=== PATIENT | female | born 1965 | race Caucasian/White ===

== ENCOUNTER → 2017-02-07 | Outpatient (REF) | payer MEDICARE, MEDICAID ==
[~2017-02-07] MED LIST: ATOR1TAB18 PO; ATRIPLA PO; BUPR10TASR PO; CALC600T7 PO; CYMB1CAP4 PO; HYDR-4274 PO; LEVE500T64 PO; LYRI75CA PO; MULTTAB12 PO; NYST5000 PO; OMEP40CA2 PO; OXYC1TAB23 PO; OXYC20TA21 PO; TRIA1CR TOP; VALT1TAB PO; ZALE10CA PO
[2017-02-07 14:24] LABS: ALBUMIN 3.7 GM/DL (3.2-5.2); ALBUMIN/GLOBULIN RATIO 1.03 (1.00-1.93); ALKALINE PHOSPHATASE 102 U/L (45-117); ALT/SGPT 23 U/L (12-78); ANION GAP 4 MEQ/L (8-16); AST/SGOT 15 U/L (15-37); BILIRUBIN,TOTAL 0.3 MG/DL (0.2-1.0); BLOOD UREA NITROGEN 10 MG/DL (7-18); CALCIUM LEVEL 9.6 MG/DL (8.5-10.1); CARBON DIOXIDE LEVEL 30 MEQ/L (21-32); CHLORIDE LEVEL 106 MEQ/L (98-107); CREATININE FOR GFR 0.84 MG/DL (0.55-1.02); GLOMERULAR FILTRATION RATE > 60.0 (>51); GLUCOSE, FASTING 89 MG/DL (70-105); POTASSIUM SERUM 4.1 MEQ/L (3.5-5.1); SODIUM LEVEL 140 MEQ/L (136-145); TOTAL PROTEIN 7.3 GM/DL (6.4-8.2)
[2017-02-17 14:16] LABS: %CD3+CD4+CD8+ 1.6 % (Not Estab.); %CD3+CD4+CD8- 36.5 % (Not Estab.); %CD3+CD4-CD8+ 47.6 % (Not Estab.); %CD3+CD4-CD8- 0.3 % (Not Estab.); ABS CD3+CD4+CD8+ 53 /uL (Not Estab.); ABS CD3+CD4+CD8- 1205 /uL (Not Estab.); ABS CD3+CD4-CD8+ 1571 /uL (Not Estab.); ABS CD3+CD4-CD8- 10 /uL (Not Estab.); CD4/CD8 NYSDOH RATIO 0.77 (Not Estab.); Eosinophils 2 % (.); HCT 38.9 % (34.0-46.6); HGB 13.2 g/dL (11.1-15.9); HLA B5701-1 Negative (.); Monocytes 5 % (.); Neutrophils 61 % (.); WBC 10.5 x10E3/uL (3.4-10.8)
== END ==
LOC: M SFHCPLAZ 10:21
PROVIDERS: ATTEND Internal Medicine Infectious Disease
DX: B20 Human immunodeficiency virus [HIV] disease (principal); Z79.899 Other long term (current) drug therapy
CPT/HCPCS: 36415; 80053; 81001; 81381; 82948; 86360; 86780; 87491; 87536; 87591; 90471; 90732; G0463

== ENCOUNTER 2017-06-24 08:00 | Emergency (ER) | payer MEDICARE, MEDICAID ==
[~2017-06-24] VITALS: Ht 162.6 cm; Wt 85.9 kg
[~2017-06-24 08:00] MED LIST changes: -ATOR1TAB18 PO; +ATOR80TA59 PO; -HYDR-4274 PO; +HYDR50TA70 PO; -OXYC20TA21 PO; +OXYC20TA40 PO
[2017-06-24 08:03] VITALS: BP 127/65
[2017-06-24] MEDS ORDERED: ENDO7.5T11 PO (08:10)
[2017-06-24] MEDS ORDERED: PATA0.2S OP (08:34)
[2017-06-24] MEDS ORDERED: ZYRT10CA PO (08:34)
== END 2017-06-24 08:44 | disposition home or self-care (01) ==
LOC: M ED 08:00
DX: H10.13 Acute atopic conjunctivitis, bilateral (principal); F41.9 Anxiety disorder, unspecified; F33.8 Other recurrent depressive disorders; Z21 Asymptomatic human immunodeficiency virus [HIV] infection status; Z88.0 Allergy status to penicillin; Z88.8 Allergy status to other drugs, medicaments and biological substances; Z88.5 Allergy status to narcotic agent; Z79.899 Other long term (current) drug therapy

== ENCOUNTER → 2017-07-14 | Outpatient (REF) | payer MEDICARE, MEDICAID, OTHER ==
[~2017-07-14] MED LIST changes: +ENDO7.5T11 PO; +PATA0.2S OP; +ZYRT10CA PO
== END ==
LOC: M SFHCWAGY 13:49
PROVIDERS: ATTEND Family Medicine
DX: R87.610 Atypical squamous cells of undetermined significance on cytologic smear of cervix (ASC-US) (principal); E66.9 Obesity, unspecified
CPT/HCPCS: 87624; G0123

== ENCOUNTER → 2017-07-14 | Outpatient (CLI) | payer MEDICARE, MEDICAID ==
--- NOTE | 2017-07-14 16:10 | REPMRS ---
Patient History The patient states she has not had a clinical breast exam in over a year. Patient is postmenopausal. Family history of prostate cancer in father at age 50 or over and unknown cancer in paternal aunt. 9 benign stereotactic core biopsies of the left breast, May 15, 2006. Digital Woman Screen Mammo: July 14, 2017 - Exam #: [id number] Bilateral CC and MLO view(s) were taken. Technologist: Ivory Ferrera, Technologist Prior study comparison: June 05, 2015, digital woman screen mammo performed at [facility]. August 04, 2011, bilateral digital mammo screening bilat, performed at [facility]. FINDINGS: There are scattered fibroglandular densities. There has been no change in the appearance of the mammogram from the prior studies. There is a mild amount of residual fibroglandular tissue which is fairly symmetric. There is no interval development of dominant mass, architectural distortion, or clustered microcalcification suggestive of malignancy. ASSESSMENT: BI-RADS/ACR category 1 mammogram. Negative. Recommendation Routine screening mammogram in 1 year (for women over age 40). This mammogram was interpreted with the aid of an FDA-approved computer-aided dectection system. Electronically Signed By: Yvon Ching MD 07/14/17 8226
== END ==
LOC: M WHC 13:23
PROVIDERS: ATTEND Family Medicine
DX: Z12.31 Encounter for screening mammogram for malignant neoplasm of breast (principal); Z78.0 Asymptomatic menopausal state; Z12.4 Encounter for screening for malignant neoplasm of cervix; R87.610 Atypical squamous cells of undetermined significance on cytologic smear of cervix (ASC-US); E66.9 Obesity, unspecified; Z92.89 Personal history of other medical treatment
CPT/HCPCS: 87624; G0101; G0123; G0202

== ENCOUNTER → 2017-08-18 | Outpatient (CLI) | payer OTHER, MEDICARE, MEDICAID ==
--- NOTE | 2017-09-07 01:02 | ECWPNPC ---
PATIENT NAME: CYNTHIA JOSHI : 1965 GENDER: FEMALE VISIT DATE: 08/18/2017 DISCHARGE DATE: 08/18/17 1241 VISIT LOCKED DATE TIME: PHYSICIAN: TREVA NAPOLES RESOURCE: TREVA NAPOLES REASON FOR APPOINTMENT 1. 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 WHEN DID YOUR PAIN FIRST START? . BRIEFLY DESCRIBE HOW YOUR PAIN STARTED? . HOW DOES YOUR PAIN CHANGE WITH TIME? . DOES YOUR PAIN AWAKEN YOU FROM SLEEP? . HOW MANY HOURS OF SLEEP DO YOU NORMALLY GET? . ANY DIAGNOSTIC TESTING? . FACILITY WHERE TESTS WERE DONE? ____. PAIN TREATMENT TREATMENT YES CANCER HAVE YOU EVER HAD ANY TYPE OF CANCER?NO NO. PAIN SCREENING: PATIENT HAS A COMPLAINT OF ACUTE OR CHRONIC PAIN :YES FALL RISK SCREENING: SCREENING :NO FALLS IN THE PAST YEAR SMITH INVENTORY: QUESTIONNAIRE ASSESSEDYES SCORE VALUE CALCULATED YES SCORE:21 DENIES SUICIDAL IDEATION CURRENT MEDICATIONS TAKING CALCIUM-VITAMIN D 600-200 MG-UNIT TABLET 1 TAB ORALLY BID TAKING VALACYCLOVIR HCL 500 MG TABLET 1 TAB ORALLY DAILY TAKING MULTI-DAY PLUS IRON - TABLET TAKE ONE TABLET BY MOUTH ONCE DAILY DIRECTED TAKING NYSTATIN 449258 UNIT/GM POWDER APPLY UNDER BREASTS AND ABDOMINAL FOLD 2 TIMES A DAY TOPICALLY TWICE A DAY TAKING LIPITOR 80 MG TABLET 1 TABLET DAILY ORALLY 30 DAY(S) TAKING KEPPRA 1000 MG TABLET 1 TAB ORALLY BID TAKING LYRICA 150 MG. CAPSULE 1 CAPSULE ORALLY THREE TIMES A DAY TAKING ENDOCET 7.5-500 MG TABLET 1 TABLET NEEDED ORALLY ONCE DAILY TAKING WELLBUTRIN XL 300 MG TABLET EXTENDED RELEASE 24 HOUR TAKE ONE TABLET BY MOUTH EVERY MORNING TAKING OMEPRAZOLE 40 MG CAPSULE DELAYED RELEASE 1 CAP BID ORALLY 30 DAY(S) TAKING ATRIPLA 600-200-300 MG TABLET 1 TABLET ON AN EMPTY STOMACH ORALLY DAILY TAKING HYDROXYZINE HCL 50 MG TABLET 1 TABLET NEEDED ORALLY BID TAKING AMBIEN 10 MG TABLET 1 TABLET AT BEDTIME NEEDED ORALLY ONCE A DAY TAKING SEROQUEL 50 MG TABLET 1 TABLET AT BEDTIME ORALLY QHS TAKING CYMBALTA 60 MG UNSPECIFIED 2 CAPSULE ORALLY ONCE A DAY LINCOLN TAKING TRIAMCINOLONE ACETONIDE 0.1 % CREAM 1 APPLICATION TO AREA EXTERNALLY BID PRN TAKING VENTOLIN HFA 108 (90 BASE) MCG/ACT AEROSOL SOLUTION 2 PUFFS INHALATION QID PRN NOT-TAKING MELOXICAM 15 MG TABLET 1 TABLET ORALLY ONCE A DAY, NOTES: NOT EFFECTIVE NOT-TAKING ATORVASTATIN CALCIUM 80 MG TABLET TAKE ONE TABLET BY MOUTH ONCE DAILY UNKNOWN VALTREX 1 GM TABLET TAKE TWO TABLETS BY MOUTH 2 TIMES A DAY NEEDED MEDICATION LIST REVIEWED AND RECONCILED WITH THE PATIENT PAST MEDICAL HISTORY ABNORMAL EKG HX ARRYTHMIA CHRONIC DDD MRI DONE 03/2016 LARGE DISC HERNIATION AT L5-S1 WITH MODERATE EXTRUSION ON WORKER'S COMPENSATION FOLLOWS UP WITH DR. AGUERO DEPRESSION/INSOMNIA TOBACCO ABUSE HYPERLIPIDEMIA RECURRENT SINUSITIS HIV DIAGNOSED IN 1992 ACQUIRED THROUGH HETEROSEXUAL SEX HER PARTNER WAS POSITIVE HIV UNDETECTED SINCE 2009 CD4 MORE THAN 1000 COLONOSCOPY 2006 EGD AND COLONOSCOPY [address] OTERO CHRONIC GASTRITIS AND DUODENITIS 2005 LEFT BREAST CALCIFICATION BIOPSY BENIGN SLEEP APNEA DAVON 1 DR HOPKINS COLPOSCOPY EVERY 6 MONTHS PAP EYELID INFECTION 10/2015 MODERATE TO SEVERE OBSTRUCTIVE SLEEP APNEA ON BIPAP 18/10 MYOCLONUS GERD ALLERGIES MORPHINE SULFATE: HIVES: ALLERGY AUGMENTIN: HIVES: ALLERGY ULTRAM: HIVES: ALLERGY SUDAFED: HIVES: ALLERGY BESIVANCE EYE DROPS: EYE SWELLING: ALLERGY SURGICAL HISTORY EYE SURGERY 1971 TONSILLECTOMY 1977 LEFT SALPINGOOOPHORECTOMY [facility] 1997 COLONOSCOPY AND EGD 06/2007 BREAST BIOPSY 03/2006 EGD AND COLONOSCOPY CHRONIC GASTRITIS AND DUODENITIS 04/18/2012 EXCISION B TOE NAILS BIG TOES DR PULIDO 04/2015 COLPOSCOPY WITH TRACY 06/15/15 HYSTARECTIUM LEFT LEG WOUNDS AGE 16 FAMILY HISTORY FATHER: 63 YRS, BLADDER [place], DIAGNOSED WITH CANCER MOTHER: ALIVE 73 YRS, CAD [place] AGE 61, DIAGNOSED WITH HEART DISEASE SIBLINGS: ALIVE, SISTER BRAIN ANEURYSM DAUGHTER(S): ALIVE 2 BROTHER(S) , 2 SISTER(S) - HEALTHY. 1 SON(S) - HEALTHY. ONE SISTER WITH BRAIN ANUERYSM. SOCIAL HISTORY GENERAL: TOBACCO USE ARE YOU A:CURRENT SMOKER ARE YOU INTERESTED IN QUITTING?READY TO QUIT COUNSELED THE PATIENT ON TOBACCO USE, CESSATION [id number]/29/2017 GAVE PT INFO ON QUITTING SMOKING CLASSES AVAILABLE / HAS TRIED MANY TIMES TO QUIT AND MULTIPLE MODALITIES PATIENT COUNSELED ON THE DANGERS OF TOBACCO USE AND URGED TO QUIT:08/18/2017 SMOKING CESSATION INFORMATION GIVEN08/18/2017 ALCOHOL SCREENING POINTS0 INTERPRETATIONNEGATIVE CAFFEINE CAFFEINE USE?YES HOW OFTEN AND HOW MUCH? DRINK COFFEE ALL DAY LONG DIET: REGULAR. EXERCISE: NONE. MARITAL STATUS: .. OTHERS AT HOME: NONE. PETS: 1 DOG, 1 CAT. BAPTIST [id number] NONE LANGUAGE LANGUAGES SPOKEN:TRINIDADIAN LEARNING BARRIERS / SPECIAL NEEDS BARRIERS TO LEARNING?NO HEARING IMPAIRED?NO VISION IMPAIRED?NO COGNITIVELY IMPAIRED?NO READINESS TO LEARN?YES LEARNING CAPABILITIES PRESENT?YES EMOTIONAL BARRIERS?NO SPECIAL DEVICES?NO PSYCHOLOGICAL HX TREATMENTYES HOW OFTEN AND HOW MUCH? 2 TIMES PER WEEK / NO LONGER ATTENDING PAIN CLINIC PFS, CLERGY, PUBLIC HEALTH REFERRALS PFS REFERRAL NEEDED?NO CLERGY REFERRAL NEEDED?NO PUBLIC HEALTH REFERRAL NEEDED?NO WAS THE PROVIDER NOTIFIED OF ANY PERTINENT INFO?NO HAS THE PATIENT BEEN EDUCATED REGARDING HIS/HER PLAN OF CARE?YES HAS THE PATIENT BEEN EDUCATED REGARDING PAIN, THE RISK FOR PAIN, THE IMPORTANCE OF EFFECTIVE PAIN MANAGEMENT, AND THE PAIN ASSESSMENT PROCESS?YES PATIENT: ____. ADVANCE DIRECTIVES HEALTH CARE PROXY?NO WOULD YOU LIKE MORE INFORMATION?NO DO YOU HAVE A DNR?NO WOULD YOU LIKE MORE INFORMATION?NO LIVING WILL?NO WOULD YOU LIKE MORE INFORMATION?NO POWER OF PSYCHIATRIC LPN?NO WOULD YOU LIKE MORE INFORMATION?NO PATIENT LIVES ALONE IN A HOUSE SHE RENTS THE PAST APARTMENT. SHE TAKES CARE OF HER 2 GRANDCHILDREN EZ AND RAMANA. HER SON IS ON SOCIAL SECURITY INCOME IS 23-YEAR-OLD [place] AND HE WILL MOVING TO [place] TO BE WITH HIS FATHER. SHE IS BUT FROM FROM HER BUT THEY SEE EACH OTHER ON THE WEEKEND. SHE SMOKES ONE PACK OF CIGARETTES A DAY SHE TRIED TO QUIT WITH NICOTINE PATCHES WELL WITH CHANTIX. HOSPITALIZATION/MAJOR DIAGNOSTIC PROCEDURE RELATED TO SURGERY [facility] FOR 1 MONTH FOR SUICIDE ATTEMPTS 1997 REVIEW OF SYSTEMS REVIEWED BY: PROVIDER: TREVA ESCALANTE . CONSTITUTIONAL: ANY CHANGE IN YOUR MEDICAL CONDITION? NO . CHILLS NO . FEVER NO . INFECTION: DO YOU HAVE NEW INFECTIONS? NO . DO YOU HAVE HISTORY OF MRSA? YES PT REPORTS HISTORY OF MRSA HIP, ABDOMEN, FOOT, AND BUTTOCKS 2016. . MUSCULOSKELETAL: ANY NEW PATTERNS OF PAIN OR NUMBNESS? NO . SYTEMIC LUPUS NO . GASTROENTEROLOGY: ANY NEW CHANGE IN BOWEL CONTROL? NO . BARRETTS ESOPHAGUS NO . CIRRHOSIS NO . HEPATITIS NO . LIVER FAILURE NO . ACID REFLUX YES . UNEXPLAINED WEIGHT LOSS NO . GENITOURINARY: ANY NEW CHANGE IN BLADDER CONTROL? NO . IS THERE A CHANCE YOU COULD BE ? NO . HEMATOLOGY/LYMPH: DO YOU TAKE ANY BLOOD THINNERS? (FOR EXAMPLE- COUMADIN, PLAVIX, AGGRENOX, PLATEL, PRADAXA, OR XARELTO) NO . WHEN WAS YOUR LAST DOSE? DATE: TIME: . LOW PLATELET COUNT NO . SICKLE CELL DISEASE NO . VON WILLIEBRANDS NO . FACTOR V LEIDEN NO . THALLASEMIA NO . ANEMIA NO . EASY BRUISING NO . NEUROLOGY: HAVE YOU FALLEN IN THE PAST 6 MONTHS? NO . ANY NEW EXTREMITY NUMBNESS OR WEAKNESS? NO . HEAD INJURY NO . DEMENTIA NO . CEREBRAL PALSY NO . MULTIPLE SCLEROSIS NO . DIZZINESS NO . HEADACHE NO . STROKES NO . VERTIGO NO / HAS HAD BELLS PALSY . CARDIOLOGY: DO YOU HAVE A PACEMAKER OR DEFIBRILLATOR? NO . ANGINA NO . HEART ATTACK NO . HEART SURGERY NO . CONGESTIVE HEART FAILURE/FLUID OVERLOAD NO . CHEST PAIN NO . HIGH BLOOD PRESSURE NO . IRREGULAR HEART BEAT NO . RESPIRATORY: HAVE YOU BEEN SICK IN THE PAST WEEK? NO . FEVER NO . FLU LIKE SYMPTOMS? NO . CPAP NO . BYPAP YES . ASTHMA NO . EMPHYSEMA NO . CHRONIC LUNG DISEASES NO . SHORTNESS OF BREATH ON EXERTION YES . DO YOU USE ANY TYPE OF TOBACCO (SMOKE, SMOKELESS, CHEW)? YES . COUGH NO . SNORING NO . INTEGUMENTARY: DO YOU HAVE ANY RASHES OR OPEN SORES? NO . ALLERGIC/IMMUNO: ARE YOU ALLERGIC TO SHELLFISH OR IV DYE? NO . ANY NEW ALLERGIES? NO . PSYCHIATRIC: DO YOU HAVE THOUGHTS OF HURTING YOURSELF OR SOMEONE ELSE? NO . ARE YOU ABUSED, NEGLECTED, OR IN AN UNSAFE ENVIRONMENT? NO . ENDOCRINOLOGY: ARE YOU DIABETIC? NO . THYROID DISORDER NO . OTHER: DO YOU NEED ANY PRESCRIPTIONS? NO . IF YES, PLEASE LIST: ____ . ANY NEW PROBLEMS WITH YOUR MEDICATIONS? NO . WHEN DID YOU LAST EAT? ____ . WHEN DID YOU LAST DRINK? ____ . WHAT DID YOU LAST DRINK? ____ . NAME OF PERSON DRIVING YOU HOME? ____ . DO YOU HAVE ANY OTHER QUESTIONS OR CONCERNS NO . VITAL SIGNS WT 193 LBS, HT 64 IN, BMI 33.12 INDEX, BP 130/68 MM HG, HR 82 /MIN, RR 18 /MIN, TEMP 98.6 F, OXYGEN SAT % 93%, SAFE IN ENV? (Y/N) YES, REVIEWED BY: CHEL. EXAMINATION GENERAL EXAMINATION: GENERAL APPEARANCE:COMFORTABLE . PSYCHAFFECT NORMAL . NECK:TRACHEA MIDLINE. NO CERVICAL OR SUPRACLAVICULAR LYMPHADENOPATHY NOTED . LUNGS:LUNG BURGOS ARE CLEAR TO AUSCULTATION BILATERALLY. GOOD MOVEMENT OF AIR . HEART:S1, S2 IN A REGULAR RATE AND RHYTHM. NO SIGNIFICANT MURMURS, RUBS OR GALLOPS NOTED . ABDOMEN:SOFT, NON-TENDER/NON-DISTENDED, BOWEL SOUNDS PRESENT . LUMBAR SACRAL SPINEMUSCLE STRENGTH TESTING 5/5 BILATERAL, PALPATION: NEGATIVE FOR PAIN OVER L/S SPINE. NEGATIVE FOR PAIN OVER L/S PARASPINALS,SPECIFIC POINT TENDERNESS OVER BILATERAL FACETS.POINT TENDERNESS OVER BILATERAL SIJ.. 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 PREVENTIVE MEDICINE REVIEWED PRE PROCEDURE CARE AND NOT TAKING ANY PAIN MEDS BEFORE PROCEDURE. PT EXPRESSED UNDERSTANDING OF CARE. PROCEDURE CODES FA211 ESTABILISHED PATIENT [facility] FACILITY CHARGE G8730 PAIN ASSESS POS TOOL F/U PLAN DOC G8427 DOC MEDS VERIFIED W/PT OR RE DISPOSITION & COMMUNICATION FOLLOW UP 4 WEEKS (REASON: REQUEST DIAGNOSTIC LEFT L4/5-L5/S1 DIAGNOSTIC BLOCK W/C) ELECTRONICALLY SIGNED BY BORIS CEVALLOS ON 09/06/2017 AT 06:25 PM EDT DISCLAIMER : THIS IS A VISIT SUMMARY EXTRACTED FROM THE [employer] CHART. IT IS NOT A COPY OF THE [employer] PROGRESS NOTE. KRIS
== END ==
LOC: M PAIN 11:15
PROVIDERS: ATTEND Nurse Practitioner Family
DX: M43.06 Spondylolysis, lumbar region (principal); M51.26 Other intervertebral disc displacement, lumbar region; Z79.891 Long term (current) use of opiate analgesic; Z79.899 Other long term (current) drug therapy; E78.5 Hyperlipidemia, unspecified; F32.9 Major depressive disorder, single episode, unspecified; B20 Human immunodeficiency virus [HIV] disease; B00.2 Herpesviral gingivostomatitis and pharyngotonsillitis; F17.210 Nicotine dependence, cigarettes, uncomplicated; K21.9 Gastro-esophageal reflux disease without esophagitis; F41.1 Generalized anxiety disorder; Z88.5 Allergy status to narcotic agent; Z88.1 Allergy status to other antibiotic agents; Z88.8 Allergy status to other drugs, medicaments and biological substances

== ENCOUNTER → 2017-08-22 | Outpatient (REF) | payer OTHER ==
[2017-08-25 08:17] LABS: ACETAMINOPHEN Negative ug/mL (10-30); AMITRIPTYLINE None Detected (Not Estab.); BUTALBITAL None Detected ug/mL (1-10); DESIPRAMINE None Detected (Not Estab.); DIAZEPAM None Detected ug/mL (0.1-0.9); DOXEPIN None Detected (Not Estab.); ETHANOL Negative % (0.000-0.010); NORCHLORDIAZEPOXIDE None Detected ug/mL (0.1-0.6); NORDIAZEPAM None Detected ug/mL (0.1-1.4); NORDOXEPIN None Detected (Not Estab.); NORTRIPTYLINE None Detected ng/mL (50-150); PENTOBARBITAL None Detected ug/mL (1-5); PHENOBARBITAL None Detected ug/mL (15-40); PHENYTOIN None Detected ug/mL (10.0-20.0)
== END ==
LOC: M LABDRAW1 15:41
PROVIDERS: ATTEND Physical Medicine & Rehabilitation
DX: M51.27 Other intervertebral disc displacement, lumbosacral region (principal)
CPT/HCPCS: 84600; G0480

== ENCOUNTER → 2017-08-22 | Outpatient (REF) | payer OTHER, MEDICARE, MEDICAID | LOC: M LABDRAW1 13:58 | PROVIDERS: ATTEND Internal Medicine Infectious Disease | DX: A09 Infectious gastroenteritis and colitis, unspecified (principal) ==

== ENCOUNTER → 2017-08-30 | Outpatient (REF) | payer MEDICARE, MEDICAID | LOC: M LAB REF 13:54 | PROVIDERS: ATTEND Ophthalmology | DX: H02.831 Dermatochalasis of right upper eyelid (principal); H02.834 Dermatochalasis of left upper eyelid ==

== ENCOUNTER → 2017-09-19 | Outpatient (CLI) | payer OTHER, MEDICAID, MEDICARE ==
[~2017-09-19] MED LIST changes: +BUPIVACAINE HCL 0.25% 30 ML VIAL As Ordered ONE; +ISOVUE-M 300 61% 15ML VIAL (Q9967) As Ordered ONE; +LIDOCAINE 1% SDV INJ 30 ML VIAL As Ordered ONE
--- NOTE | 2017-09-19 17:07 | REP ---
LEFT LUMBAR FACET INJECTION: All imaging was reviewed with Dr. Ching prior to dictation. The portable C-ARM was provided in the OR for Dr. Aceves for fluoroscopic guidance. Two intraoperative fluoroscopic spot films were obtained using last image hold technology for needle placement verification for left lumbar facet injection. The films are on the PACS system and are available for review. Fluoroscopy time of 22 seconds were utilized for this procedure. Reviewed by GERRI Garner 09/20/2017 04:51 PEdited and Signed by Yvon Ching MD 09/21/2017 07:16 P
--- NOTE | 2017-10-04 00:35 | ECWPNPC ---
PATIENT NAME: CYNTHIA JOSHI : 1965 GENDER: FEMALE VISIT DATE: 09/19/2017 DISCHARGE DATE: 09/19/17 1216 VISIT LOCKED DATE TIME: PHYSICIAN: SHANTE TUCKER RESOURCE: SHANTE TUCKER REASON FOR APPOINTMENT 1. LFD LEFT L4/5-L5/S1 HISTORY OF PRESENT ILLNESS HISTORY OF PRESENT ILLNESS: PAIN THE PATIENT DESCRIBES THE PAIN... FALL RISK SCREENING: SCREENING :NO FALLS IN THE PAST YEAR CURRENT MEDICATIONS TAKING CALCIUM-VITAMIN D 600-200 MG-UNIT TABLET 1 TAB ORALLY BID, NOTES: 09-18-172099 TAKING MULTI-DAY PLUS IRON - TABLET TAKE ONE TABLET BY MOUTH ONCE DAILY DIRECTED , NOTES: 09-18-17899 TAKING NYSTATIN [id number] UNIT/GM POWDER APPLY UNDER BREASTS AND ABDOMINAL FOLD 2 TIMES A DAY TOPICALLY TWICE A DAY, NOTES: 09-18-17 TAKING LIPITOR 80 MG TABLET 1 TABLET DAILY ORALLY 30 DAY(S) , NOTES: 09-18-172099 TAKING KEPPRA 1000 MG TABLET 1 TAB ORALLY BID, NOTES: 09-18-172099 TAKING LYRICA 150 MG. CAPSULE 1 CAPSULE ORALLY THREE TIMES A DAY, NOTES: 2099 TAKING WELLBUTRIN XL 300 MG TABLET EXTENDED RELEASE 24 HOUR TAKE ONE TABLET BY MOUTH EVERY MORNING , NOTES: 09-18-172099 TAKING ENDOCET 7.5-500 MG TABLET 1 TABLET NEEDED ORALLY ONCE DAILY, NOTES: 09-18-172099 TAKING OMEPRAZOLE 40 MG CAPSULE DELAYED RELEASE 1 CAP BID ORALLY 30 DAY(S) , NOTES: 09-19-17899 TAKING TRIAMCINOLONE ACETONIDE 0.1 % CREAM 1 APPLICATION TO AREA EXTERNALLY BID PRN, NOTES: NOT LATELY TAKING VENTOLIN HFA 108 (90 BASE) MCG/ACT AEROSOL SOLUTION 2 PUFFS INHALATION QID PRN, NOTES: NOT LATELY TAKING ATRIPLA 600-200-300 MG TABLET 1 TABLET ON AN EMPTY STOMACH ORALLY DAILY, NOTES: 2099 TAKING ATORVASTATIN CALCIUM 80 MG TABLET TAKE ONE TABLET BY MOUTH ONCE DAILY , NOTES: 09-18-17899 TAKING HYDROXYZINE HCL 50 MG TABLET 1 TABLET NEEDED ORALLY BID, NOTES: 09-18-17899 TAKING SEROQUEL 50 MG TABLET 1 TABLET AT BEDTIME ORALLY QHS, NOTES: 09-18-172099 TAKING CYMBALTA 60 MG UNSPECIFIED 2 CAPSULE ORALLY ONCE A DAY LINCOLN, NOTES: 09-18-172099 TAKING LEVOTHYROXINE SODIUM 50 MCG TABLET 1 TABLET ON AN EMPTY STOMACH IN THE MORNING ORALLY ONCE A DAY, NOTES: 09-19-17 0800 TAKING AMBIEN 10 MG TABLET 1 TABLET AT BEDTIME NEEDED ORALLY ONCE A DAY, NOTES: 09-17-172099 NOT-TAKING VALACYCLOVIR HCL 500 MG TABLET 1 TAB ORALLY DAILY, NOTES: NO LONGER TAKING MEDICATION LIST REVIEWED AND RECONCILED WITH THE PATIENT PAST MEDICAL HISTORY ABNORMAL EKG HX ARRYTHMIA CHRONIC DDD MRI DONE 03/2016 LARGE DISC HERNIATION AT L5-S1 WITH MODERATE EXTRUSION ON WORKER'S COMPENSATION FOLLOWS UP WITH DR. AGUERO DEPRESSION/INSOMNIA TOBACCO ABUSE HYPERLIPIDEMIA RECURRENT SINUSITIS HIV DIAGNOSED IN 1992 ACQUIRED THROUGH HETEROSEXUAL SEX HER PARTNER WAS POSITIVE HIV UNDETECTED SINCE 2009 CD4 MORE THAN 1000 COLONOSCOPY 2006 EGD AND COLONOSCOPY [address] OTERO CHRONIC GASTRITIS AND DUODENITIS 2005 LEFT BREAST CALCIFICATION BIOPSY BENIGN SLEEP APNEA DAVON 1 DR HOPKINS COLPOSCOPY EVERY 6 MONTHS PAP EYELID INFECTION 10/2015 MODERATE TO SEVERE OBSTRUCTIVE SLEEP APNEA ON BIPAP 06/09 MYOCLONUS ALLERGIES MORPHINE SULFATE: HIVES: ALLERGY AUGMENTIN: HIVES: ALLERGY ULTRAM: HIVES: ALLERGY SUDAFED: HIVES: ALLERGY BESIVANCE EYE DROPS: EYE SWELLING: ALLERGY SURGICAL HISTORY EYE SURGERY 1971 TONSILLECTOMY 1977 LEFT SALPINGOOOPHORECTOMY [facility] 1997 COLONOSCOPY AND EGD 06/2007 BREAST BIOPSY 03/2006 EGD AND COLONOSCOPY CHRONIC GASTRITIS AND DUODENITIS 04/18/2012 EXCISION B TOE NAILS BIG TOES DR PULIDO 04/2015 COLPOSCOPY WITH TRACY 06/15/15 HYSTARECTIUM LEFT LEG WOUNDS AGE 16 HOSPITALIZATION/MAJOR DIAGNOSTIC PROCEDURE RELATED TO SURGERY [facility] FOR 1 MONTH FOR SUICIDE ATTEMPTS 1997 REVIEW OF SYSTEMS REVIEWED BY: PROVIDER: . CONSTITUTIONAL: ANY CHANGE IN YOUR MEDICAL CONDITION? NO . CHILLS NO . FEVER NO . INFECTION: DO YOU HAVE NEW INFECTIONS? NO . DO YOU HAVE HISTORY OF MRSA? NO . MUSCULOSKELETAL: ANY NEW PATTERNS OF PAIN OR NUMBNESS? NO . GASTROENTEROLOGY: ANY NEW CHANGE IN BOWEL CONTROL? NO . GENITOURINARY: ANY NEW CHANGE IN BLADDER CONTROL? NO . IS THERE A CHANCE YOU COULD BE ? NO . HEMATOLOGY/LYMPH: DO YOU TAKE ANY BLOOD THINNERS? (FOR EXAMPLE- COUMADIN, PLAVIX, AGGRENOX, PLATEL, PRADAXA, OR XARELTO) NO . WHEN WAS YOUR LAST DOSE? DATE: TIME: . NEUROLOGY: HAVE YOU FALLEN IN THE PAST 6 MONTHS? NO . ANY NEW EXTREMITY NUMBNESS OR WEAKNESS? NO . CARDIOLOGY: DO YOU HAVE A PACEMAKER OR DEFIBRILLATOR? NO . RESPIRATORY: HAVE YOU BEEN SICK IN THE PAST WEEK? NO . FEVER NO . FLU LIKE SYMPTOMS? NO . COUGH NO . INTEGUMENTARY: DO YOU HAVE ANY RASHES OR OPEN SORES? NO . ALLERGIC/IMMUNO: ARE YOU ALLERGIC TO SHELLFISH OR IV DYE? NO . ANY NEW ALLERGIES? NO . PSYCHIATRIC: DO YOU HAVE THOUGHTS OF HURTING YOURSELF OR SOMEONE ELSE? NO . ARE YOU ABUSED, NEGLECTED, OR IN AN UNSAFE ENVIRONMENT? NO . ENDOCRINOLOGY: ARE YOU DIABETIC? NO . OTHER: DO YOU NEED ANY PRESCRIPTIONS? NO . IF YES, PLEASE LIST: ____ . ANY NEW PROBLEMS WITH YOUR MEDICATIONS? NO . WHEN DID YOU LAST EAT? ____1030 PM LAST NIGHT . WHEN DID YOU LAST DRINK? ____630 AM . WHAT DID YOU LAST DRINK? ____WATER . NAME OF PERSON DRIVING YOU HOME? ____FRIEND OR MEDICAID CAB . DO YOU HAVE ANY OTHER QUESTIONS OR CONCERNS NO . VITAL SIGNS WT 198.0 LBS, HT 64 IN, BMI 33.98 INDEX, BP 128/69 MM HG, HR 95 /MIN, RR 16 /MIN, TEMP 97.7 F, OXYGEN SAT % 94%, NA INITIALS TL 1055. ASSESSMENTS SPONDYLOSIS OF LUMBAR REGION WITHOUT MYELOPATHY OR RADICULOPATHY - M47.816 (PRIMARY) SPONDYLOSIS OF LUMBOSACRAL REGION WITHOUT MYELOPATHY OR RADICULOPATHY - M47.817 PROCEDURES PN LUMBAR FACET BLOCK DIAGNOSTIC PRE PROCEDURE DIAGNOSIS LUMBAR SPONDYLOSIS, LUMBOSACRAL SPONDYLOSIS POST PROCEDURE DIAGNOSIS LUMBAR SPONDYLOSIS, LUMBOSACRAL SPONDYLOSIS PROCEDURE LEFT L4-L5 AND LEFT L5-S1 FACET BLOCK DIAGNOSTIC NUMBER [address] SHANTE TUCKER CHEMICAL EQUIPMENT REPAIRER NONE ANESTHESIA LOCAL PRE PROCEDURE NOTE THE PATIENT WITH HISTORY OF CHRONIC LOW BACK PAIN. I EVALUATED THE PATIENT AND REVIEWED THE CHART. I WENT OVER THE RISKS, ALTERNATIVES, AND BENEFITS ASSOCIATED WITH THIS PROCEDURE. THE PATIENT WOULD LIKE TO PROCEED AND GAVE CONSENT TO PERFORM THE PROCEDURE. AGREED WITH THE PATIENT WE ARE DOING THIS PROCEDURE TO DETERMINE IF THE PATIENT IS A CANDIDATE FOR A RADIOFREQUENCY ABLATION OF THE FACETS JOINTS. THE PATIENT DENIES UNEXPLAINABLE WEIGHT LOSS, FEVER, CHILLS, OR NEW CHANGES IN URINARY OR BOWEL CONTROL DESCRIPTION OF PROCEDURE THE PATIENT WAS BROUGHT TO THE PROCEDURE ROOM AND PLACED IN THE PRONE POSITION. THE LUMBOSACRAL AREA WAS CLEANED WITH CHLORAPREP SOLUTION AND DRAPED ASEPTICALLY. THE PROCEDURE WAS DONE UNDER STERILE CONDITIONS. I CHECKED LATERALITY AND THE LEVEL WHERE THE PROCEDURE WAS GOING TO BE PERFORMED WITH THE PATIENT AND THE SUPPORTING STAFF AT THE MOMENT OF THE TIME OUT IN THE PROCEDURE ROOM. UNDER FLUOROSCOPIC GUIDANCE, TARGETS WERE SELECTED AT THE INTERSECTION OF THE LEFT TRANSVERSE PROCESS OF L4, L5 AND ALA OF S1 WITH ITS RESPECTIVE SUPERIOR ARTICULAR PROCESS. LIDOCAINE WAS USED TO NUMB THE SKIN AND THE SUBCUTANEOUS TISSUE BELOW IT. SPINAL NEEDLE, 22-GAUGE WAS ADVANCED UNDER FLUOROSCOPIC GUIDANCE AND FOLLOWING PATIENT FEEDBACK UNTIL THE TARGETS WERE REACHED. POSITION OF THE NEEDLES WAS VERIFIED WITH AP AND LATERAL VIEWS. AFTER PROPER POSITION OF THE NEEDLES WAS ACHIEVED, ISOVUE-M DYE 30% 0.1 ML WAS INJECTED AT EACH SITE SHOWING ADEQUATE SPREAD OF THE DYE. THEN A SOLUTION OF 0.4 ML OF BUPIVACAINE 0.25% WAS INJECTED AT EACH SITE. THERE WAS NO EVIDENCE OF BLOOD, PARESTHESIA OR CEREBROSPINAL FLUID DURING THE PROCEDURE. THE PATIENT WAS SENT TO THE RECOVERY ROOM. THE PATIENT WAS MOVING THE EXTREMITIES AND DOING WELL. THERE WAS NO COMPLICATION DURING THE PROCEDURE. FLUOROSCOPY TIME WAS 22 SECONDS POST PROCEDURE NOTE THE PATIENT WILL DOCUMENT HIS PAIN LEVEL AND RESPONSE TO THIS PROCEDURE EVERY 30 MINUTES. THE PATIENT WILL BE SEEN IN A FOLLOW UP IN THE NEXT FEW WEEKS. FURTHER DETERMINATION FOR HIS CASE WILL BE DONE AT THE NEXT VISIT. INSTRUCTIONS WERE GIVEN, QUESTIONS WERE ANSWERED, AND THE PATIENT EXPRESSED UNDERSTANDING AND AGREED WITH THE PLAN. I, ZACH CASTRO, DOCUMENTED THE ABOVE INFORMATION ACTING A SCRIBE FOR DR. TUCKER. I HAVE REVIEWED THE ABOVE DOCUMENT, WRITTEN BY ZACH CASTRO SCRIBCisco AND I VERIFY THAT IT IS ACCURATE DIAGNOSTIC IMAGING [facility] FACET BLOCK (PAIN)[id number] PROCEDURE CODES 90085 INJ PARAVERT F JNT L/S 1 LEV, [place]: [place] [address] INJ PARAVERT F JNT L/S 2 LEV, MODIFIERS: LT 6045F RADXPS IN END [id number] PXD DISPOSITION & COMMUNICATION FOLLOW UP 3 WEEKS ELECTRONICALLY SIGNED BY SHANTE TUCKER MD ON 10/03/2017 AT 02:19 PM EST DISCLAIMER : THIS IS A VISIT SUMMARY EXTRACTED FROM THE [employer] CHART. IT IS NOT A COPY OF THE [employer] PROGRESS NOTE. KRIS
== END ==
LOC: M PAIN 10:45
PROVIDERS: ATTEND Anesthesiology
DX: G89.29 Other chronic pain (principal); M47.816 Spondylosis without myelopathy or radiculopathy, lumbar region; M47.817 Spondylosis without myelopathy or radiculopathy, lumbosacral region; M54.5 Low back pain; E78.5 Hyperlipidemia, unspecified; F32.9 Major depressive disorder, single episode, unspecified; Z79.899 Other long term (current) drug therapy; Z88.1 Allergy status to other antibiotic agents; Z88.5 Allergy status to narcotic agent; Z88.8 Allergy status to other drugs, medicaments and biological substances
CPT/HCPCS: 64493; 64494; Q9967

== ENCOUNTER → 2017-10-16 | Outpatient (CLI) | payer OTHER ==
[~2017-10-16] MED LIST changes: -BUPIVACAINE HCL 0.25% 30 ML VIAL As Ordered ONE; -ISOVUE-M 300 61% 15ML VIAL (Q9967) As Ordered ONE; -LIDOCAINE 1% SDV INJ 30 ML VIAL As Ordered ONE
--- NOTE | 2017-11-02 00:02 | ECWPNPC ---
PATIENT NAME: CYNTHIA JOSHI : 1965 GENDER: FEMALE VISIT DATE: 10/16/2017 DISCHARGE DATE: 10/16/17 1201 VISIT LOCKED DATE TIME: PHYSICIAN: TREVA NAPOLES RESOURCE: TREVA NAPOLES REASON FOR APPOINTMENT 1. W/C, POST PROCEDURE HISTORY OF PRESENT ILLNESS HISTORY OF PRESENT ILLNESS: PAIN THE PATIENT DESCRIBES THE PAIN... 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 WHEN DID YOUR PAIN FIRST START? . BRIEFLY DESCRIBE HOW YOUR PAIN STARTED? . HOW DOES YOUR PAIN CHANGE WITH TIME? . DOES YOUR PAIN AWAKEN YOU FROM SLEEP? . HOW MANY HOURS OF SLEEP DO YOU NORMALLY GET? . ANY DIAGNOSTIC TESTING? . FACILITY WHERE TESTS WERE DONE? ____. PAIN TREATMENT TREATMENT YES CANCER HAVE YOU EVER HAD ANY TYPE OF CANCER?NO NO. CURRENT MEDICATIONS TAKING VALACYCLOVIR HCL 500 MG TABLET 1 TAB ORALLY DAILY TAKING NYSTATIN 473406 UNIT/GM POWDER APPLY UNDER BREASTS AND ABDOMINAL FOLD 2 TIMES A DAY TOPICALLY TWICE A DAY TAKING KEPPRA 1000 MG TABLET 1 TAB ORALLY BID TAKING LYRICA 150 MG. CAPSULE 1 CAPSULE ORALLY THREE TIMES A DAY TAKING WELLBUTRIN XL 300 MG TABLET EXTENDED RELEASE 24 HOUR TAKE ONE TABLET BY MOUTH EVERY MORNING TAKING ENDOCET 7.5-500 MG TABLET 1 TABLET NEEDED ORALLY ONCE DAILY, NOTES: TAKES 1 TAB Q 4 HRS PRN TAKING OMEPRAZOLE 40 MG CAPSULE DELAYED RELEASE 2 CAPS DAILY TAKING TRIAMCINOLONE ACETONIDE 0.1 % CREAM 1 APPLICATION TO AREA EXTERNALLY BID PRN TAKING VENTOLIN HFA 108 (90 BASE) MCG/ACT AEROSOL SOLUTION 2 PUFFS INHALATION QID PRN TAKING ATRIPLA 600-200-300 MG TABLET 1 TABLET ON AN EMPTY STOMACH ORALLY DAILY TAKING ATORVASTATIN CALCIUM 80 MG TABLET TAKE ONE TABLET BY MOUTH ONCE DAILY TAKING HYDROXYZINE HCL 50 MG TABLET 1 TABLET NEEDED ORALLY BID TAKING CYMBALTA 60 MG UNSPECIFIED 2 CAPSULE ORALLY ONCE A DAY LINCOLN TAKING LEVOTHYROXINE SODIUM 50 MCG TABLET 1 TABLET ON AN EMPTY STOMACH IN THE MORNING ORALLY ONCE A DAY TAKING AMBIEN 10 MG TABLET 1 TABLET AT BEDTIME NEEDED ORALLY ONCE A DAY TAKING MULTI-DAY PLUS IRON - TABLET TAKE ONE TABLET BY MOUTH ONCE DAILY DIRECTED TAKING CALCIUM-VITAMIN D 600-200 MG-UNIT TABLET 1 TAB ORALLY BID TAKING SEROQUEL 50 MG TABLET 1 TABLET AT BEDTIME ORALLY QHS DISCONTINUED LIPITOR 80 MG TABLET 1 TABLET DAILY ORALLY 30 DAY(S) MEDICATION LIST REVIEWED AND RECONCILED WITH THE PATIENT PAST MEDICAL HISTORY ABNORMAL EKG HX ARRYTHMIA CHRONIC DDD MRI DONE 03/2016 LARGE DISC HERNIATION AT L5-S1 WITH MODERATE EXTRUSION ON WORKER'S COMPENSATION FOLLOWS UP WITH DR. AGUERO DEPRESSION/INSOMNIA TOBACCO ABUSE HYPERLIPIDEMIA RECURRENT SINUSITIS HIV DIAGNOSED IN 1992 ACQUIRED THROUGH HETEROSEXUAL SEX HER PARTNER WAS POSITIVE HIV UNDETECTED SINCE 2009 CD4 MORE THAN 1000 COLONOSCOPY 2007 EGD AND COLONOSCOPY [address] OTERO CHRONIC GASTRITIS AND DUODENITIS 2006 LEFT BREAST CALCIFICATION BIOPSY BENIGN SLEEP APNEA DAVON 1 DR HOPKINS COLPOSCOPY EVERY 6 MONTHS PAP EYELID INFECTION 10/2015 MODERATE TO SEVERE OBSTRUCTIVE SLEEP APNEA ON BIPAP 18/10 MYOCLONUS HYPOTHYROIDISM ALLERGIES MORPHINE SULFATE: HIVES: ALLERGY AUGMENTIN: HIVES: ALLERGY ULTRAM: HIVES: ALLERGY SUDAFED: HIVES: ALLERGY BESIVANCE EYE DROPS: EYE SWELLING: ALLERGY SOCIAL HISTORY GENERAL: TOBACCO USE ARE YOU A:CURRENT SMOKER ARE YOU INTERESTED IN QUITTING?THINKING ABOUT QUITTING TRYING TO CUT DOWN, SHE DECLINES INFORMATION STATING SHE ALREADY HAD IT. COUNSELED THE PATIENT ON SMOKING CESSATION, EDUCATION [id number]/27/2017 HOW MANY CIGARETTES A DAY DO YOU SMOKE?11-20 HOW SOON AFTER YOU WAKE UP DO YOU SMOKE YOUR FIRST CIGARETTE?6-30 MIN HOW OFTEN DO YOU SMOKE CIGARETTES?EVERY DAY PATIENT COUNSELED ON THE DANGERS OF TOBACCO USE AND URGED TO QUIT:10/16/2017 SMOKING CESSATION INFORMATION GIVEN08/29/2017 ALCOHOL SCREENING DID YOU HAVE A DRINK CONTAINING ALCOHOL IN THE PAST YEAR?NO POINTS0 INTERPRETATIONNEGATIVE RECREATIONAL DRUG USE DRUG USE?NO CAFFEINE CAFFEINE USE?YES HOW OFTEN AND HOW MUCH? DRINK COFFEE ALL DAY LONG DIET: REGULAR. EXERCISE: NONE. MARITAL STATUS: .. OTHERS AT HOME: NONE. PETS: 1 DOG, 1 CAT. MANDAEN [id number] NONE LANGUAGE LANGUAGES SPOKEN:PALAUAN LEARNING BARRIERS / SPECIAL NEEDS BARRIERS TO LEARNING?NO HEARING IMPAIRED?NO VISION IMPAIRED?NO COGNITIVELY IMPAIRED?NO READINESS TO LEARN?YES LEARNING CAPABILITIES PRESENT?YES EMOTIONAL BARRIERS?NO SPECIAL DEVICES?NO PSYCHOLOGICAL HX TREATMENTYES HOW OFTEN AND HOW MUCH? 2 TIMES PER WEEK / NO LONGER ATTENDING PAIN CLINIC PFS, CLERGY, PUBLIC HEALTH REFERRALS PFS REFERRAL NEEDED?NO CLERGY REFERRAL NEEDED?NO PUBLIC HEALTH REFERRAL NEEDED?NO WAS THE PROVIDER NOTIFIED OF ANY PERTINENT INFO?NO HAS THE PATIENT BEEN EDUCATED REGARDING HIS/HER PLAN OF CARE?YES HAS THE PATIENT BEEN EDUCATED REGARDING PAIN, THE RISK FOR PAIN, THE IMPORTANCE OF EFFECTIVE PAIN MANAGEMENT, AND THE PAIN ASSESSMENT PROCESS?YES REVIEWED BY: 10/16/17 1112 AD. PATIENT: ____. ADVANCE DIRECTIVES HEALTH CARE PROXY?NO WOULD YOU LIKE MORE INFORMATION?NO DO YOU HAVE A DNR?NO WOULD YOU LIKE MORE INFORMATION?NO LIVING WILL?NO WOULD YOU LIKE MORE INFORMATION?NO POWER OF SENIOR ELECTRICAL ENGINEER?NO WOULD YOU LIKE MORE INFORMATION?NO DOMESTIC VIOLENCE DO YOU FEEL SAFE IN YOUR ENVIRONMENT?YES PATIENT LIVES ALONE IN A HOUSE SHE RENTS THE PAST APARTMENT. SHE TAKES CARE OF HER 2 GRANDCHILDREN EZ AND RAMANA. HER SON IS ON SOCIAL SECURITY INCOME IS 23-YEAR-OLD [place] AND HE WILL MOVING TO [place] TO BE WITH HIS FATHER. SHE IS BUT FROM FROM HER BUT THEY SEE EACH OTHER ON THE WEEKEND. SHE SMOKES ONE PACK OF CIGARETTES A DAY SHE TRIED TO QUIT WITH NICOTINE PATCHES WELL WITH CHANTIX. REVIEW OF SYSTEMS REVIEWED BY: PROVIDER: TREVA ESCALANTE . CONSTITUTIONAL: ANY CHANGE IN YOUR MEDICAL CONDITION? NO . CHILLS NO . FEVER NO . INFECTION: DO YOU HAVE NEW INFECTIONS? NO . DO YOU HAVE HISTORY OF MRSA? NO . MUSCULOSKELETAL: ANY NEW PATTERNS OF PAIN OR NUMBNESS? NO . GASTROENTEROLOGY: ANY NEW CHANGE IN BOWEL CONTROL? NO . GENITOURINARY: ANY NEW CHANGE IN BLADDER CONTROL? NO . IS THERE A CHANCE YOU COULD BE ? NO . HEMATOLOGY/LYMPH: DO YOU TAKE ANY BLOOD THINNERS? (FOR EXAMPLE- COUMADIN, PLAVIX, AGGRENOX, PLATEL, PRADAXA, OR XARELTO) NO . WHEN WAS YOUR LAST DOSE? DATE: TIME: . NEUROLOGY: HAVE YOU FALLEN IN THE PAST 6 MONTHS? NO . ANY NEW EXTREMITY NUMBNESS OR WEAKNESS? NO . CARDIOLOGY: DO YOU HAVE A PACEMAKER OR DEFIBRILLATOR? NO . RESPIRATORY: HAVE YOU BEEN SICK IN THE PAST WEEK? NO . FEVER NO . FLU LIKE SYMPTOMS? NO . COUGH NO . INTEGUMENTARY: DO YOU HAVE ANY RASHES OR OPEN SORES? NO . ALLERGIC/IMMUNO: ARE YOU ALLERGIC TO SHELLFISH OR IV DYE? NO . ANY NEW ALLERGIES? NO . PSYCHIATRIC: DO YOU HAVE THOUGHTS OF HURTING YOURSELF OR SOMEONE ELSE? NO . ARE YOU ABUSED, NEGLECTED, OR IN AN UNSAFE ENVIRONMENT? NO . ENDOCRINOLOGY: ARE YOU DIABETIC? NO . OTHER: DO YOU NEED ANY PRESCRIPTIONS? NO . IF YES, PLEASE LIST: ____ . ANY NEW PROBLEMS WITH YOUR MEDICATIONS? NO . WHEN DID YOU LAST EAT? ____ . WHEN DID YOU LAST DRINK? ____ . WHAT DID YOU LAST DRINK? ____ . NAME OF PERSON DRIVING YOU HOME? ____ . DO YOU HAVE ANY OTHER QUESTIONS OR CONCERNS NO . VITAL SIGNS WT 199.2 LBS, HT 64 IN, BMI 34.19 INDEX, BP 132/85 MM HG, HR 103 /MIN, RR 16 /MIN, TEMP 97.7 F, OXYGEN SAT % 100%, SAFE IN ENV? (Y/N) Y, NA INITIALS TL 1059, REVIEWED BY: TANG. EXAMINATION GENERAL EXAMINATION: LUNGS:LUNG BURGOS ARE CLEAR TO AUSCULTATION BILATERALLY. GOOD MOVEMENT OF AIR . HEART:S1, S2 IN A REGULAR RATE AND RHYTHM. NO SIGNIFICANT MURMURS, RUBS OR GALLOPS NOTED . LUMBAR SACRAL SPINEMUSCLE STRENGTH TESTING 5/5 BILATERAL, PALPATION: NEGATIVE FOR PAIN OVER L/S SPINE. POSITIVE FOR PAIN OVER L/S PARASPINALS,SPECIFIC POINT TENDERNESS OVER BILATERAL FACETS.POINT TENDERNESS OVER BILATERAL SIJ. . 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 PROCEDURES PN WORKMANS' COMP OPINION IN YOUR OPINION, WAS THE INCIDENT THAT THE PATIENT DESCRIBED THE COMPETENT MEDICAL CAUSE OF THIS INJURY/ILLNESS? YES ARE THE PATIENT'S COMPLAINTS CONSISTENT WITH HIS/HER HISTORY OF THE INJURY/ILLNESS? YES IS THE PATIENT'S HISTORY OF THE INJURY/ILLNESS CONSISTENT WITH YOUR OBJECTIVE FINDING? YES WHAT IS THE PERCENTAGE OF TEMPORARY IMPAIRMENT? MODERATE TO MARKED = 66.7% IS THE PATIENT WORKING? NO DOCTOR ON SITE: SHANTE CHURCH MD PREVENTIVE MEDICINE PAIN CLINIC TEACHING: PROCEDURE TEACHING PT DECLINED PRINTED INFORMATION ON DIAGNOSTIC FACET BLOCK STATING SHE HAS HAD IT BEFORE AND IS FAMILIAR WITH IT. PRE-PROCEDURE INSTRUCTIONS REVIEWED WITH PT. AND SHE VERBALIZED UNDERSTANDING. PT IS AWARE THAT DUE TO IT BEING A DIAGNOSTIC EXAM SHE IS NOT TO TAKE ANY PAIN MEDS OR MUSCLE RELAXERS AFTER MIDNIGHT PRIOR TO THE PROCEDURE. AD. PROCEDURE CODES FA211 ESTABILISHED PATIENT [facility] CHARGE DISPOSITION & COMMUNICATION FOLLOW UP 2WK POST (REASON: REQUEST DIAGNOSTIC #2 L4/5-L5/S1 W/C-LEFT) ELECTRONICALLY SIGNED BY BORIS CEVALLOS ON 10/31/2017 AT 09:19 AM EST DISCLAIMER : THIS IS A VISIT SUMMARY EXTRACTED FROM THE [employer] CHART. IT IS NOT A COPY OF THE [employer] PROGRESS NOTE. KRIS
== END ==
LOC: M PAIN 10:30
PROVIDERS: ATTEND Nurse Practitioner Family
DX: M43.06 Spondylolysis, lumbar region (principal); M51.26 Other intervertebral disc displacement, lumbar region; F32.9 Major depressive disorder, single episode, unspecified; E78.5 Hyperlipidemia, unspecified; B20 Human immunodeficiency virus [HIV] disease; E03.9 Hypothyroidism, unspecified; F17.210 Nicotine dependence, cigarettes, uncomplicated; Z79.891 Long term (current) use of opiate analgesic; Z79.899 Other long term (current) drug therapy; Z88.1 Allergy status to other antibiotic agents; Z88.5 Allergy status to narcotic agent; Z88.8 Allergy status to other drugs, medicaments and biological substances

== ENCOUNTER 2017-11-06 00:26 | Emergency (ER) | payer MEDICARE, MEDICAID ==
[~2017-11-06] VITALS: Ht 165.1 cm; Wt 88.2 kg
[2017-11-06 00:27] VITALS: BP 145/67
[2017-11-06] MEDS ORDERED: ENDO7.5T11 PO (00:41)
[2017-11-06] MEDS ORDERED: HYDR50TA70 PO (00:41)
[2017-11-06] MEDS ORDERED: ZOLP10TA2 PO (00:41)
[2017-11-06] MEDS ORDERED: LEVO50TA5 PO (00:41)
[2017-11-06] MEDS ORDERED: LYRI150C PO (00:41)
[2017-11-06] MEDS ORDERED: KEPP10002 PO (00:41)
[2017-11-06] MEDS ORDERED: VALA500T2 PO (00:41)
[2017-11-06] MEDS ORDERED: OMEP40CA2 PO (00:41)
[2017-11-06] MEDS ORDERED: CYMB60CA3 PO (00:41)
[2017-11-06] MEDS ORDERED: CALCD50TA PO (00:41)
[2017-11-06] MEDS ORDERED: ATOR80TA59 PO (00:41)
[2017-11-06] MEDS ORDERED: ATRIPLA PO (00:41)
[2017-11-06] MEDS ORDERED: TAB-TAB5 PO (00:41)
[2017-11-06] MEDS ORDERED: BUPR300T34 PO (00:41)
[2017-11-06] MEDS ORDERED: QUET5TAB PO (00:41)
[2017-11-06] MEDS ORDERED: NORCO, ANEXSIA 5/325MG TABLET (HYDROcodone/ACETAMINOPHEN) PO ONE (01:00)
--- NOTE | 2017-11-06 01:51 | REP ---
Clinical: Trauma. Fall. Technique: AP and lateral views of the left elbow. Findings: There is a nondisplaced closed intra-articular fracture involving the radial head. Associated soft tissue swelling, elevation of the anterior fat pad and effusion is appreciated. No subcutaneous emphysema or radiodense foreign body. Impression: Nondisplaced intra-articular fracture of the radial head. Signed by Kareem Quiñones MD 11/05/2017 10:43 P
--- NOTE | 2017-11-06 01:54 | REP ---
Clinical: Trauma. Injury. Technique: AP, lateral views of the left forearm. Findings: Nondisplaced, closed intra-articular fracture of the radial head at the elbow is appreciated with swelling and joint effusion. No further acute fracture dislocation appreciated. Impression: Nondisplaced proximal radial head fracture at the elbow with swelling and effusion. Signed by Kareem Quiñones MD 11/05/2017 10:45 P
[2017-11-06] MEDS ORDERED: NORCOTAB PO (01:56)
== END 2017-11-06 02:15 | disposition home or self-care (01) ==
LOC: M ED 00:26
DX: S52.125A Nondisplaced fracture of head of left radius, initial encounter for closed fracture (principal); W01.198A Fall on same level from slipping, tripping and stumbling with subsequent striking against other object, initial encounter; Y92.89 Other specified places as the place of occurrence of the external cause; Y93.01 Activity, walking, marching and hiking; Y99.9 Unspecified external cause status

== ENCOUNTER → 2017-11-15 | Outpatient (REF) | payer MEDICARE, MEDICAID | LOC: M LABDRAW1 14:31 | DX: M51.37 Other intervertebral disc degeneration, lumbosacral region (principal) | CPT/HCPCS: 80307 ==

== ENCOUNTER → 2017-12-08 | Outpatient (CLI) | payer OTHER | LOC: M PAIN 15:15 | DX: G89.29 Other chronic pain (principal); M43.06 Spondylolysis, lumbar region; M51.26 Other intervertebral disc displacement, lumbar region; F32.9 Major depressive disorder, single episode, unspecified; G47.00 Insomnia, unspecified; G47.33 Obstructive sleep apnea (adult) (pediatric); F17.210 Nicotine dependence, cigarettes, uncomplicated; E78.5 Hyperlipidemia, unspecified; B20 Human immunodeficiency virus [HIV] disease; G25.3 Myoclonus; Z79.899 Other long term (current) drug therapy; Z88.1 Allergy status to other antibiotic agents; Z88.5 Allergy status to narcotic agent; Z88.8 Allergy status to other drugs, medicaments and biological substances | CPT/HCPCS: G0463 ==

== ENCOUNTER → 2018-01-09 | Outpatient (CLI) | payer OTHER ==
[~2018-01-09] MED LIST changes: -ATOR80TA59 PO; -ATRIPLA PO; +BUPIVACAINE HCL 0.25% 30 ML VIAL As Ordered; -BUPR10TASR PO; -CALC600T7 PO; -CYMB1CAP4 PO; -ENDO7.5T11 PO; -HYDR50TA70 PO; +ISOVUE-M 300 61% 15ML VIAL (Q9967) As Ordered; -LEVE500T64 PO; +LIDOCAINE 1% SDV INJ 30 ML VIAL As Ordered; -LYRI75CA PO; -MULTTAB12 PO; -NYST5000 PO; -OMEP40CA2 PO; -OXYC1TAB23 PO; -OXYC20TA40 PO; -PATA0.2S OP; -TRIA1CR TOP; -VALT1TAB PO; -ZALE10CA PO; -ZYRT10CA PO
== END ==
LOC: M PAIN 10:45
DX: G89.29 Other chronic pain (principal); M47.816 Spondylosis without myelopathy or radiculopathy, lumbar region; M47.817 Spondylosis without myelopathy or radiculopathy, lumbosacral region; F32.9 Major depressive disorder, single episode, unspecified; G47.00 Insomnia, unspecified; F17.210 Nicotine dependence, cigarettes, uncomplicated; E78.5 Hyperlipidemia, unspecified; B20 Human immunodeficiency virus [HIV] disease; G47.33 Obstructive sleep apnea (adult) (pediatric); Z79.899 Other long term (current) drug therapy; Z88.1 Allergy status to other antibiotic agents; Z88.5 Allergy status to narcotic agent; Z88.8 Allergy status to other drugs, medicaments and biological substances; Z86.79 Personal history of other diseases of the circulatory system
CPT/HCPCS: Q9967

== ENCOUNTER → 2018-01-16 | Outpatient (REF) | payer MEDICARE, MEDICAID ==
[2018-01-16 14:29] LABS: FREE T4 0.83 NG/DL (0.76-1.46); THYROID STIMULATING HORMONE 0.571 uIU/ML (0.358-3.740)
== END ==
LOC: M SFHCPLAZ 09:53
DX: E03.9 Hypothyroidism, unspecified (principal)
CPT/HCPCS: 84443

== ENCOUNTER 2018-01-23 18:55 | Emergency (ER) | payer MEDICARE, MEDICAID | END 2018-01-23 21:54 | disposition home or self-care (01) | LOC: M ED 18:55 | DX: S46.911A Strain of unspecified muscle, fascia and tendon at shoulder and upper arm level, right arm, initial encounter (principal); S16.1XXA Strain of muscle, fascia and tendon at neck level, initial encounter; W18.39XA Other fall on same level, initial encounter; Y92.018 Other place in single-family (private) house as the place of occurrence of the external cause; J44.9 Chronic obstructive pulmonary disease, unspecified; B20 Human immunodeficiency virus [HIV] disease; E78.5 Hyperlipidemia, unspecified; R56.9 Unspecified convulsions; K21.9 Gastro-esophageal reflux disease without esophagitis; E03.9 Hypothyroidism, unspecified; M48.00 Spinal stenosis, site unspecified; F41.9 Anxiety disorder, unspecified; F33.9 Major depressive disorder, recurrent, unspecified; Z79.899 Other long term (current) drug therapy; Z79.890 Hormone replacement therapy; Z88.0 Allergy status to penicillin; Z88.5 Allergy status to narcotic agent; Z88.8 Allergy status to other drugs, medicaments and biological substances | CPT/HCPCS: 73030 ==

== ENCOUNTER → 2018-04-03 | Outpatient (REF) | payer MEDICARE, MEDICAID | LOC: M SFHCPLAZ 09:42 | DX: B20 Human immunodeficiency virus [HIV] disease (principal); E78.5 Hyperlipidemia, unspecified ==

== ENCOUNTER → 2018-05-15 | Outpatient (CLI) | payer OTHER | LOC: M PAIN 14:15 | DX: M43.06 Spondylolysis, lumbar region (principal); M51.26 Other intervertebral disc displacement, lumbar region; F32.9 Major depressive disorder, single episode, unspecified; G47.00 Insomnia, unspecified; E78.5 Hyperlipidemia, unspecified; Z21 Asymptomatic human immunodeficiency virus [HIV] infection status; G47.33 Obstructive sleep apnea (adult) (pediatric); F17.210 Nicotine dependence, cigarettes, uncomplicated; Z79.899 Other long term (current) drug therapy; Z88.1 Allergy status to other antibiotic agents; Z88.5 Allergy status to narcotic agent; Z88.8 Allergy status to other drugs, medicaments and biological substances | CPT/HCPCS: G0463 ==

== ENCOUNTER → 2018-06-05 | Outpatient (CLI) | payer OTHER ==
[~2018-06-05] MED LIST changes: -ISOVUE-M 300 61% 15ML VIAL (Q9967) As Ordered; +TRIAMCINOLONE ACETONIDE SUSP 40 MG/ML VIAL (J3301) As Ordered
== END ==
LOC: M PAIN 13:00
DX: G89.29 Other chronic pain (principal); M47.816 Spondylosis without myelopathy or radiculopathy, lumbar region; M47.817 Spondylosis without myelopathy or radiculopathy, lumbosacral region; F32.9 Major depressive disorder, single episode, unspecified; G47.00 Insomnia, unspecified; E78.5 Hyperlipidemia, unspecified; K21.9 Gastro-esophageal reflux disease without esophagitis; E03.9 Hypothyroidism, unspecified; B20 Human immunodeficiency virus [HIV] disease; F17.210 Nicotine dependence, cigarettes, uncomplicated; Z90.710 Acquired absence of both cervix and uterus; Z79.899 Other long term (current) drug therapy; Z88.8 Allergy status to other drugs, medicaments and biological substances
CPT/HCPCS: J3301

== ENCOUNTER → 2018-07-19 | Outpatient (CLI) | payer OTHER | LOC: M PAIN 09:00 | DX: M43.06 Spondylolysis, lumbar region (principal); M51.26 Other intervertebral disc displacement, lumbar region; F32.9 Major depressive disorder, single episode, unspecified; G47.00 Insomnia, unspecified; E78.5 Hyperlipidemia, unspecified; G47.33 Obstructive sleep apnea (adult) (pediatric); B20 Human immunodeficiency virus [HIV] disease; G25.3 Myoclonus; F17.210 Nicotine dependence, cigarettes, uncomplicated; J32.9 Chronic sinusitis, unspecified; Z79.899 Other long term (current) drug therapy; Z79.891 Long term (current) use of opiate analgesic; Z88.5 Allergy status to narcotic agent; Z88.1 Allergy status to other antibiotic agents; Z88.8 Allergy status to other drugs, medicaments and biological substances | CPT/HCPCS: G0463 ==

== ENCOUNTER 2018-08-24 20:26 | Emergency (ER) | payer MEDICARE, MEDICAID, OTHER ==
[2018-08-24] MEDS: FLUORESCEIN OPHTH 1 MG STRIP OD (20:45)
[2018-08-24] MEDS: TETRACAINE 0.5% OPHTH SOLN 4ML OD (20:45)
[2018-08-24] MEDS: IBUPROFEN 600 MG TAB PO (21:15)
[2018-08-24] MEDS: ADACEL/BOOSTRIX VACCINE (DIPHTH/PERTUSS/ACELL/TETANUS)0.5ML SYR (90715) IM (21:15)
[2018-08-24] MEDS: POLYTRIM OPTH DROPS 10ML OD (21:37)
[2018-08-24] MEDS: NORCO 5/325MG TABLET (BULK FOR ED) PO (21:38)
== END 2018-08-24 21:43 | disposition home or self-care (01) ==
LOC: M ED 20:26
DX: S05.01XA Injury of conjunctiva and corneal abrasion without foreign body, right eye, initial encounter (principal)
CPT/HCPCS: 90715

== ENCOUNTER → 2018-09-04 | Outpatient (REF) | payer MEDICARE, MEDICAID ==
[2018-09-04 14:23] LABS: ALBUMIN 3.5 GM/DL (3.2-5.2); ALBUMIN/GLOBULIN RATIO 0.92 (1.00-1.93); ALKALINE PHOSPHATASE 99 U/L (45-117); ALT/SGPT 26 U/L (12-78); ANION GAP 6 MEQ/L (8-16); AST/SGOT 14 U/L (7-37); BILIRUBIN,TOTAL 0.4 MG/DL (0.2-1.0); BLOOD UREA NITROGEN 17 MG/DL (7-18); CALCIUM LEVEL 8.6 MG/DL (8.5-10.1); CARBON DIOXIDE LEVEL 31 MEQ/L (21-32); CHLORIDE LEVEL 107 MEQ/L (98-107); CHOLESTEROL LEVEL 199 MG/DL (<200); CHOLESTEROL RISK RATIO 3.685 (<5); CREATININE FOR GFR 0.78 MG/DL (0.55-1.30); GLOMERULAR FILTRATION RATE > 60.0 (>51); GLUCOSE, FASTING 63 MG/DL (70-100); HDL CHOLESTEROL 54 MG/DL (>40); LDL CHOLESTEROL 87 MG/DL (<100); NON-HDL-C 145 MG/DL; POTASSIUM SERUM 3.7 MEQ/L (3.5-5.1); SODIUM LEVEL 144 MEQ/L (136-145); TOTAL PROTEIN 7.3 GM/DL (6.4-8.2); TRIGLYCERIDES LEVEL 288 MG/DL (<150)
[2018-09-08 00:08] LABS: % CD8 Pos Lymph 48.3 % (12.0-35.5); %CD4 Pos Lymphs 41.2 % (30.8-58.5); ABS Basophils 0.1 x10E3/uL (0.0-0.2); ABS Eosinophils 0.2 x10E3/uL (0.0-0.4); ABS Lymphs 3.8 x10E3/uL (0.7-3.1); ABS Monocytes 0.7 x10E3/uL (0.1-0.9); ABS Neutophils 8.1 x10E3/uL (1.4-7.0); Abs CD4 Helper 1566 /uL (359-1519); Abs CD8 Suppres 1835 /uL (109-897); CD4/CD8 Ratio 0.85 (0.92-3.72); Eosinophils 2 % (Not Estab.); HCT 38.8 % (34.0-46.6); HGB 13.1 g/dL (11.1-15.9); HIV-1 RNA PCR QUANT 2 LC550285 40 copies/mL (.); HIV-1 RNA PCR QUANT 3 LC550285 1.602 (.); Immature Grans 0 % (Not Estab.); Lymphocytes 30 % (Not Estab.); MCH 30.7 pg (26.6-33.0); MCHC 33.8 g/dL (31.5-35.7); MCV 91 fL (79-97); Monocytes 5 % (Not Estab.); Neutrophils 62 % (Not Estab.); Platelets 239 x10E3/uL (150-379); RBC 4.27 x10E6/uL (3.77-5.28); WBC 12.9 x10E3/uL (3.4-10.8)
== END ==
LOC: M SFHCPLAZ 10:40
DX: B20 Human immunodeficiency virus [HIV] disease (principal); E78.5 Hyperlipidemia, unspecified; Z23 Encounter for immunization
CPT/HCPCS: 80053

== ENCOUNTER → 2018-09-06 | Outpatient (CLI) | payer OTHER, MEDICAID, MEDICARE ==
[~2018-09-06] MED LIST changes: +ISOVUE-M 300 61% 15ML VIAL (Q9967) As Ordered; -TRIAMCINOLONE ACETONIDE SUSP 40 MG/ML VIAL (J3301) As Ordered
== END ==
LOC: M PAIN 08:45
DX: G89.29 Other chronic pain (principal); M47.816 Spondylosis without myelopathy or radiculopathy, lumbar region; M47.817 Spondylosis without myelopathy or radiculopathy, lumbosacral region; F32.9 Major depressive disorder, single episode, unspecified; E78.5 Hyperlipidemia, unspecified; Z21 Asymptomatic human immunodeficiency virus [HIV] infection status; G47.33 Obstructive sleep apnea (adult) (pediatric); G25.3 Myoclonus; Z79.899 Other long term (current) drug therapy; Z88.1 Allergy status to other antibiotic agents; Z88.5 Allergy status to narcotic agent; Z88.6 Allergy status to analgesic agent
CPT/HCPCS: Q9967

== ENCOUNTER 2018-10-30 06:46 | Day surgery (SDC) | payer MEDICARE, MEDICAID ==
[2018-10-30] MEDS ORDERED: LIDOCAINE 3.5 % 1ML OPHTH TOPICAL GEL OU (07:00)
[2018-10-30] MEDS ORDERED: CYCLOPENTOLATE 2% OPHTH SOLN 2ML BTL OD (07:00)
[2018-10-30] MEDS ORDERED: OFLOXACIN 0.3 % (OCUFLOX) OPTH SOL 5ML OD (07:00)
[2018-10-30] MEDS ORDERED: TROPICAMIDE 1% OPHTH SOLN 2ML OD (07:00)
[2018-10-30] MEDS ORDERED: PHENYLEPHRINE 2.5% OPHTH SOL 2ML OD (07:00)
[2018-10-30] MEDS ORDERED: PHENYLEPHRINE HCL 10 % OPHTH. SOL 5ML OD (07:00)
[2018-10-30] MEDS ORDERED: MIDAZOLAM INJ 2 MG/2 ML VIAL (J2250) As Ordered (07:05)
[2018-10-30] MEDS ORDERED: fentaNYL 100 MCG/2 ML INJECTION (J3010) As Ordered (07:06)
[2018-10-30] MEDS: POVIDONE-IODINE 5% OPHTH PREP SOL 30ML As Ordered (08:32)
[2018-10-30] MEDS: TRIAMCINOLONE PRES FR 40 MG/ML 1ML(TRIESENCE)(OR EYE ONLY)(J3300 PER 1MG) As Ordered (08:32)
[2018-10-30] MEDS: LIDOCAINE 1% SDV 5 ML VIAL As Ordered (08:32)
[2018-10-30] MEDS: MOXIFLOXACIN IN BSS 0.25MG/0.25ML INTRACAMERAL INJ (OR EYE ONLY)(J2280) As Ordered (08:33)
[2018-10-30] MEDS: HEALON DUET PRO(HEALON 10MG/ML 0.55ML & HEALON ENDOCOAT 30MG/ML 0.85ML) As Ordered (08:33)
[2018-10-30] MEDS: LIDOCAINE 2% W/EPIN INJ 20ML **PRES FREE As Ordered (08:33)
[2018-10-30] MEDS: BSS with VANC/TOB/EPI for EYE CASES IR (08:33)
[2018-10-30] MEDS: ACETYLCHOLINE OPHTH SOLN 1% 2ML (MIOCHOL-E) As Ordered (08:33)
== END 2018-10-30 09:13 | disposition home or self-care (01) ==
LOC: M SDC 06:46
DX: H25.9 Unspecified age-related cataract (principal); G47.33 Obstructive sleep apnea (adult) (pediatric); B20 Human immunodeficiency virus [HIV] disease; E03.9 Hypothyroidism, unspecified; K21.9 Gastro-esophageal reflux disease without esophagitis; F17.210 Nicotine dependence, cigarettes, uncomplicated; Z88.0 Allergy status to penicillin; Z88.8 Allergy status to other drugs, medicaments and biological substances; Z79.899 Other long term (current) drug therapy; F41.9 Anxiety disorder, unspecified; F32.9 Major depressive disorder, single episode, unspecified; E78.5 Hyperlipidemia, unspecified
CPT/HCPCS: 66984

== ENCOUNTER → 2018-11-09 | Outpatient (CLI) | payer MEDICARE, MEDICAID ==
[~2018-11-09] MED LIST changes: +ATOR80TA59 PO; +ATRIPLA PO; +BACL10TA2 PO; +BIKT1TAB PO; -BUPIVACAINE HCL 0.25% 30 ML VIAL As Ordered; +BUPR10TASR PO; +BUPR300T34 PO; +CALC600T7 PO; +CALCD50TA PO; +CHAN1PAK11 PO; +CYMB1CAP4 PO; +CYMB60CA3 PO; +ENDO7.5T11 PO; +HYDR50TA70 PO; -ISOVUE-M 300 61% 15ML VIAL (Q9967) As Ordered; +KEPP10002 PO; +LEVE500T64 PO; +LEVO50TA5 PO; -LIDOCAINE 1% SDV INJ 30 ML VIAL As Ordered; +LORA0.5T11 PO; +LYRI150C PO; +LYRI75CA PO; +MOME50SP; +MULTTAB12 PO; +NICOTINE LOZENGES PO; +NORCOTAB PO; +NYST5000 PO; +OMEP40CA2 PO; +OXYC1TAB23 PO; +OXYC20TA40 PO; +PATA0.2S OP; +POLYSOL OP; +QUET5TAB PO; +TAB-TAB5 PO; +TRIA1CR TOP; +TRIA25CR TOP; +VALA500T5 PO; +VALT1TAB PO; +VENTAER INH; +ZALE10CA PO; +ZOLP10TA2 PO; +ZYRT10CA PO
--- NOTE | 2018-11-23 00:58 | ECWPNPC ---
PATIENT NAME: CYNTHIA JOSHI : 1965 GENDER: FEMALE VISIT DATE: 11/09/2018 DISCHARGE DATE: 11/09/18 1220 VISIT LOCKED DATE TIME: PHYSICIAN: TREVA NAPOLES RESOURCE: TREVA NAPOLES REASON FOR APPOINTMENT 1. W/CPOST PROC HISTORY OF PRESENT ILLNESS HISTORY OF PRESENT ILLNESS: PATIENT IS HERE FOR POST PROCEDURE FOLLOW UP. SHE HAD A (R) L4/5-L5/S1 DIAGNOSTIC FACET BLOCK ON 09/06/18. PATIENT REPORTS THAT SHE IS TAKING LESS PAIN MEDICATION AND THAT SHE WAS ABLE DO PERFORM MORE OF HER ACTIVITIES OF DAILY LIVING FOR LONGER PERIODS OF TIME. PAIN RELIEF LASTED FOR ONE WEEK AND AT THAT POINT PAIN STARTED TO GRADUALLY RETURN TO ITS BASELINE. PATIENT DESCRIBES THE PAIN IN HER (R) LOWER BACK ACHING, BURNING AND SHARP THAT COMES AND GOES WITH VARYING LEVELS OF INTENSITY. PER THE PATIENT INCREASED PAIN LIMITS HER FROM DOING HER USUAL DAILY ACTIVITIES OF LIVING. RATING PAIN VAS 5/10. THIS IS A WORK RELATED INJURY WITH DATE OF INJURY 02/13/2000 WHILE EMPLOYED AT [employer]. DISCUSSED DOING A (R) L4/5-L5/S1 DIAGNOSTIC FACET BLOCK TO EVALUATE FOR RADIOFREQUENCY OVER THE (R) LOW BACK. EXPECTED OUTCOME OF THE REQUESTED PROCEDURE IS FOR PATIENT TO HAVE PAIN RELIEF FOR MORE THEN 2 WEEKS. PAIN THE PATIENT DESCRIBES THE PAIN... FALL RISK SCREENING: SCREENING :NO FALLS IN THE PAST YEAR CURRENT MEDICATIONS TAKING LOVAZA 1 GM CAPSULE 1 CAP ORALLY DAILY, NOTES: [id number] TAKING NASONEX 50 MCG/ACT SUSPENSION INHALE 2 PUFFS IN EACH NOSTRIL ONCE DAILY TAKING KEPPRA 1000 MG TABLET TAKE 1 TAB BY MOUTH TWICE A DAY. TAKING VENTOLIN HFA 108 (90 BASE) MCG/ACT AEROSOL SOLUTION 2 PUFFS INHALATION QID PRN TAKING NYSTATIN [id number] UNIT/GM POWDER APPLY UNDER BREASTS AND ABDOMINAL FOLD 2 TIMES A DAY TOPICALLY TWICE A DAY TAKING TRIAMCINOLONE ACETONIDE 0.1 % CREAM 1 APPLICATION TO AREA EXTERNALLY BID PRN TAKING HYDROXYZINE HCL 50 MG TABLET 1 TABLET NEEDED ORALLY EVERY 8 HRS TAKING MULTI-DAY PLUS IRON - TABLET TAKE ONE TABLET BY MOUTH ONCE DAILY DIRECTED ORALLY DAILY TAKING LEVOTHYROXINE SODIUM 50 MCG TABLET 1 TABLET ON AN EMPTY STOMACH IN THE MORNING ORALLY ONCE A DAY TAKING ATORVASTATIN CALCIUM 80 MG TABLET TAKE ONE TABLET BY MOUTH ONCE DAILY TAKING BIKTARVY 50 MG / 200 MG / 25 MG TABLET 1 TAB ORALLY DAILY TAKING OMEPRAZOLE 40 MG CAPSULE DELAYED RELEASE 1 CAP BID ORALLY 30 DAY(S) ORALLY BID TAKING FISH OIL 1000 MG CAPSULE 1 CAPSULE ORALLY ONCE A DAY TAKING CYMBALTA 60 MG CAPSULE DELAYED RELEASE PARTICLES TAKE TWO CAPSULES BY MOUTH ONCE DAILY , NOTES: 09-05-18 0900 TAKING SEROQUEL 50 MG TABLET 1 TABLET AT BEDTIME ORALLY QHS TAKING WELLBUTRIN XL 300 MG TABLET EXTENDED RELEASE 24 HOUR TAKE ONE TABLET BY MOUTH EVERY MORNING TAKING AMBIEN 10 MG TABLET 1. 5 TABLET AT BEDTIME NEEDED ORALLY(ISTOP#: [id number]) ONCE A DAY MDD 15 MG TAKING CALCIUM-VITAMIN D 600-200 MG-UNIT TABLET 1 TAB ORALLY BID TAKING ENDOCET 7.5-325 MG TABLET 1 ORALLY Q 4-6H PRN PAIN MDD5 LINCOLN TAKING VALACYCLOVIR HCL 500 MG TABLET 1 TAB ORALLY ONCE DAILY NOT-TAKING KETOROLAC TROMETHAMINE 0.4 % SOLUTION 1 DROP INTO AFFECTED EYE OPHTHALMIC FOUR TIMES A DAY NOT-TAKING TOBRAMYCIN 0.3 % SOLUTION 1 DROP INTO AFFECTED EYE OPHTHALMIC EVERY 4 HRS NOT-TAKING BACLOFEN 20 MG TABLET 1 TABLET WITH FOOD OR MILK ORALLY EVERY 8 HRS MEDICATION LIST REVIEWED AND RECONCILED WITH THE PATIENT PAST MEDICAL HISTORY ABNORMAL EKG HX ARRYTHMIA CHRONIC DDD MRI DONE 03/2016 LARGE DISC HERNIATION AT L5-S1 WITH MODERATE EXTRUSION ON WORKER'S COMPENSATION FOLLOWS UP WITH DR. AGUERO DEPRESSION/INSOMNIA TOBACCO ABUSE HYPERLIPIDEMIA RECURRENT SINUSITIS HIV DIAGNOSED IN 1992 ACQUIRED THROUGH HETEROSEXUAL SEX HER PARTNER WAS POSITIVE HIV UNDETECTED SINCE 2009 CD4 MORE THAN 1000 COLONOSCOPY 2006 EGD AND COLONOSCOPY [address] OTERO CHRONIC GASTRITIS AND DUODENITIS 2005 LEFT BREAST CALCIFICATION BIOPSY BENIGN DAVON 1 DR HOPKINS COLPOSCOPY EVERY 6 MONTHS PAP EYELID INFECTION 10/2015 MODERATE TO SEVERE OBSTRUCTIVE SLEEP APNEA ON BIPAP 06/09 DR DE LEON/ [facility] MYOCLONUS BILATERAL CATARACTS DR FRANCIS/ DR CAMP ALLERGIES MORPHINE SULFATE: HIVES: ALLERGY AUGMENTIN: HIVES: ALLERGY ULTRAM: HIVES: ALLERGY SUDAFED: HIVES: ALLERGY BESIVANCE EYE DROPS: EYE SWELLING: ALLERGY SURGICAL HISTORY EYE SURGERY 1971 TONSILLECTOMY 1977 LEFT SALPINGOOOPHORECTOMY TASO 1998 COLONOSCOPY AND EGD 06/2007 BREAST BIOPSY 03/2006 EGD AND COLONOSCOPY CHRONIC GASTRITIS AND DUODENITIS 04/18/2012 EXCISION B TOE NAILS BIG TOES DR PULIDO 04/2015 COLPOSCOPY WITH TRACY 06/15/15 HYSTARECTIUM LEFT LEG WOUNDS AGE 16 EYE LID SURGERY BOTH EYES / RIGHT ONE NEEDED TO BE RE SEWN DUE TO IT OPENING AUG 2017 RIGHT EYE CATARACT !12/31/17 FAMILY HISTORY FATHER: 63 YRS, BLADDER CA, DIAGNOSED WITH CANCER MOTHER: ALIVE 73 YRS, CAD [place] AGE 61, DIAGNOSED WITH HEART DISEASE SIBLINGS: ALIVE, SISTER BRAIN ANEURYSM DAUGHTER(S): ALIVE 2 BROTHER(S) , 2 SISTER(S) - HEALTHY. 1 SON(S) - HEALTHY. ONE SISTER WITH BRAIN ANUERYSM. SOCIAL HISTORY GENERAL: TOBACCO USE ARE YOU A:CURRENT SMOKER ARE YOU INTERESTED IN QUITTING?THINKING ABOUT QUITTING TRYING TO CUT DOWN, SHE DECLINES INFORMATION STATING SHE ALREADY HAD IT. COUNSELED THE PATIENT ON SMOKING CESSATION, EDUCATION [id number]/21/2018 HOW MANY CIGARETTES A DAY DO YOU SMOKE?11-20 HOW SOON AFTER YOU WAKE UP DO YOU SMOKE YOUR FIRST CIGARETTE?6-30 MIN HOW OFTEN DO YOU SMOKE CIGARETTES?EVERY DAY PATIENT COUNSELED ON THE DANGERS OF TOBACCO USE AND URGED TO QUIT:11/09/2018 SMOKING CESSATION INFORMATION GIVEN10/29/2018 ALCOHOL SCREENING DID YOU HAVE A DRINK CONTAINING ALCOHOL IN THE PAST YEAR?NO POINTS0 INTERPRETATIONNEGATIVE RECREATIONAL DRUG USE DRUG USE?NO CAFFEINE CAFFEINE USE?YES HOW OFTEN AND HOW MUCH? DRINK COFFEE ALL DAY LONG SEXUAL HX HAD SEX IN THE LAST 12 MONTHS (VAGINAL, ORAL, OR ANAL)?NO LMP:1989 HAVE YOU EVER HAD AN STD?NO HIV / HEP-C SCREENING HIV TEST OFFERED TO PATIENT:YES DATE OFFERED:09/04/2018 PREVIOUSLY TESTED TEST ACCEPTED:YES BROCHURE PROVIDED TO PATIENTNO HEP-C TEST OFFERED TO PATIENT:YES DATE OFFERED:09/04/2018 PREVIOUSLY TESTED TEST ACCEPTED:YES SHINTO [id number] NONE LANGUAGE LANGUAGES SPOKEN:ROMANIAN EDUCATION LEVEL OF EDUCATION:HIGH SCHOOL LEARNING BARRIERS / SPECIAL NEEDS BARRIERS TO LEARNING?NO HEARING IMPAIRED?NO VISION IMPAIRED?NO COGNITIVELY IMPAIRED?NO READINESS TO LEARN?YES LEARNING CAPABILITIES PRESENT?YES EMOTIONAL BARRIERS?NO SPECIAL DEVICES?NO DOMESTIC VIOLENCE DO YOU FEEL SAFE IN YOUR ENVIRONMENT?YES OCCUPATION: RETIRED. DIET: REGULAR. EXERCISE: NONE. MARITAL STATUS: .. OTHERS AT HOME: NONE. PAIN CLINIC PFS, CLERGY, PUBLIC HEALTH REFERRALS PFS REFERRAL NEEDED?NO CLERGY REFERRAL NEEDED?NO PUBLIC HEALTH REFERRAL NEEDED?NO WAS THE PROVIDER NOTIFIED OF ANY PERTINENT INFO?YES HAS THE PATIENT BEEN EDUCATED REGARDING HIS/HER PLAN OF CARE?YES DISCUSSED LEFT RADIOFREQENCY HAS THE PATIENT BEEN EDUCATED REGARDING PAIN, THE RISK FOR PAIN, THE IMPORTANCE OF EFFECTIVE PAIN MANAGEMENT, AND THE PAIN ASSESSMENT PROCESS?YES ADVANCE DIRECTIVE ADVANCE DIRECTIVE DISCUSSED WITH PATIENT:YES PT HAS NO ADVANCED DIRECTIVES, DECLINES INFORMATION OR ASSISTANCE AT THIS TIME PATIENT LIVES ALONE IN A HOUSE SHE RENTS THE PAST APARTMENT. SHE TAKES CARE OF HER 2 GRANDCHILDREN EZ AND RAMANA. HER SON IS ON SOCIAL SECURITY INCOME IS 23-YEAR-OLD [place] AND HE WILL MOVING TO [place] TO BE WITH HIS FATHER. SHE IS BUT FROM FROM HER BUT THEY SEE EACH OTHER ON THE WEEKEND. SHE SMOKES ONE PACK OF CIGARETTES A DAY SHE TRIED TO QUIT WITH NICOTINE PATCHES WELL WITH CHANTIX.REVIEWED WITH PT 11/09/18 1151 LAS. HOSPITALIZATION/MAJOR DIAGNOSTIC PROCEDURE RELATED TO SURGERY [facility] FOR 1 MONTH FOR SUICIDE ATTEMPTS 1997 REVIEW OF SYSTEMS REVIEWED BY: PROVIDER: TREVA ESCALANTE . CONSTITUTIONAL: ANY CHANGE IN YOUR MEDICAL CONDITION? NO . CHILLS NO . FEVER NO . INFECTION: DO YOU HAVE NEW INFECTIONS? NO . DO YOU HAVE HISTORY OF MRSA? NO . MUSCULOSKELETAL: ANY NEW PATTERNS OF PAIN OR NUMBNESS? NO . GASTROENTEROLOGY: ANY NEW CHANGE IN BOWEL CONTROL? NO . GENITOURINARY: ANY NEW CHANGE IN BLADDER CONTROL? NO . IS THERE A CHANCE YOU COULD BE ? NO . HEMATOLOGY/LYMPH: DO YOU TAKE ANY BLOOD THINNERS? (FOR EXAMPLE- COUMADIN, PLAVIX, AGGRENOX, PLATEL, PRADAXA, OR XARELTO) NO . WHEN WAS YOUR LAST DOSE? DATE: TIME: . NEUROLOGY: HAVE YOU FALLEN IN THE PAST 6 MONTHS? NO . ANY NEW EXTREMITY NUMBNESS OR WEAKNESS? NO . CARDIOLOGY: DO YOU HAVE A PACEMAKER OR DEFIBRILLATOR? NO . RESPIRATORY: HAVE YOU BEEN SICK IN THE PAST WEEK? NO . FEVER NO . FLU LIKE SYMPTOMS? NO . COUGH NO . INTEGUMENTARY: DO YOU HAVE ANY RASHES OR OPEN SORES? NO . ALLERGIC/IMMUNO: ARE YOU ALLERGIC TO SHELLFISH OR IV DYE? NO . ANY NEW ALLERGIES? NO . PSYCHIATRIC: DO YOU HAVE THOUGHTS OF HURTING YOURSELF OR SOMEONE ELSE? NO . ARE YOU ABUSED, NEGLECTED, OR IN AN UNSAFE ENVIRONMENT? NO . ENDOCRINOLOGY: ARE YOU DIABETIC? NO . OTHER: DO YOU NEED ANY PRESCRIPTIONS? NO . IF YES, PLEASE LIST: ____ . ANY NEW PROBLEMS WITH YOUR MEDICATIONS? NO . WHEN DID YOU LAST EAT? ____ . WHEN DID YOU LAST DRINK? ____ . WHAT DID YOU LAST DRINK? ____ . NAME OF PERSON DRIVING YOU HOME? ____ . DO YOU HAVE ANY OTHER QUESTIONS OR CONCERNS NO . VITAL SIGNS WT 192.4 LBS, HT 64 IN, BMI 33.02 INDEX, BP 144/89 MM HG, HR 76 /MIN, RR 18 /MIN, TEMP 98.0 F, OXYGEN SAT % 97%, SAFE IN ENV? (Y/N) YES, NA INITIALS SC 11:34, REVIEWED BY: CHEL. EXAMINATION GENERAL EXAMINATION: LUNGS:LUNG BURGOS ARE CLEAR TO AUSCULTATION BILATERALLY. GOOD MOVEMENT OF AIR . HEART:S1, S2 IN A REGULAR RATE AND RHYTHM. NO SIGNIFICANT MURMURS, RUBS OR GALLOPS NOTED . LUMBAR SACRAL SPINEMUSCLE STRENGTH TESTING 5/5 BILATERAL, PALPATION: NEGATIVE FOR PAIN OVER L/S SPINE. POSITIVE FOR PAIN OVER L/S PARASPINALS R>L.,SPECIFIC POINT TENDERNESS OVER RIGHT L4/5-L5/S1 LUMBAR FACET WITH FACET LOADING.POINT TENDERNESS OVER BILATERAL SIJ. . ASSESSMENTS SPONDYLOSIS OF LUMBAR REGION WITHOUT MYELOPATHY OR RADICULOPATHY - M47.816 (PRIMARY) TREATMENT SPONDYLOSIS OF LUMBAR REGION WITHOUT MYELOPATHY OR RADICULOPATHY NOTES: W/C DIAGNOSTIC RIGHT L4/5-L5/S1 BLOCK #2. PROCEDURES PN WORKMANS' COMP OPINION IN YOUR OPINION, WAS THE INCIDENT THAT THE PATIENT DESCRIBED THE COMPETENT MEDICAL CAUSE OF THIS INJURY/ILLNESS? YES ARE THE PATIENT'S COMPLAINTS CONSISTENT WITH HIS/HER HISTORY OF THE INJURY/ILLNESS? YES IS THE PATIENT'S HISTORY OF THE INJURY/ILLNESS CONSISTENT WITH YOUR OBJECTIVE FINDING? YES WHAT IS THE PERCENTAGE OF TEMPORARY IMPAIRMENT? MODERATE TO MARKED = 66.7% IS THE PATIENT WORKING? NO DOCTOR ON SITE: SHANTE CHURCH MD DIAGNOSTIC FACET #2 INFORMATION REVIEWED WITH PATIENT Linda SOLER RN. PROCEDURE CODES FA211 ESTABILISHED PATIENT [facility] FACILITY CHARGE DISPOSITION & COMMUNICATION FOLLOW UP POST (REASON: W/C DIAGNOSTIC RIGHT L4/5-L5/S1 BLOCK #2) ELECTRONICALLY SIGNED BY GISELA WEATHERSP ON 11/22/2018 AT 08:37 AM EST DISCLAIMER : THIS IS A VISIT SUMMARY EXTRACTED FROM THE [employer] CHART. IT IS NOT A COPY OF THE [employer] PROGRESS NOTE. KRIS
== END ==
LOC: M PAIN 11:30
PROVIDERS: ATTEND Nurse Practitioner Family
DX: M47.816 Spondylosis without myelopathy or radiculopathy, lumbar region (principal); M51.27 Other intervertebral disc displacement, lumbosacral region; F32.9 Major depressive disorder, single episode, unspecified; G47.00 Insomnia, unspecified; E78.2 Mixed hyperlipidemia; J32.9 Chronic sinusitis, unspecified; B20 Human immunodeficiency virus [HIV] disease; G47.33 Obstructive sleep apnea (adult) (pediatric); Z98.41 Cataract extraction status, right eye; G25.3 Myoclonus; F17.210 Nicotine dependence, cigarettes, uncomplicated; Z79.899 Other long term (current) drug therapy; Z88.1 Allergy status to other antibiotic agents; Z88.5 Allergy status to narcotic agent; Z88.8 Allergy status to other drugs, medicaments and biological substances

== ENCOUNTER → 2018-12-31 | Outpatient (CLI) | payer OTHER, MEDICAID, MEDICARE ==
[~2018-12-31] MED LIST changes: +ROPI0.253 PO
--- NOTE | 2019-01-17 00:06 | ECWPNPC ---
PATIENT NAME: CYNTHIA JOSHI : 1965 GENDER: FEMALE VISIT DATE: 12/31/2018 DISCHARGE DATE: 12/31/18 1227 VISIT LOCKED DATE TIME: PHYSICIAN: SHANTE TUCKER MD RESOURCE: SHANTE TUCKER MD REASON FOR APPOINTMENT 1. W/C, MTG FOLLOWUP HISTORY OF PRESENT ILLNESS HISTORY OF PRESENT ILLNESS: PAIN THE PATIENT DESCRIBES THE PAIN... 53 YEAR OLD FEMALE PATIENT WITH A HISTORY OF CHRONIC LOW BACK PAIN. THE PATIENT DESCRIBES THE PAIN ACHING, BURNING, STABBING, TENDER, AND CONTINUOUS WITH A PAIN SCORE OF 4-8/10 DEPENDING ON PHYSICAL ACTIVITY. 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 THE PATIENT PREVIOUSLY RECEIVED A RADIOFREQUENCY ON HER LEFT SIDE AND REPORTS THAT IT IS STILL HELPING HER, BUT HER PAIN HAS INCREASED ON HER RIGHT SIDE. THE PATIENT HAD A RIGHT DIAGNOSTIC LUMBAR FACET BLOCK ON 09/06/2018 AND REPORTS HAVING MORE THAN 50% PAIN RELIEF FOR SEVERAL DAYS. THE PATIENT HAS TRIED PHYSICAL THERAPY IN THE PAST, BUT SAYS IT DID NOT HELP. PATIENT DENIES UNEXPLAINABLE WEIGHT LOSS, FEVER, CHILLS, NEW CHANGES ON HER URINARY OR BOWEL CONTROL. FALL RISK SCREENING: SCREENING :NO FALLS IN THE PAST YEAR CURRENT MEDICATIONS TAKING LOVAZA 1 GM CAPSULE 1 CAP ORALLY DAILY TAKING NASONEX 50 MCG/ACT SUSPENSION INHALE 2 PUFFS IN EACH NOSTRIL ONCE DAILY TAKING KEPPRA 1000 MG TABLET TAKE 1 TAB BY MOUTH TWICE A DAY. TAKING VENTOLIN HFA 108 (90 BASE) MCG/ACT AEROSOL SOLUTION 2 PUFFS INHALATION QID PRN TAKING NYSTATIN [id number] UNIT/GM POWDER APPLY UNDER BREASTS AND ABDOMINAL FOLD 2 TIMES A DAY TOPICALLY TWICE A DAY TAKING TRIAMCINOLONE ACETONIDE 0.1 % CREAM 1 APPLICATION TO AREA EXTERNALLY BID PRN TAKING HYDROXYZINE HCL 50 MG TABLET 1 TABLET NEEDED ORALLY EVERY 8 HRS TAKING MULTI-DAY PLUS IRON - TABLET TAKE ONE TABLET BY MOUTH ONCE DAILY DIRECTED ORALLY DAILY TAKING ATORVASTATIN CALCIUM 80 MG TABLET TAKE ONE TABLET BY MOUTH ONCE DAILY TAKING FISH OIL 1000 MG CAPSULE 1 CAPSULE ORALLY ONCE A DAY TAKING SEROQUEL 50 MG TABLET 1 TABLET AT BEDTIME ORALLY QHS TAKING CALCIUM-VITAMIN D 600-200 MG-UNIT TABLET 1 TAB ORALLY BID TAKING VALACYCLOVIR HCL 500 MG TABLET 1 TAB ORALLY TWICE DAILY TAKING WELLBUTRIN XL 300 MG TABLET EXTENDED RELEASE 24 HOUR TAKE ONE TABLET BY MOUTH EVERY MORNING TAKING BIKTARVY 50 MG / 200 MG / 25 MG TABLET 1 TAB ORALLY DAILY TAKING LEVOTHYROXINE SODIUM 50 MCG TABLET 1 TABLET ON AN EMPTY STOMACH IN THE MORNING ORALLY ONCE A DAY TAKING AMBIEN 10 MG TABLET 1. 5 TABLET AT BEDTIME NEEDED ORALLY(ISTOP#: [id number]) ONCE A DAY MDD 15 MG TAKING ENDOCET 7.5-325 MG TABLET 1 ORALLY Q 4-6H PRN PAIN MDD5 [place] TAKING BACLOFEN 20 MG TABLET 1 TABLET WITH FOOD OR MILK ORALLY EVERY 8 HRS TAKING OMEPRAZOLE 40 MG CAPSULE DELAYED RELEASE 1 CAP BID ORALLY 30 DAY(S) ORALLY BID TAKING CYMBALTA 60 MG CAPSULE DELAYED RELEASE PARTICLES TAKE TWO CAPSULES BY MOUTH ONCE DAILY TAKING ROPINIROLE HCL 0.25 MG TABLET 1 TABLET ORALLY THREE TIMES A DAY NOT-TAKING KETOROLAC TROMETHAMINE 0.4 % SOLUTION 1 DROP INTO AFFECTED EYE OPHTHALMIC FOUR TIMES A DAY NOT-TAKING TOBRAMYCIN 0.3 % SOLUTION 1 DROP INTO AFFECTED EYE OPHTHALMIC EVERY 4 HRS MEDICATION LIST REVIEWED AND RECONCILED WITH THE PATIENT PAST MEDICAL HISTORY ABNORMAL EKG HX ARRYTHMIA CHRONIC DDD MRI DONE 03/2016 LARGE DISC HERNIATION AT L5-S1 WITH MODERATE EXTRUSION ON WORKER'S COMPENSATION FOLLOWS UP WITH DR. AGUERO DEPRESSION/INSOMNIA TOBACCO ABUSE HYPERLIPIDEMIA RECURRENT SINUSITIS HIV DIAGNOSED IN 1992 ACQUIRED THROUGH HETEROSEXUAL SEX HER PARTNER WAS POSITIVE HIV UNDETECTED SINCE 2009 CD4 MORE THAN 1000 COLONOSCOPY 2006 EGD AND COLONOSCOPY [address] OTERO CHRONIC GASTRITIS AND DUODENITIS 2006 LEFT BREAST CALCIFICATION BIOPSY BENIGN DAVON 1 DR HOPKINS COLPOSCOPY EVERY 6 MONTHS PAP EYELID INFECTION 10/2015 MODERATE TO SEVERE OBSTRUCTIVE SLEEP APNEA ON BIPAP 06/09 DR DE LEON/ [facility] MYOCLONUS BILATERAL CATARACTS DR FRANCIS/ DR CAMP RESTLESS LEG SYNDROME ALLERGIES MORPHINE SULFATE: HIVES: ALLERGY AUGMENTIN: HIVES: ALLERGY ULTRAM: HIVES: ALLERGY SUDAFED: HIVES: ALLERGY SURGICAL HISTORY EYE SURGERY 1971 TONSILLECTOMY 1977 LEFT SALPINGOOOPHORECTOMY TAHBSO 1998 COLONOSCOPY AND EGD 06/2007 BREAST BIOPSY 03/2006 EGD AND COLONOSCOPY CHRONIC GASTRITIS AND DUODENITIS 04/18/2012 EXCISION B TOE NAILS BIG TOES DR PULIDO 04/2015 COLPOSCOPY WITH TRACY 06/15/15 HYSTARECTIUM LEFT LEG WOUNDS AGE 16 EYE LID SURGERY BOTH EYES / RIGHT ONE NEEDED TO BE RE SEWN DUE TO IT OPENING AUG 2017 RIGHT EYE CATARACT !12/31/17 FAMILY HISTORY FATHER: 63 YRS, BLADDER [place], DIAGNOSED WITH CANCER MOTHER: ALIVE 73 YRS, [place] AGE 61, DIAGNOSED WITH HEART DISEASE SIBLINGS: ALIVE, SISTER BRAIN ANEURYSM DAUGHTER(S): ALIVE 2 BROTHER(S) , 2 SISTER(S) - HEALTHY. 1 SON(S) - HEALTHY. ONE SISTER WITH BRAIN ANUERYSM. SOCIAL HISTORY GENERAL: TOBACCO USE ARE YOU A:CURRENT SMOKER ARE YOU INTERESTED IN QUITTING?THINKING ABOUT QUITTING TRYING TO CUT DOWN, SHE DECLINES INFORMATION STATING SHE ALREADY HAD IT. COUNSELED THE PATIENT ON SMOKING CESSATION, EDUCATION [id number]/21/2018 HOW MANY CIGARETTES A DAY DO YOU SMOKE?11-20 HOW SOON AFTER YOU WAKE UP DO YOU SMOKE YOUR FIRST CIGARETTE?6-30 MIN HOW OFTEN DO YOU SMOKE CIGARETTES?EVERY DAY PATIENT COUNSELED ON THE DANGERS OF TOBACCO USE AND URGED TO QUIT:11/09/2018 SMOKING CESSATION INFORMATION GIVEN12/31/2018 ALCOHOL SCREENING DID YOU HAVE A DRINK CONTAINING ALCOHOL IN THE PAST YEAR?NO POINTS0 INTERPRETATIONNEGATIVE RECREATIONAL DRUG USE DRUG USE?NO CAFFEINE CAFFEINE USE?YES HOW OFTEN AND HOW MUCH? DRINK COFFEE ALL DAY LONG SEXUAL HX HAD SEX IN THE LAST 12 MONTHS (VAGINAL, ORAL, OR ANAL)?NO LMP:1989 HAVE YOU EVER HAD AN STD?NO HIV / HEP-C SCREENING HIV TEST OFFERED TO PATIENT:YES DATE OFFERED:09/04/2018 PREVIOUSLY TESTED TEST ACCEPTED:YES BROCHURE PROVIDED TO PATIENTNO HEP-C TEST OFFERED TO PATIENT:YES DATE OFFERED:09/04/2018 PREVIOUSLY TESTED TEST ACCEPTED:YES DENOMINATIONAL [id number] NONE LANGUAGE LANGUAGES SPOKEN:ROMANIAN EDUCATION LEVEL OF EDUCATION:HIGH SCHOOL LEARNING BARRIERS / SPECIAL NEEDS BARRIERS TO LEARNING?NO HEARING IMPAIRED?NO VISION IMPAIRED?NO COGNITIVELY IMPAIRED?NO READINESS TO LEARN?YES LEARNING CAPABILITIES PRESENT?YES EMOTIONAL BARRIERS?NO SPECIAL DEVICES?NO DOMESTIC VIOLENCE DO YOU FEEL SAFE IN YOUR ENVIRONMENT?YES OCCUPATION: RETIRED. DIET: REGULAR. EXERCISE: NONE. MARITAL STATUS: .. OTHERS AT HOME: NONE. PAIN CLINIC PFS, CLERGY, PUBLIC HEALTH REFERRALS PFS REFERRAL NEEDED?NO CLERGY REFERRAL NEEDED?NO PUBLIC HEALTH REFERRAL NEEDED?NO WAS THE PROVIDER NOTIFIED OF ANY PERTINENT INFO?YES HAS THE PATIENT BEEN EDUCATED REGARDING HIS/HER PLAN OF CARE?YES HAS THE PATIENT BEEN EDUCATED REGARDING PAIN, THE RISK FOR PAIN, THE IMPORTANCE OF EFFECTIVE PAIN MANAGEMENT, AND THE PAIN ASSESSMENT PROCESS?YES ADVANCE DIRECTIVE ADVANCE DIRECTIVE DISCUSSED WITH PATIENT:YES PT HAS NO ADVANCED DIRECTIVES, DECLINES INFORMATION OR ASSISTANCE AT THIS TIME PATIENT LIVES ALONE IN A HOUSE SHE RENTS THE PAST APARTMENT. SHE TAKES CARE OF HER 2 GRANDCHILDREN EZ AND RAMANA. HER SON IS ON SOCIAL SECURITY INCOME IS 23-YEAR-OLD [place] AND HE WILL MOVING TO [place] TO BE WITH HIS FATHER. SHE IS BUT FROM FROM HER BUT THEY SEE EACH OTHER ON THE WEEKEND. SHE SMOKES ONE PACK OF CIGARETTES A DAY SHE TRIED TO QUIT WITH NICOTINE PATCHES WELL WITH CHANTIX.REVIEWED WITH PT 11/09/18 1151 LAS. HOSPITALIZATION/MAJOR DIAGNOSTIC PROCEDURE RELATED TO SURGERY [facility] FOR 1 MONTH FOR SUICIDE ATTEMPTS 1997 REVIEW OF SYSTEMS REVIEWED BY: PROVIDER: SHANTE TUCKER MD . CONSTITUTIONAL: ANY CHANGE IN YOUR MEDICAL CONDITION? NO . CHILLS NO . FEVER NO . INFECTION: DO YOU HAVE NEW INFECTIONS? NO . DO YOU HAVE HISTORY OF MRSA? NO . MUSCULOSKELETAL: ANY NEW PATTERNS OF PAIN OR NUMBNESS? NO . GASTROENTEROLOGY: ANY NEW CHANGE IN BOWEL CONTROL? NO . GENITOURINARY: ANY NEW CHANGE IN BLADDER CONTROL? NO . IS THERE A CHANCE YOU COULD BE ? NO . HEMATOLOGY/LYMPH: DO YOU TAKE ANY BLOOD THINNERS? (FOR EXAMPLE- COUMADIN, PLAVIX, AGGRENOX, PLATEL, PRADAXA, OR XARELTO) NO . WHEN WAS YOUR LAST DOSE? DATE: TIME: . NEUROLOGY: HAVE YOU FALLEN IN THE PAST 12 MONTHS? NO . ANY NEW EXTREMITY NUMBNESS OR WEAKNESS? NO . CARDIOLOGY: DO YOU HAVE A PACEMAKER OR DEFIBRILLATOR? NO . RESPIRATORY: HAVE YOU BEEN SICK IN THE PAST WEEK? NO . FEVER NO . FLU LIKE SYMPTOMS? NO . COUGH NO . INTEGUMENTARY: DO YOU HAVE ANY RASHES OR OPEN SORES? NO . ALLERGIC/IMMUNO: ARE YOU ALLERGIC TO IV DYE? NO . ANY NEW ALLERGIES? NO . PSYCHIATRIC: DO YOU HAVE THOUGHTS OF HURTING YOURSELF OR SOMEONE ELSE? NO . ARE YOU ABUSED, NEGLECTED, OR IN AN UNSAFE ENVIRONMENT? NO . ENDOCRINOLOGY: ARE YOU DIABETIC? NO . OTHER: DO YOU NEED ANY PRESCRIPTIONS? NO . IF YES, PLEASE LIST: ____ . ANY NEW PROBLEMS WITH YOUR MEDICATIONS? NO . WHEN DID YOU LAST EAT? ____ . WHEN DID YOU LAST DRINK? ____ . WHAT DID YOU LAST DRINK? ____ . NAME OF PERSON DRIVING YOU HOME? ____ . DO YOU HAVE ANY OTHER QUESTIONS OR CONCERNS YES, PT REQUESTING AUTHORIZATION FOR REFILL OF ENDOCET 7.5/325 . VITAL SIGNS WT 200.8 LBS, HT 64 IN, BMI 34.46 INDEX, BP 131/61 MM HG, HR 95 /MIN, RR 16 /MIN, TEMP 97.8 F, OXYGEN SAT % 96%, SAFE IN ENV? (Y/N) Y, NA INITIALS SC 10:21, REVIEWED BY: OH. EXAMINATION GENERAL EXAMINATION: PATIENT IS ALERT O X 3 AND COOPERATIVE. PAIN INCREASES OVER THE RIGHT LUMBAR FACET JOINTS WITH EXTENSION AND LATERAL ROTATION OF THE BACK. MRI OF THE LUMBAR SPINE DONE ON 03/29/2016 SHOWS FACET ARTHROPATHY CHANGES AT MULTIPLE LEVELS. ASSESSMENTS SPONDYLOSIS OF LUMBAR REGION WITHOUT MYELOPATHY OR RADICULOPATHY - M47.816 (PRIMARY) TREATMENT SPONDYLOSIS OF LUMBAR REGION WITHOUT MYELOPATHY OR RADICULOPATHY CLINICAL NOTES: WE DISCUSSED SEVERAL ISSUES WITH MRS. JOSHI'S PAIN MANAGEMENT CASE. DUE TO THE LUMBAR SPONDYLOSIS AND THE PATIENT HAVING GOOD PAIN RELIEF FOR SEVERAL DAYS AFTER A FIRST DIAGNOSTIC, I WOULD LIKE TO MOVE FORWARD WITH A SECOND RIGHT DIAGNOSTIC LUMBAR FACET BLOCK AT THIS TIME. WE DISCUSSED THE BENEFITS, RISKS, AND ALTERNATIVES OF THE PROCEDURE AND THE PATIENT WOULD LIKE TO PROCEED. THE PATIENT WILL FOLLOW UP IN 6 WEEKS. INSTRUCTIONS WERE GIVEN, QUESTIONS WERE ANSWERED, PATIENT REPORTS UNDERSTANDING AND AGREES WITH THE PLAN. I, ARMAAN DE OLIVEIRA, DOCUMENTED THE ABOVE INFORMATION ACTING A SCRIBE FOR DR. TUCKER. I HAVE REVIEWED THE ABOVE DOCUMENT, WRITTEN BY ARMAAN MOREIBCisco AND I VERIFY THAT IT IS ACCURATE. PROCEDURES PN WORKMANS' COMP OPINION IN YOUR OPINION, WAS THE INCIDENT THAT THE PATIENT DESCRIBED THE COMPETENT MEDICAL CAUSE OF THIS INJURY/ILLNESS? YES ARE THE PATIENT'S COMPLAINTS CONSISTENT WITH HIS/HER HISTORY OF THE INJURY/ILLNESS? YES IS THE PATIENT'S HISTORY OF THE INJURY/ILLNESS CONSISTENT WITH YOUR OBJECTIVE FINDING? YES WHAT IS THE PERCENTAGE OF TEMPORARY IMPAIRMENT? MODERATE TO MARKED = 66.7% IS THE PATIENT WORKING? NO DOCTOR ON SITE: SHANTE CHURCH MD PREVENTIVE MEDICINE PAIN CLINIC TEACHING: PROCEDURE TEACHING PT DECLINED PRINTED INFORMATION ON DIAGNOSTIC FACET BLOCK STATING SHE IS FAMILILAR WITH THE PROCESS. PRE-PROCEDURE INSTRUCTIONS REVIEWED WITH PT AND SHE VERBALIZED UNDERSTANDING.. PROCEDURE CODES FA211 ESTABILISHED PATIENT [facility] CHARGE [id number] CURRENT MEDS W/DOSAGES DOCUMENTED [id number] PAIN ASSESS POS TOOL F/U PLAN DOC DISPOSITION & COMMUNICATION FOLLOW UP 6 WEEKS W/ DR Jiménez (REASON: W/C LOW BACK) ELECTRONICALLY SIGNED BY SHANTE TUCKER MD, MD ON 01/16/2019 AT 06:51 AM EST DISCLAIMER : THIS IS A VISIT SUMMARY EXTRACTED FROM THE [employer] CHART. IT IS NOT A COPY OF THE [facility] PROGRESS NOTE. KRIS
== END ==
LOC: M PAIN 10:15
PROVIDERS: ATTEND Anesthesiology
DX: M47.816 Spondylosis without myelopathy or radiculopathy, lumbar region (principal); G89.29 Other chronic pain; E78.5 Hyperlipidemia, unspecified; G47.33 Obstructive sleep apnea (adult) (pediatric); Z21 Asymptomatic human immunodeficiency virus [HIV] infection status; F32.9 Major depressive disorder, single episode, unspecified; F41.1 Generalized anxiety disorder; F17.210 Nicotine dependence, cigarettes, uncomplicated; Z79.899 Other long term (current) drug therapy; Z88.1 Allergy status to other antibiotic agents; Z88.5 Allergy status to narcotic agent; Z88.8 Allergy status to other drugs, medicaments and biological substances; Z86.018 Personal history of other benign neoplasm

== ENCOUNTER → 2019-01-01 | Outpatient (REF) | payer MEDICARE, MEDICAID ==
[2019-01-01 12:05] LABS: APPEARANCE, URINE CLEAR (CLEAR); BACTERIA, URINE AUTO NEGATIVE (NEGATIVE); BILIRUBIN, URINE AUTO NEGATIVE (NEGATIVE); BLOOD, URINE BLOOD NEGATIVE (NEGATIVE); COLOR, URINE YELLOW (YELLOW); GLUCOSE, URINE (UA) AUTO NEGATIVE (NEGATIVE); KETONE, URINE AUTO NEGATIVE (NEGATIVE); LEUKOCYTE ESTERASE, URINE AUTO NEGATIVE (NEGATIVE); MUCUS, URINE SMALL (NEGATIVE); NITRITE, URINE AUTO NEGATIVE (NEGATIVE); PROTEIN, URINE AUTO NEGATIVE (NEGATIVE); RBC, URINE AUTO 1 /HPF (0-3); SPECIFIC GRAVITY URINE AUTO 1.008 (1.002-1.035); SQUAMOUS EPITHELIAL CELL UR AU 5 /HPF (0-6); UROBILINOGEN, URINE AUTO 0.2 mg/dL (0.0-2.0); WBC, URINE AUTO 0 /HPF (0-3)
[2019-01-01 12:25] LABS: ALBUMIN 3.7 GM/DL (3.2-5.2); ALT/SGPT 31 U/L (12-78); BILIRUBIN,TOTAL 0.5 MG/DL (0.2-1.0); BLOOD UREA NITROGEN 13 MG/DL (7-18); CALCIUM LEVEL 9.1 MG/DL (8.5-10.1); CARBON DIOXIDE LEVEL 27 MEQ/L (21-32); CHLORIDE LEVEL 107 MEQ/L (98-107); CREATININE FOR GFR 0.84 MG/DL (0.55-1.30); GLOMERULAR FILTRATION RATE > 60.0 (>51); GLUCOSE, FASTING 98 MG/DL (70-100); POTASSIUM SERUM 3.7 MEQ/L (3.5-5.1); SODIUM LEVEL 143 MEQ/L (136-145); TOTAL PROTEIN 7.3 GM/DL (6.4-8.2)
[2019-01-03 18:42] LABS: % CD8 Pos Lymph 46.7 % (12.0-35.5); %CD4 Pos Lymphs 42.3 % (30.8-58.5); ABS Basophils 0.1 x10E3/uL (0.0-0.2); ABS Eosinophils 0.2 x10E3/uL (0.0-0.4); ABS Lymphs 3.4 x10E3/uL (0.7-3.1); ABS Monocytes 0.5 x10E3/uL (0.1-0.9); ABS Neutophils 6.1 x10E3/uL (1.4-7.0); Abs CD4 Helper 1438 /uL (359-1519); Abs CD8 Suppres 1588 /uL (109-897); CD4/CD8 Ratio 0.91 (0.92-3.72); Eosinophils 2 % (Not Estab.); HCT 37.1 % (34.0-46.6); HGB 12.5 g/dL (11.1-15.9); HIV-1 RNA PCR QUANT 2 LC550285 <20 copies/mL (.); Immature Grans 0 % (Not Estab.); Lymphocytes 33 % (Not Estab.); MCH 29.1 pg (26.6-33.0); MCHC 33.7 g/dL (31.5-35.7); MCV 86 fL (79-97); Monocytes 5 % (Not Estab.); Neutrophils 59 % (Not Estab.); Platelets 241 x10E3/uL (150-379); RDW 14.8 % (12.3-15.4); WBC 10.3 x10E3/uL (3.4-10.8)
== END ==
LOC: M SFHCPLAZ 10:38
PROVIDERS: ATTEND Internal Medicine Infectious Disease
DX: B20 Human immunodeficiency virus [HIV] disease (principal)
CPT/HCPCS: 36415; 80053; 81001; 86360; 86480; 87536; G0463

== ENCOUNTER 2019-01-16 06:17 | Day surgery (SDC) | payer MEDICARE, MEDICAID ==
[~2019-01-16] VITALS: Ht 165.1 cm; Wt 91.2 kg
[~2019-01-16 06:17] MED LIST changes: +ACETAMINOPHEN 325 MG TAB PO PRN
[2019-01-16] MEDS ORDERED: LIDOCAINE 1% SDV 5 ML VIAL As Ordered ONE (06:48)
[2019-01-16] MEDS ORDERED: POVIDONE-IODINE 5% OPHTH PREP SOL 30ML As Ordered ONE (06:48)
[2019-01-16] MEDS ORDERED: TRIAMCINOLONE PRES FR 40 MG/ML 1ML(TRIESENCE)(OR EYE ONLY)(J3300 PER 1MG) As Ordered ONE (06:48)
[2019-01-16] MEDS ORDERED: MOXIFLOXACIN IN BSS 0.25MG/0.25ML INTRACAMERAL INJ (OR EYE ONLY)(J2280) As Ordered ONE (06:49)
[2019-01-16] MEDS ORDERED: HEALON DUET PRO(HEALON 10MG/ML 0.55ML & HEALON ENDOCOAT 30MG/ML 0.85ML) As Ordered ONE (06:49)
[2019-01-16] MEDS ORDERED: fentaNYL 100 MCG/2 ML INJECTION (J3010) As Ordered ONE (06:50)
[2019-01-16] MEDS ORDERED: MIDAZOLAM INJ 2 MG/2 ML VIAL (J2250) As Ordered ONE ×2 (06:50→08:52)
[2019-01-16] MEDS ORDERED: TROPICAMIDE 1% OPHTH SOLN 2ML OS ONE (07:00)
[2019-01-16] MEDS ORDERED: LIDOCAINE 3.5 % 1ML OPHTH TOPICAL GEL OU ONE (07:00)
[2019-01-16] MEDS ORDERED: PHENYLEPHRINE HCL 10 % OPHTH. SOL 5ML OS PRN (07:00)
[2019-01-16] MEDS ORDERED: CYCLOPENTOLATE 2% OPHTH SOLN 2ML BTL OS ONE (07:00)
[2019-01-16] MEDS ORDERED: OFLOXACIN 0.3 % (OCUFLOX) OPTH SOL 5ML OS ONE (07:00)
[2019-01-16] MEDS ORDERED: PHENYLEPHRINE 2.5% OPHTH SOL 2ML OS ONE (07:00)
[2019-01-16] MEDS ORDERED: BSS with VANC/TOB/EPI for EYE CASES IR ONE (07:00)
[2019-01-16] MEDS ORDERED: ACETYLCHOLINE OPHTH SOLN 1% 2ML (MIOCHOL-E) As Ordered ONE (08:46)
[2019-01-16] MEDS ORDERED: TRIMETHOBENZAMIDE 300 MG CAP PO PRN (09:15)
[2019-01-16] MEDS ORDERED: AcetaZOLAMIDE 500 MG ER CAP PO ONE (09:15)
[2019-01-16 09:20] VITALS: BP 138/62
--- NOTE | 2019-01-16 22:23 | RO ---
DATE OF PROCEDURE: 01/16/2019 PREPROCEDURE DIAGNOSIS: Cataract of left eye. POSTPROCEDURE DIAGNOSIS: Cataract of left eye. PROCEDURE: Phacoemulsification with intraocular lens implantation. SURGEON: Luz Enriquez MD WINDING LATHE OPERATOR: None. ANESTHESIA: DESCRIPTION OF PROCEDURE: The patient was brought to the operating room and laid in supine position. The eye was prepped and draped in a sterile fashion for ophthalmic surgery and a lid speculum was placed. A sideport incision was made and EndoCoat was injected into the anterior chamber. Temporal clear corneal incision was made with a 2.5 mm keratome followed by capsulorrhexis and hydrodissection with balanced salt solution. Phacoemulsification was then done in divide and conquer method within the capsular bag followed by aspiration of the cortical material. Healon was then injected into the capsular bag and intraocular lens, power [id number], 20.5 diopters was then being injected. At the beginning of the injection, the lens just shot out with great force into the capsular bag on its own. At this point, a small posterior capsular tear was noted. Since the lens was in the bag and the tear was small, and the lens appeared to be stable with both haptics in the bag, it was decided to leave the lens in the bag. Viscoelastic was aspirated cautiously. Miochol was inserted. Pupil was totally round. There was no vitreous noted in the anterior chamber. A #10-0 nylon suture was applied. Sub Tenon injection of triamcinolone and intracameral injection of moxifloxacin was given.
== END 2019-01-16 09:25 | disposition home or self-care (01) ==
LOC: M SDC 06:17
PROVIDERS: ATTEND Ophthalmology
DX: H26.9 Unspecified cataract (principal); B20 Human immunodeficiency virus [HIV] disease; K21.9 Gastro-esophageal reflux disease without esophagitis; E78.00 Pure hypercholesterolemia, unspecified; G51.0 Bell's palsy; E03.9 Hypothyroidism, unspecified; R06.02 Shortness of breath; F41.9 Anxiety disorder, unspecified; F32.9 Major depressive disorder, single episode, unspecified; J44.9 Chronic obstructive pulmonary disease, unspecified; R06.83 Snoring; G47.33 Obstructive sleep apnea (adult) (pediatric); Z88.1 Allergy status to other antibiotic agents; Z88.5 Allergy status to narcotic agent; Z88.8 Allergy status to other drugs, medicaments and biological substances; Z79.899 Other long term (current) drug therapy; Z90.710 Acquired absence of both cervix and uterus; Z98.51 Tubal ligation status; Z72.0 Tobacco use; Z98.41 Cataract extraction status, right eye
CPT/HCPCS: 66984; J2250; J2280; J3010; J3300; V2632

== ENCOUNTER → 2019-02-27 | Outpatient (CLI) | payer OTHER, MEDICAID ==
[~2019-02-27] MED LIST changes: -ACETAMINOPHEN 325 MG TAB PO PRN; +BUPIVACAINE HCL 0.25% 30 ML VIAL As Ordered ONE; +HYDR-3715 PO; +ISOVUE-M 300 61% 15ML VIAL (Q9967) As Ordered ONE; -LEVE500T64 PO; +LEVE500T88 PO; +LIDOCAINE 1% SDV INJ 30 ML VIAL As Ordered ONE; -NORCOTAB PO; +TRIA0.1C60 TOP; -TRIA1CR TOP
--- NOTE | 2019-02-27 14:58 | REP ---
Partial lumbar spine series: Single view . History: Injection procedure for pain. 20 seconds of fluoroscopy time is reported. Findings: A single fluoroscopically obtained last image hold procedural spot radiograph of the lumbar spine documents needle position and contrast injection associated with injection procedure. Electronically Signed by eLe Bates MD 02/27/2019 02:38 P
--- NOTE | 2019-03-18 00:45 | ECWPNPC ---
PATIENT NAME: CYNTHIA JOSHI : 1965 GENDER: FEMALE VISIT DATE: 02/27/2019 DISCHARGE DATE: 02/27/19 1159 VISIT LOCKED DATE TIME: PHYSICIAN: SHANTE TUCKER MD RESOURCE: SHANTE TUCKER MD REASON FOR APPOINTMENT 1. W/C RIGHT L4/5, L5/S1 DIAGNOSTIC FACET BLOCK. HISTORY OF PRESENT ILLNESS HISTORY OF PRESENT ILLNESS: PAIN THE PATIENT DESCRIBES THE PAIN... FALL RISK SCREENING: SCREENING :NO FALLS REPORTED IN THE LAST YEAR CURRENT MEDICATIONS TAKING KEPPRA 1000 MG TABLET TAKE 1 TAB BY MOUTH TWICE A DAY. , NOTES: 02/26/191999 TAKING ATORVASTATIN CALCIUM 80 MG TABLET TAKE ONE TABLET BY MOUTH ONCE DAILY , NOTES: 02/26/19 08 TAKING WELLBUTRIN XL 300 MG TABLET EXTENDED RELEASE 24 HOUR TAKE ONE TABLET BY MOUTH EVERY MORNING , NOTES: 02/26/19 08 TAKING BACLOFEN 20 MG TABLET 1 TABLET WITH FOOD OR MILK ORALLY EVERY 8 HRS, NOTES: FEW DAYS AGO TAKING CYMBALTA 60 MG CAPSULE DELAYED RELEASE PARTICLES TAKE TWO CAPSULES BY MOUTH ONCE DAILY , NOTES: 02/26/191999 TAKING ROPINIROLE HCL 0.25 MG TABLET 1 TABLET ORALLY THREE TIMES A DAY, NOTES: 02/26/19 233 TAKING CALCIUM-VITAMIN D 600-200 MG-UNIT TABLET 1 TAB ORALLY BID, NOTES: 02/26/191999 TAKING BIKTARVY 50 MG / 200 MG / 25 MG TABLET 1 TAB ORALLY DAILY, NOTES: 02/26/191999 TAKING FISH OIL 1000 MG CAPSULE 1 CAPSULE ORALLY ONCE A DAY, NOTES: FEW DAYS AGO TAKING HYDROXYZINE HCL 50 MG TABLET 1 TABLET NEEDED ORALLY EVERY 8 HRS, NOTES: 02/26/19 1600 TAKING LEVOTHYROXINE SODIUM 50 MCG TABLET 1 TABLET ON AN EMPTY STOMACH IN THE MORNING ORALLY ONCE A DAY, NOTES: 02/26/19 0700 TAKING TRIAMCINOLONE ACETONIDE 0.1 % CREAM 1 APPLICATION TO AREA EXTERNALLY BID PRN, NOTES: FEW DAYS AGO TAKING NYSTATIN [id number] UNIT/GM POWDER APPLY UNDER BREASTS AND ABDOMINAL FOLD 2 TIMES A DAY TOPICALLY TWICE A DAY, NOTES: 02/26/19 0800 TAKING VENTOLIN HFA 108 (90 BASE) MCG/ACT AEROSOL SOLUTION 2 PUFFS INHALATION QID PRN, NOTES: 02/26/19 TAKING NASONEX 50 MCG/ACT SUSPENSION 2 PUFFS NASALLY ONCE A DAY, NOTES: 02/26/19 1200 TAKING OMEPRAZOLE 40 MG CAPSULE DELAYED RELEASE 1 CAP BID ORALLY 30 DAY(S) ORALLY BID, NOTES: 02/26/19 08 TAKING AMBIEN 10 MG TABLET 1 5 TABLET AT BEDTIME NEEDED ORALLY(ISTOP#: [id number]) ONCE A DAY MDD 15 MG, NOTES: 02/26/192329 TAKING ENDOCET 7.5-325 MG TABLET 1 ORALLY Q 4-6H PRN PAIN MDD5 [place], NOTES: 02/26/191999 TAKING VALACYCLOVIR HCL 500 MG TABLET 1 TAB ORALLY TWICE DAILY, NOTES: 02/26/191999 TAKING SEROQUEL 50 MG TABLET 1 TABLET AT BEDTIME ORALLY QHS, NOTES: 02/26/192329 TAKING MULTI-DAY PLUS IRON - TABLET TAKE ONE TABLET BY MOUTH ONCE DAILY DIRECTED ORALLY DAILY, NOTES: 02/26/19799 NOT-TAKING WELLBUTRIN XL 300 MG TABLET EXTENDED RELEASE 24 HOUR TAKE ONE TABLET BY MOUTH EVERY MORNING , NOTES: DUPLICATE NOT-TAKING CYMBALTA 60 MG CAPSULE DELAYED RELEASE PARTICLES TAKE TWO CAPSULES BY MOUTH ONCE DAILY ORALLY TWICE A DAY, NOTES: DUPLICATE NOT-TAKING BACLOFEN 20 MG TABLET 1 TABLET WITH FOOD OR MILK ORALLY EVERY 8 HRS, NOTES: DUPLICATE NOT-TAKING HYDROXYZINE HCL 25 MG TABLET 1 TABLET NEEDED ORALLY EVERY 8 HRS, NOTES: DUPLICATE MEDICATION LIST REVIEWED AND RECONCILED WITH THE PATIENT PAST MEDICAL HISTORY ABNORMAL EKG HX ARRYTHMIA CHRONIC DDD MRI DONE 03/2016 LARGE DISC HERNIATION AT L5-S1 WITH MODERATE EXTRUSION ON WORKER'S COMPENSATION FOLLOWS UP WITH DR. AGUERO DEPRESSION/INSOMNIA TOBACCO ABUSE HYPERLIPIDEMIA RECURRENT SINUSITIS HIV DIAGNOSED IN 1992 ACQUIRED THROUGH HETEROSEXUAL SEX HER PARTNER WAS POSITIVE HIV UNDETECTED SINCE 2009 CD4 MORE THAN 1000 COLONOSCOPY 2007 EGD AND COLONOSCOPY [address] OTERO CHRONIC GASTRITIS AND DUODENITIS 2006 LEFT BREAST CALCIFICATION BIOPSY BENIGN DAVON 1 DR HOPKINS COLPOSCOPY EVERY 6 MONTHS PAP EYELID INFECTION 10/2015 MODERATE TO SEVERE OBSTRUCTIVE SLEEP APNEA ON BIPAP 06/09 DR DE LEON/ [facility] MYOCLONUS BILATERAL CATARACTS DR FRANCIS/ DR CAMP RESTLESS LEG SYNDROME ALLERGIES MORPHINE SULFATE: HIVES - ALLERGY AUGMENTIN: HIVES - ALLERGY ULTRAM: HIVES - ALLERGY SUDAFED: HIVES - ALLERGY SURGICAL HISTORY EYE SURGERY 1971 TONSILLECTOMY 1977 LEFT SALPINGOOOPHORECTOMY TASO 1997 COLONOSCOPY AND EGD 06/2007 BREAST BIOPSY 03/2006 EGD AND COLONOSCOPY CHRONIC GASTRITIS AND DUODENITIS 04/18/2012 EXCISION B TOE NAILS BIG TOES DR PULIDO 04/2015 COLPOSCOPY WITH TRACY 06/15/15 HYSTARECTIUM LEFT LEG WOUNDS AGE 16 EYE LID SURGERY BOTH EYES / RIGHT ONE NEEDED TO BE RE SEWN DUE TO IT OPENING AUG 2017 RIGHT EYE CATARACT !12/31/17 LEFT EYE CATARACT 12/2018 FAMILY HISTORY FATHER: 63 YRS, BLADDER CA, DIAGNOSED WITH CANCER MOTHER: ALIVE 73 YRS, CAD [place] AGE 61, HEART DISEASE SIBLINGS: ALIVE, SISTER BRAIN ANEURYSM DAUGHTER(S): ALIVE 2 BROTHER(S) , 2 SISTER(S) - HEALTHY. 1 SON(S) - HEALTHY. ONE SISTER WITH BRAIN ANUERYSM. SOCIAL HISTORY GENERAL: TOBACCO USE ARE YOU A:CURRENT SMOKER ARE YOU INTERESTED IN QUITTING?THINKING ABOUT QUITTING TRYING TO CUT DOWN, SHE DECLINES INFORMATION STATING SHE ALREADY HAD IT. COUNSELED THE PATIENT ON SMOKING CESSATION, EDUCATION [id number]/10/2019 HOW MANY CIGARETTES A DAY DO YOU SMOKE?5 OR LESS HOW SOON AFTER YOU WAKE UP DO YOU SMOKE YOUR FIRST CIGARETTE?6-30 MIN HOW OFTEN DO YOU SMOKE CIGARETTES?EVERY DAY PATIENT COUNSELED ON THE DANGERS OF TOBACCO USE AND URGED TO QUIT:02/27/2019 SMOKING CESSATION INFORMATION GIVEN01/01/2019 LATEX QUESTIONNAIRE LATEX ALLERGY : HAVE YOU EVER DEVELOPED ANY TYPE OF REACTION AFTER HANDLING LATEX PRODUCTS SUCH RUBBER GLOVES, CONDOMS, DIAPHRAGMS, BALLOONS, SOCKS, OR UNDERWEAR?NO LATEX ALLERGY : HAVE YOU EVER DEVELOPED ANY TYPE OF REACTION DURING OR AFTER DENTAL APPOINTMENT, VAGINAL/RECTAL EXAMINATION, SURGICAL PROCEDURE, OR ANY OTHER EXPOSURE?NO LATEX RISK : HAVE YOU EVER HAD ANY DIFFICULTY BREATHING OR HIVES AFTER EATING OR HANDLING ANY FRUITS, OR VEGETABLES; SUCH KIWI, BANANAS, STONE FRUITS, OR CHESTNUTSNO LATEX RISK : DO YOU HAVE A PREVIOUS PERSONAL HISTORY OF MORE THAN NINE SURGERIES, SPINA BIFIDA, OR REPEATED CATHERTIZATIONS? YES - PLEASE INDICATE : > 9 SURGERIES LATEX RISK : ARE YOU FREQUENTLY EXPOSED TO LATEX PRODUCTS IN YOUR OCCUPATION?NO DATE ASKED : 02/27/2019 ALCOHOL SCREENING DID YOU HAVE A DRINK CONTAINING ALCOHOL IN THE PAST YEAR?NO POINTS0 INTERPRETATIONNEGATIVE RECREATIONAL DRUG USE DRUG USE?NO CAFFEINE CAFFEINE USE?YES HOW OFTEN AND HOW MUCH? DRINK COFFEE ALL DAY LONG SEXUAL HX HAD SEX IN THE LAST 12 MONTHS (VAGINAL, ORAL, OR ANAL)?NO LMP:1988 HAVE YOU EVER HAD AN STD?NO HIV / HEP-C SCREENING HIV TEST OFFERED TO PATIENT:YES DATE OFFERED:09/04/2018 PREVIOUSLY TESTED TEST ACCEPTED:YES BROCHURE PROVIDED TO PATIENTNO HEP-C TEST OFFERED TO PATIENT:YES DATE OFFERED:09/04/2018 PREVIOUSLY TESTED TEST ACCEPTED:YES JAIN [id number] NONE LANGUAGE LANGUAGES SPOKEN:DUTCH EDUCATION LEVEL OF EDUCATION:HIGH SCHOOL LEARNING BARRIERS / SPECIAL NEEDS BARRIERS TO LEARNING?NO HEARING IMPAIRED?NO VISION IMPAIRED?NO COGNITIVELY IMPAIRED?NO READINESS TO LEARN?YES LEARNING CAPABILITIES PRESENT?YES EMOTIONAL BARRIERS?NO SPECIAL DEVICES?NO DOMESTIC VIOLENCE DO YOU FEEL SAFE IN YOUR ENVIRONMENT?YES OCCUPATION: RETIRED. DIET: REGULAR. EXERCISE: NONE. MARITAL STATUS: .. OTHERS AT HOME: NONE. PAIN CLINIC PFS, CLERGY, PUBLIC HEALTH REFERRALS PFS REFERRAL NEEDED?NO CLERGY REFERRAL NEEDED?NO PUBLIC HEALTH REFERRAL NEEDED?NO WAS THE PROVIDER NOTIFIED OF ANY PERTINENT INFO?YES HAS THE PATIENT BEEN EDUCATED REGARDING HIS/HER PLAN OF CARE?YES HAS THE PATIENT BEEN EDUCATED REGARDING PAIN, THE RISK FOR PAIN, THE IMPORTANCE OF EFFECTIVE PAIN MANAGEMENT, AND THE PAIN ASSESSMENT PROCESS?YES ADVANCE DIRECTIVE ADVANCE DIRECTIVE DISCUSSED WITH PATIENT:YES PT HAS NO ADVANCED DIRECTIVES, DECLINES INFORMATION OR ASSISTANCE AT THIS TIME. 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 SHE TAKES CARE OF HER 2 GRANDCHILDREN EZ AND RAMANA. HER SON IS ON SOCIAL SECURITY INCOME IS 23-YEAR-OLD LIWNOOD AND HE WILL MOVING TO [place] TO BE WITH HIS FATHER. SHE IS BUT FROM FROM HER BUT THEY SEE EACH OTHER ON THE WEEKEND. SHE SMOKES ONE PACK OF CIGARETTES A DAY SHE TRIED TO QUIT WITH NICOTINE PATCHES WELL WITH CHANTIX.REVIEWED WITH PT 11/09/18 1151 LASREVIEWED WITH PATIENT 02/27/19 1108 JS. HOSPITALIZATION/MAJOR DIAGNOSTIC PROCEDURE RELATED TO SURGERY [facility] FOR 1 MONTH FOR SUICIDE ATTEMPTS 1997 REVIEW OF SYSTEMS REVIEWED BY: PROVIDER: . CONSTITUTIONAL: ANY CHANGE IN YOUR MEDICAL CONDITION? NO . CHILLS NO . FEVER NO . INFECTION: DO YOU HAVE NEW INFECTIONS? NO . DO YOU HAVE HISTORY OF MRSA? NO . MUSCULOSKELETAL: ANY NEW PATTERNS OF PAIN OR NUMBNESS? NO . GASTROENTEROLOGY: ANY NEW CHANGE IN BOWEL CONTROL? NO . GENITOURINARY: ANY NEW CHANGE IN BLADDER CONTROL? NO . IS THERE A CHANCE YOU COULD BE ? NO . HEMATOLOGY/LYMPH: DO YOU TAKE ANY BLOOD THINNERS? (FOR EXAMPLE- COUMADIN, PLAVIX, AGGRENOX, PLATEL, PRADAXA, OR XARELTO) NO . WHEN WAS YOUR LAST DOSE? DATE: TIME: . NEUROLOGY: HAVE YOU FALLEN IN THE PAST 12 MONTHS? NO . ANY NEW EXTREMITY NUMBNESS OR WEAKNESS? YES, STATES NEW NUMBNESS TO LEFT HAND AND RIGHT FOOT . CARDIOLOGY: DO YOU HAVE A PACEMAKER OR DEFIBRILLATOR? NO . RESPIRATORY: HAVE YOU BEEN SICK IN THE PAST WEEK? NO . FEVER NO . FLU LIKE SYMPTOMS? NO . COUGH NO . INTEGUMENTARY: DO YOU HAVE ANY RASHES OR OPEN SORES? NO . ALLERGIC/IMMUNO: ARE YOU ALLERGIC TO IV DYE? NO . ANY NEW ALLERGIES? NO . PSYCHIATRIC: DO YOU HAVE THOUGHTS OF HURTING YOURSELF OR SOMEONE ELSE? NO . ARE YOU ABUSED, NEGLECTED, OR IN AN UNSAFE ENVIRONMENT? NO . ENDOCRINOLOGY: ARE YOU DIABETIC? NO . OTHER: DO YOU NEED ANY PRESCRIPTIONS? NO . IF YES, PLEASE LIST: ____ . ANY NEW PROBLEMS WITH YOUR MEDICATIONS? NO . WHEN DID YOU LAST EAT? ____02/26/19 2030 . WHEN DID YOU LAST DRINK? ____02/27/19 0100 . WHAT DID YOU LAST DRINK? ____WATER . NAME OF PERSON DRIVING YOU HOME? ____CAB . DO YOU HAVE ANY OTHER QUESTIONS OR CONCERNS NO . VITAL SIGNS WT 193.6 LBS, HT 64 IN, BMI 33.23 INDEX, BP 142/72 MM HG, HR 91 /MIN, RR 16 /MIN, TEMP 97.3 F, OXYGEN SAT % 96%, SAFE IN ENV? (Y/N) YES, NA INITIALS AW 1048, REVIEWED BY: JS. ASSESSMENTS SPONDYLOSIS OF LUMBAR REGION WITHOUT MYELOPATHY OR RADICULOPATHY - M47.816 (PRIMARY) SPONDYLOSIS OF LUMBOSACRAL REGION WITHOUT MYELOPATHY OR RADICULOPATHY - M47.817 TREATMENT SPONDYLOSIS OF LUMBAR REGION WITHOUT MYELOPATHY OR RADICULOPATHY SMC FACET BLOCK (PAIN)[id number] PROCEDURES PN WORKMANS' COMP OPINION IN YOUR OPINION, WAS THE INCIDENT THAT THE PATIENT DESCRIBED THE COMPETENT MEDICAL CAUSE OF THIS INJURY/ILLNESS? YES ARE THE PATIENT'S COMPLAINTS CONSISTENT WITH HIS/HER HISTORY OF THE INJURY/ILLNESS? YES IS THE PATIENT'S HISTORY OF THE INJURY/ILLNESS CONSISTENT WITH YOUR OBJECTIVE FINDING? YES WHAT IS THE PERCENTAGE OF TEMPORARY IMPAIRMENT? MODERATE TO MARKED = 66.7% IS THE PATIENT WORKING? NO DOCTOR ON SITE: SHANTE CHURCH MD PN LUMBAR FACET BLOCK DIAGNOSTIC PRE PROCEDURE DIAGNOSIS LUMBAR SPONDYLOSIS, LUMBOSACRAL SPONDYLOSIS POST PROCEDURE DIAGNOSIS LUMBAR SPONDYLOSIS, LUMBOSACRAL SPONDYLOSIS PROCEDURE RIGHT L4-L5 AND RIGHT L5-S1 FACET BLOCK DIAGNOSTIC NUMBER [address] SHANTE TUCKER DEBURRER NONE ANESTHESIA LOCAL PRE PROCEDURE NOTE THE PATIENT WITH HISTORY OF CHRONIC LOW BACK PAIN. I EVALUATED THE PATIENT AND REVIEWED THE CHART. I WENT OVER THE RISKS, ALTERNATIVES, AND BENEFITS ASSOCIATED WITH THIS PROCEDURE. THE PATIENT WOULD LIKE TO PROCEED AND GAVE CONSENT TO PERFORM THE PROCEDURE. AGREED WITH THE PATIENT WE ARE DOING THIS PROCEDURE TO DETERMINE IF THE PATIENT IS A CANDIDATE FOR A RADIOFREQUENCY ABLATION OF THE FACETS JOINTS. THE PATIENT DENIES UNEXPLAINABLE WEIGHT LOSS, FEVER, CHILLS, OR NEW CHANGES IN URINARY OR BOWEL CONTROL DESCRIPTION OF PROCEDURE THE PATIENT WAS BROUGHT TO THE PROCEDURE ROOM AND PLACED IN THE PRONE POSITION. THE LUMBOSACRAL AREA WAS CLEANED WITH CHLORAPREP SOLUTION AND DRAPED ASEPTICALLY. THE PROCEDURE WAS DONE UNDER STERILE CONDITIONS. I CHECKED LATERALITY AND THE LEVEL WHERE THE PROCEDURE WAS GOING TO BE PERFORMED WITH THE PATIENT AND THE SUPPORTING STAFF AT THE MOMENT OF THE TIME OUT IN THE PROCEDURE ROOM. UNDER FLUOROSCOPIC GUIDANCE, TARGETS WERE SELECTED AT THE INTERSECTION OF THE RIGHT TRANSVERSE PROCESS OF L4, L5 AND ALA OF S1 WITH ITS RESPECTIVE SUPERIOR ARTICULAR PROCESS. LIDOCAINE WAS USED TO NUMB THE SKIN AND THE SUBCUTANEOUS TISSUE BELOW IT. SPINAL NEEDLE, 22-GAUGE WAS ADVANCED UNDER FLUOROSCOPIC GUIDANCE AND FOLLOWING PATIENT FEEDBACK UNTIL THE TARGETS WERE REACHED. POSITION OF THE NEEDLES WAS VERIFIED WITH AP AND LATERAL VIEWS. AFTER PROPER POSITION OF THE NEEDLES WAS ACHIEVED, ISOVUE-M DYE 30% 0.1 ML WAS INJECTED AT EACH SITE SHOWING ADEQUATE SPREAD OF THE DYE. THEN A SOLUTION OF 0.4 ML OF BUPIVACAINE 0.25% WAS INJECTED AT EACH SITE. THERE WAS NO EVIDENCE OF BLOOD, PARESTHESIA OR CEREBROSPINAL FLUID DURING THE PROCEDURE. THE PATIENT WAS SENT TO THE RECOVERY ROOM. THE PATIENT WAS MOVING THE EXTREMITIES AND DOING WELL. THERE WAS NO COMPLICATION DURING THE PROCEDURE. FLUOROSCOPY TIME WAS 20 SECONDS POST PROCEDURE NOTE THE PATIENT WILL DOCUMENT HIS PAIN LEVEL AND RESPONSE TO THIS PROCEDURE EVERY 30 MINUTES. THE PATIENT WILL BE SEEN IN A FOLLOW UP IN THE NEXT FEW WEEKS. FURTHER DETERMINATION FOR HIS CASE WILL BE DONE AT THE NEXT VISIT. INSTRUCTIONS WERE GIVEN, QUESTIONS WERE ANSWERED, AND THE PATIENT EXPRESSED UNDERSTANDING AND AGREED WITH THE PLAN. I, ARMAAN DE OLIVEIRA, DOCUMENTED THE ABOVE INFORMATION ACTING A SCRIBE FOR DR. TUCKER. I HAVE REVIEWED THE ABOVE DOCUMENT, WRITTEN BY ARMAAN DE OLIVEIRA SCRIBCisco AND I VERIFY THAT IT IS ACCURATE. PROCEDURE CODES 6045F RADXPS IN END [id number] PXD [id number] INJ PARAVERT F JNT L/S 1 LEV, MODIFIERS: RT [id number] INJ PARAVERT F JNT L/S 2 LEV, MODIFIERS: RT DISPOSITION & COMMUNICATION FOLLOW UP 3 WEEKS ELECTRONICALLY SIGNED BY SHANTE TUCKER MD, ON 03/17/2019 AT 06:52 PM EDT DISCLAIMER : THIS IS A VISIT SUMMARY EXTRACTED FROM THE [employer] CHART. IT IS NOT A COPY OF THE [employer] reviews PROGRESS NOTE. MTDD
== END ==
LOC: M PAIN 11:30
PROVIDERS: ATTEND Anesthesiology
DX: G89.29 Other chronic pain (principal); M47.816 Spondylosis without myelopathy or radiculopathy, lumbar region; M47.817 Spondylosis without myelopathy or radiculopathy, lumbosacral region; F32.9 Major depressive disorder, single episode, unspecified; E78.5 Hyperlipidemia, unspecified; Z21 Asymptomatic human immunodeficiency virus [HIV] infection status; G47.33 Obstructive sleep apnea (adult) (pediatric); G25.81 Restless legs syndrome; F17.210 Nicotine dependence, cigarettes, uncomplicated; Z79.899 Other long term (current) drug therapy; Z88.1 Allergy status to other antibiotic agents; Z88.5 Allergy status to narcotic agent; Z88.8 Allergy status to other drugs, medicaments and biological substances
CPT/HCPCS: 64493; 64494; Q9967

== ENCOUNTER → 2019-05-02 | Outpatient (REF) | payer MEDICARE, MEDICAID ==
[~2019-05-02] MED LIST changes: -BUPIVACAINE HCL 0.25% 30 ML VIAL As Ordered ONE; -ISOVUE-M 300 61% 15ML VIAL (Q9967) As Ordered ONE; -LIDOCAINE 1% SDV INJ 30 ML VIAL As Ordered ONE
[2019-05-02 12:17] LABS: BASO # 0.1 10^3/uL (0.0-0.2); BASO % 0.7 % (0.0-1.0); EOS # 0.2 10^3/uL (0.0-0.50); EOS % 1.5 % (0.0-3.0); HEMATOCRIT 38.7 % (36.0-47.0); HEMOGLOBIN 12.4 g/dl (12.0-15.5); LYMPH # 2.4 10^3/uL (1.5-4.5); LYMPH % 24.1 % (24.0-44.0); MEAN CORPUSCULAR HEMOGLOBIN 30.1 pg (27.0-33.0); MEAN CORPUSCULAR VOLUME 93.9 fl (80.0-96.0); MONO # 0.6 10^3/uL (0.0-0.8); MONO % 6.4 % (0.0-5.0); NEUTROPHILS # 6.7 10^3/uL (1.8-7.7); NEUTROPHILS % 66.6 % (36.0-66.0); PLATELET COUNT, AUTOMATED 251 10^3/uL (150-450); RED BLOOD COUNT 4.12 10^6/uL (4.00-5.40); WHITE BLOOD COUNT 10.1 10^3/uL (4.0-10.0)
[2019-05-02 12:53] LABS: BLOOD UREA NITROGEN 12 MG/DL (7-18); CALCIUM LEVEL 9.2 MG/DL (8.5-10.1); CARBON DIOXIDE LEVEL 30 MEQ/L (21-32); CHLORIDE LEVEL 103 MEQ/L (98-107); CREATININE FOR GFR 0.92 MG/DL (0.55-1.30); FOLATE > 24.0 NG/ML; GLOMERULAR FILTRATION RATE > 60.0 (>51); GLUCOSE, FASTING 114 MG/DL (70-100); POTASSIUM SERUM 4.3 MEQ/L (3.5-5.1); SODIUM LEVEL 140 MEQ/L (136-145); THYROID STIMULATING HORMONE 0.938 uIU/ML (0.358-3.740); VITAMIN B12 LEVEL 378 PG/ML
== END ==
LOC: M SFHCPLAZ 10:32
PROVIDERS: ATTEND Internal Medicine Infectious Disease
DX: E03.9 Hypothyroidism, unspecified (principal); R53.82 Chronic fatigue, unspecified; Z72.0 Tobacco use
CPT/HCPCS: 36415; 80048; 82607; 82746; 84443; 85025; G0463

== ENCOUNTER → 2019-06-10 | Outpatient (CLI) | payer MEDICARE, MEDICAID ==
--- NOTE | 2019-06-10 11:51 | REP ---
Low-dose lung screening CT of the chest: The studies performed without IV contrast. The images are presented at lung windowing only. There are no lung masses or nodules. There are no infiltrates or pleural effusions. Cardiac size appears enlarged. This is unchanged. On the prior study there was a bilateral hilar lymph node enlargement and there was mediastinal lymph node enlargement. On the current study the evaluation of lymph nodes is insensitive as the images are presented at lung windowing only and there is no spread. Follow-up study with IV contrast might be considered. Impression: Category one low-dose lung screening CT for lung nodules. Probability of malignancy for lung nodules is less than 1%. However, the comparison study there was evidence for bilateral hilar and mediastinal lymph node enlargement. The current study is insensitive for follow-up of lymph node enlargement in the absence of IV contrast and the images presented at lung windowing only. Follow-up CT of the chest with IV contrast is recommended for evaluation of lymphadenopathy. Electronically Signed by Yvon Hamilton MD 06/10/2019 11:42 A
== END ==
LOC: M RAD 10:44
PROVIDERS: ATTEND Internal Medicine Infectious Disease
DX: Z72.0 Tobacco use (principal); Z12.2 Encounter for screening for malignant neoplasm of respiratory organs

== ENCOUNTER → 2019-06-10 | Outpatient (CLI) | payer MEDICARE, MEDICAID ==
--- NOTE | 2019-06-19 01:33 | ECWPNPC ---
PATIENT NAME: CYNTHIA JOSHI : 1965 GENDER: FEMALE VISIT DATE: 06/10/2019 DISCHARGE DATE: 06/10/19 1025 VISIT LOCKED DATE TIME: PHYSICIAN: SHANTE TUCKER MD RESOURCE: SHANTE TUCKER MD REASON FOR APPOINTMENT 1. W/C POST PROC HISTORY OF PRESENT ILLNESS HISTORY OF PRESENT ILLNESS: PAIN THE PATIENT DESCRIBES THE PAIN... 54 YEAR OLD FEMALE PATIENT WITH A HISTORY OF CHRONIC LOW BACK PAIN. THE PATIENT DESCRIBES THE PAIN ACHING, STABBING, TENDER, SPASTIC, DAILY, AND CONTINUOUS WITH A PAIN SCORE OF 6-9/10 DEPENDING ON PHYSICAL ACTIVITY. 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 THE PATIENT RECEIVED A RIGHT L4-L5, L5-S1 DIAGNOSTIC #2 FACET BLOCK ON 02/27/2019, WHICH SHE SAYS PROVIDED GOOD PAIN FOR HER, HOWEVER THE PAIN HAS RETURNED. PATIENT DENIES UNEXPLAINABLE WEIGHT LOSS, FEVER, CHILLS, NEW CHANGES ON HER URINARY OR BOWEL CONTROL. FALL RISK SCREENING: SCREENING :NO FALLS REPORTED IN THE LAST YEAR CURRENT MEDICATIONS TAKING CYMBALTA 60 MG CAPSULE DELAYED RELEASE PARTICLES TAKE TWO CAPSULES BY MOUTH ONCE DAILY ORALLY TWICE A DAY TAKING BIKTARVY 50-200-25 MG TABLET TAKE ONE TABLET BY MOUTH ONCE DAILY TAKING KEPPRA 1000 MG TABLET TAKE 1 TAB BY MOUTH TWICE A DAY. TAKING BACLOFEN 20 MG TABLET 1 TABLET WITH FOOD OR MILK ORALLY EVERY 8 HRS TAKING ROPINIROLE HCL 0.25 MG TABLET 2 TABLET ORALLY THREE TIMES A DAY TAKING FISH OIL 1000 MG CAPSULE 1 CAPSULE ORALLY ONCE A DAY TAKING TRIAMCINOLONE ACETONIDE 0.1 % CREAM 1 APPLICATION TO AREA EXTERNALLY BID PRN TAKING NYSTATIN [id number] UNIT/GM POWDER APPLY UNDER BREASTS AND ABDOMINAL FOLD 2 TIMES A DAY TOPICALLY TWICE A DAY TAKING VENTOLIN HFA 108 (90 BASE) MCG/ACT AEROSOL SOLUTION 2 PUFFS INHALATION QID PRN TAKING NASONEX 50 MCG/ACT SUSPENSION 2 PUFFS NASALLY ONCE A DAY TAKING MUPIROCIN CALCIUM 2 % CREAM 1 APPLICATION TO AFFECTED AREA EXTERNALLY THREE TIMES A DAY TAKING ATORVASTATIN CALCIUM 80 MG TABLET TAKE ONE TABLET BY MOUTH ONCE DAILY TAKING VALACYCLOVIR HCL 500 MG TABLET 1 TAB ORALLY TWICE DAILY TAKING MULTI-DAY PLUS IRON - TABLET TAKE ONE TABLET BY MOUTH ONCE DAILY DIRECTED ORALLY DAILY TAKING TIZANIDINE HCL 4 MG TABLET 1 TABLET NEEDED ORALLY THREE TIMES A DAY MAX TAKING OMEPRAZOLE 40 MG CAPSULE DELAYED RELEASE 1 CAP BID ORALLY 30 DAY(S) ORALLY BID TAKING SEROQUEL 50 MG TABLET 1 TABLET AT BEDTIME ORALLY QHS TAKING LEVOTHYROXINE SODIUM 50 MCG TABLET 1 TABLET ON AN EMPTY STOMACH IN THE MORNING ORALLY ONCE A DAY TAKING WELLBUTRIN XL 300 MG TABLET EXTENDED RELEASE 24 HOUR TAKE ONE TABLET BY MOUTH EVERY MORNING TAKING CALCIUM-VITAMIN D 600-200 MG-UNIT TABLET 1 TAB ORALLY BID TAKING HYDROXYZINE HCL 50 MG TABLET 1 TABLET NEEDED ORALLY EVERY 8 HRS TAKING AMBIEN 10 MG TABLET 11/2 TABLET ORALLY BEFORE BEDTIME TAKING ENDOCET 7.5-325 MG TABLET 1 ORALLY Q 4-6H PRN PAIN MDD5 [place], NOTES: ATTN PHARMACY: PLEASE CONTACT THE PHARMACY SO THEY CAN CONTACT THE ADJUSTOR TO GET THE MEDICATION APPROVED. NOT-TAKING CYMBALTA 60 MG CAPSULE DELAYED RELEASE PARTICLES TAKE TWO CAPSULES BY MOUTH ONCE DAILY , NOTES: DUPLICATE MEDICATION LIST REVIEWED AND RECONCILED WITH THE PATIENT PAST MEDICAL HISTORY ABNORMAL EKG HX ARRYTHMIA CHRONIC DDD MRI DONE 03/2016 LARGE DISC HERNIATION AT L5-S1 WITH MODERATE EXTRUSION ON WORKER'S COMPENSATION FOLLOWS UP WITH DR. AGUERO DEPRESSION/INSOMNIA TOBACCO ABUSE HYPERLIPIDEMIA RECURRENT SINUSITIS HIV DIAGNOSED IN 1992 ACQUIRED THROUGH HETEROSEXUAL SEX HER PARTNER WAS POSITIVE HIV UNDETECTED SINCE 2009 CD4 MORE THAN 1000 COLONOSCOPY 2006 EGD AND COLONOSCOPY [address] OTERO CHRONIC GASTRITIS AND DUODENITIS 2005 LEFT BREAST CALCIFICATION BIOPSY BENIGN DAVON 1 DR HOPKINS COLPOSCOPY EVERY 6 MONTHS PAP EYELID INFECTION 10/2015 MODERATE TO SEVERE OBSTRUCTIVE SLEEP APNEA ON BIPAP 06/09 DR DE LEON/ [facility] MYOCLONUS BILATERAL CATARACTS DR FRANCIS/ DR CAMP RESTLESS LEG SYNDROME ALLERGIES MORPHINE SULFATE: HIVES - ALLERGY AUGMENTIN: HIVES - ALLERGY ULTRAM: HIVES - ALLERGY SUDAFED: HIVES - ALLERGY SURGICAL HISTORY EYE SURGERY 1971 TONSILLECTOMY 1977 LEFT SALPINGOOOPHORECTOMY TASO 1998 COLONOSCOPY AND EGD 06/2007 BREAST BIOPSY 03/2006 EGD AND COLONOSCOPY CHRONIC GASTRITIS AND DUODENITIS 04/18/2012 EXCISION B TOE NAILS BIG TOES DR PULIDO 04/2015 COLPOSCOPY WITH TRACY 06/15/15 HYSTARECTIUM LEFT LEG WOUNDS AGE 16 EYE LID SURGERY BOTH EYES / RIGHT ONE NEEDED TO BE RE SEWN DUE TO IT OPENING AUG 2017 RIGHT EYE CATARACT !12/31/17 LEFT EYE CATARACT 12/2018 FAMILY HISTORY FATHER: 63 YRS, BLADDER CA, DIAGNOSED WITH CANCER MOTHER: ALIVE 73 YRS, CAD NM AGE 61, HEART DISEASE SIBLINGS: ALIVE, SISTER BRAIN ANEURYSM DAUGHTER(S): ALIVE 2 BROTHER(S) , 2 SISTER(S) - HEALTHY. 1 SON(S) - HEALTHY. ONE SISTER WITH BRAIN ANUERYSM. SOCIAL HISTORY GENERAL: TOBACCO USE ARE YOU A:CURRENT SMOKER ARE YOU INTERESTED IN QUITTING?READY TO QUIT PT STATES SHE HAS SET A DATE TO QUIT SMOKING 06/15/19, STATES SHE IS READY HOW MANY CIGARETTES A DAY DO YOU SMOKE?5 OR LESS HOW SOON AFTER YOU WAKE UP DO YOU SMOKE YOUR FIRST CIGARETTE?6-30 MIN HOW OFTEN DO YOU SMOKE CIGARETTES?EVERY DAY PATIENT COUNSELED ON THE DANGERS OF TOBACCO USE AND URGED TO QUIT:06/10/2019 SMOKING CESSATION INFORMATION GIVEN05/02/2019 HIV / HEP-C SCREENING HIV TEST OFFERED TO PATIENT:YES DATE OFFERED:09/04/2018 PREVIOUSLY TESTED TEST ACCEPTED:YES BROCHURE PROVIDED TO PATIENTNO HEP-C TEST OFFERED TO PATIENT:YES DATE OFFERED:09/04/2018 PREVIOUSLY TESTED TEST ACCEPTED:YES OTHERS AT HOME: NONE. EDUCATION LEVEL OF EDUCATION:HIGH SCHOOL DIET: REGULAR. LANGUAGE LANGUAGES SPOKEN:BELARUSIAN DOMESTIC VIOLENCE DO YOU FEEL SAFE IN YOUR ENVIRONMENT?YES RECREATIONAL DRUG USE DRUG USE?NO EXERCISE: NONE. LEARNING BARRIERS / SPECIAL NEEDS BARRIERS TO LEARNING?NO HEARING IMPAIRED?NO VISION IMPAIRED?NO COGNITIVELY IMPAIRED?NO READINESS TO LEARN?YES LEARNING CAPABILITIES PRESENT?YES EMOTIONAL BARRIERS?NO SPECIAL DEVICES?NO PAIN CLINIC PFS, CLERGY, PUBLIC HEALTH REFERRALS PFS REFERRAL NEEDED?NO CLERGY REFERRAL NEEDED?NO PUBLIC HEALTH REFERRAL NEEDED?NO WAS THE PROVIDER NOTIFIED OF ANY PERTINENT INFO?YES HAS THE PATIENT BEEN EDUCATED REGARDING HIS/HER PLAN OF CARE?YES HAS THE PATIENT BEEN EDUCATED REGARDING PAIN, THE RISK FOR PAIN, THE IMPORTANCE OF EFFECTIVE PAIN MANAGEMENT, AND THE PAIN ASSESSMENT PROCESS?YES LATEX QUESTIONNAIRE LATEX ALLERGY : HAVE YOU EVER DEVELOPED ANY TYPE OF REACTION AFTER HANDLING LATEX PRODUCTS SUCH RUBBER GLOVES, CONDOMS, DIAPHRAGMS, BALLOONS, SOCKS, OR UNDERWEAR?NO LATEX ALLERGY : HAVE YOU EVER DEVELOPED ANY TYPE OF REACTION DURING OR AFTER DENTAL APPOINTMENT, VAGINAL/RECTAL EXAMINATION, SURGICAL PROCEDURE, OR ANY OTHER EXPOSURE?NO LATEX RISK : HAVE YOU EVER HAD ANY DIFFICULTY BREATHING OR HIVES AFTER EATING OR HANDLING ANY FRUITS, OR VEGETABLES; SUCH KIWI, BANANAS, STONE FRUITS, OR CHESTNUTSNO LATEX RISK : DO YOU HAVE A PREVIOUS PERSONAL HISTORY OF MORE THAN NINE SURGERIES, SPINA BIFIDA, OR REPEATED CATHERIZATIONS? YES - PLEASE INDICATE : > 9 SURGERIES LATEX RISK : ARE YOU FREQUENTLY EXPOSED TO LATEX PRODUCTS IN YOUR OCCUPATION?NO DATE ASKED : 02/27/2019 CAFFEINE CAFFEINE USE?YES HOW OFTEN AND HOW MUCH? DRINK COFFEE ALL DAY LONG ADVANCE DIRECTIVE ADVANCE DIRECTIVE DISCUSSED WITH PATIENT:YES PT HAS NO ADVANCED DIRECTIVES, DECLINES INFORMATION OR ASSISTANCE AT THIS TIME. 06/10/19 HINDU [id number] NONE MARITAL STATUS: .. ALCOHOL SCREENING DID YOU HAVE A DRINK CONTAINING ALCOHOL IN THE PAST YEAR?NO POINTS0 INTERPRETATIONNEGATIVE OCCUPATION: RETIRED. 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 SHE TAKES CARE OF HER 2 GRANDCHILDREN EZ AND RAMANA. HER SON IS ON SOCIAL SECURITY INCOME IS 23-YEAR-OLD [place] AND HE WILL MOVING TO [place] TO BE WITH HIS FATHER. SHE IS BUT FROM FROM HER BUT THEY SEE EACH OTHER ON THE WEEKEND. SHE SMOKES ONE PACK OF CIGARETTES A DAY SHE TRIED TO QUIT WITH NICOTINE PATCHES WELL WITH CHANTIX.REVIEWED WITH PT 11/09/18 1151 LASREVIEWED WITH PATIENT 02/27/19 1108 JSREVIEWED WITH PT 06/10/19 0938 BV. HOSPITALIZATION/MAJOR DIAGNOSTIC PROCEDURE RELATED TO SURGERY [facility] FOR 1 MONTH FOR SUICIDE ATTEMPTS 1997 REVIEW OF SYSTEMS REVIEWED BY: PROVIDER: SHANTE TUCKER MD . CONSTITUTIONAL: ANY CHANGE IN YOUR MEDICAL CONDITION? NO . CHILLS NO . FEVER NO . INFECTION: DO YOU HAVE NEW INFECTIONS? NO . DO YOU HAVE HISTORY OF MRSA? NO . MUSCULOSKELETAL: ANY NEW PATTERNS OF PAIN OR NUMBNESS? YES, PT STATES INCREASING INTERMITTENT NUMBNESS IN BILATERAL HANDS AND FEET. . GASTROENTEROLOGY: ANY NEW CHANGE IN BOWEL CONTROL? NO . GENITOURINARY: ANY NEW CHANGE IN BLADDER CONTROL? NO . IS THERE A CHANCE YOU COULD BE ? NO . HEMATOLOGY/LYMPH: DO YOU TAKE ANY BLOOD THINNERS? (FOR EXAMPLE- COUMADIN, PLAVIX, AGGRENOX, PLATEL, PRADAXA, OR XARELTO) NO . WHEN WAS YOUR LAST DOSE? DATE: TIME: . NEUROLOGY: HAVE YOU FALLEN IN THE PAST 12 MONTHS? NO . ANY NEW EXTREMITY NUMBNESS OR WEAKNESS? NO . CARDIOLOGY: DO YOU HAVE A PACEMAKER OR DEFIBRILLATOR? NO . RESPIRATORY: HAVE YOU BEEN SICK IN THE PAST WEEK? NO . FEVER NO . FLU LIKE SYMPTOMS? NO . COUGH NO . INTEGUMENTARY: DO YOU HAVE ANY RASHES OR OPEN SORES? NO . ALLERGIC/IMMUNO: ARE YOU ALLERGIC TO IV DYE? NO . ANY NEW ALLERGIES? NO . PSYCHIATRIC: DO YOU HAVE THOUGHTS OF HURTING YOURSELF OR SOMEONE ELSE? NO . ARE YOU ABUSED, NEGLECTED, OR IN AN UNSAFE ENVIRONMENT? NO . ENDOCRINOLOGY: ARE YOU DIABETIC? NO . OTHER: DO YOU NEED ANY PRESCRIPTIONS? NO . IF YES, PLEASE LIST: ____ . ANY NEW PROBLEMS WITH YOUR MEDICATIONS? NO . WHEN DID YOU LAST EAT? ____ . WHEN DID YOU LAST DRINK? ____ . WHAT DID YOU LAST DRINK? ____ . NAME OF PERSON DRIVING YOU HOME? ____ . DO YOU HAVE ANY OTHER QUESTIONS OR CONCERNS NO . VITAL SIGNS WT 204.2 LBS, HT 64 IN, BMI 35.05 INDEX, BP 136/63 MM HG, HR 91 /MIN, RR 16 /MIN, TEMP 96.8 F, OXYGEN SAT % 96%, NA INITIALS SC 09:28, REVIEWED BY: BV. EXAMINATION GENERAL EXAMINATION: PATIENT IS ALERT O X 3 AND COOPERATIVE. TENDERNESS AND SPASMS IN THE RIGHT LOWER BACK AREA. PAIN INCREASES OVER THE LUMBAR FACET JOINTS WITH EXTENSION AND LATERAL ROTATION OF THE BACK. MRI OF THE LUMBAR SPINE DONE ON 03/29/2016 SHOWS FACET ARTHROPATHY CHANGES AND A DISC EXTRUSION. ASSESSMENTS SPONDYLOSIS OF LUMBAR REGION WITHOUT MYELOPATHY OR RADICULOPATHY - M47.816 (PRIMARY) SPONDYLOSIS OF LUMBOSACRAL REGION WITHOUT MYELOPATHY OR RADICULOPATHY - M47.817 TREATMENT SPONDYLOSIS OF LUMBAR REGION WITHOUT MYELOPATHY OR RADICULOPATHY CLINICAL NOTES: WE DISCUSSED SEVERAL ISSUES WITH MS. JOSHI'S PAIN MANAGEMENT CASE. DUE TO THE LUMBAR SPONDYLOSIS AND THE PATIENT HAVING GOOD PAIN RELIEF FOLLOWING TWO DIAGNOSTIC FACET BLOCKS, I WOULD LIKE TO MOVE FORWARD WITH A RIGHT L4-L5, L5-S1 RADIOFREQUENCY ABLATION AT THIS TIME. WE DISCUSSED THE BENEFITS, RISKS, AND ALTERNATIVES OF THE PROCEDURE AND THE PATIENT WOULD LIKE TO PROCEED. THE PATIENT IS INTERESTED IN BEING SEEN BY A SURGEON TO DISCUSS OPTIONS FOR HER BACK CONDITION. THEREFORE I AM REFERRING THE PATIENT TO BE SEEN BY DR. NEIL HERRMANN AT [facility]. THE PATIENT WILL FOLLOW UP IN 2 MONTHS WITH NURSE PRACTITIONER [facility]. INSTRUCTIONS WERE GIVEN, QUESTIONS WERE ANSWERED, PATIENT REPORTS UNDERSTANDING AND AGREES WITH THE PLAN. I, FREDDY VALLES, DOCUMENTED THE ABOVE INFORMATION ACTING A SCRIBE FOR DR. TUCKER. I HAVE REVIEWED THE ABOVE DOCUMENT, WRITTEN BY FREDDY VALLES SCRIBCisco AND I VERIFY THAT IT IS ACCURATE. . PROCEDURES PN WORKMANS' COMP OPINION IN YOUR OPINION, WAS THE INCIDENT THAT THE PATIENT DESCRIBED THE COMPETENT MEDICAL CAUSE OF THIS INJURY/ILLNESS? YES ARE THE PATIENT'S COMPLAINTS CONSISTENT WITH HIS/HER HISTORY OF THE INJURY/ILLNESS? YES IS THE PATIENT'S HISTORY OF THE INJURY/ILLNESS CONSISTENT WITH YOUR OBJECTIVE FINDING? YES WHAT IS THE PERCENTAGE OF TEMPORARY IMPAIRMENT? MODERATE TO MARKED = 66.7% IS THE PATIENT WORKING? NO DOCTOR ON SITE: SHANTE CHURCH MD PREVENTIVE MEDICINE PAIN CLINIC TEACHING: PROCEDURE TEACHING PT GIVEN WRITTEN AND VERBAL PRE PROCEDURE INSTRUCTIONS. PT VERBALIZES UNDERSTANDING, STATING SHE HAS HAD THIS PROCEDURE BEFORE NILAY CUENCA 06/10/2019 10:26:30 AM > . PROCEDURE CODES FA211 ESTABILISHED PATIENT [facility] FACILITY CHARGE [id number] CURRENT MEDS W/DOSAGES DOCUMENTED [id number] PAIN ASSESS POS TOOL F/U PLAN DOC DISPOSITION & COMMUNICATION FOLLOW UP 2 MONTHS (REASON: RIGHT L4-L5, L5-S1 RF F/U WITH LINWO[facility] MCKAY) ELECTRONICALLY SIGNED BY SHANTE TUCKER MD, MD ON 06/18/2019 AT 02:01 PM EDT DISCLAIMER : THIS IS A VISIT SUMMARY EXTRACTED FROM THE [facility] CHART. IT IS NOT A COPY OF THE [facility] PROGRESS NOTE. KRIS
== END ==
LOC: M PAIN 09:30
PROVIDERS: ATTEND Anesthesiology
DX: M47.816 Spondylosis without myelopathy or radiculopathy, lumbar region (principal); M47.817 Spondylosis without myelopathy or radiculopathy, lumbosacral region; M51.27 Other intervertebral disc displacement, lumbosacral region; F32.9 Major depressive disorder, single episode, unspecified; G47.00 Insomnia, unspecified; E78.5 Hyperlipidemia, unspecified; J32.9 Chronic sinusitis, unspecified; B20 Human immunodeficiency virus [HIV] disease; K29.50 Unspecified chronic gastritis without bleeding; G47.33 Obstructive sleep apnea (adult) (pediatric); F17.210 Nicotine dependence, cigarettes, uncomplicated; G25.3 Myoclonus; Z79.899 Other long term (current) drug therapy; Z88.5 Allergy status to narcotic agent; Z88.1 Allergy status to other antibiotic agents; Z88.8 Allergy status to other drugs, medicaments and biological substances; Z12.2 Encounter for screening for malignant neoplasm of respiratory organs
CPT/HCPCS: G0297; G0463

== ENCOUNTER → 2019-08-28 | Outpatient (CLI) | payer OTHER, MEDICAID ==
[~2019-08-28] MED LIST changes: +BUPIVACAINE HCL 0.25% 30 ML VIAL As Ordered ONE; +ISOVUE-M 300 61% 15ML VIAL (Q9967) As Ordered ONE; +LIDOCAINE 1% SDV INJ 30 ML VIAL As Ordered ONE; -OMEP40CA2 PO; +OMEP40CA97 PO; +TRIAMCINOLONE ACETONIDE SUSP 40 MG/ML VIAL (J3301) As Ordered ONE
--- NOTE | 2019-08-28 16:41 | REP ---
C-ARM VIEWS LOWER LUMBAR SPINE: Clinical history: Pain. Three C-Arm views of the lower lumbar spine performed during injection performed by Dr. Aceves. [place] are seen along the lower lumbar spine region. 1 minute 3 seconds fluoroscopy time utilized. Electronically Signed by Yvon Ching MD 08/28/2019 06:43 P
--- NOTE | 2019-09-11 01:24 | ECWPNPC ---
PATIENT NAME: CYNTHIA JOSHI : 1965 GENDER: FEMALE VISIT DATE: 08/28/2019 DISCHARGE DATE: 08/28/19 1632 VISIT LOCKED DATE TIME: PHYSICIAN: SHANTE TUCKER MD RESOURCE: SHANTE TUCKER MD REASON FOR APPOINTMENT 1. RIGHT L4-L5, L5-S1 RF HISTORY OF PRESENT ILLNESS HISTORY OF PRESENT ILLNESS: PAIN THE PATIENT DESCRIBES THE PAIN... FALL RISK SCREENING: SCREENING :NO FALLS REPORTED IN THE LAST YEAR CURRENT MEDICATIONS TAKING BIKTARVY 50-200-25 MG TABLET TAKE ONE TABLET BY MOUTH ONCE DAILY , NOTES: 08/27 2100 TAKING KEPPRA 1000 MG TABLET TAKE 1 TAB BY MOUTH TWICE A DAY. , NOTES: 08/27 2100 TAKING ROPINIROLE HCL 0.25 MG TABLET 2 TABLET ORALLY THREE TIMES A DAY, NOTES: 08/27 2100 TAKING TRIAMCINOLONE ACETONIDE 0.1 % CREAM 1 APPLICATION TO AREA EXTERNALLY BID PRN, NOTES: NONE RECENT TAKING NYSTATIN [id number] UNIT/GM POWDER APPLY UNDER BREASTS AND ABDOMINAL FOLD 2 TIMES A DAY TOPICALLY TWICE A DAY, NOTES: 08/27 1000 TAKING VENTOLIN HFA 108 (90 BASE) MCG/ACT AEROSOL SOLUTION 2 PUFFS INHALATION QID PRN, NOTES: 08/25 TAKING NASONEX 50 MCG/ACT SUSPENSION 2 PUFFS NASALLY ONCE A DAY, NOTES: 08/27 1700 TAKING ATORVASTATIN CALCIUM 80 MG TABLET TAKE ONE TABLET BY MOUTH ONCE DAILY , NOTES: 08/27 1000 TAKING VALACYCLOVIR HCL 500 MG TABLET 1 TAB ORALLY TWICE DAILY, NOTES: 08/27 2100 TAKING MULTI-DAY PLUS IRON - TABLET TAKE ONE TABLET BY MOUTH ONCE DAILY DIRECTED ORALLY DAILY, NOTES: 08/27 1000 TAKING TIZANIDINE HCL 4 MG TABLET 1 TABLET NEEDED ORALLY THREE TIMES A DAY MAX, NOTES: 08/26 TAKING SEROQUEL 50 MG TABLET 1 TABLET AT BEDTIME ORALLY QHS, NOTES: 08/27 2100 TAKING WELLBUTRIN XL 300 MG TABLET EXTENDED RELEASE 24 HOUR TAKE ONE TABLET BY MOUTH EVERY MORNING , NOTES: 08/27 1000 TAKING CALCIUM-VITAMIN D 600-200 MG-UNIT TABLET 1 TAB ORALLY BID, NOTES: 08/27 1700 TAKING HYDROXYZINE HCL 50 MG TABLET 1 TABLET NEEDED ORALLY EVERY 8 HRS, NOTES: 08/27 TAKING OMEPRAZOLE 40 MG CAPSULE DELAYED RELEASE 2 CAPS ORALLY ONCE DAILY, NOTES: 08/27 1000 TAKING CYMBALTA 60 MG CAPSULE DELAYED RELEASE PARTICLES TAKE TWO CAPSULES BY MOUTH ONCE DAILY , NOTES: 08/27 2100 TAKING ENDOCET 7.5-325 MG TABLET 1 ORALLY Q 4-6H PRN PAIN MDD5 [place], NOTES: 08/27 2000 TAKING LEVOTHYROXINE SODIUM 50 MCG TABLET 1 TABLET ON AN EMPTY STOMACH IN THE MORNING ORALLY ONCE A DAY, NOTES: 08/28 0700 TAKING AMBIEN 10 MG TABLET 11/2 TABLET ORALLY BEFORE BEDTIME, NOTES: 08/27 2200 NOT-TAKING FISH OIL 1000 MG CAPSULE 1 CAPSULE ORALLY ONCE A DAY NOT-TAKING MUPIROCIN CALCIUM 2 % CREAM 1 APPLICATION TO AFFECTED AREA EXTERNALLY THREE TIMES A DAY NOT-TAKING BACLOFEN 20 MG TABLET 1 TABLET WITH FOOD OR MILK ORALLY EVERY 8 HRS NOT-TAKING CILOXAN 0.3 % SOLUTION 2 DROPS INTO AFFECTED EYE OPHTHALMIC EVERY 4 HRS MEDICATION LIST REVIEWED AND RECONCILED WITH THE PATIENT PAST MEDICAL HISTORY ABNORMAL EKG HX ARRYTHMIA CHRONIC DDD MRI DONE 03/2016 LARGE DISC HERNIATION AT L5-S1 WITH MODERATE EXTRUSION ON WORKER'S COMPENSATION FOLLOWS UP WITH DR. AGUERO DEPRESSION/INSOMNIA TOBACCO ABUSE HYPERLIPIDEMIA RECURRENT SINUSITIS HIV DIAGNOSED IN 1992 ACQUIRED THROUGH HETEROSEXUAL SEX HER PARTNER WAS POSITIVE HIV UNDETECTED SINCE 2009 CD4 MORE THAN 1000 COLONOSCOPY 2006 EGD AND COLONOSCOPY [address] OTERO CHRONIC GASTRITIS AND DUODENITIS 2006 LEFT BREAST CALCIFICATION BIOPSY BENIGN DAVON 1 DR HOPKINS COLPOSCOPY EVERY 6 MONTHS PAP EYELID INFECTION 10/2015 MODERATE TO SEVERE OBSTRUCTIVE SLEEP APNEA ON BIPAP 06/09 DR DE LEON/ [facility] MYOCLONUS BILATERAL CATARACTS DR FRANCIS/ DR CAMP RESTLESS LEG SYNDROME ALLERGIES MORPHINE SULFATE: HIVES - ALLERGY AUGMENTIN: HIVES - ALLERGY ULTRAM: HIVES - ALLERGY SUDAFED: HIVES - ALLERGY SURGICAL HISTORY EYE SURGERY 1971 TONSILLECTOMY 1977 LEFT SALPINGOOOPHORECTOMY TASO 1998 COLONOSCOPY AND EGD 06/2007 BREAST BIOPSY 03/2006 EGD AND COLONOSCOPY CHRONIC GASTRITIS AND DUODENITIS 04/18/2012 EXCISION B TOE NAILS BIG TOES DR PULIDO 04/2015 COLPOSCOPY WITH TRACY 06/15/15 HYSTARECTIUM LEFT LEG WOUNDS AGE 16 EYE LID SURGERY BOTH EYES / RIGHT ONE NEEDED TO BE RE SEWN DUE TO IT OPENING AUG 2017 RIGHT EYE CATARACT !12/31/17 LEFT EYE CATARACT 12/2018 FAMILY HISTORY FATHER: 63 YRS, BLADDER CA, DIAGNOSED WITH OTHER MALIGNANT NEOPLASM OF UNSPECIFIED SITE MOTHER: ALIVE 73 YRS, CAD [place] AGE 61, UNSPECIFIED HEART DISEASE SIBLINGS: ALIVE, SISTER BRAIN ANEURYSM DAUGHTER(S): ALIVE 2 BROTHER(S) , 2 SISTER(S) - HEALTHY. 1 SON(S) - HEALTHY. ONE SISTER WITH BRAIN ANUERYSM. SOCIAL HISTORY GENERAL: TOBACCO USE ARE YOU A:FORMER SMOKER HOW LONG HAS IT BEEN SINCE YOU LAST SMOKED?1-3 MONTHS SMOKING CESSATION INFORMATION GIVEN05/02/2019 HIV / HEP-C SCREENING HIV TEST OFFERED TO PATIENT:YES DATE OFFERED:09/04/2018 PREVIOUSLY TESTED TEST ACCEPTED:YES HEP-C TEST OFFERED TO PATIENT:YES DATE OFFERED:09/04/2018 PREVIOUSLY TESTED TEST ACCEPTED:YES BROCHURE PROVIDED TO PATIENTNO OTHERS AT HOME: NONE. EDUCATION LEVEL OF EDUCATION:HIGH SCHOOL DIET: REGULAR. LANGUAGE LANGUAGES SPOKEN:NIGERIAN DOMESTIC VIOLENCE DO YOU FEEL SAFE IN YOUR ENVIRONMENT?YES RECREATIONAL DRUG USE DRUG USE?NO EXERCISE: NONE. 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 N/A HAS THE PATIENT BEEN EDUCATED REGARDING HIS/HER PLAN OF CARE?YES HAS THE PATIENT BEEN EDUCATED REGARDING PAIN, THE RISK FOR PAIN, THE IMPORTANCE OF EFFECTIVE PAIN MANAGEMENT, AND THE PAIN ASSESSMENT PROCESS?YES LATEX QUESTIONNAIRE LATEX ALLERGY : HAVE YOU EVER DEVELOPED ANY TYPE OF REACTION AFTER HANDLING LATEX PRODUCTS SUCH RUBBER GLOVES, CONDOMS, DIAPHRAGMS, BALLOONS, SOCKS, OR UNDERWEAR?NO LATEX ALLERGY : HAVE YOU EVER DEVELOPED ANY TYPE OF REACTION DURING OR AFTER DENTAL APPOINTMENT, VAGINAL/RECTAL EXAMINATION, SURGICAL PROCEDURE, OR ANY OTHER EXPOSURE?NO LATEX RISK : HAVE YOU EVER HAD ANY DIFFICULTY BREATHING OR HIVES AFTER EATING OR HANDLING ANY FRUITS, OR VEGETABLES; SUCH KIWI, BANANAS, STONE FRUITS, OR CHESTNUTSNO LATEX RISK : DO YOU HAVE A PREVIOUS PERSONAL HISTORY OF MORE THAN NINE SURGERIES, SPINA BIFIDA, OR REPEATED CATHERIZATIONS? YES - PLEASE INDICATE : > 9 SURGERIES LATEX RISK : ARE YOU FREQUENTLY EXPOSED TO LATEX PRODUCTS IN YOUR OCCUPATION?NO DATE ASKED : 08/28/2019 CAFFEINE CAFFEINE USE?YES HOW OFTEN AND HOW MUCH? DRINK COFFEE ALL DAY LONG ADVANCE DIRECTIVE ADVANCE DIRECTIVE DISCUSSED WITH PATIENT:YES 08/27/19 PT HAS NO ADVANCED DIRECTIVES, DECLINES INFORMATION ON HCP STATES SHE ALREADY HAS IT AND WILL BRING A COPY IN WHEN SHE HAS IT COMPLETED. AD PRESYBETERIAN [id number] NONE MARITAL STATUS: .. ALCOHOL SCREENING DID YOU HAVE A DRINK CONTAINING ALCOHOL IN THE PAST YEAR?NO POINTS0 INTERPRETATIONNEGATIVE OCCUPATION: RETIRED. 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 SHE TAKES CARE OF HER 2 GRANDCHILDREN EZ AND RAMANA. HER SON IS ON SOCIAL SECURITY INCOME IS 23-YEAR-OLD [place] AND HE WILL MOVING TO [place] TO BE WITH HIS FATHER. SHE IS BUT FROM FROM HER BUT THEY SEE EACH OTHER ON THE WEEKEND. SHE SMOKES ONE PACK OF CIGARETTES A DAY SHE TRIED TO QUIT WITH NICOTINE PATCHES WELL WITH CHANTIX.REVIEWED WITH PT 11/09/18 1151 LASREVIEWED WITH PATIENT 02/27/19 1108 JSREVIEWED WITH PT 06/10/19 0938 BV. HOSPITALIZATION/MAJOR DIAGNOSTIC PROCEDURE RELATED TO SURGERY [facility] FOR 1 MONTH FOR SUICIDE ATTEMPTS 1997 REVIEW OF SYSTEMS REVIEWED BY: PROVIDER: . CONSTITUTIONAL: ANY CHANGE IN YOUR MEDICAL CONDITION? NO . CHILLS NO . FEVER NO . INFECTION: DO YOU HAVE NEW INFECTIONS? NO . DO YOU HAVE HISTORY OF MRSA? YES, DR TUCKER AWARE AND DISCUSSED THE RISKS OF DOING THE PROCEDURE WITHOUT CLEANSING WITH HIBLICLENS AND USING BACTROBAN FOR A WEEK PRIOR TO PROCEDURES. PT WISHED TO PROCEED WITH THE RADIOFREQUENCY TODAY. . MUSCULOSKELETAL: ANY NEW PATTERNS OF PAIN OR NUMBNESS? NO . GASTROENTEROLOGY: ANY NEW CHANGE IN BOWEL CONTROL? NO . GENITOURINARY: ANY NEW CHANGE IN BLADDER CONTROL? NO . IS THERE A CHANCE YOU COULD BE ? NO . HEMATOLOGY/LYMPH: DO YOU TAKE ANY BLOOD THINNERS? (FOR EXAMPLE- COUMADIN, PLAVIX, AGGRENOX, PLATEL, PRADAXA, OR XARELTO) NO . WHEN WAS YOUR LAST DOSE? DATE: TIME: . NEUROLOGY: HAVE YOU FALLEN IN THE PAST 12 MONTHS? NO . ANY NEW EXTREMITY NUMBNESS OR WEAKNESS? NO . CARDIOLOGY: DO YOU HAVE A PACEMAKER OR DEFIBRILLATOR? NO . RESPIRATORY: HAVE YOU BEEN SICK IN THE PAST WEEK? NO . FEVER NO . FLU LIKE SYMPTOMS? NO . COUGH NO . INTEGUMENTARY: DO YOU HAVE ANY RASHES OR OPEN SORES? NO . ALLERGIC/IMMUNO: ARE YOU ALLERGIC TO IV DYE? NO . ANY NEW ALLERGIES? NO . PSYCHIATRIC: DO YOU HAVE THOUGHTS OF HURTING YOURSELF OR SOMEONE ELSE? NO . ARE YOU ABUSED, NEGLECTED, OR IN AN UNSAFE ENVIRONMENT? NO . ENDOCRINOLOGY: ARE YOU DIABETIC? NO . OTHER: DO YOU NEED ANY PRESCRIPTIONS? NO . IF YES, PLEASE LIST: ____ . ANY NEW PROBLEMS WITH YOUR MEDICATIONS? NO . WHEN DID YOU LAST EAT? 08/27 2000 . WHEN DID YOU LAST DRINK? 08/28 600 . WHAT DID YOU LAST DRINK? COFFEE WITH CREAM AND SUGAR . NAME OF PERSON DRIVING YOU HOME? CAB--PT STATES SHE HAS SOMEONE AT HOME TO BE WITH HER WHEN SHE IS DONE. DR. TUCKER AWARE. . DO YOU HAVE ANY OTHER QUESTIONS OR CONCERNS NO PT PLANS ON GETTING THE FLU VACCINE NEXT WEEK. THE BENEFITS OF WAITING 3-4 WEEKS AFTER THE PROCEDURE WAS DISCUSSED WITH PT AND SHE VERBALIZED UNDERSTANDING. . VITAL SIGNS WT 194 LBS, HT 64 IN, BMI 33.30 INDEX, BP 115/69 MM HG, HR 74 /MIN, RR 18 /MIN, TEMP 97.9 F, OXYGEN SAT % 96%, SAFE IN ENV? (Y/N) Y, NA INITIALS ID [id number], REVIEWED BY: AD. ASSESSMENTS SPONDYLOSIS OF LUMBAR REGION WITHOUT MYELOPATHY OR RADICULOPATHY - M47.816 (PRIMARY) SPONDYLOSIS WITHOUT MYELOPATHY OR RADICULOPATHY, LUMBOSACRAL REGION - M47.817 TREATMENT SPONDYLOSIS OF LUMBAR REGION WITHOUT MYELOPATHY OR RADICULOPATHY [facility] FACET BLOCK (PAIN)[id number] PROCEDURES PN RADIOFREQUENCY PRE PROCEDURE DIAGNOSES 1. LUMBAR SPONDYLOSIS. 2. LUMBOSACRAL SPONDYLOSIS POST PROCEDURE DIAGNOSES 1. LUMBAR SPONDYLOSIS. 2. LUMBOSACRAL SPONDYLOSIS PROCEDURE RIGHT L4-L5, L5-S1 LUMBAR FACET RADIOFREQUENCY SURGEON DR. SHANTE TUCKER ASSOCIATE SPA DIRECTOR NONE ANESTHESIA LOCAL PRE PROCEDURE REPORT THE PATIENT HAS HISTORY OF CHRONIC LOW BACK PAIN. I EVALUATED THE PATIENT AND REVIEWED THE CHART. I WENT OVER THE RISKS, ALTERNATIVES, AND BENEFITS ASSOCIATED WITH THIS PROCEDURE. THE PATIENT WOULD LIKE TO PROCEED AND GIVES CONSENT TO PERFORM THE PROCEDURE. THE PATIENT DENIES UNEXPLAINABLE WEIGHT LOSS, FEVER, CHILLS, OR NEW CHANGES IN URINARY OR BOWEL CONTROL DESCRIPTION OF PROCEDURE THE PATIENT WAS BROUGHT TO THE PROCEDURE ROOM AND PLACED IN THE PRONE POSITION. THE LUMBOSACRAL AREA WAS CLEANED WITH CHLORAPREP SOLUTION AND DRAPED ASEPTICALLY. THE PROCEDURE WAS DONE UNDER STERILE CONDITIONS. I CHECKED LATERALITY AND THE LEVEL WHERE THE PROCEDURE WAS GOING TO BE PERFORMED WITH THE PATIENT AND THE SUPPORTING STAFF AT THE MOMENT OF THE TIME OUT IN THE PROCEDURE ROOM. UNDER FLUOROSCOPIC GUIDANCE, TARGETS WERE SELECTED AT THE INTERSECTION OF THE RIGHT TRANSVERSE PROCESS OF L4, L5 AND ALA OF S1 WITH ITS RESPECTIVE SUPERIOR ARTICULAR PROCESS. LIDOCAINE WAS USED TO NUMB THE SKIN AND THE SUBCUTANEOUS TISSUE BELOW IT. RADIOFREQUENCY NEEDLES 22-GAUGE 15 CM LONG WITH 10 MM ACTIVE CURVE TIP WERE ADVANCED UNDER FLUOROSCOPIC GUIDANCE AND FOLLOWING PATIENT FEEDBACK UNTIL THE TARGET AREA WAS REACHED. POSITION OF THE NEEDLES WAS VERIFIED WITH AP AND LATERAL VIEWS. AFTER PROPER POSITION OF THE NEEDLE WAS ACHIEVED, WE WORKED WITH THE RIGHT SELECTED MEDIAN BRANCHES OF L3, L4 AND THE DORSAL RAMI OF L5. WE MEASURED THE CORRESPONDING IMPEDANCES, SENSORY STIMULATION AND MOTOR RESPONSES INDICATED IN THE RADIOFREQUENCY WORKSHEET. POSITION OF THE NEEDLES WAS VERIFIED AGAIN WITH AP AND LATERAL VIEWS. LIDOCAINE 1%, 2 ML, WAS INJECTED AT EACH LEVEL. RADIOFREQUENCY WAS DONE AT EACH LEVEL AT 80 DEGREES FOR 90 SECONDS. AFTER RADIOFREQUENCY WAS DONE, THE PATIENT RECEIVED BUPIVACAINE 0.125% 1 CC WITH KENALOG 5 MG AT EACH SITE. THERE WAS NO EVIDENCE OF BLOOD, PARESTHESIA OR CEREBROSPINAL FLUID DURING THE PROCEDURE. THE PATIENT WAS SENT TO THE RECOVERY ROOM. THE PATIENT WAS MOVING THE EXTREMITIES AND DOING WELL. THERE WAS NO COMPLICATION DURING THE PROCEDURE. FLUOROSCOPY TIME WAS 63 SECONDS POST PROCEDURE NOTE THE PATIENT WILL BE SEEN IN A FOLLOW UP IN THE NEXT FEW WEEKS. INSTRUCTIONS WERE GIVEN, QUESTIONS WERE ANSWERED, AND THE PATIENT EXPRESSED UNDERSTANDING AND AGREES WITH THE PLAN I, MINDY SCHROEDER, DOCUMENTED THE ABOVE INFORMATION ACTING A SCRIBE FOR DR. TUCKER. I HAVE REVIEWED THE ABOVE DOCUMENT, WRITTEN BY MINDY BARTLETT AND I VERIFY THAT IT IS ACCURATE. PN WORKMANS' COMP OPINION IN YOUR OPINION, WAS THE INCIDENT THAT THE PATIENT DESCRIBED THE COMPETENT MEDICAL CAUSE OF THIS INJURY/ILLNESS? YES ARE THE PATIENT'S COMPLAINTS CONSISTENT WITH HIS/HER HISTORY OF THE INJURY/ILLNESS? YES IS THE PATIENT'S HISTORY OF THE INJURY/ILLNESS CONSISTENT WITH YOUR OBJECTIVE FINDING? YES WHAT IS THE PERCENTAGE OF TEMPORARY IMPAIRMENT? MODERATE TO MARKED = 66.7% IS THE PATIENT WORKING? NO DOCTOR ON SITE: SHANTE CHURCH MD PROCEDURE CODES 97256 DESTROY LUMB/SAC FACET JNT, MODIFIERS: RT 21318 DESTROY L/S FACET JNT ADDL, MODIFIERS: RT [id number] RADXPS IN END [id number] PXD DISPOSITION & COMMUNICATION FOLLOW UP 3 WEEKS ELECTRONICALLY SIGNED BY SHANTE TUCKER MD, MD ON 09/10/2019 AT 05:39 PM EDT DISCLAIMER : THIS IS A VISIT SUMMARY EXTRACTED FROM THE [employer] CHART. IT IS NOT A COPY OF THE [employer] PROGRESS NOTE. MTDD
== END ==
LOC: M PAIN 13:00
PROVIDERS: ATTEND Anesthesiology
DX: M47.816 Spondylosis without myelopathy or radiculopathy, lumbar region (principal); M47.817 Spondylosis without myelopathy or radiculopathy, lumbosacral region; F32.9 Major depressive disorder, single episode, unspecified; M51.27 Other intervertebral disc displacement, lumbosacral region; G47.00 Insomnia, unspecified; E78.5 Hyperlipidemia, unspecified; J32.9 Chronic sinusitis, unspecified; G47.33 Obstructive sleep apnea (adult) (pediatric); Z98.41 Cataract extraction status, right eye; Z98.42 Cataract extraction status, left eye; B20 Human immunodeficiency virus [HIV] disease; G25.3 Myoclonus; G25.81 Restless legs syndrome; Z87.891 Personal history of nicotine dependence; Z79.899 Other long term (current) drug therapy; Z88.1 Allergy status to other antibiotic agents; Z88.5 Allergy status to narcotic agent; Z88.8 Allergy status to other drugs, medicaments and biological substances
CPT/HCPCS: 64635; 64636; J3301; Q9967

== ENCOUNTER → 2019-09-03 | Outpatient (REF) | payer MEDICARE, MEDICAID ==
[~2019-09-03] MED LIST changes: -BUPIVACAINE HCL 0.25% 30 ML VIAL As Ordered ONE; -ISOVUE-M 300 61% 15ML VIAL (Q9967) As Ordered ONE; -LIDOCAINE 1% SDV INJ 30 ML VIAL As Ordered ONE; -TRIAMCINOLONE ACETONIDE SUSP 40 MG/ML VIAL (J3301) As Ordered ONE
[2019-09-03 13:02] LABS: ALBUMIN 3.4 GM/DL (3.2-5.2); ALT/SGPT 32 U/L (12-78); BILIRUBIN,TOTAL 0.5 MG/DL (0.2-1.0); BLOOD UREA NITROGEN 14 MG/DL (7-18); CALCIUM LEVEL 9.4 MG/DL (8.5-10.1); CARBON DIOXIDE LEVEL 26 MEQ/L (21-32); CHLORIDE LEVEL 111 MEQ/L (98-107); CHOLESTEROL LEVEL 181 MG/DL (<200); CHOLESTEROL RISK RATIO 2.549 (<5); CREATININE FOR GFR 0.95 MG/DL (0.55-1.30); GLOMERULAR FILTRATION RATE > 60.0 (>51); GLUCOSE, FASTING 115 MG/DL (70-100); HDL CHOLESTEROL 71 MG/DL (>40); LDL CHOLESTEROL 82 MG/DL (<100); NON-HDL-C 110 MG/DL; POTASSIUM SERUM 3.3 MEQ/L (3.5-5.1); SODIUM LEVEL 144 MEQ/L (136-145); TOTAL PROTEIN 6.6 GM/DL (6.4-8.2); TRIGLYCERIDES LEVEL 142 MG/DL (<150)
[2019-09-06 19:25] LABS: % CD8 Pos Lymph 43.6 % (12.0-35.5); %CD4 Pos Lymphs 44.3 % (30.8-58.5); ABS Basophils 0.1 x10E3/uL (0.0-0.2); ABS Eosinophils 0.2 x10E3/uL (0.0-0.4); ABS Lymphs 2.7 x10E3/uL (0.7-3.1); ABS Monocytes 0.8 x10E3/uL (0.1-0.9); ABS Neutophils 6.6 x10E3/uL (1.4-7.0); Abs CD4 Helper 1196 /uL (359-1519); Abs CD8 Suppres 1177 /uL (109-897); CD4/CD8 Ratio 1.02 (0.92-3.72); COTININE 10.8 ng/mL (.); Eosinophils 2 % (Not Estab.); HCT 31.9 % (34.0-46.6); HGB 10.8 g/dL (11.1-15.9); HIV-1 RNA PCR QUANT 2 LC550285 <20 copies/mL (.); Immature Grans 0 % (Not Estab.); Lymphocytes 27 % (Not Estab.); MCH 28.2 pg (26.6-33.0); MCHC 33.9 g/dL (31.5-35.7); MCV 83 fL (79-97); Monocytes 7 % (Not Estab.); NICOTINE None Detected (.); Neutrophils 63 % (Not Estab.); Platelets 193 x10E3/uL (150-450); RBC 3.83 x10E6/uL (3.77-5.28); RDW 17.5 % (12.3-15.4); WBC 10.3 x10E3/uL (3.4-10.8)
== END ==
LOC: M SFHCPLAZ 09:56
PROVIDERS: ATTEND Internal Medicine Infectious Disease
DX: B20 Human immunodeficiency virus [HIV] disease (principal); E78.5 Hyperlipidemia, unspecified; Z72.0 Tobacco use; Z22.322 Carrier or suspected carrier of Methicillin resistant Staphylococcus aureus
CPT/HCPCS: 36415; 80053; 80061; 83036; 86360; 87081; 87536; G0463; G0480

== ENCOUNTER → 2020-01-03 | Outpatient (CLI) | payer MEDICARE, MEDICAID ==
[~2020-01-03] MED LIST changes: -BUPR300T34 PO; +BUPR300T92 PO; -LORA0.5T11 PO; +LORA0.5T5 PO
--- NOTE | 2020-01-14 03:20 | ECWPNPC ---
PATIENT NAME: CYNTHIA JOSHI : 1965 GENDER: FEMALE VISIT DATE: 01/03/2020 DISCHARGE DATE: 01/03/20 1219 VISIT LOCKED DATE TIME: PHYSICIAN: LINWOOD HOUSTON RESOURCE: LINWOOD HOUSTON REASON FOR APPOINTMENT 1. POST PROCEDURE HISTORY OF PRESENT ILLNESS HISTORY OF PRESENT ILLNESS: PAIN THE PATIENT DESCRIBES THE PAIN... 54-YEAR-OLD FEMALE IN FOR POST RF PROCEDURE. SHE FEELS THE PROCEDURE WORKED WELL OVERALL STATING THAT SHE RECEIVED GREATER THAN 50% PAIN RELIEF STATUS POST PROCEDURE WHICH CONTINUES TODAY ON HER RIGHT SIDE. HER LEFT SIDE HOWEVER HAS STARTED TO EXPERIENCE INCREASED PAIN. 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 THE PATIENT RECIEVED A LEFT L4/5-L5/S1 RADIOREQUENCY ON 06/05/2018 AND REPORTED GREATER THAN 75% RELIEF IN HER PAIN. FALL RISK SCREENING: SCREENING :NO FALLS REPORTED IN THE LAST YEAR CURRENT MEDICATIONS TAKING KEPPRA 1000 MG TABLET TAKE 1 TAB BY MOUTH TWICE A DAY. TAKING ROPINIROLE HCL 0.25 MG TABLET 2 TABLET ORALLY THREE TIMES A DAY TAKING TRIAMCINOLONE ACETONIDE 0.1 % CREAM 1 APPLICATION TO AREA EXTERNALLY BID PRN TAKING VENTOLIN HFA 108 (90 BASE) MCG/ACT AEROSOL SOLUTION 2 PUFFS INHALATION QID PRN TAKING NASONEX 50 MCG/ACT SUSPENSION 2 PUFFS NASALLY ONCE A DAY TAKING LEVOTHYROXINE SODIUM 50 MCG TABLET 1 TABLET ON AN EMPTY STOMACH IN THE MORNING ORALLY ONCE A DAY TAKING TIZANIDINE HCL 4 MG TABLET 1 TABLET NEEDED ORALLY THREE TIMES A DAY MAX TAKING NYSTATIN 255117 UNIT/GM POWDER APPLY UNDER BREASTS AND ABDOMINAL FOLD 2 TIMES A DAY TOPICALLY TWICE A DAY TAKING ATORVASTATIN CALCIUM 80 MG TABLET TAKE ONE TABLET BY MOUTH ONCE DAILY TAKING SEROQUEL 50 MG TABLET 1 TABLET AT BEDTIME ORALLY QHS TAKING WELLBUTRIN XL 300 MG TABLET EXTENDED RELEASE 24 HOUR TAKE ONE TABLET BY MOUTH EVERY MORNING TAKING MULTI-DAY PLUS IRON - TABLET TAKE ONE TABLET BY MOUTH ONCE DAILY DIRECTED ORALLY DAILY TAKING HYDROXYZINE HCL 50 MG TABLET 1 TABLET NEEDED ORALLY EVERY 8 HRS TAKING HYDROXYZINE HCL 25 MG TABLET 1 TABLET NEEDED EVERY 8 HRS ORALLY 30 TAKING CALCIUM-VITAMIN D 600-200 MG-UNIT TABLET 1 TAB ORALLY BID TAKING VALACYCLOVIR HCL 500 MG TABLET 1 TAB ORALLY TWICE DAILY TAKING CYMBALTA 60 MG CAPSULE DELAYED RELEASE PARTICLES TAKE TWO CAPSULES BY MOUTH ONCE DAILY TAKING BIKTARVY 50-200-25 MG TABLET TAKE ONE TABLET BY MOUTH ONCE DAILY TAKING AMBIEN 10 MG TABLET 11/2 TABLET ORALLY BEFORE BEDTIME TAKING OMEPRAZOLE 40 MG CAPSULE DELAYED RELEASE 1 CAP BID ORALLY 30 DAY(S) ORALLY BID TAKING ENDOCET 7.5-325 MG TABLET 1 ORALLY Q 4-6H PRN PAIN MDD5 LIN[place] TAKING GABAPENTIN 600 MG TABLET 1 TABLET ORALLY TID MEDICATION LIST REVIEWED AND RECONCILED WITH THE PATIENT PAST MEDICAL HISTORY ABNORMAL EKG HX ARRYTHMIA CHRONIC DDD MRI DONE 03/2016 LARGE DISC HERNIATION AT L5-S1 WITH MODERATE EXTRUSION ON WORKER'S COMPENSATION FOLLOWS UP WITH DR. AGUERO DEPRESSION/INSOMNIA TOBACCO ABUSE HYPERLIPIDEMIA RECURRENT SINUSITIS HIV DIAGNOSED IN 1992 ACQUIRED THROUGH HETEROSEXUAL SEX HER PARTNER WAS POSITIVE HIV UNDETECTED SINCE 2009 CD4 MORE THAN 1000 COLONOSCOPY 2006 EGD AND COLONOSCOPY [address] OTERO CHRONIC GASTRITIS AND DUODENITIS 2005 LEFT BREAST CALCIFICATION BIOPSY BENIGN DAVON 1 DR HOPKINS COLPOSCOPY EVERY 6 MONTHS PAP EYELID INFECTION 10/2015 MODERATE TO SEVERE OBSTRUCTIVE SLEEP APNEA ON BIPAP 06/09 DR DE LEON/ [facility] MYOCLONUS BILATERAL CATARACTS DR FRANCIS/ DR CAMP RESTLESS LEG SYNDROME ALLERGIES MORPHINE SULFATE: HIVES - ALLERGY AUGMENTIN: HIVES - ALLERGY ULTRAM: HIVES - ALLERGY SUDAFED: HIVES - ALLERGY SURGICAL HISTORY EYE SURGERY 1971 TONSILLECTOMY 1977 LEFT SALPINGOOOPHORECTOMY [facility] 1997 COLONOSCOPY AND EGD 06/2007 BREAST BIOPSY 03/2006 EGD AND COLONOSCOPY CHRONIC GASTRITIS AND DUODENITIS 04/18/2012 EXCISION B TOE NAILS BIG TOES DR PULIDO 04/2015 COLPOSCOPY WITH TRACY 06/15/15 HYSTARECTIUM LEFT LEG WOUNDS AGE 16 EYE LID SURGERY BOTH EYES / RIGHT ONE NEEDED TO BE RE SEWN DUE TO IT OPENING AUG 2017 RIGHT EYE CATARACT !12/31/17 LEFT EYE CATARACT 12/2018 RIGHT EYE CATARACT 12/2018 FAMILY HISTORY FATHER: 63 YRS, BLADDER CA, DIAGNOSED WITH OTHER MALIGNANT NEOPLASM OF UNSPECIFIED SITE MOTHER: ALIVE 73 YRS, CAD [place] AGE 61, UNSPECIFIED HEART DISEASE SIBLINGS: ALIVE, SISTER BRAIN ANEURYSM DAUGHTER(S): ALIVE 2 BROTHER(S) , 2 SISTER(S) - HEALTHY. 1 SON(S) - HEALTHY. ONE SISTER WITH BRAIN ANUERYSM. SOCIAL HISTORY GENERAL: TOBACCO USE ARE YOU A:FORMER SMOKER HOW LONG HAS IT BEEN SINCE YOU LAST SMOKED?1-3 MONTHS SMOKING CESSATION INFORMATION GIVEN05/02/2019 HIV / HEP-C SCREENING HIV TEST OFFERED TO PATIENT:YES DATE OFFERED:09/04/2018 PREVIOUSLY TESTED TEST ACCEPTED:YES HEP-C TEST OFFERED TO PATIENT:YES DATE OFFERED:09/04/2018 PREVIOUSLY TESTED TEST ACCEPTED:YES BROCHURE PROVIDED TO PATIENTNO OTHERS AT HOME: ELIZABETH. EDUCATION LEVEL OF EDUCATION:HIGH SCHOOL DIET: REGULAR. LANGUAGE LANGUAGES SPOKEN:SETSWANA DOMESTIC VIOLENCE DO YOU FEEL SAFE IN YOUR ENVIRONMENT?YES RECREATIONAL DRUG USE DRUG USE?NO EXERCISE: NONE. 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 NEEDED?NO PAIN CLINIC PFS, CLERGY, PUBLIC HEALTH REFERRALS PFS REFERRAL NEEDED?NO CLERGY REFERRAL NEEDED?NO PUBLIC HEALTH REFERRAL NEEDED?NO WAS THE PROVIDER NOTIFIED OF ANY PERTINENT INFO?YES N/A HAS THE PATIENT BEEN EDUCATED REGARDING HIS/HER PLAN OF CARE?YES HAS THE PATIENT BEEN EDUCATED REGARDING PAIN, THE RISK FOR PAIN, THE IMPORTANCE OF EFFECTIVE PAIN MANAGEMENT, AND THE PAIN ASSESSMENT PROCESS?YES LATEX QUESTIONNAIRE LATEX ALLERGY : HAVE YOU EVER DEVELOPED ANY TYPE OF REACTION AFTER HANDLING LATEX PRODUCTS SUCH RUBBER GLOVES, CONDOMS, DIAPHRAGMS, BALLOONS, SOCKS, OR UNDERWEAR?NO LATEX ALLERGY : HAVE YOU EVER DEVELOPED ANY TYPE OF REACTION DURING OR AFTER DENTAL APPOINTMENT, VAGINAL/RECTAL EXAMINATION, SURGICAL PROCEDURE, OR ANY OTHER EXPOSURE?NO LATEX RISK : HAVE YOU EVER HAD ANY DIFFICULTY BREATHING OR HIVES AFTER EATING OR HANDLING ANY FRUITS, OR VEGETABLES; SUCH KIWI, BANANAS, STONE FRUITS, OR CHESTNUTSNO LATEX RISK : DO YOU HAVE A PREVIOUS PERSONAL HISTORY OF MORE THAN NINE SURGERIES, SPINA BIFIDA, OR REPEATED CATHERIZATIONS? YES - PLEASE INDICATE : > 9 SURGERIES LATEX RISK : ARE YOU FREQUENTLY EXPOSED TO LATEX PRODUCTS IN YOUR OCCUPATION?NO DATE ASKED : 01/03/2020 CAFFEINE CAFFEINE USE?YES HOW OFTEN AND HOW MUCH? DRINK COFFEE ALL DAY LONG ADVANCE DIRECTIVE ADVANCE DIRECTIVE DISCUSSED WITH PATIENT:YES PT HAS NO ADVANCED DIRECTIVES, DECLINES INFORMATION ON HCP STATES SHE ALREADY HAS IT AND WILL BRING A COPY IN WHEN SHE HAS IT COMPLETED. [facility] [id number] NONE MARITAL STATUS: .. ALCOHOL SCREENING DID YOU HAVE A DRINK CONTAINING ALCOHOL IN THE PAST YEAR?NO POINTS0 INTERPRETATIONNEGATIVE OCCUPATION: RETIRED. 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 SHE TAKES CARE OF HER 2 GRANDCHILDREN EZ AND RAMANA. HER SON IS ON SOCIAL SECURITY INCOME IS 23-YEAR-OLD [place] AND HE WILL MOVING TO [place] TO BE WITH HIS FATHER. SHE IS BUT FROM FROM HER BUT THEY SEE EACH OTHER ON THE WEEKEND. SHE SMOKES ONE PACK OF CIGARETTES A DAY SHE TRIED TO QUIT WITH NICOTINE PATCHES WELL WITH CHANTIX.REVIEWED WITH PT 11/09/18 1151 LASREVIEWED WITH PATIENT 02/27/19 1108 JSREVIEWED WITH PT 06/10/19 0938 BVREVIEWED WITH PATIENT 01-03-2020 DS. HOSPITALIZATION/MAJOR DIAGNOSTIC PROCEDURE RELATED TO SURGERY [facility] FOR 1 MONTH FOR SUICIDE ATTEMPTS 1997 REVIEW OF SYSTEMS REVIEWED BY: PROVIDER: DAVINA BENZ . CONSTITUTIONAL: ANY CHANGE IN YOUR MEDICAL CONDITION? NO . CHILLS NO . FEVER NO . INFECTION: DO YOU HAVE NEW INFECTIONS? NO . DO YOU HAVE HISTORY OF MRSA? NO . MUSCULOSKELETAL: ANY NEW PATTERNS OF PAIN OR NUMBNESS? NO . GASTROENTEROLOGY: ANY NEW CHANGE IN BOWEL CONTROL? NO . GENITOURINARY: ANY NEW CHANGE IN BLADDER CONTROL? NO . IS THERE A CHANCE YOU COULD BE ? NO . HEMATOLOGY/LYMPH: DO YOU TAKE ANY BLOOD THINNERS? (FOR EXAMPLE- COUMADIN, PLAVIX, AGGRENOX, PLATEL, PRADAXA, OR XARELTO) NO . WHEN WAS YOUR LAST DOSE? DATE: TIME: . NEUROLOGY: HAVE YOU FALLEN IN THE PAST 12 MONTHS? NO . ANY NEW EXTREMITY NUMBNESS OR WEAKNESS? NO . CARDIOLOGY: DO YOU HAVE A PACEMAKER OR DEFIBRILLATOR? NO . RESPIRATORY: HAVE YOU BEEN SICK IN THE PAST WEEK? NO . FEVER NO . FLU LIKE SYMPTOMS? NO . COUGH NO . INTEGUMENTARY: DO YOU HAVE ANY RASHES OR OPEN SORES? NO . ALLERGIC/IMMUNO: ARE YOU ALLERGIC TO IV DYE? NO . ANY NEW ALLERGIES? NO . PSYCHIATRIC: DO YOU HAVE THOUGHTS OF HURTING YOURSELF OR SOMEONE ELSE? NO . ARE YOU ABUSED, NEGLECTED, OR IN AN UNSAFE ENVIRONMENT? NO . ENDOCRINOLOGY: ARE YOU DIABETIC? NO . OTHER: DO YOU NEED ANY PRESCRIPTIONS? NO . IF YES, PLEASE LIST: ____ . ANY NEW PROBLEMS WITH YOUR MEDICATIONS? NO . WHEN DID YOU LAST EAT? ____ . WHEN DID YOU LAST DRINK? ____ . WHAT DID YOU LAST DRINK? ____ . NAME OF PERSON DRIVING YOU HOME? ____ . DO YOU HAVE ANY OTHER QUESTIONS OR CONCERNS NO . VITAL SIGNS WT 192.6 LBS, HT 64 IN, BMI 33.06 INDEX, BP 145/77 MM HG, HR 90 /MIN, RR 18 /MIN, TEMP 98.0 F, OXYGEN SAT % 97, SAFE IN ENV? (Y/N) Y, REVIEWED BY: OH. EXAMINATION GENERAL EXAMINATION: GENERALNO ACUTE DISTRESS, WELL NOURISHED AND HYDRATED. PSYCHAPPROPRIATE MOOD AND AFFECT . LUNGS:CLEAR TO AUSCULTATION BILATERALLY, NO WHEEZES, RHONCHI, RALES. HEART:NO MURMURS, REGULAR RATE AND RHYTHM. BACK:POINT TENDER OVER LUMBAR SPINE, SURROUNDING SKIN SHOWS NO ERYTHEMA, ECCHYMOSIS, INCREASED WARMTH, AND/OR SKIN ERUPTIONS NOTED. POSITIVE MODIFIED SLR LEFT SIDE. . MUSCULOSKELETAL:NOTABLE WEAKNESS OF LEFT LOWER EXTREMITY, RIGHT LOWER EXTREMITY WITHIN NORMAL LIMITS. . ASSESSMENTS SPONDYLOSIS OF LUMBAR REGION WITHOUT MYELOPATHY OR RADICULOPATHY - M47.816 (PRIMARY) TREATMENT SPONDYLOSIS OF LUMBAR REGION WITHOUT MYELOPATHY OR RADICULOPATHY NOTES: DIAGNOSTIC FACET BLOCK #2 L4-L5 L5-S1 LEFT SIDE. CLINICAL NOTES: 54-YEAR-OLD FEMALE IN FOR WORKER'S COMP. CHRONIC PAIN FOLLOW-UP. GIVEN PRESENTING SYMPTOMS AND RESULTS OF PHYSICAL EXAMINATION RECOMMENDED DIAGNOSTIC FACET BLOCK LEFT SIDE L4-L5 L5-S1 WITH POSTPROCEDURAL FOLLOW-UP. PATIENT HAS EXPRESSED UNDERSTANDING OF AND WAS IN AGREEMENT WITH TREATMENT PLAN. GIVEN TIME TO ASK QUESTIONS AND EXPRESS CONCERNS., ISTOP REGISTRY REVIEWED AND DEMONSTRATES COMPLLIANCE. (REF # [id number] ) BRINGS IN MEDICATIONS WHICH IS APPROPRIATE FOR WHAT WAS DISPENSED. RECENT URINE TOXICOLOGY REVIEWED. NO UNAUTHORIZED MEDICATIONS. NO ILLICIT SUBSTANCES AND PRESCRIBED MEDICATIONS WERE PRESENT. PROCEDURES PN WORKMANS' COMP OPINION IN YOUR OPINION, WAS THE INCIDENT THAT THE PATIENT DESCRIBED THE COMPETENT MEDICAL CAUSE OF THIS INJURY/ILLNESS? YES ARE THE PATIENT'S COMPLAINTS CONSISTENT WITH HIS/HER HISTORY OF THE INJURY/ILLNESS? YES IS THE PATIENT'S HISTORY OF THE INJURY/ILLNESS CONSISTENT WITH YOUR OBJECTIVE FINDING? YES WHAT IS THE PERCENTAGE OF TEMPORARY IMPAIRMENT? MODERATE TO MARKED = 66.7% IS THE PATIENT WORKING? NO DOCTOR ON SITE: SHANTE CHURCH MD PREVENTIVE MEDICINE PAIN CLINIC TEACHING: THE PATIENT HAS BEEN EDUCATED REGARDING PAIN, THE RISK FOR PAIN, THE IMPORTANCE OF EFFECTIVE PAIN MANAGEMENT, AND THE PAIN ASSESSMENT PROCESS. : REVIEWED AND DISCUSSED PRE-PROCEDURE INSTRUCTIONS WITH PT, REVIEWED TREATMENT PLAN WITH PATIENT, PT ACKNOWLEDGED UNDERSTANDING. DS PROCEDURE CODES FA211 ESTABILISHED PATIENT [facility] CHARGE DISPOSITION & COMMUNICATION FOLLOW UP POSTPROCEDURE (REASON: LEFT DIAGNOSTIC FACET #2 L4-L5 L5-S1) ELECTRONICALLY SIGNED BY BORIS MATHEWS ON 01/13/2020 AT 10:10 AM EST DISCLAIMER : THIS IS A VISIT SUMMARY EXTRACTED FROM THE [employer] CHART. IT IS NOT A COPY OF THE [employer] PROGRESS NOTE. KRIS
== END ==
LOC: M PAIN 11:30
PROVIDERS: ATTEND Family Medicine
DX: M47.816 Spondylosis without myelopathy or radiculopathy, lumbar region (principal); Z86.59 Personal history of other mental and behavioral disorders; G47.00 Insomnia, unspecified; E78.5 Hyperlipidemia, unspecified; Z86.19 Personal history of other infectious and parasitic diseases; G25.81 Restless legs syndrome; Z87.891 Personal history of nicotine dependence; Z88.1 Allergy status to other antibiotic agents; Z88.5 Allergy status to narcotic agent; Z88.8 Allergy status to other drugs, medicaments and biological substances; Z79.891 Long term (current) use of opiate analgesic; Z79.899 Other long term (current) drug therapy

== ENCOUNTER → 2020-03-27 | Outpatient (REF) | payer MEDICARE, MEDICAID ==
[~2020-03-27] MED LIST changes: +OLOP2.5D3 OP; -PATA0.2S OP
[2020-03-27 19:01] LABS: ALBUMIN 3.6 GM/DL (3.2-5.2); ALT/SGPT 22 U/L (12-78); BILIRUBIN,TOTAL 0.3 MG/DL (0.2-1.0); BLOOD UREA NITROGEN 11 MG/DL (7-18); CALCIUM LEVEL 9.2 MG/DL (8.5-10.1); CARBON DIOXIDE LEVEL 28 MEQ/L (21-32); CHLORIDE LEVEL 106 MEQ/L (98-107); CHOLESTEROL LEVEL 202 MG/DL (<200); CHOLESTEROL RISK RATIO 3.607 (<5); CREATININE FOR GFR 0.61 MG/DL (0.55-1.30); GLOMERULAR FILTRATION RATE > 60.0 (>51); GLUCOSE, FASTING 74 MG/DL (70-100); HDL CHOLESTEROL 56 MG/DL (>40); LDL CHOLESTEROL 83 MG/DL (<100); NON-HDL-C 146 MG/DL; POTASSIUM SERUM 4.3 MEQ/L (3.5-5.1); SODIUM LEVEL 140 MEQ/L (136-145); TOTAL PROTEIN 7.6 GM/DL (6.4-8.2); TRIGLYCERIDES LEVEL 313 MG/DL (<150)
[2020-03-27 19:07] LABS: HEMOGLOBIN A1c 6.3 %
[2020-03-31 14:11] LABS: % CD8 Pos Lymph 45.6 % (12.0-35.5); %CD4 Pos Lymphs 40.9 % (30.8-58.5); ABS Basophils 0.1 x10E3/uL (0.0-0.2); ABS Eosinophils 0.1 x10E3/uL (0.0-0.4); ABS Lymphs 2.9 x10E3/uL (0.7-3.1); ABS Monocytes 0.5 x10E3/uL (0.1-0.9); ABS Neutophils 7.3 x10E3/uL (1.4-7.0); Abs CD4 Helper 1186 /uL (359-1519); Abs CD8 Suppres 1322 /uL (109-897); Eosinophils 1 % (Not Estab.); HCT 38.2 % (34.0-46.6); HGB 12.1 g/dL (11.1-15.9); HIV-1 RNA PCR QUANT 2 LC550285 <20 copies/mL (.); Immature Grans 0 % (Not Estab.); Lymphocytes 27 % (Not Estab.); MCH 27.6 pg (26.6-33.0); MCHC 31.7 g/dL (31.5-35.7); MCV 87 fL (79-97); Monocytes 4 % (Not Estab.); Neutrophils 67 % (Not Estab.); Platelets 287 x10E3/uL (150-450); RBC 4.38 x10E6/uL (3.77-5.28); RDW 16.4 % (11.7-15.4); WBC 10.8 x10E3/uL (3.4-10.8)
== END ==
LOC: M SFHCPLAZ 13:46
PROVIDERS: ATTEND Internal Medicine Infectious Disease
DX: B20 Human immunodeficiency virus [HIV] disease (principal); E78.5 Hyperlipidemia, unspecified; Z79.899 Other long term (current) drug therapy

== ENCOUNTER → 2020-03-27 | Outpatient (CLI) | payer MEDICARE, MEDICAID | LOC: M PLALAB 13:50 | PROVIDERS: ATTEND Physician Assistant Medical | DX: G25.3 Myoclonus (principal); Z51.81 Encounter for therapeutic drug level monitoring ==

== ENCOUNTER → 2020-03-28 | Outpatient (CLI) | payer MEDICARE, MEDICAID | LOC: M LABSMTC 09:26 | PROVIDERS: ATTEND Family Medicine | DX: Z11.59 Encounter for screening for other viral diseases (principal) ==

== ENCOUNTER → 2020-04-18 | Outpatient (CLI) | payer MEDICARE, MEDICAID | LOC: M LABSMTC 10:43 | PROVIDERS: ATTEND Anesthesiology | DX: Z03.818 Encounter for observation for suspected exposure to other biological agents ruled out (principal); Z11.59 Encounter for screening for other viral diseases | CPT/HCPCS: C9803; U0003 ==

== ENCOUNTER → 2020-04-21 | Outpatient (CLI) | payer OTHER, MEDICAID, MEDICARE ==
[~2020-04-21] MED LIST changes: +BUPIVACAINE HCL 0.25% 30ML VIAL As Ordered ONE; +ISOVUE-M 300 61% 15ML VIAL As Ordered ONE; +LIDOCAINE 1% SDV 30ML VIAL As Ordered ONE
--- NOTE | 2020-04-21 14:18 | REP ---
C-ARM VIEWS OF THE LOWER LUMBAR SPINE: CLINICAL HISTORY: Pain. Three C-arm views of the lower lumbar spine performed during lumbar facet injection by Dr. Aceves. [place] are seen along the lower lumbar facet joints. A small amount of contrast is injected. 26 seconds of fluoroscopy time utilized. Electronically Signed by Yvon Ching MD 04/22/2020 12:29 P
--- NOTE | 2020-04-22 01:12 | ECWPNPC ---
PATIENT NAME: CYNTHIA JOSHI : 1965 GENDER: FEMALE VISIT DATE: 04/21/2020 DISCHARGE DATE: 04/21/20 1116 VISIT LOCKED DATE TIME: PHYSICIAN: SHANTE TUCKER MD RESOURCE: SHANTE TUCKER MD REASON FOR APPOINTMENT 1. LEFT DIAGNOSTIC FACET L4-L5 L5-S1 HISTORY OF PRESENT ILLNESS GENERAL: -. FALL RISK SCREENING: SCREENING :NO FALLS REPORTED IN THE LAST YEAR NURSING NOTE: -. PAIN CENTER INTAKE QUESTIONS: DO YOU HAVE A HISTORY OF MRSA? :YES DO YOU TAKE A BLOOD THINNERS? :NO DO YOU HAVE ANY BLEEDING DISORDERS? :NO ANY NEW NUMBNESS OR WEAKNESS IN YOUR LEGS OR ARMS? :NO ANY PACEMAKER,DEFIBRILLATOR, OR DORSAL COLUMN STIMULATOR? :NO DO YOU HAVE ANY RASHES OR OPEN SORES? :NO ARE YOU ALLERGIC TO IV DYE? :NO ARE YOU DIABETIC? :NO ANY NEW PROBLEMS WITH YOUR MEDICATIONS? :NO HAVE YOU RECEIVED A VACCINE IN THE PAST 30 DAYS? :NO DO YOU PLAN TO RECEIVE A VACCINE IN THE NEXT 21 DAYS? :NO ANY HISTORY OF SEIZURES? :NO ANY HISTORY OF CARDIAC ISSUES OR EVENTS? :NO DO YOU HAVE SLEEP APNEA? :YES DO YOU WEAR A CPAP? BIPAP ANY RECENT HEAD INJURY? :NO DO YOU HAVE ANY NEW INFECTIONS? :NO WHEN DID YOU LAST EAT? : -192904-20-20 WHEN DID YOU LAST DRINK? : -629 WATER WHAT DID YOU LAST DRINK? : -729 THIS MORNING WATER NAME OF PERSON DRIVING YOU HOME? : -[place] DO YOU HAVE ANY OTHER QUESTIONS OR CONCERNS? : NOTIFIED HER THAT THEY ARE NO LONGER GOING TO PAY FOR HER MEDICATIONS PAIN SCREENING: PATIENT HAS A COMPLAINT OF ACUTE OR CHRONIC PAIN :YES LOCATION OF PAIN:LOW BACK LEFT SIDE INTENSITY OF PAIN (SCALE OF 1 TO 10):8 PAIN IS INCREASED BY:ACTIVITIES, PROLONGED STANDING PT STATES EVERYTHING PROMOTES THE PAIN CURRENT MEDICATIONS TAKING KEPPRA 1000 MG TABLET TAKE 1 TAB BY MOUTH TWICE A DAY. , NOTES: 04-20-20 0800 TAKING ROPINIROLE HCL 0.25 MG TABLET 2 TABLET ORALLY THREE TIMES A DAY, NOTES: 04-20-20 08 TAKING TRIAMCINOLONE ACETONIDE 0.1 % CREAM 1 APPLICATION TO AREA EXTERNALLY BID PRN, NOTES: NOT LATELY TAKING NASONEX 50 MCG/ACT SUSPENSION 2 PUFFS NASALLY ONCE A DAY, NOTES: 04-20-20799 TAKING NYSTATIN 368805 UNIT/GM POWDER APPLY UNDER BREASTS AND ABDOMINAL FOLD 2 TIMES A DAY TOPICALLY TWICE A DAY, NOTES: NOT LATELY TAKING CYMBALTA 60 MG CAPSULE DELAYED RELEASE PARTICLES TAKE TWO CAPSULES BY MOUTH ONCE DAILY , NOTES: 04-20-20799 TAKING HYDROXYZINE HCL 50 MG TABLET 1 TABLET NEEDED ORALLY EVERY 8 HRS, NOTES: 04-20-20899 TAKING LEVOTHYROXINE SODIUM 50 MCG TABLET 1 TABLET ON AN EMPTY STOMACH IN THE MORNING ORALLY ONCE A DAY, NOTES: 799 TAKING VENTOLIN HFA 108 (90 BASE) MCG/ACT AEROSOL SOLUTION 2 PUFFS INHALATION QID PRN, NOTES: 04-20-20799 TAKING OMEPRAZOLE 40 MG CAPSULE DELAYED RELEASE 1 CAP BID ORALLY 30 DAY(S) ORALLY BID, NOTES: 04-20-20799 TAKING GABAPENTIN 600 MG TABLET 1 TABLET ORALLY TID, NOTES: 04-20-20799 TAKING BIKTARVY 50-200-25 MG TABLET 1 TABLET ORALLY ONCE A DAY, NOTES: 04-20-20899 TAKING SEROQUEL 50 MG TABLET 1 TABLET AT BEDTIME ORALLY QHS, NOTES: 04-20-20799 TAKING ATORVASTATIN CALCIUM 80 MG TABLET TAKE ONE TABLET BY MOUTH ONCE DAILY , NOTES: 04-20-20799 TAKING WELLBUTRIN XL 300 MG TABLET EXTENDED RELEASE 24 HOUR TAKE ONE TABLET BY MOUTH EVERY MORNING , NOTES: 04-20-20799 TAKING AMBIEN 10 MG TABLET 11/2 TABLET ORALLY BEFORE BEDTIME, NOTES: 04-20-202099 TAKING MULTI-DAY PLUS IRON - TABLET TAKE ONE TABLET BY MOUTH ONCE DAILY DIRECTED ORALLY DAILY, NOTES: 04-20-20799 TAKING ENDOCET 7.5-325 MG TABLET 1 ORALLY Q 4-6H PRN PAIN MDD5 [place], NOTES: 04-20-20799 TAKING TIZANIDINE HCL 4 MG TABLET 1 TABLET NEEDED ORALLY THREE TIMES A DAY MAX, NOTES: 04-20-20899 TAKING HYDROXYZINE HCL 25 MG TABLET 1 TABLET NEEDED EVERY 8 HRS ORALLY 30 , NOTES: 04-20-20 1000 TAKING VALACYCLOVIR HCL 500 MG TABLET 1 TAB ORALLY TWICE DAILY, NOTES: 04-20-20899 TAKING CALCIUM-VITAMIN D 600-200 MG-UNIT TABLET 1 TAB ORALLY BID, NOTES: 6-1-20 0900 NOT-TAKING CILOXAN 0.3 % SOLUTION 2 DROPS INTO AFFECTED EYE OPHTHALMIC EVERY 4 HRS MEDICATION LIST REVIEWED AND RECONCILED WITH THE PATIENT PAST MEDICAL HISTORY ABNORMAL EKG HX ARRYTHMIA CHRONIC DDD MRI DONE 03/2016 LARGE DISC HERNIATION AT L5-S1 WITH MODERATE EXTRUSION ON WORKER'S COMPENSATION FOLLOWS UP WITH DR. AGUERO DEPRESSION/INSOMNIA TOBACCO ABUSE HYPERLIPIDEMIA RECURRENT SINUSITIS HIV DIAGNOSED IN 1992 ACQUIRED THROUGH HETEROSEXUAL SEX HER PARTNER WAS POSITIVE HIV UNDETECTED SINCE 2009 CD4 MORE THAN 1000 COLONOSCOPY 2006 EGD AND COLONOSCOPY [address] OTERO CHRONIC GASTRITIS AND DUODENITIS 2006 LEFT BREAST CALCIFICATION BIOPSY BENIGN DAVON 1 DR HOPKINS COLPOSCOPY EVERY 6 MONTHS PAP EYELID INFECTION 10/2015 MODERATE TO SEVERE OBSTRUCTIVE SLEEP APNEA ON BIPAP 06/09 DR DE LEON/ [facility] MYOCLONUS BILATERAL CATARACTS DR FRANCIS/ DR CAMP RESTLESS LEG SYNDROME ALLERGIES MORPHINE SULFATE: HIVES - ALLERGY AUGMENTIN: HIVES - ALLERGY ULTRAM: HIVES - ALLERGY SUDAFED: HIVES - ALLERGY SURGICAL HISTORY EYE SURGERY 1971 TONSILLECTOMY 1977 LEFT SALPINGOOOPHORECTOMY [facility] 1998 COLONOSCOPY AND EGD 06/2007 BREAST BIOPSY 03/2006 EGD AND COLONOSCOPY CHRONIC GASTRITIS AND DUODENITIS 04/18/2012 EXCISION B TOE NAILS BIG TOES DR PULIDO 04/2015 COLPOSCOPY WITH TRACY 06/15/15 HYSTARECTIUM LEFT LEG WOUNDS AGE 16 EYE LID SURGERY BOTH EYES / RIGHT ONE NEEDED TO BE RE SEWN DUE TO IT OPENING AUG 2017 RIGHT EYE CATARACT !12/31/17 LEFT EYE CATARACT 12/2018 RIGHT EYE CATARACT 12/2018 FAMILY HISTORY FATHER: 63 YRS, BLADDER CA, DIAGNOSED WITH OTHER MALIGNANT NEOPLASM OF UNSPECIFIED SITE MOTHER: ALIVE 73 YRS, CAD CA AGE 61, UNSPECIFIED HEART DISEASE SIBLINGS: ALIVE, SISTER BRAIN ANEURYSM DAUGHTER(S): ALIVE 2 BROTHER(S) , 2 SISTER(S) - HEALTHY. 1 SON(S) - HEALTHY. ONE SISTER WITH BRAIN ANUERYSM. SOCIAL HISTORY GENERAL: TOBACCO USE ARE YOU A:CURRENT SMOKER ARE YOU INTERESTED IN QUITTING?THINKING ABOUT QUITTING COUNSELED THE PATIENT ON SMOKING CESSATION, EDUCATION [id number]/01/2020 PATIENT COUNSELED ON THE DANGERS OF TOBACCO USE AND URGED TO QUIT:03/30/2020 SMOKING CESSATION INFORMATION GIVEN05/02/2019 LATEX QUESTIONNAIRE LATEX ALLERGY : HAVE YOU EVER DEVELOPED ANY TYPE OF REACTION AFTER HANDLING LATEX PRODUCTS SUCH RUBBER GLOVES, CONDOMS, DIAPHRAGMS, BALLOONS, SOCKS, OR UNDERWEAR?NO LATEX ALLERGY : HAVE YOU EVER DEVELOPED ANY TYPE OF REACTION DURING OR AFTER DENTAL APPOINTMENT, VAGINAL/RECTAL EXAMINATION, SURGICAL PROCEDURE, OR ANY OTHER EXPOSURE?NO DATE ASKED : 03/30/2020 LATEX RISK : HAVE YOU EVER HAD ANY DIFFICULTY BREATHING OR HIVES AFTER EATING OR HANDLING ANY FRUITS, OR VEGETABLES; SUCH KIWI, BANANAS, STONE FRUITS, OR CHESTNUTSNO LATEX RISK : DO YOU HAVE A PREVIOUS PERSONAL HISTORY OF MORE THAN NINE SURGERIES, SPINA BIFIDA, OR REPEATED CATHERIZATIONS? YES - PLEASE INDICATE : > 9 SURGERIES LATEX RISK : ARE YOU FREQUENTLY EXPOSED TO LATEX PRODUCTS IN YOUR OCCUPATION?NO ALCOHOL SCREENING DID YOU HAVE A DRINK CONTAINING ALCOHOL IN THE PAST YEAR?NO POINTS0 INTERPRETATIONNEGATIVE RECREATIONAL DRUG USE DRUG USE?NO CAFFEINE CAFFEINE USE?YES HOW OFTEN AND HOW MUCH? DRINK COFFEE ALL DAY LONG SEXUAL HX HAD SEX IN THE LAST 12 MONTHS (VAGINAL, ORAL, OR ANAL)?NO LMP:1989 HAVE YOU EVER HAD AN STD?NO HIV / HEP-C SCREENING HIV TEST OFFERED TO PATIENT:YES DATE OFFERED:09/04/2018 PREVIOUSLY TESTED TEST ACCEPTED:YES HEP-C TEST OFFERED TO PATIENT:YES DATE OFFERED:09/04/2018 PREVIOUSLY TESTED TEST ACCEPTED:YES BROCHURE PROVIDED TO PATIENTNO EPISCOPALIAN [id number] NONE LANGUAGE LANGUAGES SPOKEN:MALDIVIAN EDUCATION LEVEL OF EDUCATION:HIGH SCHOOL LEARNING BARRIERS / SPECIAL NEEDS BARRIERS TO LEARNING?NO HEARING IMPAIRED?NO VISION IMPAIRED?NO COGNITIVELY IMPAIRED?NO READINESS TO LEARN?YES LEARNING PREFERENCES?NO LEARNING CAPABILITIES PRESENT?YES EMOTIONAL BARRIERS?NO SPECIAL DEVICES?NO SUPERINTENDENT POLICE NEEDED?NO DOMESTIC VIOLENCE DO YOU FEEL SAFE IN YOUR ENVIRONMENT?YES OCCUPATION: RETIRED. DIET: REGULAR. EXERCISE: NONE. MARITAL STATUS: .. OTHERS AT HOME: ELIZABETH. NEW PATIENT PAIN DIARY TODAY'S VISIT 03/30/2020 PATIENT DESCRIBES PAIN :BURNING, IT COMES AND GOES, STABBING FROM 0-10, WHAT LEVEL IS YOUR PAIN TODAY?8 PAIN CLINIC PFS, CLERGY, PUBLIC HEALTH REFERRALS PFS REFERRAL NEEDED?NO CLERGY REFERRAL NEEDED?NO PUBLIC HEALTH REFERRAL NEEDED?NO WAS THE PROVIDER NOTIFIED OF ANY PERTINENT INFO?YES N/A HAS THE PATIENT BEEN EDUCATED REGARDING HIS/HER PLAN OF CARE?YES HAS THE PATIENT BEEN EDUCATED REGARDING PAIN, THE RISK FOR PAIN, THE IMPORTANCE OF EFFECTIVE PAIN MANAGEMENT, AND THE PAIN ASSESSMENT PROCESS?YES ADVANCE DIRECTIVE ADVANCE DIRECTIVE DISCUSSED WITH PATIENT:YES PT HAS NO ADVANCED DIRECTIVES, DECLINES INFORMATION ON HCP STATES SHE ALREADY HAS IT AND WILL BRING A COPY IN WHEN SHE HAS IT COMPLETED. 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 SHE TAKES CARE OF HER 2 GRANDCHILDREN EZ AND RAMANA. HER SON IS ON SOCIAL SECURITY INCOME IS 23-YEAR-OLD [place] AND HE WILL MOVING TO [place] TO BE WITH HIS FATHER. SHE IS BUT FROM FROM HER BUT THEY SEE EACH OTHER ON THE WEEKEND. SHE SMOKES ONE PACK OF CIGARETTES A DAY SHE TRIED TO QUIT WITH NICOTINE PATCHES WELL WITH CHANTIX. HOSPITALIZATION/MAJOR DIAGNOSTIC PROCEDURE RELATED TO SURGERY [facility] FOR 1 MONTH FOR SUICIDE ATTEMPTS 1997 VITAL SIGNS WT 188.6 LBS, HT 64 IN, BMI 32.37 INDEX, BP 151/71 MM HG, HR 83 /MIN, RR 18 /MIN, TEMP 96.0 F, OXYGEN SAT % 98%, NA INITIALS AW 1015, REVIEWED BY: KG. EXAMINATION GENERAL EXAMINATION: THE PATIENT IS ALERT, ORIENTED TIMES THREE AND COOPERATIVE. HEART SHOWS REGULAR RHYTHM, NO MURMURS AND NO GALLOPS. LUNGS ARE CLEAR TO AUSCULTATION. ASSESSMENTS SPONDYLOSIS OF LUMBAR REGION WITHOUT MYELOPATHY OR RADICULOPATHY - M47.816 (PRIMARY) SPONDYLOSIS WITHOUT MYELOPATHY OR RADICULOPATHY, LUMBOSACRAL REGION - M47.817 TREATMENT SPONDYLOSIS OF LUMBAR REGION WITHOUT MYELOPATHY OR RADICULOPATHY [facility] FACET BLOCK (PAIN)[id number] OTHERS CLINICAL NOTES: PRE SCREENING CALL DONE 04/20/20 EM. PROCEDURES PAIN NURSING RECORD PRE-PROCEDURE IV SITE N/A PROCEDURE IN ROOM 1050 AMBULATORY, PHYSICIAN IN ROOM 1055, START 1059 LIDOCAINE, FINISH 1103, PHYSICIAN OUT OF ROOM 1107, OUT OF ROOM 1110, ECG NORMAL SINUS, PATIENT SHIELDED YES, SAFETY STRAP YES, PREP CHLOROPREP Renate BROWN RN, IV INFUSED N/A NA, DRESSING TEGADERM DR TUCKER LOC: ALERT AND ORIENTATED RESP: 1. REGULAR, NO DYSPNEA COLOR: 1. PINK SKIN: 1. WARM, DRY POSITION: 2. SUPINE VITALS: 1100:153/81, 86, 94% 18 STEPHANIE KAREN 04/21/2020 11:16:17 AM > 158/78, 82, 94% AND 18 DISCHARGE: POST PAIN PT RATES IT A 0, DRESSING SITE DRY AND INTACT, IV NONE, GAIT WN AND STEADY, TEACHING COMPLETED, PATIENT ACKNOWLEDGES UNDERSTANDING POST PROCEDURE INSTRUCTIONS INCLUDING DIARY, PATIENT DISCHARGED AT 1115 PN WORKMANS' COMP OPINION IN YOUR OPINION, WAS THE INCIDENT THAT THE PATIENT DESCRIBED THE COMPETENT MEDICAL CAUSE OF THIS INJURY/ILLNESS? YES ARE THE PATIENT'S COMPLAINTS CONSISTENT WITH HIS/HER HISTORY OF THE INJURY/ILLNESS? YES IS THE PATIENT'S HISTORY OF THE INJURY/ILLNESS CONSISTENT WITH YOUR OBJECTIVE FINDING? YES WHAT IS THE PERCENTAGE OF TEMPORARY IMPAIRMENT? MODERATE TO MARKED = 66.7% . IS THE PATIENT WORKING? NO . DOCTOR ON SITE: SHANTE CHURCH MD PN LUMBAR FACET BLOCK DIAGNOSTIC PRE PROCEDURE DIAGNOSIS LUMBAR SPONDYLOSIS, LUMBOSACRAL SPONDYLOSIS POST PROCEDURE DIAGNOSIS LUMBAR SPONDYLOSIS, LUMBOSACRAL SPONDYLOSIS PROCEDURE LEFT L4-L5 AND LEFT L5-S1 FACET BLOCK DIAGNOSTIC NUMBER [address] SHANTE TUCKER FUEL AGENT NONE ANESTHESIA LOCAL PRE PROCEDURE NOTE THE PATIENT WITH HISTORY OF CHRONIC LOW BACK PAIN. I EVALUATED THE PATIENT AND REVIEWED THE CHART. I WENT OVER THE RISKS, ALTERNATIVES, AND BENEFITS ASSOCIATED WITH THIS PROCEDURE. THE PATIENT WOULD LIKE TO PROCEED AND GAVE CONSENT TO PERFORM THE PROCEDURE. AGREED WITH THE PATIENT WE ARE DOING THIS PROCEDURE TO DETERMINE IF THE PATIENT IS A CANDIDATE FOR A RADIOFREQUENCY ABLATION OF THE FACETS JOINTS. THE PATIENT DENIES UNEXPLAINABLE WEIGHT LOSS, FEVER, CHILLS, OR NEW CHANGES IN URINARY OR BOWEL CONTROL. THE PATIENT IS COVID-19 NEGATIVE DESCRIPTION OF PROCEDURE THE PATIENT WAS BROUGHT TO THE PROCEDURE ROOM AND PLACED IN THE PRONE POSITION. THE LUMBOSACRAL AREA WAS CLEANED WITH CHLORAPREP SOLUTION AND DRAPED ASEPTICALLY. THE PROCEDURE WAS DONE UNDER STERILE CONDITIONS. I CHECKED LATERALITY AND THE LEVEL WHERE THE PROCEDURE WAS GOING TO BE PERFORMED WITH THE PATIENT AND THE SUPPORTING STAFF AT THE MOMENT OF THE TIME OUT IN THE PROCEDURE ROOM. UNDER FLUOROSCOPIC GUIDANCE, TARGETS WERE SELECTED AT THE INTERSECTION OF THE LEFT TRANSVERSE PROCESS OF L4, L5 AND ALA OF S1 WITH ITS RESPECTIVE SUPERIOR ARTICULAR PROCESS. LIDOCAINE WAS USED TO NUMB THE SKIN AND THE SUBCUTANEOUS TISSUE BELOW IT. SPINAL NEEDLE, 22-GAUGE, WAS ADVANCED UNDER FLUOROSCOPIC GUIDANCE AND FOLLOWING PATIENT FEEDBACK UNTIL THE TARGETS WERE REACHED. POSITION OF THE NEEDLES WAS VERIFIED WITH AP AND LATERAL VIEWS. AFTER PROPER POSITION OF THE NEEDLES WAS ACHIEVED, ISOVUE-M DYE 30%, 0.1 ML, WAS INJECTED AT EACH SITE SHOWING ADEQUATE SPREAD OF THE DYE. THEN A SOLUTION OF 0.4 ML OF BUPIVACAINE 0.25% WAS INJECTED AT EACH SITE. THERE WAS NO EVIDENCE OF BLOOD, PARESTHESIA OR CEREBROSPINAL FLUID DURING THE PROCEDURE. THE PATIENT WAS SENT TO THE RECOVERY ROOM. THE PATIENT WAS MOVING THE EXTREMITIES AND DOING WELL. THERE WAS NO COMPLICATION DURING THE PROCEDURE. FLUOROSCOPY TIME WAS 26 SECONDS POST PROCEDURE NOTE THE PATIENT WILL DOCUMENT HIS PAIN LEVEL AND RESPONSE TO THIS PROCEDURE EVERY 30 MINUTES. THE PATIENT WILL BE SEEN IN A FOLLOW UP IN THE NEXT FEW WEEKS. FURTHER DETERMINATION FOR HIS CASE WILL BE DONE AT THE NEXT VISIT. INSTRUCTIONS WERE GIVEN, QUESTIONS WERE ANSWERED, AND THE PATIENT EXPRESSED UNDERSTANDING AND AGREED WITH THE PLAN. I, INES DAVIS, DOCUMENTED THE ABOVE INFORMATION ACTING A SCRIBE FOR DR. TUCKER. I HAVE REVIEWED THE ABOVE DOCUMENT, WRITTEN BY INES DAVIS, PRINT PRODUCTION MANAGER, AND I VERIFY THAT IT IS ACCURATE PROCEDURE CODES 10568 INJ PARAVERT F JNT L/S 1 LEV, [place]IFIERS: [place] [address]77 INJ PARAVERT F JNT L/S 2 LEV, MODIFIERS: LT DISPOSITION & COMMUNICATION FOLLOW UP F/UP WITH [employer] WORKER (REASON: POST LFBD #2 LT L4-5, L5-S1) ELECTRONICALLY SIGNED BY SHANTE TUCKER MD, MD ON 04/21/2020 AT 04:43 PM EDT DISCLAIMER : THIS IS A VISIT SUMMARY EXTRACTED FROM THE [employer] CHART. IT IS NOT A COPY OF THE [employer] PROGRESS NOTE. MTDD
== END ==
LOC: M PAIN 10:15
PROVIDERS: ATTEND Anesthesiology
DX: M47.816 Spondylosis without myelopathy or radiculopathy, lumbar region (principal); M47.817 Spondylosis without myelopathy or radiculopathy, lumbosacral region; F17.210 Nicotine dependence, cigarettes, uncomplicated; Z79.899 Other long term (current) drug therapy; Z88.1 Allergy status to other antibiotic agents; Z88.5 Allergy status to narcotic agent; Z88.8 Allergy status to other drugs, medicaments and biological substances
CPT/HCPCS: 64493; 64494; Q9967

== ENCOUNTER → 2020-06-02 | Outpatient (CLI) | payer OTHER, MEDICAID, MEDICARE ==
[~2020-06-02] MED LIST changes: -BUPIVACAINE HCL 0.25% 30ML VIAL As Ordered ONE; +CALC-212 PO; -CALC600T7 PO; -ISOVUE-M 300 61% 15ML VIAL As Ordered ONE; -LIDOCAINE 1% SDV 30ML VIAL As Ordered ONE
--- NOTE | 2020-06-04 01:23 | ECWPNPC ---
PATIENT NAME: CYNTHIA JOSHI : 1965 GENDER: FEMALE VISIT DATE: 06/02/2020 DISCHARGE DATE: 06/02/20 1154 VISIT LOCKED DATE TIME: PHYSICIAN: LINWOOD HOUSTON RESOURCE: LINWOOD HOUSTON REASON FOR APPOINTMENT 1. POST FACET BLK HISTORY OF PRESENT ILLNESS GENERAL: - 55-YEAR-OLD FEMALE IN FOR POST DIAGNOSTIC FACET BLOCK #2 FOLLOW-UP. SHE RATES HER PAIN PREPROCEDURE AT A 6 OUT OF 10 AND POSTPROCEDURE AT A 0 OUT OF 10X4 DAYS. SHE RATES HER PAIN CURRENTLY AT A 6 OUT OF 10 AND DESCRIBES IT ACHING AND STABBING. FALL RISK SCREENING: SCREENING :NO FALLS REPORTED IN THE LAST YEAR PAIN SCREENING: PATIENT HAS A COMPLAINT OF ACUTE OR CHRONIC PAIN :YES UFP-[id number]-9/10, POST-PROCEDURE-/-12/30, TODAY-04/29 LOCATION OF PAIN:LOW BACK INTENSITY OF PAIN (SCALE OF 1 TO 10):6 WHAT DOES YOUR PAIN FEEL LIKE:ACHING, STABBING DURATION:CONTINOUS, CONSTANT, ALL DAY PAIN IS INCREASED BY:ACTIVITIES PAIN IS DECREASED BY:USE OF PAIN MEDICATIONS PAIN HAS INTERFERED WITH THE FOLLOWING:RELATIONSHIP WITH OTHERS, ENJOYMENT OF LIFE PLAN/GOALS/TREATMENT/INTERVENTION/FOLLOW UP:SEE PLAN NURSING NOTE: PT. STATED PROCEDURE DID HELP FOR 4 DAYS-. PAIN CENTER INTAKE QUESTIONS: DO YOU HAVE A HISTORY OF MRSA? :NO DO YOU TAKE A BLOOD THINNERS? :NO DO YOU HAVE ANY BLEEDING DISORDERS? :NO ANY NEW NUMBNESS OR WEAKNESS IN YOUR LEGS OR ARMS? :NO ANY PACEMAKER,DEFIBRILLATOR, OR DORSAL COLUMN STIMULATOR? :NO DO YOU HAVE ANY RASHES OR OPEN SORES? :YES RASH AROUND CHIN AREA, SORE ON LEFT EAR ARE YOU ALLERGIC TO IV DYE? :NO ARE YOU DIABETIC? :NO ANY NEW PROBLEMS WITH YOUR MEDICATIONS? :NO HAVE YOU RECEIVED A VACCINE IN THE PAST 30 DAYS? :NO DO YOU PLAN TO RECEIVE A VACCINE IN THE NEXT 21 DAYS? :NO DO YOU NEED ANY PRESCRIPTION? :NO DO YOU TAKE ANY IMMUNOSUPPRESSIVE MEDICATIONS? :NO IS THERE A CHANCE YOU COULD BE ? :NO ARE YOU BREAST FEEDING? :NO CURRENT MEDICATIONS TAKING BIKTARVY 50-200-25 MG TABLET 1 TABLET ORALLY ONCE A DAY TAKING KEPPRA 1000 MG TABLET TAKE 1 TAB BY MOUTH TWICE A DAY. , NOTES: 04-20-20799 TAKING ROPINIROLE HCL 0.25 MG TABLET 2 TABLET ORALLY THREE TIMES A DAY, NOTES: 04-20-20799 TAKING TRIAMCINOLONE ACETONIDE 0.1 % CREAM 1 APPLICATION TO AREA EXTERNALLY BID PRN, NOTES: NOT LATELY TAKING NASONEX 50 MCG/ACT SUSPENSION 2 PUFFS NASALLY ONCE A DAY, NOTES: 04-20-20799 TAKING NYSTATIN [id number] UNIT/GM POWDER APPLY UNDER BREASTS AND ABDOMINAL FOLD 2 TIMES A DAY TOPICALLY TWICE A DAY, NOTES: NOT LATELY TAKING HYDROXYZINE HCL 50 MG TABLET 1 TABLET NEEDED ORALLY EVERY 8 HRS, NOTES: 04-20-20899 TAKING LEVOTHYROXINE SODIUM 50 MCG TABLET 1 TABLET ON AN EMPTY STOMACH IN THE MORNING ORALLY ONCE A DAY, NOTES: 799 TAKING VENTOLIN HFA 108 (90 BASE) MCG/ACT AEROSOL SOLUTION 2 PUFFS INHALATION QID PRN, NOTES: 04-20-20799 TAKING OMEPRAZOLE 40 MG CAPSULE DELAYED RELEASE 1 CAP BID ORALLY 30 DAY(S) ORALLY BID, NOTES: 04-20-20799 TAKING GABAPENTIN 600 MG TABLET 1 TABLET ORALLY TID, NOTES: 04-20-20799 TAKING SEROQUEL 50 MG TABLET 1 TABLET AT BEDTIME ORALLY QHS, NOTES: 04-20-20799 TAKING ATORVASTATIN CALCIUM 80 MG TABLET TAKE ONE TABLET BY MOUTH ONCE DAILY , NOTES: 04-20-20799 TAKING WELLBUTRIN XL 300 MG TABLET EXTENDED RELEASE 24 HOUR TAKE ONE TABLET BY MOUTH EVERY MORNING , NOTES: 04-20-20799 TAKING MULTI-DAY PLUS IRON - TABLET TAKE ONE TABLET BY MOUTH ONCE DAILY DIRECTED ORALLY DAILY, NOTES: 04-20-20799 TAKING TIZANIDINE HCL 4 MG TABLET 1 TABLET NEEDED ORALLY THREE TIMES A DAY MAX, NOTES: 04-20-20899 TAKING HYDROXYZINE HCL 25 MG TABLET 1 TABLET NEEDED EVERY 8 HRS ORALLY 30 , NOTES: 04-20-20999 TAKING VALACYCLOVIR HCL 500 MG TABLET 1 TAB ORALLY TWICE DAILY, NOTES: 04-20-20899 TAKING CYMBALTA 60 MG CAPSULE DELAYED RELEASE PARTICLES TAKE TWO CAPSULES BY MOUTH ONCE DAILY TAKING CALCIUM-VITAMIN D 600-200 MG-UNIT TABLET 1 TAB ORALLY BID, NOTES: 04-20-20899 TAKING ENDOCET 7.5-325 MG TABLET 1 ORALLY Q 4-6H PRN PAIN MDD5 [place], NOTES: 04-20-20 0800 TAKING AMBIEN 10 MG TABLET 11/2 TABLET ORALLY BEFORE BEDTIME NOT-TAKING CILOXAN 0.3 % SOLUTION 2 DROPS INTO AFFECTED EYE OPHTHALMIC EVERY 4 HRS MEDICATION LIST REVIEWED AND RECONCILED WITH THE PATIENT PAST MEDICAL HISTORY ABNORMAL EKG HX ARRYTHMIA CHRONIC DDD MRI DONE 03/2016 LARGE DISC HERNIATION AT L5-S1 WITH MODERATE EXTRUSION ON WORKER'S COMPENSATION FOLLOWS UP WITH DR. AGUERO DEPRESSION/INSOMNIA TOBACCO ABUSE HYPERLIPIDEMIA RECURRENT SINUSITIS HIV DIAGNOSED IN 1992 ACQUIRED THROUGH HETEROSEXUAL SEX HER PARTNER WAS POSITIVE HIV UNDETECTED SINCE 2009 CD4 MORE THAN 1000 COLONOSCOPY 2006 EGD AND COLONOSCOPY [address] OTERO CHRONIC GASTRITIS AND DUODENITIS 2005 LEFT BREAST CALCIFICATION BIOPSY BENIGN DAVON 1 DR HOPKINS COLPOSCOPY EVERY 6 MONTHS PAP EYELID INFECTION 10/2015 MODERATE TO SEVERE OBSTRUCTIVE SLEEP APNEA ON BIPAP 06/09 DR DE LEON/ [facility] MYOCLONUS BILATERAL CATARACTS DR FRANCIS/ DR CAMP RESTLESS LEG SYNDROME ALLERGIES MORPHINE SULFATE: HIVES - ALLERGY AUGMENTIN: HIVES - ALLERGY ULTRAM: HIVES - ALLERGY SUDAFED: HIVES - ALLERGY SURGICAL HISTORY EYE SURGERY 1971 TONSILLECTOMY 1976 LEFT SALPINGOOOPHORECTOMY [place] 1997 COLONOSCOPY AND EGD 06/2007 BREAST BIOPSY 03/2006 EGD AND COLONOSCOPY CHRONIC GASTRITIS AND DUODENITIS 04/18/2012 EXCISION B TOE NAILS BIG TOES DR PULIDO 04/2015 COLPOSCOPY WITH TRACY 06/15/15 HYSTARECTIUM LEFT LEG WOUNDS AGE 16 EYE LID SURGERY BOTH EYES / RIGHT ONE NEEDED TO BE RE SEWN DUE TO IT OPENING AUG 2017 RIGHT EYE CATARACT !12/31/17 LEFT EYE CATARACT 12/2018 RIGHT EYE CATARACT 12/2018 FAMILY HISTORY FATHER: 63 YRS, BLADDER CA, DIAGNOSED WITH OTHER MALIGNANT NEOPLASM OF UNSPECIFIED SITE MOTHER: ALIVE 73 YRS, CAD AL AGE 61, UNSPECIFIED HEART DISEASE SIBLINGS: ALIVE, SISTER BRAIN ANEURYSM DAUGHTER(S): ALIVE 2 BROTHER(S) , 2 SISTER(S) - HEALTHY. 1 SON(S) - HEALTHY. ONE SISTER WITH BRAIN ANUERYSM. SOCIAL HISTORY GENERAL: TOBACCO USE ARE YOU A:CURRENT SMOKER ARE YOU INTERESTED IN QUITTING?THINKING ABOUT QUITTING COUNSELED THE PATIENT ON SMOKING CESSATION, EDUCATION [id number]/14/2020 PATIENT COUNSELED ON THE DANGERS OF TOBACCO USE AND URGED TO QUIT:06/02/2020 SMOKING CESSATION INFORMATION GIVEN06/02/2020 LATEX QUESTIONNAIRE LATEX ALLERGY : HAVE YOU EVER DEVELOPED ANY TYPE OF REACTION AFTER HANDLING LATEX PRODUCTS SUCH RUBBER GLOVES, CONDOMS, DIAPHRAGMS, BALLOONS, SOCKS, OR UNDERWEAR?NO LATEX ALLERGY : HAVE YOU EVER DEVELOPED ANY TYPE OF REACTION DURING OR AFTER DENTAL APPOINTMENT, VAGINAL/RECTAL EXAMINATION, SURGICAL PROCEDURE, OR ANY OTHER EXPOSURE?NO LATEX RISK : HAVE YOU EVER HAD ANY DIFFICULTY BREATHING OR HIVES AFTER EATING OR HANDLING ANY FRUITS, OR VEGETABLES; SUCH KIWI, BANANAS, STONE FRUITS, OR CHESTNUTSNO LATEX RISK : DO YOU HAVE A PREVIOUS PERSONAL HISTORY OF MORE THAN NINE SURGERIES, SPINA BIFIDA, OR REPEATED CATHERIZATIONS? YES - PLEASE INDICATE : > 9 SURGERIES LATEX RISK : ARE YOU FREQUENTLY EXPOSED TO LATEX PRODUCTS IN YOUR OCCUPATION?NO DATE ASKED : 06/02/2020 ALCOHOL SCREENING DID YOU HAVE A DRINK CONTAINING ALCOHOL IN THE PAST YEAR?NO POINTS0 INTERPRETATIONNEGATIVE RECREATIONAL DRUG USE DRUG USE?NO CAFFEINE CAFFEINE USE?YES HOW OFTEN AND HOW MUCH? DRINK COFFEE ALL DAY LONG SEXUAL HX HAD SEX IN THE LAST 12 MONTHS (VAGINAL, ORAL, OR ANAL)?NO LMP:1988 HAVE YOU EVER HAD AN STD?NO HIV / HEP-C SCREENING HIV TEST OFFERED TO PATIENT:YES DATE OFFERED:09/04/2018 PREVIOUSLY TESTED TEST ACCEPTED:YES HEP-C TEST OFFERED TO PATIENT:YES DATE OFFERED:09/04/2018 PREVIOUSLY TESTED TEST ACCEPTED:YES BROCHURE PROVIDED TO PATIENTNO PROTESTANT [id number] NONE LANGUAGE LANGUAGES SPOKEN:KYRGYZ EDUCATION LEVEL OF EDUCATION:HIGH SCHOOL LEARNING BARRIERS / SPECIAL NEEDS BARRIERS TO LEARNING?NO HEARING IMPAIRED?NO VISION IMPAIRED?NO COGNITIVELY IMPAIRED?NO READINESS TO LEARN?YES LEARNING PREFERENCES?NO LEARNING CAPABILITIES PRESENT?YES EMOTIONAL BARRIERS?NO SPECIAL DEVICES?NO 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 DIET: REGULAR. EXERCISE: NONE. MARITAL STATUS: .. OTHERS AT HOME: ELIZABETH. FEMALE 6 MONTH RISK ASSESSMENT FOR STD DESCRIBE YOUR SEXUAL PARTNERS:MALE MONOGAMOUS?YES HIV POSITIVE?YES EVER INJECT DRUGS?NO VAGINAL SEX?NO ANAL SEX?NO ORAL SEX?NO ARE YOU TAKING ANY STEPS TO PREVENT ? PT. HAD HYSTER. 1997 WHAT STEPS HAVE YOU TAKEN TO PROTECT YOURSELF FROM STDS, INCLUDING HIV? (CHECK ALL THAT APPLY):MUTUAL MONOGAMY, MALE CONDOMS HAVE YOU OR ANY OF YOUR SEXUAL PARTNERS EVER HAD AN STD? IF YES PLEASE LIST:NO IS THERE ANYTHING ELSE WE SHOULD TALK ABOUT CONCERNING YOUR SEXUAL HISTORY OR PRACTICE?NO NEW PATIENT PAIN DIARY PATIENT DESCRIBES PAIN :BURNING, IT COMES AND GOES, STABBING FROM 0-10, WHAT LEVEL IS YOUR PAIN TODAY?8 PAIN CLINIC PFS, CLERGY, PUBLIC HEALTH REFERRALS PFS REFERRAL NEEDED?NO CLERGY REFERRAL NEEDED?NO PUBLIC HEALTH REFERRAL NEEDED?NO WAS THE PROVIDER NOTIFIED OF ANY PERTINENT INFO?YES N/A HAS THE PATIENT BEEN EDUCATED REGARDING HIS/HER PLAN OF CARE?YES HAS THE PATIENT BEEN EDUCATED REGARDING PAIN, THE RISK FOR PAIN, THE IMPORTANCE OF EFFECTIVE PAIN MANAGEMENT, AND THE PAIN ASSESSMENT PROCESS?YES ADVANCE DIRECTIVE ADVANCE DIRECTIVE DISCUSSED WITH PATIENT:YES PT HAS NO ADVANCED DIRECTIVES, DECLINES INFORMATION ON HCP STATES SHE ALREADY HAS IT AND WILL BRING A COPY IN WHEN SHE HAS IT COMPLETED. 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 SHE TAKES CARE OF HER 2 GRANDCHILDREN EZ AND RAMANA. HER SON IS ON SOCIAL SECURITY INCOME IS 23-YEAR-OLD [place] AND HE WILL MOVING TO [place] TO BE WITH HIS FATHER. SHE IS BUT FROM FROM HER BUT THEY SEE EACH OTHER ON THE WEEKEND. SHE SMOKES ONE PACK OF CIGARETTES A DAY SHE TRIED TO QUIT WITH NICOTINE PATCHES WELL WITH CHANTIX. HOSPITALIZATION/MAJOR DIAGNOSTIC PROCEDURE RELATED TO SURGERY [facility] FOR 1 MONTH FOR SUICIDE ATTEMPTS 1997 REVIEW OF SYSTEMS CONSTITUTIONAL: ANY RECENT FEVER NO . CHILLS NO . WEIGHT CHANGE OF UNKNOWN REASONS NO . GASTROENTEROLOGY: NEW UNEXPLAINABLE CHANGES IN BOWEL CONTROL NO . CONSTIPATION NO . GENITOURINARY: ANY NEW CHANGE IN BLADDER CONTROL? NO . NEUROLOGY: NEW ONSET DIZZINESS OR NEUROLOGICAL CHANGES NOT MENTIONED NO . NEW NUMBNESS OR PAIN PATTERNS NOT MENTIONED AND PERTINENT TO TODAY'S VISIT NO . CARDIOLOGY: NEW CHEST PRESSURE NO . NEW CHEST PAIN NO . RESPIRATORY: UNEXPLAINABLE COUGH NO . NEW SHORTNESS OF BREATH NO . VITAL SIGNS WT 196.0 LBS, HT 64 IN, BMI 33.64 INDEX, BP 137/61 MM HG, HR 101 /MIN, RR 18 /MIN, TEMP 96.0 F, OXYGEN SAT % 92%, SAFE IN ENV? 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 EXAMINATION GENERAL EXAMINATION: GENERALNO ACUTE DISTRESS, WELL NOURISHED AND HYDRATED. PSYCHAPPROPRIATE MOOD AND AFFECT . LUNGS:CLEAR TO AUSCULTATION BILATERALLY, NO WHEEZES, RHONCHI, RALES. HEART:NO MURMURS, REGULAR RATE AND RHYTHM. BACK:POINT TENDER RIGHT LOWER BACK, SURROUNDING SKIN SHOWS NO ERYTHEMA, ECCHYMOSIS, INCREASED WARMTH, AND/OR SKIN ERUPTIONS NOTED. . ASSESSMENTS SPONDYLOSIS WITHOUT MYELOPATHY OR RADICULOPATHY, LUMBOSACRAL REGION - M47.817 (PRIMARY) TREATMENT SPONDYLOSIS WITHOUT MYELOPATHY OR RADICULOPATHY, LUMBOSACRAL REGION NOTES: RF PROCEDURE LEFT L4-L5 L5-S1. 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 POST DIAGNOSTIC FACET BLOCK FOLLOW-UP. GIVEN PRESENTING SYMPTOMS RECOMMEND RF PROCEDURE L4-L5 L5-S1 LEFT SIDE WITH POST PROCEDURAL FOLLOW-UP. PATIENT HAS EXPRESSED UNDERSTANDING OF AND WAS IN AGREEMENT WITH TREATMENT PLAN. GIVEN TIME TO ASK QUESTIONS AND EXPRESS CONCERNS. , ISTOP REGISTRY REVIEWED AND DEMONSTRATES COMPLLIANCE. (REF # [id number] ) BRINGS IN MEDICATIONS WHICH IS APPROPRIATE FOR WHAT WAS DISPENSED. RECENT URINE TOXICOLOGY REVIEWED. NO UNAUTHORIZED MEDICATIONS. NO ILLICIT SUBSTANCES AND PRESCRIBED MEDICATIONS WERE PRESENT. PROCEDURES PN WORKMANS' COMP OPINION IN YOUR OPINION, WAS THE INCIDENT THAT THE PATIENT DESCRIBED THE COMPETENT MEDICAL CAUSE OF THIS INJURY/ILLNESS? YES ARE THE PATIENT'S COMPLAINTS CONSISTENT WITH HIS/HER HISTORY OF THE INJURY/ILLNESS? YES IS THE PATIENT'S HISTORY OF THE INJURY/ILLNESS CONSISTENT WITH YOUR OBJECTIVE FINDING? YES WHAT IS THE PERCENTAGE OF TEMPORARY IMPAIRMENT? MODERATE TO MARKED = 66.7% IS THE PATIENT WORKING? NO DOCTOR ON SITE: SHANTE CHURCH MD PROCEDURE CODES [id number] ESTABILISHED PATIENT [facility] CHARGE DISPOSITION & COMMUNICATION FOLLOW UP POSTPROCEDURE (REASON: LEFT RF PROCEDURE L4-L5 L5-S1) ELECTRONICALLY SIGNED BY BORIS MATHEWS ON 06/03/2020 AT 08:30 AM EDT DISCLAIMER : THIS IS A VISIT SUMMARY EXTRACTED FROM THE [employer] CHART. IT IS NOT A COPY OF THE [employer] PROGRESS NOTE. KRIS
== END ==
LOC: M PAIN 11:15
PROVIDERS: ATTEND Family Medicine
DX: M47.817 Spondylosis without myelopathy or radiculopathy, lumbosacral region (principal)

== ENCOUNTER → 2020-06-29 | Outpatient (POV) | payer OTHER, MEDICAID, MEDICARE ==
[~2020-06-29] MED LIST changes: +BUPIVACAINE HCL 0.25% 30ML VIAL ONE; +LIDOCAINE 1% SDV 30ML VIAL ONE; +NORCO, ANEXSIA 5/325MG TABLET (HYDROcodone/ACETAMINOPHEN) ONE; +dexameTHASONE 10MG/1ML VIAL PRES.FREE (J1100 PER 1MG) ONE; +diazePAM 5 MG TAB ONE
--- NOTE | 2020-08-12 10:14 | REP ---
PARTIAL LUMBAR SPINE SERIES: 3-VIEWS HISTORY: Procedural imaging. Injection procedure for pain. 1 minute 21 seconds of fluoroscopy time is reported. FINDINGS: A sequence of three last image hold fluoroscopically obtained spot radiographs of the lumbar spine document various needle positions associated with injection procedure. MTDD
== END ==
LOC: M PAIN 11:45
PROVIDERS: ATTEND Anesthesiology
DX: M47.816 Spondylosis without myelopathy or radiculopathy, lumbar region (principal); M47.817 Spondylosis without myelopathy or radiculopathy, lumbosacral region

== ENCOUNTER → 2020-07-13 | Outpatient (CLI) | payer OTHER, MEDICAID, MEDICARE ==
[~2020-07-13] MED LIST changes: -BUPIVACAINE HCL 0.25% 30ML VIAL ONE; -LIDOCAINE 1% SDV 30ML VIAL ONE; -NORCO, ANEXSIA 5/325MG TABLET (HYDROcodone/ACETAMINOPHEN) ONE; -dexameTHASONE 10MG/1ML VIAL PRES.FREE (J1100 PER 1MG) ONE; -diazePAM 5 MG TAB ONE
== END ==
LOC: M PAIN 13:46
PROVIDERS: ATTEND Family Medicine
DX: M47.16 Other spondylosis with myelopathy, lumbar region (principal)

== ENCOUNTER → 2020-08-01 | Outpatient (CLI) | payer OTHER, MEDICAID, MEDICARE | LOC: M LABSMTC 10:16 | PROVIDERS: ATTEND Anesthesiology | DX: Z11.59 Encounter for screening for other viral diseases (principal); Z20.828 Contact with and (suspected) exposure to other viral communicable diseases | CPT/HCPCS: C9803; U0003 ==

== ENCOUNTER → 2020-08-14 | Outpatient (CLI) | payer OTHER, MEDICAID, MEDICARE | LOC: M LABSMTC 09:43 | PROVIDERS: ATTEND Anesthesiology | DX: Z11.59 Encounter for screening for other viral diseases (principal) | CPT/HCPCS: C9803; U0003 ==

== ENCOUNTER → 2020-08-19 | Outpatient (CLI) | payer OTHER, MEDICAID, MEDICARE ==
[~2020-08-19] MED LIST changes: +BUPIVACAINE HCL 0.25% 30ML VIAL As Ordered ONE; +ISOVUE-M 300 61% 15ML VIAL As Ordered ONE; +LIDOCAINE 1% SDV 30ML VIAL As Ordered ONE
--- NOTE | 2020-08-20 16:42 | ECWPNPC ---
PATIENT NAME: CYNTHIA JOSHI : 1965 GENDER: FEMALE VISIT DATE: 08/19/2020 DISCHARGE DATE: 08/19/20 1302 VISIT LOCKED DATE TIME: PHYSICIAN: SHANTE TUCKER MD PHYSICIAN PAGER NO: ACTIVE RESOURCE: SHANTE TUCKER MD REASON FOR APPOINTMENT 1. W/C RIGHT DIAGNOSTIC FACET L4-L5,L5-S1 HISTORY OF PRESENT ILLNESS GENERAL: -. FALL RISK SCREENING: SCREENING :NO FALLS REPORTED IN THE LAST YEAR PAIN SCREENING: PATIENT HAS A COMPLAINT OF ACUTE OR CHRONIC PAIN :YES LOCATION OF PAIN:LOW BACK RIGHT SIDE INTENSITY OF PAIN (SCALE OF 1 TO 10):8 WHAT DOES YOUR PAIN FEEL LIKE:ACHING, BURNING, CONTINOUS, STABBING, TENDER DURATION:CONTINOUS, CONSTANT, AWAKENS FROM SLEEP PAIN IS INCREASED BY:PROLONGED STANDING STOOPING, BENDING, SITTING TOO LONE PAIN IS DECREASED BY:USE OF PAIN MEDICATIONS, OTHERS STOPPING WHAT SHE IS DOING NURSING NOTE: -. PAIN CENTER INTAKE QUESTIONS: DO YOU HAVE A HISTORY OF MRSA? :NO DO YOU TAKE A BLOOD THINNERS? :NO DO YOU HAVE ANY BLEEDING DISORDERS? :NO ANY NEW NUMBNESS OR WEAKNESS IN YOUR LEGS OR ARMS? :NO ANY PACEMAKER,DEFIBRILLATOR, OR DORSAL COLUMN STIMULATOR? :NO DO YOU HAVE ANY RASHES OR OPEN SORES? :NO ARE YOU ALLERGIC TO IV DYE? :NO ARE YOU DIABETIC? :NO ANY NEW PROBLEMS WITH YOUR MEDICATIONS? :NO HAVE YOU RECEIVED A VACCINE IN THE PAST 30 DAYS? :NO DO YOU PLAN TO RECEIVE A VACCINE IN THE NEXT 21 DAYS? :NO DO YOU TAKE ANY IMMUNOSUPPRESSIVE MEDICATIONS? :NO ANY HISTORY OF SEIZURES? :YES " TWITCING" ON KEPPRA ANY HISTORY OF CARDIAC ISSUES OR EVENTS? :NO DO YOU HAVE SLEEP APNEA? :YES DO YOU WEAR A CPAP? USES BIPAP ANY RECENT HEAD INJURY? :NO DO YOU HAVE ANY NEW INFECTIONS? :NO IS THERE A CHANCE YOU COULD BE ? :NO ARE YOU BREAST FEEDING? :NO WHEN DID YOU LAST EAT? : 08/18 2200 WHEN DID YOU LAST DRINK? : 08/19 100 WHAT DID YOU LAST DRINK? : ICE TEA NAME OF PERSON DRIVING YOU HOME? : [place] ALDANA DO YOU HAVE ANY OTHER QUESTIONS OR CONCERNS? : NONE CURRENT MEDICATIONS TAKING BIKTARVY 50-200-25 MG TABLET 1 TABLET ORALLY ONCE A DAY, NOTES: 08/18 2100 TAKING KEPPRA 1000 MG TABLET TAKE 1 TAB BY MOUTH TWICE A DAY. , NOTES: 08/18 2000 TAKING ROPINIROLE HCL 0.25 MG TABLET 2 TABLET ORALLY THREE TIMES A DAY, NOTES: 08/18 2000 TAKING TRIAMCINOLONE ACETONIDE 0.1 % CREAM 1 APPLICATION TO AREA EXTERNALLY BID PRN, NOTES: NONE RECENT TAKING NASONEX 50 MCG/ACT SUSPENSION 2 PUFFS NASALLY ONCE A DAY, NOTES: NONE RECENT TAKING NYSTATIN [id number] UNIT/GM POWDER APPLY UNDER BREASTS AND ABDOMINAL FOLD 2 TIMES A DAY TOPICALLY TWICE A DAY, NOTES: 08/17 TAKING HYDROXYZINE HCL 50 MG TABLET 1 TABLET NEEDED ORALLY EVERY 8 HRS, NOTES: 08/17 2000 TAKING LEVOTHYROXINE SODIUM 50 MCG TABLET 1 TABLET ON AN EMPTY STOMACH IN THE MORNING ORALLY ONCE A DAY, NOTES: 08/17 800 TAKING VENTOLIN HFA 108 (90 BASE) MCG/ACT AEROSOL SOLUTION 2 PUFFS INHALATION QID PRN, NOTES: LAST WEEK TAKING OMEPRAZOLE 40 MG CAPSULE DELAYED RELEASE 1 CAP BID ORALLY 30 DAY(S) ORALLY BID, NOTES: 08/18 800 TAKING GABAPENTIN 600 MG TABLET 1 TABLET ORALLY TID, NOTES: 08/18 2000 TAKING SEROQUEL 50 MG TABLET 1 TABLET AT BEDTIME ORALLY QHS, NOTES: 08/18 2100 TAKING ATORVASTATIN CALCIUM 80 MG TABLET TAKE ONE TABLET BY MOUTH ONCE DAILY , NOTES: 08/18 800 TAKING WELLBUTRIN XL 300 MG TABLET EXTENDED RELEASE 24 HOUR TAKE ONE TABLET BY MOUTH EVERY MORNING , NOTES: 08/18 2000 TAKING MULTI-DAY PLUS IRON - TABLET TAKE ONE TABLET BY MOUTH ONCE DAILY DIRECTED ORALLY DAILY, NOTES: 08/18 800 TAKING TIZANIDINE HCL 4 MG TABLET 1 TABLET NEEDED ORALLY THREE TIMES A DAY MAX, NOTES: 08/18 2000 TAKING HYDROXYZINE HCL 25 MG TABLET 1 TABLET NEEDED EVERY 8 HRS ORALLY 30 , NOTES: 08/18 1200 TAKING VALACYCLOVIR HCL 500 MG TABLET 1 TAB ORALLY TWICE DAILY, NOTES: 08/18 2000 TAKING CYMBALTA 60 MG CAPSULE DELAYED RELEASE PARTICLES TAKE TWO CAPSULES BY MOUTH ONCE DAILY , NOTES: 08/17 TAKING CALCIUM-VITAMIN D 600-200 MG-UNIT TABLET 1 TAB ORALLY BID, NOTES: 08/18 2000 TAKING AMBIEN 10 MG TABLET 11/2 TABLET ORALLY BEFORE BEDTIME, NOTES: 08/18 2100 TAKING PERCOCET 7.5-325 MG TABLET 1 TABLET ORALLY EVERY 4-6 HRS NEEDED FOR PAIN NEEDS TO READ [place], NOTES: 08/18 1930 NOT-TAKING ENDOCET 7.5-325 MG TABLET 1 ORALLY Q 4-6H PRN PAIN MDD5 [place], NOTES: 08/18 1930 NOT-TAKING CILOXAN 0.3 % SOLUTION 2 DROPS INTO AFFECTED EYE OPHTHALMIC EVERY 4 HRS MEDICATION LIST REVIEWED AND RECONCILED WITH THE PATIENT PAST MEDICAL HISTORY ABNORMAL EKG HX ARRYTHMIA CHRONIC DDD MRI DONE 03/2016 LARGE DISC HERNIATION AT L5-S1 WITH MODERATE EXTRUSION ON WORKER'S COMPENSATION FOLLOWS UP WITH DR. AGUERO DEPRESSION/INSOMNIA TOBACCO ABUSE HYPERLIPIDEMIA RECURRENT SINUSITIS HIV DIAGNOSED IN 1992 ACQUIRED THROUGH HETEROSEXUAL SEX HER PARTNER WAS POSITIVE HIV UNDETECTED SINCE 2009 CD4 MORE THAN 1000 COLONOSCOPY 2006 EGD AND COLONOSCOPY [address] OTERO CHRONIC GASTRITIS AND DUODENITIS 2006 LEFT BREAST CALCIFICATION BIOPSY BENIGN DAVON 1 DR HOPKINS COLPOSCOPY EVERY 6 MONTHS PAP EYELID INFECTION 10/2015 MODERATE TO SEVERE OBSTRUCTIVE SLEEP APNEA ON BIPAP 06/09 DR DE LEON/ [facility] MYOCLONUS BILATERAL CATARACTS DR FRANCIS/ DR CAMP RESTLESS LEG SYNDROME ALLERGIES MORPHINE SULFATE: HIVES - ALLERGY AUGMENTIN: HIVES - ALLERGY ULTRAM: HIVES - ALLERGY SUDAFED: HIVES - ALLERGY SURGICAL HISTORY EYE SURGERY 1971 TONSILLECTOMY 1977 LEFT SALPINGOOOPHORECTOMY [facility] 1997 COLONOSCOPY AND EGD 06/2007 BREAST BIOPSY 03/2006 EGD AND COLONOSCOPY CHRONIC GASTRITIS AND DUODENITIS 04/18/2012 EXCISION B TOE NAILS BIG TOES DR PULIDO 04/2015 COLPOSCOPY WITH TRACY 06/15/15 HYSTARECTIUM LEFT LEG WOUNDS AGE 16 EYE LID SURGERY BOTH EYES / RIGHT ONE NEEDED TO BE RE SEWN DUE TO IT OPENING AUG 2017 RIGHT EYE CATARACT !12/31/17 LEFT EYE CATARACT 12/2018 RIGHT EYE CATARACT 12/2018 FAMILY HISTORY FATHER: 63 YRS, BLADDER [place], DIAGNOSED WITH OTHER MALIGNANT NEOPLASM OF UNSPECIFIED SITE MOTHER: ALIVE 73 YRS, CAD [place] AGE 61, UNSPECIFIED HEART DISEASE SIBLINGS: ALIVE, SISTER BRAIN ANEURYSM DAUGHTER(S): ALIVE 2 BROTHER(S) , 2 SISTER(S) - HEALTHY. 1 SON(S) - HEALTHY. ONE SISTER WITH BRAIN ANUERYSM. SOCIAL HISTORY GENERAL: TOBACCO USE ARE YOU A:CURRENT SMOKER ARE YOU INTERESTED IN QUITTING?NOT READY TO QUIT HOW MANY CIGARETTES A DAY DO YOU SMOKE?11-20 HOW OFTEN DO YOU SMOKE CIGARETTES?EVERY DAY PATIENT COUNSELED ON THE DANGERS OF TOBACCO USE AND URGED TO QUIT:08/19/2020 SMOKING CESSATION INFORMATION GIVEN06/02/2020 LATEX QUESTIONNAIRE LATEX ALLERGY : HAVE YOU EVER DEVELOPED ANY TYPE OF REACTION AFTER HANDLING LATEX PRODUCTS SUCH RUBBER GLOVES, CONDOMS, DIAPHRAGMS, BALLOONS, SOCKS, OR UNDERWEAR?NO LATEX ALLERGY : HAVE YOU EVER DEVELOPED ANY TYPE OF REACTION DURING OR AFTER DENTAL APPOINTMENT, VAGINAL/RECTAL EXAMINATION, SURGICAL PROCEDURE, OR ANY OTHER EXPOSURE?NO LATEX RISK : HAVE YOU EVER HAD ANY DIFFICULTY BREATHING OR HIVES AFTER EATING OR HANDLING ANY FRUITS, OR VEGETABLES; SUCH KIWI, BANANAS, STONE FRUITS, OR CHESTNUTSNO LATEX RISK : DO YOU HAVE A PREVIOUS PERSONAL HISTORY OF MORE THAN NINE SURGERIES, SPINA BIFIDA, OR REPEATED CATHERIZATIONS? YES - PLEASE INDICATE : > 9 SURGERIES LATEX RISK : ARE YOU FREQUENTLY EXPOSED TO LATEX PRODUCTS IN YOUR OCCUPATION?NO DATE ASKED : 08/19/2020 ALCOHOL SCREENING DID YOU HAVE A DRINK CONTAINING ALCOHOL IN THE PAST YEAR?NO POINTS0 INTERPRETATIONNEGATIVE RECREATIONAL DRUG USE DRUG USE?NO CAFFEINE CAFFEINE USE?YES HOW OFTEN AND HOW MUCH? DRINK COFFEE ALL DAY LONG SEXUAL HX HAD SEX IN THE LAST 12 MONTHS (VAGINAL, ORAL, OR ANAL)?NO LMP:1988 HAVE YOU EVER HAD AN STD?NO HIV / HEP-C SCREENING HIV TEST OFFERED TO PATIENT:YES DATE OFFERED:09/04/2018 PREVIOUSLY TESTED TEST ACCEPTED:YES HEP-C TEST OFFERED TO PATIENT:YES DATE OFFERED:09/04/2018 PREVIOUSLY TESTED TEST ACCEPTED:YES BROCHURE PROVIDED TO PATIENTNO PRESYBETERIAN [id number] NONE LANGUAGE LANGUAGES SPOKEN:ROMANIAN EDUCATION LEVEL OF EDUCATION:HIGH SCHOOL LEARNING BARRIERS / SPECIAL NEEDS BARRIERS TO LEARNING?NO HEARING IMPAIRED?NO VISION IMPAIRED?YES :CORRECTIVE LENSES COGNITIVELY IMPAIRED?NO READINESS TO LEARN?YES LEARNING PREFERENCES?NO LEARNING CAPABILITIES PRESENT?YES EMOTIONAL BARRIERS?NO SPECIAL DEVICES?NO DIGITAL ACCOUNT SUPERVISOR NEEDED?NO DOMESTIC VIOLENCE DO YOU FEEL SAFE IN YOUR ENVIRONMENT?YES OCCUPATION: RETIRED. DIET: REGULAR. EXERCISE: NONE. MARITAL STATUS: .. OTHERS AT HOME: ELIZABETH. FEMALE 6 MONTH RISK ASSESSMENT FOR STD DESCRIBE YOUR SEXUAL PARTNERS:MALE MONOGAMOUS?YES HIV POSITIVE?YES EVER INJECT DRUGS?NO VAGINAL SEX?NO ANAL SEX?NO ORAL SEX?NO ARE YOU TAKING ANY STEPS TO PREVENT ? PT. HAD HYSTER. 1998 WHAT STEPS HAVE YOU TAKEN TO PROTECT YOURSELF FROM STDS, INCLUDING HIV? (CHECK ALL THAT APPLY):MUTUAL MONOGAMY, MALE CONDOMS HAVE YOU OR ANY OF YOUR SEXUAL PARTNERS EVER HAD AN STD? IF YES PLEASE LIST:NO IS THERE ANYTHING ELSE WE SHOULD TALK ABOUT CONCERNING YOUR SEXUAL HISTORY OR PRACTICE?NO NEW PATIENT PAIN DIARY PATIENT DESCRIBES PAIN : BURNING, IT COMES AND GOES, STABBING, FROM 0-10, WHAT LEVEL IS YOUR PAIN TODAY? 8. PAIN CLINIC PFS, CLERGY, PUBLIC HEALTH REFERRALS PFS REFERRAL NEEDED?NO CLERGY REFERRAL NEEDED?NO PUBLIC HEALTH REFERRAL NEEDED?NO HAS THE PATIENT BEEN EDUCATED REGARDING HIS/HER PLAN OF CARE?YES HAS THE PATIENT BEEN EDUCATED REGARDING PAIN, THE RISK FOR PAIN, THE IMPORTANCE OF EFFECTIVE PAIN MANAGEMENT, AND THE PAIN ASSESSMENT PROCESS?YES ADVANCE DIRECTIVE ADVANCE DIRECTIVE DISCUSSED WITH PATIENT:YES 08/19/2020 PT HAS NO ADVANCED DIRECTIVES, DECLINES INFORMATION ON HCP STATES SHE ALREADY HAS IT AND WILL BRING A COPY IN WHEN SHE HAS IT COMPLETED. 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 SHE TAKES CARE OF HER 2 GRANDCHILDREN EZ AND RAMANA. HER SON IS ON SOCIAL SECURITY INCOME IS 23-YEAR-OLD [place] AND HE WILL MOVING TO [place] TO BE WITH HIS FATHER. SHE IS BUT FROM FROM HER BUT THEY SEE EACH OTHER ON THE WEEKEND. SHE SMOKES ONE PACK OF CIGARETTES A DAY SHE TRIED TO QUIT WITH NICOTINE PATCHES WELL WITH CHANTIX. HOSPITALIZATION/MAJOR DIAGNOSTIC PROCEDURE RELATED TO SURGERY [facility] FOR 1 MONTH FOR SUICIDE ATTEMPTS 1997 VITAL SIGNS WT 192.8 LBS, HT 64 IN, BMI 33.09 INDEX, BP 169/78 MM HG, HR 97 /MIN, RR 18 /MIN, TEMP 97.6 F, OXYGEN SAT % 96%, NA INITIALS AW 1026, REVIEWED BY: AD. EXAMINATION GENERAL EXAMINATION: THE PATIENT IS ALERT, ORIENTED TIMES THREE AND COOPERATIVE. HEART SHOWS REGULAR RHYTHM, NO MURMURS AND NO GALLOPS. LUNGS ARE CLEAR TO AUSCULTATION. ASSESSMENTS SPONDYLOSIS WITHOUT MYELOPATHY OR RADICULOPATHY, LUMBAR REGION - M47.816 (PRIMARY) SPONDYLOSIS WITHOUT MYELOPATHY OR RADICULOPATHY, LUMBOSACRAL REGION - M47.817 TREATMENT SPONDYLOSIS WITHOUT MYELOPATHY OR RADICULOPATHY, LUMBAR REGION [facility] FACET BLOCK (PAIN)[id number] SPONDYLOSIS WITHOUT MYELOPATHY OR RADICULOPATHY, LUMBOSACRAL REGION [facility] FACET BLOCK (PAIN)[id number] PROCEDURES PN WORKMANS' COMP OPINION IN YOUR OPINION, WAS THE INCIDENT THAT THE PATIENT DESCRIBED THE COMPETENT MEDICAL CAUSE OF THIS INJURY/ILLNESS? YES ARE THE PATIENT'S COMPLAINTS CONSISTENT WITH HIS/HER HISTORY OF THE INJURY/ILLNESS? YES IS THE PATIENT'S HISTORY OF THE INJURY/ILLNESS CONSISTENT WITH YOUR OBJECTIVE FINDING? YES WHAT IS THE PERCENTAGE OF TEMPORARY IMPAIRMENT? MODERATE TO MARKED = 66.7% . IS THE PATIENT WORKING? NO . DOCTOR ON SITE: SHANTE CHURCH MD PN LUMBAR FACET BLOCK DIAGNOSTIC PRE PROCEDURE DIAGNOSIS LUMBAR SPONDYLOSIS, LUMBOSACRAL SPONDYLOSIS POST PROCEDURE DIAGNOSIS LUMBAR SPONDYLOSIS, LUMBOSACRAL SPONDYLOSIS PROCEDURE RIGHT L4-L5 AND RIGHT L5-S1 FACET BLOCK DIAGNOSTIC NUMBER [address] SHANTE TUCKER ELECTRICITY TRADER NONE ANESTHESIA LOCAL PRE PROCEDURE NOTE THE PATIENT WITH HISTORY OF CHRONIC LOW BACK PAIN. I EVALUATED THE PATIENT AND REVIEWED THE CHART. I WENT OVER THE RISKS, ALTERNATIVES, AND BENEFITS ASSOCIATED WITH THIS PROCEDURE. THE PATIENT WOULD LIKE TO PROCEED AND GAVE CONSENT TO PERFORM THE PROCEDURE. AGREED WITH THE PATIENT, WE ARE DOING THIS PROCEDURE TO DETERMINE IF THE PATIENT IS A CANDIDATE FOR A RADIOFREQUENCY ABLATION OF THE FACETS JOINTS. THE PATIENT DENIES UNEXPLAINABLE WEIGHT LOSS, FEVER, CHILLS, OR NEW CHANGES IN URINARY OR BOWEL CONTROL. THE PATIENT IS COVID-19 NEGATIVE DESCRIPTION OF PROCEDURE THE PATIENT WAS BROUGHT TO THE PROCEDURE ROOM AND PLACED IN THE PRONE POSITION. THE LUMBOSACRAL AREA WAS CLEANED WITH CHLORAPREP SOLUTION AND DRAPED ASEPTICALLY. THE PROCEDURE WAS DONE UNDER STERILE CONDITIONS. A TIMEOUT WAS PERFORMED WHERE LATERALITY AND THE SITE OF THE PROCEDURE WERE CHECKED AND CONFIRMED WITH EVERYONE IN THE ROOM. UNDER FLUOROSCOPIC GUIDANCE, TARGETS WERE SELECTED AT THE INTERSECTION OF THE RIGHT TRANSVERSE PROCESS OF L4, L5 AND ALA OF S1 WITH ITS RESPECTIVE SUPERIOR ARTICULAR PROCESS. I CONFIRMED AGAIN WITH EVERYONE IN THE ROOM THE LATERALITY OF THE TARGET. LIDOCAINE WAS USED TO NUMB THE SKIN AND THE SUBCUTANEOUS TISSUE BELOW IT. SPINAL NEEDLE, 22-GAUGE, WAS ADVANCED UNDER FLUOROSCOPIC GUIDANCE AND FOLLOWING PATIENT FEEDBACK UNTIL THE TARGETS WERE REACHED. POSITION OF THE NEEDLES WAS VERIFIED WITH AP AND LATERAL VIEWS. AFTER PROPER POSITION OF THE NEEDLES WAS ACHIEVED, ISOVUE-M DYE 30%, 0.1 ML, WAS INJECTED AT EACH SITE SHOWING ADEQUATE SPREAD OF THE DYE. THEN, A SOLUTION OF 0.4 ML OF BUPIVACAINE 0.25% WAS INJECTED AT EACH SITE. THE MEDICATIONS WERE VERIFIED WITH THE NURSE. THERE WAS NO EVIDENCE OF BLOOD, PARESTHESIA OR CEREBROSPINAL FLUID DURING THE PROCEDURE. THE PATIENT WAS SENT TO THE RECOVERY ROOM. THE PATIENT WAS MOVING THE EXTREMITIES AND DOING WELL. THERE WERE NO COMPLICATIONS DURING THE PROCEDURE. ESTIMATED BLOOD LOSS WAS LESS THAN 5 ML. FLUOROSCOPY TIME WAS 19 SECONDS POST PROCEDURE NOTE THE PATIENT WILL DOCUMENT THE PAIN LEVEL AND RESPONSE TO THIS PROCEDURE EVERY HOUR. THE PATIENT WILL BE SEEN IN A FOLLOW UP IN THE NEXT FEW WEEKS. FURTHER DETERMINATION FOR THE PATIENT'S CASE WILL BE DONE AT THE NEXT VISIT. INSTRUCTIONS WERE GIVEN, QUESTIONS WERE ANSWERED, AND THE PATIENT EXPRESSED UNDERSTANDING AND AGREED WITH THE PLAN. I, INES DAVIS, DOCUMENTED THE ABOVE INFORMATION ACTING A SCRIBE FOR DR. TUCKER. I HAVE REVIEWED THE ABOVE DOCUMENT, WRITTEN BY INES DAVIS, GALLERY MANAGER, AND I VERIFY THAT IT IS ACCURATE PROCEDURE CODES 19531 INJ PARAVERT F JNT L/S 1 LEV, MODIFIERS: RT [id number] INJ PARAVERT F JNT L/S 2 LEV, MODIFIERS: RT DISPOSITION & COMMUNICATION FOLLOW UP FOLLOW UP WITH EMERGENCY PREPAREDNESS MANAGER (REASON: W/C POST DIAGNOSTIC FACET BLOCK RIGHT L4-L5, L5-S1) ELECTRONICALLY SIGNED BY SHANTE TUCKER MD, MD ON 08/20/2020 AT 04:36 PM EDT DISCLAIMER : THIS IS A VISIT SUMMARY EXTRACTED FROM THE [employer] CHART. IT IS NOT A COPY OF THE [employer] PROGRESS NOTE. MTDEvonne
--- NOTE | 2020-08-25 13:51 | REP ---
C-ARM VIEWS LOWER LUMBAR SPINE HISTORY: Pain. Three C-arm views lower lumbar spine performed during right lumbar facet injections performed by Dr. Aceves. [place] are seen along the lower lumbar facet joints. FLUROSCOPY TIME: 19.9 seconds utilized. MTDD
== END ==
LOC: M PAIN 10:30
PROVIDERS: ATTEND Anesthesiology
DX: M47.816 Spondylosis without myelopathy or radiculopathy, lumbar region (principal); M47.817 Spondylosis without myelopathy or radiculopathy, lumbosacral region; G47.33 Obstructive sleep apnea (adult) (pediatric); G47.00 Insomnia, unspecified; Z86.59 Personal history of other mental and behavioral disorders; E78.5 Hyperlipidemia, unspecified; G25.81 Restless legs syndrome; F17.210 Nicotine dependence, cigarettes, uncomplicated; Z88.1 Allergy status to other antibiotic agents; Z88.5 Allergy status to narcotic agent; Z88.8 Allergy status to other drugs, medicaments and biological substances; Z79.899 Other long term (current) drug therapy
CPT/HCPCS: 64493; 64494; Q9967

== ENCOUNTER → 2020-09-21 | Outpatient (CLI) | payer OTHER, MEDICAID, MEDICARE ==
[~2020-09-21] MED LIST changes: -BUPIVACAINE HCL 0.25% 30ML VIAL As Ordered ONE; -ISOVUE-M 300 61% 15ML VIAL As Ordered ONE; -LIDOCAINE 1% SDV 30ML VIAL As Ordered ONE
--- NOTE | 2020-09-23 01:34 | ECWPNPC ---
PATIENT NAME: CYNTHIA JOSHI : 1965 GENDER: FEMALE VISIT DATE: 09/21/2020 DISCHARGE DATE: 09/21/20 1106 VISIT LOCKED DATE TIME: PHYSICIAN: [place] PHYSICIAN PAGER NO: ACTIVE RESOURCE: [place] REASON FOR APPOINTMENT 1. W/C POST DIAGNOSTIC FACET BLOCK RIGHT L4-L5, L5-S1 HISTORY OF PRESENT ILLNESS GENERAL: - 55-YEAR-OLD FEMALE IN FOR POST DIAGNOSTIC FACET BLOCK RIGHT SIDE L4-L5 L5-S1 FOLLOW-UP. PATIENT FEELS THE PROCEDURE WAS SUCCESSFUL RATING HER PAIN PREPROCEDURE AT A 6 OUT OF 10 AND POSTPROCEDURE AT A 0 OUT OF 10X2 DAYS. SHE RATES HER PAIN CURRENTLY AT A 9 OUT OF 10 AND DESCRIBES IT STABBING, TENDER, AND THROBBING. PATIENT FEELS HER MEDICATIONS ARE HELPFUL AND DENIES MED SIDE EFFECTS AT THIS TIME. PATIENT ADMITS THAT WITH HER MEDICATIONS SHE IS ABLE TO PERFORM HER ACTIVITIES OF DAILY LIVING, HAVE INCREASED FUNCTIONALITY, AND DECREASED PAIN. 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 WHEN SHE FELT SUDDEN, SEVERE PAIN IN HER LOW BACK. THE PATIENT RECIEVED A LEFT L4/5-L5/S1 RADIOREQUENCY ON 06/05/2018 AND REPORTED GREATER THAN 75% RELIEF IN HER PAIN. FALL RISK SCREENING: SCREENING :NO FALLS REPORTED IN THE LAST YEAR PAIN SCREENING: PATIENT HAS A COMPLAINT OF ACUTE OR CHRONIC PAIN :YES LOCATION OF PAIN:LOW BACK INTENSITY OF PAIN (SCALE OF 1 TO 10):9 WHAT DOES YOUR PAIN FEEL LIKE:STABBING, TENDER, THROBBING DURATION:CONSTANT, AWAKENS FROM SLEEP PAIN IS INCREASED BY:ACTIVITIES, PROLONGED STANDING PAIN IS DECREASED BY:USE OF PAIN MEDICATIONS, OTHERS TENS UNIT HELPS TO REDUCE PAIN NURSING NOTE: -. PAIN CENTER INTAKE QUESTIONS: DO YOU HAVE A HISTORY OF MRSA? :YES DO YOU TAKE A BLOOD THINNERS? :NO DO YOU HAVE ANY BLEEDING DISORDERS? :NO ANY NEW NUMBNESS OR WEAKNESS IN YOUR LEGS OR ARMS? :NO ANY PACEMAKER,DEFIBRILLATOR, OR DORSAL COLUMN STIMULATOR? :NO DO YOU HAVE ANY RASHES OR OPEN SORES? :NO ARE YOU ALLERGIC TO IV DYE? :NO ARE YOU DIABETIC? :NO ANY NEW PROBLEMS WITH YOUR MEDICATIONS? :NO HAVE YOU RECEIVED A VACCINE IN THE PAST 30 DAYS? :NO DO YOU PLAN TO RECEIVE A VACCINE IN THE NEXT 21 DAYS? :NO DO YOU NEED ANY PRESCRIPTION? :NO DO YOU TAKE ANY IMMUNOSUPPRESSIVE MEDICATIONS? :YES BIKTARVY IS THERE A CHANCE YOU COULD BE ? :NO ARE YOU BREAST FEEDING? :NO CURRENT MEDICATIONS TAKING KEPPRA 1000 MG TABLET TAKE 1 TAB BY MOUTH TWICE A DAY. , NOTES: 08/18 2000 TAKING ROPINIROLE HCL 0.25 MG TABLET 2 TABLET ORALLY THREE TIMES A DAY, NOTES: 08/18 2000 TAKING TRIAMCINOLONE ACETONIDE 0.1 % CREAM 1 APPLICATION TO AREA EXTERNALLY BID PRN, NOTES: NONE RECENT TAKING NASONEX 50 MCG/ACT SUSPENSION 2 PUFFS NASALLY ONCE A DAY, NOTES: NONE RECENT TAKING NYSTATIN 132754 UNIT/GM POWDER APPLY UNDER BREASTS AND ABDOMINAL FOLD 2 TIMES A DAY TOPICALLY TWICE A DAY, NOTES: 08/17 TAKING HYDROXYZINE HCL 50 MG TABLET 1 TABLET NEEDED ORALLY EVERY 8 HRS, NOTES: 08/17 2000 TAKING VENTOLIN HFA 108 (90 BASE) MCG/ACT AEROSOL SOLUTION 2 PUFFS INHALATION QID PRN, NOTES: LAST WEEK TAKING GABAPENTIN 600 MG TABLET 1 TABLET ORALLY TID, NOTES: 08/18 2000 TAKING SEROQUEL 50 MG TABLET 1 TABLET AT BEDTIME ORALLY QHS, NOTES: 08/18 2100 TAKING ATORVASTATIN CALCIUM 80 MG TABLET TAKE ONE TABLET BY MOUTH ONCE DAILY , NOTES: 08/18 800 TAKING WELLBUTRIN XL 300 MG TABLET EXTENDED RELEASE 24 HOUR TAKE ONE TABLET BY MOUTH EVERY MORNING , NOTES: 08/18 2000 TAKING MULTI-DAY PLUS IRON - TABLET TAKE ONE TABLET BY MOUTH ONCE DAILY DIRECTED ORALLY DAILY, NOTES: 08/18 800 TAKING TIZANIDINE HCL 4 MG TABLET 1 TABLET NEEDED ORALLY THREE TIMES A DAY MAX, NOTES: 08/18 2000 TAKING CYMBALTA 60 MG CAPSULE DELAYED RELEASE PARTICLES TAKE TWO CAPSULES BY MOUTH ONCE DAILY , NOTES: 08/17 TAKING CALCIUM-VITAMIN D 600-200 MG-UNIT TABLET 1 TAB ORALLY BID, NOTES: 08/18 2000 TAKING LEVOTHYROXINE SODIUM 50 MCG TABLET 1 TABLET ON AN EMPTY STOMACH IN THE MORNING ORALLY ONCE A DAY TAKING OMEPRAZOLE 40 MG CAPSULE DELAYED RELEASE 1 CAP BID ORALLY 30 DAY(S) ORALLY BID TAKING AMBIEN 10 MG TABLET 11/2 TABLET ORALLY BEFORE BEDTIME, NOTES: 08/18 2100 TAKING VALACYCLOVIR HCL 500 MG TABLET 1 TAB ORALLY TWICE DAILY TAKING HYDROXYZINE HCL 25 MG TABLET 1 TABLET NEEDED EVERY 8 HRS ORALLY 30 TAKING BIKTARVY 50-200-25 MG TABLET 1 TABLET ORALLY ONCE A DAY TAKING PERCOCET 7.5-325 MG TABLET 1 TABLET ORALLY EVERY 4-6 HRS NEEDED FOR PAIN, NOTES: 08/18 1930 TAKING CILOXAN 0.3 % SOLUTION 2 DROPS INTO AFFECTED EYE OPHTHALMIC EVERY 4 HRS NOT-TAKING ENDOCET 7.5-325 MG TABLET 1 ORALLY Q 4-6H PRN PAIN MDD5 [place], NOTES: 08/18 1930 MEDICATION LIST REVIEWED AND RECONCILED WITH THE PATIENT PAST MEDICAL HISTORY ABNORMAL EKG HX ARRYTHMIA CHRONIC DDD MRI DONE 03/2016 LARGE DISC HERNIATION AT L5-S1 WITH MODERATE EXTRUSION ON WORKER'S COMPENSATION FOLLOWS UP WITH DR. AGUERO DEPRESSION/INSOMNIA TOBACCO ABUSE HYPERLIPIDEMIA RECURRENT SINUSITIS HIV DIAGNOSED IN 1992 ACQUIRED THROUGH HETEROSEXUAL SEX HER PARTNER WAS POSITIVE HIV UNDETECTED SINCE 2009 CD4 MORE THAN 1000 COLONOSCOPY 2006 EGD AND COLONOSCOPY [address] OTERO CHRONIC GASTRITIS AND DUODENITIS 2005 LEFT BREAST CALCIFICATION BIOPSY BENIGN DAVON 1 DR HOPKINS COLPOSCOPY EVERY 6 MONTHS PAP EYELID INFECTION 10/2015 MODERATE TO SEVERE OBSTRUCTIVE SLEEP APNEA ON BIPAP 06/09 DR DE LEON/ [facility] MYOCLONUS BILATERAL CATARACTS DR FRANCIS/ DR CAMP RESTLESS LEG SYNDROME ALLERGIES MORPHINE SULFATE: HIVES - ALLERGY AUGMENTIN: HIVES - ALLERGY ULTRAM: HIVES - ALLERGY SUDAFED: HIVES - ALLERGY SURGICAL HISTORY EYE SURGERY 1971 TONSILLECTOMY 1977 LEFT SALPINGOOOPHORECTOMY [facility] 1997 COLONOSCOPY AND EGD 06/2007 BREAST BIOPSY 03/2006 EGD AND COLONOSCOPY CHRONIC GASTRITIS AND DUODENITIS 04/18/2012 EXCISION B TOE NAILS BIG TOES DR PULIDO 04/2015 COLPOSCOPY WITH TRACY 06/15/15 HYSTARECTIUM LEFT LEG WOUNDS AGE 16 EYE LID SURGERY BOTH EYES / RIGHT ONE NEEDED TO BE RE SEWN DUE TO IT OPENING AUG 2017 RIGHT EYE CATARACT !12/31/17 LEFT EYE CATARACT 12/2018 RIGHT EYE CATARACT 12/2018 FAMILY HISTORY FATHER: 63 YRS, BLADDER CA, DIAGNOSED WITH OTHER MALIGNANT NEOPLASM OF UNSPECIFIED SITE MOTHER: ALIVE 73 YRS, CAD MS AGE 61, UNSPECIFIED HEART DISEASE SIBLINGS: ALIVE, SISTER BRAIN ANEURYSM DAUGHTER(S): ALIVE 2 BROTHER(S) , 2 SISTER(S) - HEALTHY. 1 SON(S) - HEALTHY. ONE SISTER WITH BRAIN ANUERYSM. SOCIAL HISTORY GENERAL: TOBACCO USE ARE YOU A:CURRENT SMOKER HOW OFTEN DO YOU SMOKE CIGARETTES?EVERY DAY HOW MANY CIGARETTES A DAY DO YOU SMOKE?11-20 ARE YOU INTERESTED IN QUITTING?NOT READY TO QUIT PATIENT COUNSELED ON THE DANGERS OF TOBACCO USE AND URGED TO QUIT:08/19/2020 SMOKING CESSATION INFORMATION GIVEN06/02/2020 LATEX QUESTIONNAIRE LATEX ALLERGY : HAVE YOU EVER DEVELOPED ANY TYPE OF REACTION AFTER HANDLING LATEX PRODUCTS SUCH RUBBER GLOVES, CONDOMS, DIAPHRAGMS, BALLOONS, SOCKS, OR UNDERWEAR?NO LATEX ALLERGY : HAVE YOU EVER DEVELOPED ANY TYPE OF REACTION DURING OR AFTER DENTAL APPOINTMENT, VAGINAL/RECTAL EXAMINATION, SURGICAL PROCEDURE, OR ANY OTHER EXPOSURE?NO LATEX RISK : HAVE YOU EVER HAD ANY DIFFICULTY BREATHING OR HIVES AFTER EATING OR HANDLING ANY FRUITS, OR VEGETABLES; SUCH KIWI, BANANAS, STONE FRUITS, OR CHESTNUTSNO LATEX RISK : DO YOU HAVE A PREVIOUS PERSONAL HISTORY OF MORE THAN NINE SURGERIES, SPINA BIFIDA, OR REPEATED CATHERIZATIONS? YES - PLEASE INDICATE : > 9 SURGERIES LATEX RISK : ARE YOU FREQUENTLY EXPOSED TO LATEX PRODUCTS IN YOUR OCCUPATION?NO DATE ASKED : 09/21/2020 ALCOHOL SCREENING DID YOU HAVE A DRINK CONTAINING ALCOHOL IN THE PAST YEAR?NO POINTS0 INTERPRETATIONNEGATIVE RECREATIONAL DRUG USE DRUG USE?NO CAFFEINE CAFFEINE USE?YES HOW OFTEN AND HOW MUCH? DRINK COFFEE ALL DAY LONG SEXUAL HX HAD SEX IN THE LAST 12 MONTHS (VAGINAL, ORAL, OR ANAL)?NO LMP:1989 HAVE YOU EVER HAD AN STD?NO HIV / HEP-C SCREENING HIV TEST OFFERED TO PATIENT:YES DATE OFFERED:09/04/2018 PREVIOUSLY TESTED TEST ACCEPTED:YES HEP-C TEST OFFERED TO PATIENT:YES DATE OFFERED:09/04/2018 PREVIOUSLY TESTED TEST ACCEPTED:YES BROCHURE PROVIDED TO PATIENTNO ZOROASTRIANISM [id number] NONE LANGUAGE LANGUAGES SPOKEN:DANISH EDUCATION LEVEL OF EDUCATION:HIGH SCHOOL LEARNING BARRIERS / SPECIAL NEEDS BARRIERS TO LEARNING?NO HEARING IMPAIRED?NO VISION IMPAIRED?YES COGNITIVELY IMPAIRED?NO :CORRECTIVE LENSES READINESS TO LEARN?YES LEARNING PREFERENCES?NO LEARNING CAPABILITIES PRESENT?YES EMOTIONAL BARRIERS?NO SPECIAL DEVICES?NO GYROSCOPIC ENGINEERING TECHNICIAN NEEDED?NO DOMESTIC VIOLENCE DO YOU FEEL SAFE IN YOUR ENVIRONMENT?YES OCCUPATION: RETIRED. DIET: REGULAR. EXERCISE: NONE. MARITAL STATUS: .. OTHERS AT HOME: ELIZABETH. FEMALE 6 MONTH RISK ASSESSMENT FOR STD DESCRIBE YOUR SEXUAL PARTNERS:MALE MONOGAMOUS?YES HIV POSITIVE?YES EVER INJECT DRUGS?NO VAGINAL SEX?NO ANAL SEX?NO ORAL SEX?NO ARE YOU TAKING ANY STEPS TO PREVENT ? PT. HAD HYSTER. 1997 WHAT STEPS HAVE YOU TAKEN TO PROTECT YOURSELF FROM STDS, INCLUDING HIV? (CHECK ALL THAT APPLY):MUTUAL MONOGAMY, MALE CONDOMS HAVE YOU OR ANY OF YOUR SEXUAL PARTNERS EVER HAD AN STD? IF YES PLEASE LIST:NO IS THERE ANYTHING ELSE WE SHOULD TALK ABOUT CONCERNING YOUR SEXUAL HISTORY OR PRACTICE?NO PATIENT DESCRIBES PAIN : BURNING, IT COMES AND GOES, STABBING, FROM 0-10, WHAT LEVEL IS YOUR PAIN TODAY? 8. PAIN CLINIC PFS, CLERGY, PUBLIC HEALTH REFERRALS PFS REFERRAL NEEDED?NO CLERGY REFERRAL NEEDED?NO PUBLIC HEALTH REFERRAL NEEDED?NO HAS THE PATIENT BEEN EDUCATED REGARDING HIS/HER PLAN OF CARE?YES HAS THE PATIENT BEEN EDUCATED REGARDING PAIN, THE RISK FOR PAIN, THE IMPORTANCE OF EFFECTIVE PAIN MANAGEMENT, AND THE PAIN ASSESSMENT PROCESS?YES ADVANCE DIRECTIVE ADVANCE DIRECTIVE DISCUSSED WITH PATIENT:YES 09/21/2020 PT HAS NO ADVANCED DIRECTIVES, DECLINES INFORMATION ON HCP STATES SHE ALREADY HAS IT AND WILL BRING A COPY IN WHEN SHE HAS IT COMPLETED. 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 SHE TAKES CARE OF HER 2 GRANDCHILDREN EZ AND RAMANA. HER SON IS ON SOCIAL SECURITY INCOME IS 23-YEAR-OLD [place] AND HE WILL MOVING TO [place] TO BE WITH HIS FATHER. SHE IS BUT FROM FROM HER BUT THEY SEE EACH OTHER ON THE WEEKEND. SHE SMOKES ONE PACK OF CIGARETTES A DAY SHE TRIED TO QUIT WITH NICOTINE PATCHES WELL WITH CHANTIX. HOSPITALIZATION/MAJOR DIAGNOSTIC PROCEDURE RELATED TO SURGERY [facility] FOR 1 MONTH FOR SUICIDE ATTEMPTS 1997 REVIEW OF SYSTEMS CONSTITUTIONAL: ANY RECENT FEVER NO . CHILLS NO . WEIGHT CHANGE OF UNKNOWN REASONS NO . GASTROENTEROLOGY: NEW UNEXPLAINABLE CHANGES IN BOWEL CONTROL NO . CONSTIPATION NO . GENITOURINARY: ANY NEW CHANGE IN BLADDER CONTROL? NO . NEUROLOGY: NEW ONSET DIZZINESS OR NEUROLOGICAL CHANGES NOT MENTIONED NO . NEW NUMBNESS OR PAIN PATTERNS NOT MENTIONED AND PERTINENT TO TODAY'S VISIT NO . CARDIOLOGY: NEW CHEST PRESSURE NO . NEW CHEST PAIN NO . RESPIRATORY: UNEXPLAINABLE COUGH NO . NEW SHORTNESS OF BREATH NO . VITAL SIGNS WT 198.4 LBS, HT 64 IN, BMI 34.05 INDEX, BP 141/67 MM HG, HR 90 /MIN, RR 18 /MIN, TEMP 97.0 F, OXYGEN SAT % 98%, SAFE IN ENV? (Y/N) Y, NA INITIALS ID [id number], REVIEWED BY: ARLETH. EXAMINATION GENERAL EXAMINATION: GENERALNO ACUTE DISTRESS, WELL NOURISHED AND HYDRATED. PSYCHAPPROPRIATE MOOD AND AFFECT . LUNGS:CLEAR TO AUSCULTATION BILATERALLY, NO WHEEZES, RHONCHI, RALES. HEART:NO MURMURS, REGULAR RATE AND RHYTHM. ASSESSMENTS SPONDYLOSIS OF LUMBOSACRAL REGION WITHOUT MYELOPATHY OR RADICULOPATHY - M47.817 (PRIMARY) TREATMENT SPONDYLOSIS OF LUMBOSACRAL REGION WITHOUT MYELOPATHY OR RADICULOPATHY NOTES: 55-YEAR-OLD FEMALE IN FOR POST DIAGNOSTIC FACET BLOCK #2 FOLLOW-UP. GIVEN PRESENTING SYMPTOMS RECOMMEND RF PROCEDURE RIGHT SIDE L4-L5 L5-S1 WITH POSTPROCEDURAL FOLLOW-UP. PATIENT HAS EXPRESSED UNDERSTANDING OF AND WAS IN AGREEMENT WITH TREATMENT PLAN. GIVEN TIME TO ASK QUESTIONS AND EXPRESS CONCERNS. , ISTOP REGISTRY REVIEWED AND DEMONSTRATES COMPLLIANCE. (REF # [id number] ) BRINGS IN MEDICATIONS WHICH IS APPROPRIATE FOR WHAT WAS DISPENSED. RECENT URINE TOXICOLOGY REVIEWED. NO UNAUTHORIZED MEDICATIONS. NO ILLICIT SUBSTANCES AND PRESCRIBED MEDICATIONS WERE PRESENT. CLINICAL NOTES: DISCUSSED PRE PROCEDURE INSTRUCTIONS, PATIENT CARE PLAN, AND TEACHING FOR: RF PROCEDURE L4-L5,L5-S1, PATIENT VERBALIZES UNDERSTANDING. UTOX SCREENING AND NARCOTIC AGREEMENT WAS DONE. . PROCEDURES PN WORKMANS' COMP OPINION IN YOUR OPINION, WAS THE INCIDENT THAT THE PATIENT DESCRIBED THE COMPETENT MEDICAL CAUSE OF THIS INJURY/ILLNESS? YES ARE THE PATIENT'S COMPLAINTS CONSISTENT WITH HIS/HER HISTORY OF THE INJURY/ILLNESS? YES IS THE PATIENT'S HISTORY OF THE INJURY/ILLNESS CONSISTENT WITH YOUR OBJECTIVE FINDING? YES WHAT IS THE PERCENTAGE OF TEMPORARY IMPAIRMENT? MODERATE TO MARKED = 66.7% . IS THE PATIENT WORKING? NO . DOCTOR ON SITE: SHANTE CHURCH MD PROCEDURE CODES [id number] ESTABILISHED PATIENT [facility] FACILITY CHARGE DISPOSITION & COMMUNICATION FOLLOW UP PROCEDURE (REASON: RF PROCEDURE RIGHT SIDE L4-L5 L5-S1) ELECTRONICALLY SIGNED BY BORIS MATHEWS ON 09/22/2020 AT 08:46 AM EST DISCLAIMER : THIS IS A VISIT SUMMARY EXTRACTED FROM THE [employer] CHART. IT IS NOT A COPY OF THE [employer] PROGRESS NOTE. KRIS
== END ==
LOC: M PAIN 10:15
PROVIDERS: ATTEND Family Medicine
DX: M47.817 Spondylosis without myelopathy or radiculopathy, lumbosacral region (principal); M51.26 Other intervertebral disc displacement, lumbar region; F32.9 Major depressive disorder, single episode, unspecified; G47.00 Insomnia, unspecified; F17.210 Nicotine dependence, cigarettes, uncomplicated; E78.5 Hyperlipidemia, unspecified; J32.9 Chronic sinusitis, unspecified; G47.33 Obstructive sleep apnea (adult) (pediatric); G25.81 Restless legs syndrome; Z79.891 Long term (current) use of opiate analgesic; Z79.899 Other long term (current) drug therapy; Z88.5 Allergy status to narcotic agent; Z88.1 Allergy status to other antibiotic agents; Z88.8 Allergy status to other drugs, medicaments and biological substances

== ENCOUNTER → 2020-11-19 | Outpatient (REF) | payer MEDICARE, MEDICAID ==
[2020-11-19 11:00] LABS: HEMOGLOBIN A1c 5.6 %
[2020-11-19 11:12] LABS: ALBUMIN 3.7 GM/DL (3.2-5.2); ALT/SGPT 27 U/L (12-78); BILIRUBIN,TOTAL 0.3 MG/DL (0.2-1.0); BLOOD UREA NITROGEN 16 MG/DL (7-18); CALCIUM LEVEL 8.9 MG/DL (8.5-10.1); CARBON DIOXIDE LEVEL 30 MEQ/L (21-32); CHLORIDE LEVEL 106 MEQ/L (98-107); CHOLESTEROL LEVEL 197 MG/DL (<200); CHOLESTEROL RISK RATIO 4.377 (<5); CREATININE FOR GFR 0.83 MG/DL (0.55-1.30); GLOMERULAR FILTRATION RATE > 60.0 (>51); GLUCOSE, FASTING 140 MG/DL (70-100); HDL CHOLESTEROL 45 MG/DL (>40); LDL CHOLESTEROL 78 MG/DL (<100); NON-HDL-C 152 MG/DL; POTASSIUM SERUM 3.6 MEQ/L (3.5-5.1); SODIUM LEVEL 139 MEQ/L (136-145); TOTAL PROTEIN 7.2 GM/DL (6.4-8.2); TRIGLYCERIDES LEVEL 368 MG/DL (<150)
[2020-11-24 16:09] LABS: % CD8 Pos Lymph 44.2 % (12.0-35.5); %CD4 Pos Lymphs 44.2 % (30.8-58.5); ABS Basophils 0.1 x10E3/uL (0.0-0.2); ABS Eosinophils 0.2 x10E3/uL (0.0-0.4); ABS Lymphs 3.7 x10E3/uL (0.7-3.1); ABS Monocytes 0.5 x10E3/uL (0.1-0.9); ABS Neutophils 4.6 x10E3/uL (1.4-7.0); Abs CD4 Helper 1635 /uL (359-1519); Abs CD8 Suppres 1635 /uL (109-897); Eosinophils 3 % (Not Estab.); HCT 39.8 % (34.0-46.6); HGB 12.5 g/dL (11.1-15.9); HIV-1 RNA PCR QUANT 2 LC550285 <20 copies/mL (.); Immature Grans 0 % (Not Estab.); Lymphocytes 40 % (Not Estab.); MCH 28.3 pg (26.6-33.0); MCHC 31.4 g/dL (31.5-35.7); MCV 90 fL (79-97); Monocytes 6 % (Not Estab.); Neutrophils 50 % (Not Estab.); Platelets 255 x10E3/uL (150-450); RBC 4.41 x10E6/uL (3.77-5.28); RDW 14.1 % (11.7-15.4); WBC 9.2 x10E3/uL (3.4-10.8)
== END ==
LOC: M SFHCPLAZ 08:44
PROVIDERS: ATTEND Internal Medicine Infectious Disease
DX: B20 Human immunodeficiency virus [HIV] disease (principal); E78.5 Hyperlipidemia, unspecified; E74.39 Other disorders of intestinal carbohydrate absorption; Z79.899 Other long term (current) drug therapy

== ENCOUNTER → 2020-11-23 | Outpatient (CLI) | payer MEDICARE ==
--- NOTE | 2020-11-23 09:20 | REP ---
INDICATION: UPPER ABDOMINAL PAIN, UNSPECIFIED. COMPARISON: None. TECHNIQUE: Transabdominal right upper quadrant sonography. FINDINGS: Scanning through the right upper quadrant of the abdomen demonstrates a normal sized, thin-walled gallbladder without evidence of stone or polyp. Common bile duct is normal measuring 0.5 cm in greatest diameter. There is diffuse increased echogenicity in the liver suggestive of fatty infiltration. No focal liver lesion is seen. Liver size is normal. No pancreatic abnormality is observed. No right renal abnormality is seen. There is no evidence of ascites. The right kidney measures 10.6 x 5.2 x 4.2 cm. IMPRESSION: Increased hepatic echogenicity diffusely suggestive of fatty infiltration. Otherwise negative right upper quadrant sonography.. <Electronically signed by Rylan Bates > 11/23/20 [id number]
== END ==
LOC: M RAD 08:26
PROVIDERS: ATTEND Internal Medicine Infectious Disease
DX: B20 Human immunodeficiency virus [HIV] disease (principal); R10.10 Upper abdominal pain, unspecified

== ENCOUNTER → 2020-12-18 | Outpatient (CLI) | payer MEDICARE | LOC: M LABSMTC 09:49 | PROVIDERS: ATTEND Anesthesiology | DX: Z20.822 Contact with and (suspected) exposure to COVID-19 (principal) ==

== ENCOUNTER → 2021-01-06 | Outpatient (CLI) | payer MEDICARE ==
[~2021-01-06] MED LIST changes: +QUET50TA3 PO; -QUET5TAB PO
== END ==
LOC: M LABSMTC 12:40
PROVIDERS: ATTEND Anesthesiology
DX: Z20.822 Contact with and (suspected) exposure to COVID-19 (principal)

== ENCOUNTER → 2021-01-11 | Outpatient (CLI) | payer OTHER, MEDICAID ==
[~2021-01-11] MED LIST changes: +BUPIVACAINE HCL 0.25% 30ML VIAL As Ordered ONE; +LIDOCAINE 1% SDV 30ML VIAL As Ordered ONE; +dexameTHASONE 10MG/1ML VIAL PRES.FREE (J1100 PER 1MG) As Ordered ONE; +diazePAM 5MG TABLET As Ordered ONE; +oxyCODONE 5MG TAB As Ordered ONE
--- NOTE | 2021-01-11 17:36 | REP ---
INDICATION: RIGHT LUMBAR COOL RADIOFREQUENCY. COMPARISON: None. TECHNIQUE: Ten views. 73.0 seconds of fluoroscopy time is reported. FINDINGS: A sequence of 10 last image hold fluoroscopically obtained spot radiograph(s) of the lumbar spine document(s) needle position(s) and contrast injection associated with injection procedure. IMPRESSION: Procedural imaging. <Electronically signed by Rylan Bates > 01/11/21 [id number]
--- NOTE | 2021-01-14 01:42 | ECWPNPC ---
PATIENT NAME: CYNTHIA JOSHI : 1965 GENDER: FEMALE VISIT DATE: 01/11/2021 DISCHARGE DATE: 01/11/211656 VISIT LOCKED DATE TIME: PHYSICIAN: SHANTE TUCKER MD PHYSICIAN PAGER NO: ACTIVE RESOURCE: SHANTE TUCKER MD REASON FOR APPOINTMENT 1. RIGHT LUMBAR COOL RADIOFREQUENCY L4-L5, L5-S1 HISTORY OF PRESENT ILLNESS GENERAL: -. FALL RISK SCREENING: SCREENING :NO FALLS REPORTED IN THE LAST YEAR PAIN SCREENING: PATIENT HAS A COMPLAINT OF ACUTE OR CHRONIC PAIN :YES LOCATION OF PAIN:LOW BACK, LEFT HIP, RIGHT HIP INTENSITY OF PAIN (SCALE OF 1 TO 10):9 WHAT DOES YOUR PAIN FEEL LIKE:STABBING, THROBBING, SHOOTING DURATION:CONTINOUS, CONSTANT, STEADY, ALL DAY PAIN IS INCREASED BY:ACTIVITIES, PROLONGED STANDING, OTHERS PROLONGED WALKING PAIN IS DECREASED BY:OTHERS CHANGING POSITIONS, REST NURSING NOTE: -. PAIN CENTER INTAKE QUESTIONS: DO YOU HAVE A HISTORY OF MRSA? :YES HX OF MRSA IN TOE AND STOMACH - NEGATIVE NARE TEST SINCE DO YOU TAKE A BLOOD THINNERS? :NO DO YOU HAVE ANY BLEEDING DISORDERS? :NO ANY NEW NUMBNESS OR WEAKNESS IN YOUR LEGS OR ARMS? :NO ANY PACEMAKER,DEFIBRILLATOR, OR DORSAL COLUMN STIMULATOR? :NO DO YOU HAVE ANY RASHES OR OPEN SORES? :NO ARE YOU ALLERGIC TO IV DYE? :NO ARE YOU DIABETIC? :NO ANY NEW PROBLEMS WITH YOUR MEDICATIONS? :NO HAVE YOU RECEIVED A VACCINE IN THE PAST 30 DAYS? :NO DO YOU PLAN TO RECEIVE A VACCINE IN THE NEXT 21 DAYS? :NO DO YOU TAKE ANY IMMUNOSUPPRESSIVE MEDICATIONS? :NO ANY HISTORY OF SEIZURES? :NO ANY HISTORY OF CARDIAC ISSUES OR EVENTS? :NO DO YOU HAVE SLEEP APNEA? :YES DO YOU WEAR A CPAP? BIPAP ANY RECENT HEAD INJURY? :NO DO YOU HAVE ANY NEW INFECTIONS? :NO IS THERE A CHANCE YOU COULD BE ? :NO ARE YOU BREAST FEEDING? :NO WHEN DID YOU LAST EAT? : 1930 01/10/21 WHEN DID YOU LAST DRINK? : 1200 WHAT DID YOU LAST DRINK? : COFFEE NAME OF PERSON DRIVING YOU HOME? : JOSHUA ALDANA DO YOU HAVE ANY OTHER QUESTIONS OR CONCERNS? : - CURRENT MEDICATIONS TAKING KEPPRA 1000 MG TABLET TAKE 1 TAB BY MOUTH TWICE A DAY. , NOTES: 01/10 1900 TAKING ROPINIROLE HCL 0.25 MG TABLET 2 TABLET ORALLY THREE TIMES A DAY TAKING TRIAMCINOLONE ACETONIDE 0.1 % CREAM 1 APPLICATION TO AREA EXTERNALLY BID PRN TAKING NASONEX 50 MCG/ACT SUSPENSION 2 PUFFS NASALLY ONCE A DAY TAKING NYSTATIN [id number] UNIT/GM POWDER APPLY UNDER BREASTS AND ABDOMINAL FOLD 2 TIMES A DAY TOPICALLY TWICE A DAY TAKING HYDROXYZINE HCL 50 MG TABLET 1 TABLET ORALLY BID, NOTES: 01/10 1900 TAKING GABAPENTIN 600 MG TABLET 1 TABLET ORALLY TID TAKING ATORVASTATIN CALCIUM 80 MG TABLET TAKE ONE TABLET BY MOUTH ONCE DAILY TAKING MULTI-DAY PLUS IRON - TABLET TAKE ONE TABLET BY MOUTH ONCE DAILY DIRECTED ORALLY DAILY TAKING CALCIUM-VITAMIN D 600-200 MG-UNIT TABLET 1 TAB ORALLY BID TAKING LEVOTHYROXINE SODIUM 50 MCG TABLET 1 TABLET ON AN EMPTY STOMACH IN THE MORNING ORALLY ONCE A DAY TAKING HYDROXYZINE HCL 25 MG TABLET 1 TABLET NEEDED EVERY 8 HRS ORALLY 30 TAKING AMBIEN 10 MG TABLET 11/2 TABLET ORALLY BEFORE BEDTIME, NOTES: 01/10 1900 TAKING BIKTARVY 50-200-25 MG TABLET 1 TABLET ORALLY ONCE A DAY TAKING OMEPRAZOLE 40 MG CAPSULE DELAYED RELEASE 1 CAP BID ORALLY 30 DAY(S) ORALLY BID TAKING VENTOLIN HFA 108 (90 BASE) MCG/ACT AEROSOL SOLUTION 2 PUFFS INHALATION QID PRN TAKING SEROQUEL 50 MG TABLET 1 TABLET AT BEDTIME ORALLY QHS TAKING WELLBUTRIN XL 300 MG TABLET EXTENDED RELEASE 24 HOUR TAKE ONE TABLET BY MOUTH EVERY MORNING TAKING CYMBALTA 60 MG CAPSULE DELAYED RELEASE PARTICLES TAKE TWO CAPSULES BY MOUTH ONCE DAILY TAKING PERCOCET 7.5-325 MG TABLET 1 TABLET ORALLY EVERY 4-6 HRS NEEDED FOR PAIN, NOTES: 01/10 2200 TAKING TIZANIDINE HCL 4 MG TABLET 1 TABLET NEEDED ORALLY THREE TIMES A DAY MAX, NOTES: 01/10 2200 TAKING VALACYCLOVIR HCL 500 MG TABLET 1 TAB ORALLY TWICE DAILY MEDICATION LIST REVIEWED AND RECONCILED WITH THE PATIENT PAST MEDICAL HISTORY ABNORMAL EKG HX ARRYTHMIA CHRONIC DDD MRI DONE 03/2016 LARGE DISC HERNIATION AT L5-S1 WITH MODERATE EXTRUSION ON WORKER'S COMPENSATION FOLLOWS UP WITH DR. AGUERO DEPRESSION/INSOMNIA TOBACCO ABUSE HYPERLIPIDEMIA RECURRENT SINUSITIS HIV DIAGNOSED IN 1992 ACQUIRED THROUGH HETEROSEXUAL SEX HER PARTNER WAS POSITIVE HIV UNDETECTED SINCE 2009 CD4 MORE THAN 1000 COLONOSCOPY 2007 EGD AND COLONOSCOPY [address] OTERO CHRONIC GASTRITIS AND DUODENITIS 2006 LEFT BREAST CALCIFICATION BIOPSY BENIGN DAVON 1 DR HOPKINS COLPOSCOPY EVERY 6 MONTHS PAP EYELID INFECTION 10/2015 MODERATE TO SEVERE OBSTRUCTIVE SLEEP APNEA ON BIPAP 06/09 DR DE LEON/ [facility] MYOCLONUS BILATERAL CATARACTS DR FRANCIS/ DR CAMP RESTLESS LEG SYNDROME ALLERGIES MORPHINE SULFATE: HIVES - ALLERGY AUGMENTIN: HIVES - ALLERGY ULTRAM: HIVES - ALLERGY SUDAFED: HIVES - ALLERGY SOCIAL HISTORY GENERAL: TOBACCO USE ARE YOU A:CURRENT SMOKER ARE YOU INTERESTED IN QUITTING?NOT READY TO QUIT HOW MANY CIGARETTES A DAY DO YOU SMOKE?11-20 HOW OFTEN DO YOU SMOKE CIGARETTES?EVERY DAY PATIENT COUNSELED ON THE DANGERS OF TOBACCO USE AND URGED TO QUIT:01/06/2021 SMOKING CESSATION INFORMATION GIVEN06/02/2020 LATEX QUESTIONNAIRE LATEX ALLERGY : HAVE YOU EVER DEVELOPED ANY TYPE OF REACTION AFTER HANDLING LATEX PRODUCTS SUCH RUBBER GLOVES, CONDOMS, DIAPHRAGMS, BALLOONS, SOCKS, OR UNDERWEAR?NO LATEX ALLERGY : HAVE YOU EVER DEVELOPED ANY TYPE OF REACTION DURING OR AFTER DENTAL APPOINTMENT, VAGINAL/RECTAL EXAMINATION, SURGICAL PROCEDURE, OR ANY OTHER EXPOSURE?NO LATEX RISK : HAVE YOU EVER HAD ANY DIFFICULTY BREATHING OR HIVES AFTER EATING OR HANDLING ANY FRUITS, OR VEGETABLES; SUCH KIWI, BANANAS, STONE FRUITS, OR CHESTNUTSNO LATEX RISK : DO YOU HAVE A PREVIOUS PERSONAL HISTORY OF MORE THAN NINE SURGERIES, SPINA BIFIDA, OR REPEATED CATHERIZATIONS? YES - PLEASE INDICATE : > 9 SURGERIES LATEX RISK : ARE YOU FREQUENTLY EXPOSED TO LATEX PRODUCTS IN YOUR OCCUPATION?NO DATE ASKED : 01/06/2021 ALCOHOL USE: NO. ALCOHOL SCREENING DID YOU HAVE A DRINK CONTAINING ALCOHOL IN THE PAST YEAR?NO POINTS0 INTERPRETATIONNEGATIVE RECREATIONAL DRUG USE DRUG USE?NO CAFFEINE CAFFEINE USE?YES HOW OFTEN AND HOW MUCH? DRINK COFFEE ALL DAY LONG SEXUAL HX HAD SEX IN THE LAST 12 MONTHS (VAGINAL, ORAL, OR ANAL)?NO LMP:1988 HAVE YOU EVER HAD AN STD?NO HIV / HEP-C SCREENING HIV TEST OFFERED TO PATIENT:YES DATE OFFERED:09/04/2018 PREVIOUSLY TESTED TEST ACCEPTED:YES HEP-C TEST OFFERED TO PATIENT:YES DATE OFFERED:09/04/2018 PREVIOUSLY TESTED TEST ACCEPTED:YES BROCHURE PROVIDED TO PATIENTNO HINDU [id number] NONE LANGUAGE LANGUAGES SPOKEN:TURKMEN EDUCATION LEVEL OF EDUCATION:HIGH SCHOOL LEARNING BARRIERS / SPECIAL NEEDS CHANGE FROM LAST VISIT?NO BARRIERS TO LEARNING?NO HEARING IMPAIRED?NO VISION IMPAIRED?YES :CORRECTIVE LENSES COGNITIVELY IMPAIRED?NO READINESS TO LEARN?YES LEARNING PREFERENCES?NO LEARNING CAPABILITIES PRESENT?YES EMOTIONAL BARRIERS?NO SPECIAL DEVICES?NO CAREER DEVELOPMENT MANAGER NEEDED?NO OCCUPATION: RETIRED. DIET: REGULAR. EXERCISE: NONE. MARITAL STATUS: .. OTHERS AT HOME: ELIZABETH. FEMALE 6 MONTH RISK ASSESSMENT FOR STD DESCRIBE YOUR SEXUAL PARTNERS:MALE MONOGAMOUS?YES HIV POSITIVE?YES EVER INJECT DRUGS?NO VAGINAL SEX?NO ANAL SEX?NO ORAL SEX?NO ARE YOU TAKING ANY STEPS TO PREVENT ? PT. HAD HYSTER. 1997 WHAT STEPS HAVE YOU TAKEN TO PROTECT YOURSELF FROM STDS, INCLUDING HIV? (CHECK ALL THAT APPLY):MUTUAL MONOGAMY, MALE CONDOMS HAVE YOU OR ANY OF YOUR SEXUAL PARTNERS EVER HAD AN STD? IF YES PLEASE LIST:NO IS THERE ANYTHING ELSE WE SHOULD TALK ABOUT CONCERNING YOUR SEXUAL HISTORY OR PRACTICE?NO PATIENT DESCRIBES PAIN : BURNING, IT COMES AND GOES, STABBING, FROM 0-10, WHAT LEVEL IS YOUR PAIN TODAY? 8. - PFS REFERRAL NEEDED?NO CLERGY REFERRAL NEEDED?NO PUBLIC HEALTH REFERRAL NEEDED?NO HAS THE PATIENT BEEN EDUCATED REGARDING HIS/HER PLAN OF CARE?YES HAS THE PATIENT BEEN EDUCATED REGARDING PAIN, THE RISK FOR PAIN, THE IMPORTANCE OF EFFECTIVE PAIN MANAGEMENT, AND THE PAIN ASSESSMENT PROCESS?YES ADVANCE DIRECTIVE ADVANCE DIRECTIVE DISCUSSED WITH PATIENT:YES 09/21/2020 PT HAS NO ADVANCED DIRECTIVES, DECLINES INFORMATION ON HCP STATES SHE ALREADY HAS IT AND WILL BRING A COPY IN WHEN SHE HAS IT COMPLETED. 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 SHE TAKES CARE OF HER 2 GRANDCHILDREN EZ AND RAMANA. HER SON IS ON SOCIAL SECURITY INCOME IS 23-YEAR-OLD [place] AND HE WILL MOVING TO [place] TO BE WITH HIS FATHER. SHE IS BUT FROM FROM HER BUT THEY SEE EACH OTHER ON THE WEEKEND. SHE SMOKES ONE PACK OF CIGARETTES A DAY SHE TRIED TO QUIT WITH NICOTINE PATCHES WELL WITH CHANTIX. VITAL SIGNS WT 199.2 LBS, HT 64 IN, BMI 34.19 INDEX, BP 188/78 MM HG, REPEAT BP 145/70 MM HG, HR 88 /MIN, RR 18 /MIN, TEMP 97.0 F, OXYGEN SAT % 93%, SAFE IN ENV? (Y/N) YES, NA INITIALS AW 1346, REVIEWED BY: APA. MARGIE RN. EXAMINATION GENERAL EXAMINATION: THE PATIENT IS ALERT, ORIENTED TIMES THREE AND COOPERATIVE. LUNGS ARE CLEAR TO AUSCULTATION. HEART SHOWS REGULAR RHYTHM, NO MURMURS AND NO GALLOPS. ASSESSMENTS SPONDYLOSIS WITHOUT MYELOPATHY OR RADICULOPATHY, LUMBAR REGION - M47.816 (PRIMARY) SPONDYLOSIS WITHOUT MYELOPATHY OR RADICULOPATHY, LUMBOSACRAL REGION - M47.817 TREATMENT SPONDYLOSIS WITHOUT MYELOPATHY OR RADICULOPATHY, LUMBAR REGION [facility] FACET BLOCK (PAIN)[id number] MEDICATION: VALIUM TAB 10MG ORALLY (DIAZEPAM)DORA KIDD 01/11/2021 2:21:33 PM > VERIFIED. RAI HANSONIL R 01/11/2021 2:23:20 PM > ADMINISTERED MEDICATION: OXYCODONE HCL TAB 10MG ORALLYSYDORA SMITH 01/11/2021 2:21:48 PM > VERIFIED. MARGIEHUGO R 01/11/2021 2:23:36 PM > ADMINISTERED COMPLETION OF PROCEDURAL VISIT WHEN MEETS CRITERIAARMAAN SHEPHERD 01/11/2021 4:54:55 PM > CRITERIA MET OTHERS NOTES: PAT COMPLETED 01/06/21 1820 Acosta KIDD RN. PROCEDURES PAIN NURSING RECORD PROCEDURE IN ROOM 1545, PHYSICIAN IN ROOM 1604, START 1610, FINISH 1639, PHYSICIAN OUT OF ROOM 1641, OUT OF ROOM 1646, ECG NORMAL SINUS, PATIENT SHIELDED YES, SAFETY STRAP NO, PREP CHLOROPREP BY Baldomero BARILLAS RN, DRESSING TEGADERM BY DR TUCKER LOC: ARMAAN SHEPHERD 01/11/2021 4:00:28 PM > , 1. ALERT, ORIENTED RESP: ARMAAN SHEPHERD 01/11/2021 4:00:44 PM > , 1. REGULAR, NO DYSPNEA COLOR: ARMAAN SHEPHERD 01/11/2021 4:00:48 PM > , 1. PINK SKIN: ARMAAN SHEPHERD 01/11/2021 4:00:54 PM > , 1. WARM, DRY POSITION: 1. PRONE, ARMAAN SHEPHERD 01/11/2021 4:01:02 PM > VITALS: ARMAAN SHEPHERD 01/11/2021 1550> 182/87-78-18-95% , ARMAAN SHEPHERD 01/11/2021 4:02:07 PM > 160/91-77-18-93% , ARMAAN SHEPHERD 01/11/2021 4:14:41 PM > 161/87-77-18-92% , ARMAAN SHEPHERD 01/11/2021 4:30:55 PM > 163/85-77-18-94% 01/11/2021 1653 164/72-84-18-96% NOTES Carolee BARILLAS RN COMPLETION OF PROCEDURE APPOINTMENT: POST PAIN 0, DRESSING SITE DRY AND INTACT MID LOWER BACK, IV N/A, GAIT STEADY, TEACHING COMPLETED, PATIENT ACKNOWLEDGES UNDERSTANDING YES PATIENT VERBALIZES UNDERSTANDING OF POST PROCEDURE INSTRUCTIONS REVIEWED, PROCEDURE APPOINTMENT COMPLETED AT 1656 BY: Carolee BARILLAS RN PN RADIOFREQUENCY DATE OF PROCEDURE 01/11/2021 . THERMO LESION RADIOFREQUENCY > 80 DEGREES : [employer] SYSTEM SET AT 60* WITH TISSUE TARGET TEMP > 80* OR MORE. STRAIGHT NEEDLE . SIDE: : RIGHT . LEVELS: : L4-L5, L5-S1. NEEDLE/CATHETER/GAUGE: : 17 . CANULA LENGTH: : 150 MM . ACTIVE TIP: : 4 MM . GROUNDING PAD PLACED ON AFFECTED SIDE (MUSCULAR AREA): : LUMBAR (POSTERIOR UPPER THIGH) RIGHT POSTERIOR THIGH 1 ST LEVEL: : L3,INITAL POSTIVE SENSORY RESPONE (50 HZ) 0.4,MOTOR RESPONSE (2 HZ-UP TO 3 VOLTS) 3.0 ,PRE-LOCAL IMPEDENCE READING OHMS 373 ,POST-LOCAL IMPEDENCE READING OHMS 264 ,DURING RF IMPEDENCE READING OHMS 268 , 2 ND LEVEL: : L4,INITIAL POSITIVE SENSORY RESPONSE (50 HZ) 0.4,MOTOR RESPONSE (2 HZ- UP TO 3 VOLTS) 3.0 ,PRE-LOCAL IMPEDENCE READING OHMS 390 ,POST-LOCAL IMEPEDENCE READING OHMS 226 ,DURING RF IMPEDENCE READING OHMS 210 , 3 RD LEVEL: : L5,INITIAL POSITIVE SENSORY RESPONSE (50 HZ) 0.4,MOTOR RESPONSE (2HZ- UP TO 3 VOLTS) 3.0 ,PRE- LOCAL IMPEDENCE READING OHMS 477 ,POST-LOCAL IMPEDENCE READING OHMS 250 ,DURING RF IMPEDENCE READING OHMS 283 , PRE PROCEDURE DIAGNOSES 1. LUMBAR SPONDYLOSIS. 2. LUMBOSACRAL SPONDYLOSIS POST PROCEDURE DIAGNOSES 1. LUMBAR SPONDYLOSIS. 2. LUMBOSACRAL SPONDYLOSIS PROCEDURE RIGHT L4-L5 AND RIGHT L5-S1 LUMBAR FACET COOL RADIOFREQUENCY SURGEON DR. SHANTE TUCKER EVAPORATOR NONE ANESTHESIA LOCAL PRE PROCEDURE REPORT THE PATIENT HAS HISTORY OF CHRONIC LOW BACK PAIN. I EVALUATED THE PATIENT AND REVIEWED THE CHART. I WENT OVER THE RISKS, ALTERNATIVES, AND BENEFITS ASSOCIATED WITH THIS PROCEDURE. THE PATIENT WOULD LIKE TO PROCEED AND GAVE CONSENT TO PERFORM THE PROCEDURE. THE PATIENT DENIES UNEXPLAINABLE WEIGHT LOSS, FEVER, CHILLS OR NEW CHANGES IN URINARY OR BOWEL CONTROL. THE PATIENT IS COVID-19 NEGATIVE DESCRIPTION OF PROCEDURE THE PATIENT WAS BROUGHT TO THE PROCEDURE ROOM AND PLACED IN THE PRONE POSITION. A TIMEOUT WAS PERFORMED WHERE THE CONSENTED SITE WAS VERIFIED WITH EVERYONE IN THE ROOM. THE LUMBOSACRAL AREA WAS CLEANED WITH CHLORAPREP SOLUTION AND DRAPED ASEPTICALLY. THE PROCEDURE WAS DONE UNDER STERILE CONDITIONS. UNDER FLUOROSCOPIC GUIDANCE, TARGETS WERE SELECTED AT THE INTERSECTION OF THE RIGHT TRANSVERSE PROCESS OF L4, L5 AND ALA OF S1 WITH ITS RESPECTIVE SUPERIOR ARTICULAR PROCESS. I CONFIRMED AGAIN THE SITE OF TARGET. LIDOCAINE WAS USED TO NUMB THE SKIN AND THE SUBCUTANEOUS TISSUE BELOW IT. RADIOFREQUENCY CANNULAS, 17-GAUGE, 150 MM LONG WITH 4 MM ACTIVE TIP, WERE ADVANCED UNDER FLUOROSCOPIC GUIDANCE AND FOLLOWING PATIENT FEEDBACK UNTIL THE TARGET AREA WAS REACHED. POSITION OF THE CANNULA WAS VERIFIED WITH AP AND LATERAL VIEWS. AFTER PROPER POSITION OF THE CANNULA WAS ACHIEVED, WE WORKED WITH THE RIGHT SELECTED MEDIAN BRANCHES OF L3, L4 AND THE DORSAL RAMI OF L5. WE MEASURED THE CORRESPONDING IMPEDANCES AND MOTOR RESPONSES INDICATED IN THE RADIOFREQUENCY WORK SHEET. POSITION OF THE CANNULA WAS VERIFIED AGAIN WITH AP AND LATERAL VIEWS. LIDOCAINE 1%, 2 ML, WAS INJECTED AT EACH LEVEL. RADIOFREQUENCY WAS DONE AT EACH LEVEL USING THE [employer] SYSTEM-- COOLED RF-- WITH A SETTING AT THE MACHINE OF 60 DEGREES WITH A TARGET TISSUE TEMPERATURE OF 80 TO 90 DEGREES FOR A MINIMUM OF 150 SECONDS. AFTER RADIOFREQUENCY WAS DONE, THE PATIENT RECEIVED BUPIVACAINE 0.125%,1 ML, WITH DEXAMETHASONE 3 MG AT EACH SITE. THERE WAS NO EVIDENCE OF BLOOD, PARESTHESIA OR CEREBROSPINAL FLUID DURING THE PROCEDURE. THE PATIENT WAS SENT TO THE RECOVERY ROOMS. THE PATIENT WAS MOVING THE EXTREMITIES AND DOING WELL. EBL LESS THAN 5 ML. THERE WERE NO COMPLICATIONS DURING THE PROCEDURE. FLUOROSCOPY TIME WAS 1 MINUTE 13 SECONDS POST PROCEDURE NOTE THE PATIENT WILL BE SEEN IN A FOLLOW UP IN THE NEXT FEW WEEKS. INSTRUCTIONS WERE GIVEN, QUESTIONS WERE ANSWERED, AND THE PATIENT EXPRESSED UNDERSTANDING AND AGREES WITH THE PLAN. . I, INES DAVIS, DOCUMENTED THE ABOVE INFORMATION ACTING A SCRIBE FOR DR. TUCKER. I HAVE REVIEWED THE ABOVE DOCUMENT, WRITTEN BY DHRUV JO, AND I VERIFY THAT IT IS ACCURATE PN WORKMANS' COMP OPINION IN YOUR OPINION, WAS THE INCIDENT THAT THE PATIENT DESCRIBED THE COMPETENT MEDICAL CAUSE OF THIS INJURY/ILLNESS? YES ARE THE PATIENT'S COMPLAINTS CONSISTENT WITH HIS/HER HISTORY OF THE INJURY/ILLNESS? YES IS THE PATIENT'S HISTORY OF THE INJURY/ILLNESS CONSISTENT WITH YOUR OBJECTIVE FINDING? YES WHAT IS THE PERCENTAGE OF TEMPORARY IMPAIRMENT? MODERATE TO MARKED = 66.7% . IS THE PATIENT WORKING? NO . DOCTOR ON SITE: SHANTE CHURCH MD PROCEDURE CODES 29449 DESTROY LUMB/SAC FACET JNT, MODIFIERS: [place] [address] DESTROY L/S FACET JNT ADDL, MODIFIERS: RT DISPOSITION & COMMUNICATION FOLLOW UP FOLLOW UP WITH GRINDING MACHINE OPERATOR PORTABLE (REASON: POST RIGHT LUMBAR COOL RADIOFREQUENCY L4-L5, L5-S1) ELECTRONICALLY SIGNED BY SHANTE TUCKER MD, MD ON 01/13/2021 AT 01:23 PM EST DISCLAIMER : THIS IS A VISIT SUMMARY EXTRACTED FROM THE [employer] CHART. IT IS NOT A COPY OF THE [employer] PROGRESS NOTE. KRIS
== END ==
LOC: M PAIN 14:00
PROVIDERS: ATTEND Anesthesiology
DX: M47.816 Spondylosis without myelopathy or radiculopathy, lumbar region (principal); M47.817 Spondylosis without myelopathy or radiculopathy, lumbosacral region; G47.30 Sleep apnea, unspecified; G25.81 Restless legs syndrome; G47.00 Insomnia, unspecified; F17.210 Nicotine dependence, cigarettes, uncomplicated; Z86.14 Personal history of Methicillin resistant Staphylococcus aureus infection; Z86.59 Personal history of other mental and behavioral disorders; Z88.1 Allergy status to other antibiotic agents; Z88.5 Allergy status to narcotic agent; Z88.8 Allergy status to other drugs, medicaments and biological substances; Z79.899 Other long term (current) drug therapy
CPT/HCPCS: 64635; 64636; J1100

== ENCOUNTER → 2021-01-26 | Outpatient (CLI) | payer OTHER, MEDICAID ==
[~2021-01-26] MED LIST changes: -BUPIVACAINE HCL 0.25% 30ML VIAL As Ordered ONE; -LIDOCAINE 1% SDV 30ML VIAL As Ordered ONE; -dexameTHASONE 10MG/1ML VIAL PRES.FREE (J1100 PER 1MG) As Ordered ONE; -diazePAM 5MG TABLET As Ordered ONE; -oxyCODONE 5MG TAB As Ordered ONE
--- NOTE | 2021-01-30 04:49 | ECWPNPC ---
PATIENT NAME: CYNTHIA JOSHI : 1965 GENDER: FEMALE VISIT DATE: 01/26/2021 DISCHARGE DATE: 01/26/21 1133 VISIT LOCKED DATE TIME: PHYSICIAN: [place] [place] PHYSICIAN PAGER NO: ACTIVE RESOURCE: [place] [place] REASON FOR APPOINTMENT 1. POST RIGHT COOL RADIOFREQUENCY L4-L5, L5-S1 HISTORY OF PRESENT ILLNESS DEPRESSION SCREENING: PHQ-2 (2015 EDITION) LITTLE INTEREST OR PLEASURE IN DOING THINGS?NOT AT ALL FEELING DOWN, DEPRESSED, OR HOPELESS?NOT AT ALL TOTAL SCORE0 55-YEAR-OLD FEMALE IN FOR POST RADIO FREQUENCY FOLLOW-UP. PATIENT FEELS THE PROCEDURE WAS UNSUCCESSFUL. SHE FURTHER STATES THAT WHEN SHE RECEIVED THE TRADITIONAL RF PROCEDURE IT WAS OF MORE BENEFIT. DISCUSSED PATIENT'S OXYCODONE /ACETAMINOPHEN WITH HER TODAY AND SHE ADMITS THAT WHEN TAKING CURRENTLY PRESCRIBED THIS MEDICATION AFFORDS HER THE ABILITY TO PERFORM HER ACTIVITIES OF DAILY LIVING SUCH SHOWERING, WASHING THE DISHES, AND PERFORMING OTHER HOUSEHOLD TASKS. SHE FURTHER STATES THAT WITHOUT THIS MEDICATION SHE WOULD NOT BE ABLE TO PERFORM THESE TASKS. 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 GENERAL: -. FALL RISK SCREENING: SCREENING : NO FALLS REPORTED IN THE LAST YEAR. PAIN SCREENING: PATIENT HAS A COMPLAINT OF ACUTE OR CHRONIC PAIN :YES LOCATION OF PAIN:LOW BACK, LEG(S) INTENSITY OF PAIN (SCALE OF 1 TO 10):7 WHAT DOES YOUR PAIN FEEL LIKE:CONTINOUS, SHARP, STABBING, THROBBING DURATION:CONTINOUS, CONSTANT, AWAKENS FROM SLEEP PAIN IS INCREASED BY:ACTIVITIES, PROLONGED STANDING PAIN IS DECREASED BY:USE OF PAIN MEDICATIONS NURSING NOTE: -. PAIN CENTER INTAKE QUESTIONS: DO YOU HAVE A HISTORY OF MRSA? :YES TOE IN THE PAST. NEGATIVE AT THIS TIME. DO YOU TAKE A BLOOD THINNERS? :NO DO YOU HAVE ANY BLEEDING DISORDERS? :NO ANY NEW NUMBNESS OR WEAKNESS IN YOUR LEGS OR ARMS? :NO ANY PACEMAKER,DEFIBRILLATOR, OR DORSAL COLUMN STIMULATOR? :NO DO YOU HAVE ANY RASHES OR OPEN SORES? :NO ARE YOU ALLERGIC TO IV DYE? :NO ARE YOU DIABETIC? :NO ANY NEW PROBLEMS WITH YOUR MEDICATIONS? :NO HAVE YOU RECEIVED A VACCINE IN THE PAST 30 DAYS? :NO DO YOU PLAN TO RECEIVE A VACCINE IN THE NEXT 21 DAYS? :NO DO YOU NEED ANY PRESCRIPTION? :NO DO YOU TAKE ANY IMMUNOSUPPRESSIVE MEDICATIONS? :NO DO YOU HAVE ANY KIDNEY OR LIVER DISEASE? :NO IS THERE A CHANCE YOU COULD BE ? :NO ARE YOU BREAST FEEDING? :NO CURRENT MEDICATIONS TAKING KEPPRA 1000 MG TABLET TAKE 1 TAB BY MOUTH TWICE A DAY. , NOTES: 01/10 1900 TAKING TRIAMCINOLONE ACETONIDE 0.1 % CREAM 1 APPLICATION TO AREA EXTERNALLY BID PRN TAKING NASONEX 50 MCG/ACT SUSPENSION 2 PUFFS NASALLY ONCE A DAY TAKING NYSTATIN [id number] UNIT/GM POWDER APPLY UNDER BREASTS AND ABDOMINAL FOLD 2 TIMES A DAY TOPICALLY TWICE A DAY TAKING HYDROXYZINE HCL 25 MG TABLET 1 TABLET ORALLY BID, NOTES: 01/10 1900 TAKING GABAPENTIN 600 MG TABLET 1 TABLET ORALLY TID TAKING MULTI-DAY PLUS IRON - TABLET TAKE ONE TABLET BY MOUTH ONCE DAILY DIRECTED ORALLY DAILY TAKING CALCIUM-VITAMIN D 600-200 MG-UNIT TABLET 1 TAB ORALLY BID TAKING AMBIEN 10 MG TABLET 11/2 TABLET ORALLY BEFORE BEDTIME, NOTES: 01/10 1900 TAKING VENTOLIN HFA 108 (90 BASE) MCG/ACT AEROSOL SOLUTION 2 PUFFS INHALATION QID PRN TAKING TIZANIDINE HCL 4 MG TABLET 1 TABLET NEEDED ORALLY THREE TIMES A DAY MAX, NOTES: 01/10 2200 TAKING VALACYCLOVIR HCL 500 MG TABLET 1 TAB ORALLY TWICE DAILY TAKING PERCOCET 7.5-325 MG TABLET 1 TABLET ORALLY EVERY 4-6 HRS NEEDED FOR PAIN, NOTES: 01/10 2200 TAKING LEVOTHYROXINE SODIUM 50 MCG TABLET TAKE ONE TABLET BY MOUTH @8AM TAKING QUETIAPINE FUMARATE 50 MG TABLET TAKE ONE TABLET BY MOUTH @8PM TAKING ATORVASTATIN CALCIUM 80 MG TABLET TAKE ONE TABLET BY MOUTH @12PM TAKING BUPROPION HCL ER (XL) 300 MG TABLET EXTENDED RELEASE 24 HOUR TAKE ONE TABLET BY MOUTH @12PM TAKING CYMBALTA 60 MG CAPSULE DELAYED RELEASE PARTICLES TAKE TWO CAPSULES BY MOUTH ONCE DAILY TAKING ROPINIROLE HCL 0.25 MG TABLET 2 TABLET ORALLY THREE TIMES A DAY TAKING OMEPRAZOLE 40 MG CAPSULE DELAYED RELEASE 1 CAP BID ORALLY 30 DAY(S) ORALLY BID TAKING WELLBUTRIN XL 300 MG TABLET EXTENDED RELEASE 24 HOUR TAKE ONE TABLET BY MOUTH EVERY MORNING ORALLY ONCE A DAY TAKING BIKTARVY 50-200-25 MG TABLET 1 TABLET ORALLY ONCE A DAY TAKING HYDROXYZINE HCL 50 MG TABLET 1 TABLET NEEDED EVERY 8 HRS ORALLY 30 ORALLY EVERY 8 HRS NOT-TAKING SEROQUEL 50 MG TABLET 1 TABLET AT BEDTIME ORALLY QHS NOT-TAKING TAB-A-JODIE/IRON - TABLET TAKE ONE TABLET BY MOUTH @12PM MEDICATION LIST REVIEWED AND RECONCILED WITH THE PATIENT PAST MEDICAL HISTORY ABNORMAL EKG HX ARRYTHMIA CHRONIC DDD MRI DONE 03/2016 LARGE DISC HERNIATION AT L5-S1 WITH MODERATE EXTRUSION ON WORKER'S COMPENSATION FOLLOWS UP WITH DR. AGUERO DEPRESSION/INSOMNIA TOBACCO ABUSE HYPERLIPIDEMIA RECURRENT SINUSITIS HIV DIAGNOSED IN 1992 ACQUIRED THROUGH HETEROSEXUAL SEX HER PARTNER WAS POSITIVE HIV UNDETECTED SINCE 2009 CD4 MORE THAN 1000 COLONOSCOPY 2006 EGD AND COLONOSCOPY [address] OTERO CHRONIC GASTRITIS AND DUODENITIS 2006 LEFT BREAST CALCIFICATION BIOPSY BENIGN DAVON 1 DR HOPKINS COLPOSCOPY EVERY 6 MONTHS PAP EYELID INFECTION 10/2015 MODERATE TO SEVERE OBSTRUCTIVE SLEEP APNEA ON BIPAP 06/09 DR DE LEON/ [facility] MYOCLONUS BILATERAL CATARACTS DR FRANCIS/ DR CAMP RESTLESS LEG SYNDROME ALLERGIES MORPHINE SULFATE: HIVES - ALLERGY AUGMENTIN: HIVES - ALLERGY ULTRAM: HIVES - ALLERGY SUDAFED: HIVES - ALLERGY SOCIAL HISTORY GENERAL: TOBACCO USE ARE YOU A:CURRENT SMOKER HOW OFTEN DO YOU SMOKE CIGARETTES?EVERY DAY HOW MANY CIGARETTES A DAY DO YOU SMOKE?11-20 ARE YOU INTERESTED IN QUITTING?NOT READY TO QUIT PATIENT COUNSELED ON THE DANGERS OF TOBACCO USE AND URGED TO QUIT:01/06/2021 SMOKING CESSATION INFORMATION GIVEN06/02/2020 LATEX QUESTIONNAIRE LATEX ALLERGY : HAVE YOU EVER DEVELOPED ANY TYPE OF REACTION AFTER HANDLING LATEX PRODUCTS SUCH RUBBER GLOVES, CONDOMS, DIAPHRAGMS, BALLOONS, SOCKS, OR UNDERWEAR?NO LATEX ALLERGY : HAVE YOU EVER DEVELOPED ANY TYPE OF REACTION DURING OR AFTER DENTAL APPOINTMENT, VAGINAL/RECTAL EXAMINATION, SURGICAL PROCEDURE, OR ANY OTHER EXPOSURE?NO LATEX RISK : HAVE YOU EVER HAD ANY DIFFICULTY BREATHING OR HIVES AFTER EATING OR HANDLING ANY FRUITS, OR VEGETABLES; SUCH KIWI, BANANAS, STONE FRUITS, OR CHESTNUTSNO LATEX RISK : DO YOU HAVE A PREVIOUS PERSONAL HISTORY OF MORE THAN NINE SURGERIES, SPINA BIFIDA, OR REPEATED CATHERIZATIONS? YES - PLEASE INDICATE : > 9 SURGERIES LATEX RISK : ARE YOU FREQUENTLY EXPOSED TO LATEX PRODUCTS IN YOUR OCCUPATION?NO DATE ASKED : 01/26/2021 ALCOHOL USE: OCCASIONAL ONCE A YEAR. ALCOHOL SCREENING DID YOU HAVE A DRINK CONTAINING ALCOHOL IN THE PAST YEAR?NO POINTS0 INTERPRETATIONNEGATIVE RECREATIONAL DRUG USE DRUG USE?NO CAFFEINE CAFFEINE USE?YES HOW OFTEN AND HOW MUCH? DRINK COFFEE ALL DAY LONG SEXUAL HX HAD SEX IN THE LAST 12 MONTHS (VAGINAL, ORAL, OR ANAL)?NO LMP:1988 HAVE YOU EVER HAD AN STD?NO HIV / HEP-C SCREENING HIV TEST OFFERED TO PATIENT:YES DATE OFFERED:09/04/2018 PREVIOUSLY TESTED TEST ACCEPTED:YES HEP-C TEST OFFERED TO PATIENT:YES DATE OFFERED:09/04/2018 PREVIOUSLY TESTED TEST ACCEPTED:YES BROCHURE PROVIDED TO PATIENTNO CAODAISM [id number] NONE LANGUAGE LANGUAGES SPOKEN:LIBYAN EDUCATION LEVEL OF EDUCATION:HIGH SCHOOL LEARNING BARRIERS / SPECIAL NEEDS CHANGE FROM LAST VISIT?NO BARRIERS TO LEARNING?NO HEARING IMPAIRED?NO VISION IMPAIRED?YES :CORRECTIVE LENSES COGNITIVELY IMPAIRED?NO READINESS TO LEARN?YES LEARNING PREFERENCES?NO LEARNING CAPABILITIES PRESENT?YES EMOTIONAL BARRIERS?NO SPECIAL DEVICES?NO 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 DIET: REGULAR. EXERCISE: NONE. MARITAL STATUS: .. OTHERS AT HOME: ELIZABETH. FEMALE 6 MONTH RISK ASSESSMENT FOR STD DESCRIBE YOUR SEXUAL PARTNERS:MALE MONOGAMOUS?YES HIV POSITIVE?YES EVER INJECT DRUGS?NO VAGINAL SEX?NO ANAL SEX?NO ORAL SEX?NO ARE YOU TAKING ANY STEPS TO PREVENT ? PT. HAD HYSTER. 1997 WHAT STEPS HAVE YOU TAKEN TO PROTECT YOURSELF FROM STDS, INCLUDING HIV? (CHECK ALL THAT APPLY):MUTUAL MONOGAMY, MALE CONDOMS HAVE YOU OR ANY OF YOUR SEXUAL PARTNERS EVER HAD AN STD? IF YES PLEASE LIST:NO IS THERE ANYTHING ELSE WE SHOULD TALK ABOUT CONCERNING YOUR SEXUAL HISTORY OR PRACTICE?NO PATIENT DESCRIBES PAIN : BURNING, IT COMES AND GOES, STABBING, FROM 0-10, WHAT LEVEL IS YOUR PAIN TODAY? 8. - PFS REFERRAL NEEDED?NO CLERGY REFERRAL NEEDED?NO PUBLIC HEALTH REFERRAL NEEDED?NO HAS THE PATIENT BEEN EDUCATED REGARDING HIS/HER PLAN OF CARE?YES HAS THE PATIENT BEEN EDUCATED REGARDING PAIN, THE RISK FOR PAIN, THE IMPORTANCE OF EFFECTIVE PAIN MANAGEMENT, AND THE PAIN ASSESSMENT PROCESS?YES ADVANCE DIRECTIVE ADVANCE DIRECTIVE DISCUSSED WITH PATIENT:YES 09/21/2020 PT HAS NO ADVANCED DIRECTIVES, DECLINES INFORMATION ON HCP STATES SHE ALREADY HAS IT AND WILL BRING A COPY IN WHEN SHE HAS IT COMPLETED. 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 SHE TAKES CARE OF HER 2 GRANDCHILDREN EZ AND RAMANA. HER SON IS ON SOCIAL SECURITY INCOME IS 23-YEAR-OLD [place] AND HE WILL MOVING TO [place] TO BE WITH HIS FATHER. SHE IS BUT FROM FROM HER BUT THEY SEE EACH OTHER ON THE WEEKEND. SHE SMOKES ONE PACK OF CIGARETTES A DAY SHE TRIED TO QUIT WITH NICOTINE PATCHES WELL WITH CHANTIX. REVIEW OF SYSTEMS CONSTITUTIONAL: ANY RECENT FEVER NO . CHILLS NO . WEIGHT CHANGE OF UNKNOWN REASONS NO . GASTROENTEROLOGY: NEW UNEXPLAINABLE CHANGES IN BOWEL CONTROL NO . CONSTIPATION NO . GENITOURINARY: ANY NEW CHANGE IN BLADDER CONTROL? NO . NEUROLOGY: NEW ONSET DIZZINESS OR NEUROLOGICAL CHANGES NOT MENTIONED NO . NEW NUMBNESS OR PAIN PATTERNS NOT MENTIONED AND PERTINENT TO TODAY'S VISIT NO . CARDIOLOGY: NEW CHEST PRESSURE NO . PATIENT DENIES NO . RESPIRATORY: UNEXPLAINABLE COUGH NO . NEW SHORTNESS OF BREATH NO . VITAL SIGNS WT 208.2 LBS, HT 64 IN, BMI 35.73 INDEX, BP 160/72 MM HG, HR 82 /MIN, RR 18 /MIN, TEMP 98.3 F, OXYGEN SAT % 97%, SAFE IN ENV? (Y/N) YES, REVIEWED BY: ANN OKEEFE MA. EXAMINATION GENERAL EXAMINATION: GENERALNO ACUTE DISTRESS, WELL NOURISHED AND HYDRATED. PSYCHAPPROPRIATE MOOD AND AFFECT . LUNGS:CLEAR TO AUSCULTATION BILATERALLY, NO WHEEZES, RHONCHI, RALES. HEART:NO MURMURS, REGULAR RATE AND RHYTHM. ASSESSMENTS OTHER CHRONIC PAIN - G89.29 (PRIMARY) SPONDYLOSIS OF LUMBOSACRAL REGION WITHOUT MYELOPATHY OR RADICULOPATHY - M47.817 TREATMENT OTHER CHRONIC PAIN PAIN PROCEDURE LOGDATE OF PROCEDURE01/11/21PROCEDURE:RIGHT LUMBAR COOL RADIOFREQUENCY L4-L5, L5-[id number] OF PRE SEDATEVALIUM 10MG, OXYCODONE 10MG NOTES: 55-YEAR-OLD FEMALE IN FOR POST RADIO FREQUENCY FOLLOW-UP. GIVEN PRESENTING SYMPTOMS RECOMMEND FOLLOW-UP IN 2 MONTHS. WE WILL DISCUSS CASE WITH DR. TUCKER FOR POTENTIAL RECOMMENDATIONS. PATIENT HAS EXPRESSED UNDERSTANDING OF AND WAS IN AGREEMENT WITH TREATMENT PLAN. GIVEN TIME TO ASK QUESTIONS AND EXPRESS CONCERNS. , ISTOP REGISTRY REVIEWED AND DEMONSTRATES COMPLLIANCE. (REF # [id number] ) BRINGS IN MEDICATIONS WHICH IS APPROPRIATE FOR WHAT WAS DISPENSED. RECENT URINE TOXICOLOGY REVIEWED. NO UNAUTHORIZED MEDICATIONS. NO ILLICIT SUBSTANCES AND PRESCRIBED MEDICATIONS WERE PRESENT. PROCEDURES PN WORKMANS' COMP OPINION IN YOUR OPINION, WAS THE INCIDENT THAT THE PATIENT DESCRIBED THE COMPETENT MEDICAL CAUSE OF THIS INJURY/ILLNESS? YES ARE THE PATIENT'S COMPLAINTS CONSISTENT WITH HIS/HER HISTORY OF THE INJURY/ILLNESS? YES IS THE PATIENT'S HISTORY OF THE INJURY/ILLNESS CONSISTENT WITH YOUR OBJECTIVE FINDING? YES WHAT IS THE PERCENTAGE OF TEMPORARY IMPAIRMENT? MODERATE TO MARKED = 66.7% . IS THE PATIENT WORKING? NO . DOCTOR ON SITE: SHANTE CHURCH MD PROCEDURE CODES FA211 ESTABILISHED PATIENT [facility] CHARGE DISPOSITION & COMMUNICATION FOLLOW UP 2 MONTHS (REASON: BACK PAIN WORKER'S COMP.) ELECTRONICALLY SIGNED BY BORIS MATHEWS ON 01/29/2021 AT 03:19 PM EST DISCLAIMER : THIS IS A VISIT SUMMARY EXTRACTED FROM THE [employer] CHART. IT IS NOT A COPY OF THE [employer] PROGRESS NOTE. KRIS
== END ==
LOC: M PAIN 10:45
PROVIDERS: ATTEND Family Medicine
DX: G89.29 Other chronic pain (principal); M47.817 Spondylosis without myelopathy or radiculopathy, lumbosacral region; F17.210 Nicotine dependence, cigarettes, uncomplicated; F32.9 Major depressive disorder, single episode, unspecified; G47.30 Sleep apnea, unspecified; E78.5 Hyperlipidemia, unspecified; J32.9 Chronic sinusitis, unspecified; G47.33 Obstructive sleep apnea (adult) (pediatric); G25.81 Restless legs syndrome; B20 Human immunodeficiency virus [HIV] disease; Z79.891 Long term (current) use of opiate analgesic; Z79.899 Other long term (current) drug therapy; Z88.0 Allergy status to penicillin; Z88.5 Allergy status to narcotic agent; Z88.8 Allergy status to other drugs, medicaments and biological substances

== ENCOUNTER → 2021-02-24 | Outpatient (CLI) | payer MEDICARE, MEDICAID ==
[~2021-02-24] MED LIST changes: +HYDR-3363 PO; +OXYC1TAB15 PO
== END ==
LOC: M LABSMTC 11:41
PROVIDERS: ATTEND Anesthesiology
DX: Z01.812 Encounter for preprocedural laboratory examination (principal)

== ENCOUNTER 2021-03-01 08:03 | Day surgery (SDC) | payer MEDICARE, MEDICAID ==
[~2021-03-01] VITALS: Ht 165.1 cm; Wt 89.8 kg
[~2021-03-01 08:03] MED LIST changes: +NS 1,000 ML IV ONE
[2021-03-01] MEDS ORDERED: propofoL 200 MG/20 ML VIAL As Ordered ONE (08:40)
[2021-03-01] MEDS ORDERED: LIDOCAINE 2% 100MG/5ML SDV (FOR ANES.) As Ordered ONE (08:40)
[2021-03-01] MEDS ORDERED: fentaNYL 100 MCG/2 ML INJECTION (J3010) As Ordered ONE (08:50)
--- NOTE | 2021-03-01 09:24 | ROOR ---
Patient Name: Zulma Matute Procedure Date: 03/01/2021 9:04 AM Date of : 1965 Age: 55 [facility] Note Status: Finalized Procedure: Upper Endoscopy + Biopsies Indications: Heartburn, Exclusion of Mae's esophagus Providers: Vinicio Carrillo MD Referring MD: Adria KEITA MD. Requesting Provider: Medicines: Monitored Anesthesia Care Complications: No immediate complications. Procedure: Pre-Anesthesia Assessment: - The heart rate, respiratory rate, oxygen saturations, blood pressure, adequacy of pulmonary ventilation, and response to care were monitored throughout the procedure. The Endoscope was introduced through the mouth, and advanced to the second part of duodenum. The upper GI endoscopy was accomplished without difficulty. The patient tolerated the procedure well. Findings: The Z-line was regular and was found 40 cm from the incisors. Multiple biopsies were obtained with cold forceps for evaluation to rule out Mae's Esophagus randomly at the gastroesophageal junction. No other significant abnormalities were identified in a careful examination of the stomach. The exam of the duodenum was otherwise normal. Impression: - Z-line regular, 40 cm from the incisors. - Multiple biopsies were obtained at the gastroesophageal junction. - The examination was otherwise normal. Recommendation: - Patient has a contact number available for emergencies. The signs and symptoms of potential delayed complications were discussed with the patient. Return to normal activities tomorrow. Written discharge instructions were provided to the patient. - High fiber diet. - Discharge patient to home. - Follow an antireflux regimen. - Continue present medications. - Await pathology results. - Telephone GI clinic for pathology results in 1 week. - Return to referring physician. - Repeat upper endoscopy for surveillance based on pathology results. - The findings and recommendations were discussed with the patient. Procedure Code(s): --- Professional --- 95306, Esophagogastroduodenoscopy, flexible, transoral; with biopsy, single or multiple Diagnosis Code(s): --- Professional --- R12, Heartburn CPT copyright 2019 [employer]. All rights reserved. The codes documented in this report are preliminary and upon medical insurance coder review may be revised to meet current compliance requirements. Vinicio Carrillo MD Vinicio Carrillo MD 03/01/2021 9:23:40 AM Electronically signed by Vinicio Carrillo MD Number of Addenda: 0 Note Initiated On: 03/01/2021 9:04 AM Estimated Blood Loss: Estimated blood loss: none.
--- NOTE | 2021-03-01 09:46 | ROOR ---
Patient Name: Zulma Matute Procedure Date: 03/01/2021 9:05 AM Date of : 1965 Age: 55 [facility] Note Status: Finalized Procedure: Total Colonoscopy to Cecum + Bx. To r/o Microscopic Colitis Indications: Clinically significant diarrhea of unexplained origin Providers: Vinicio Carrillo MD Referring MD: Adria KEITA MD. Requesting Provider: Medicines: Monitored Anesthesia Care Complications: No immediate complications. Procedure: Pre-Anesthesia Assessment: - The heart rate, respiratory rate, oxygen saturations, blood pressure, adequacy of pulmonary ventilation, and response to care were monitored throughout the procedure. The Colonoscope was introduced through the anus and advanced to the cecum, identified by appendiceal orifice and ileocecal valve. The colonoscopy was performed without difficulty. The patient tolerated the procedure well. The quality of the bowel preparation was fair. Findings: The perianal and digital rectal examinations were normal. No other significant abnormalities were identified in a careful examination of the remainder of the colon. A moderate amount of stool was found in the entire colon, precluding visualization. Biopsies for histology were taken with a cold forceps from the ascending colon, transverse colon and descending colon for evaluation of microscopic colitis. The exam was otherwise without abnormality. Impression: - Preparation of the colon was fair. - Stool in the entire examined colon. - The examination was otherwise normal. - Biopsies were taken with a cold forceps from the ascending colon, transverse colon and descending colon for evaluation of microscopic colitis. - The exam was otherwise normal to the cecum. Recommendation: - Patient has a contact number available for emergencies. The signs and symptoms of potential delayed complications were discussed with the patient. Return to normal activities tomorrow. Written discharge instructions were provided to the patient. - High fiber diet. - Discharge patient to home. - Continue present medications. - Await pathology results. - Telephone GI clinic for pathology results in 1 week. - Repeat colonoscopy in 10 years for screening purposes. - Return to referring physician. - The findings and recommendations were discussed with the patient. Procedure Code(s): --- Professional --- 66903, Colonoscopy, flexible; with biopsy, single or multiple Diagnosis Code(s): --- Professional --- R19.7, Diarrhea, unspecified CPT copyright 2019 [employer]. All rights reserved. The codes documented in this report are preliminary and upon doll wigs hackler review may be revised to meet current compliance requirements. Vinicio Carrillo MD Vinicio Carrillo MD 03/01/2021 9:45:46 AM Electronically signed by Vinicio Carrillo MD Number of Addenda: 0 Note Initiated On: 03/01/2021 9:05 AM Estimated Blood Loss: Estimated blood loss: none.
[2021-03-01 10:10] VITALS: BP 137/63
== END 2021-03-01 10:13 | disposition home or self-care (01) ==
LOC: M OPP 08:03
PROVIDERS: ATTEND Internal Medicine Gastroenterology
DX: R19.7 Diarrhea, unspecified (principal); R12 Heartburn; D12.6 Benign neoplasm of colon, unspecified; D13.1 Benign neoplasm of stomach; E78.5 Hyperlipidemia, unspecified; E03.9 Hypothyroidism, unspecified; Z21 Asymptomatic human immunodeficiency virus [HIV] infection status; F41.9 Anxiety disorder, unspecified; F32.9 Major depressive disorder, single episode, unspecified; J44.9 Chronic obstructive pulmonary disease, unspecified; G47.30 Sleep apnea, unspecified; F17.210 Nicotine dependence, cigarettes, uncomplicated; Z88.1 Allergy status to other antibiotic agents; Z88.5 Allergy status to narcotic agent; Z88.8 Allergy status to other drugs, medicaments and biological substances; Z79.899 Other long term (current) drug therapy
CPT/HCPCS: 43239; 45380; 88305; J3010

== ENCOUNTER → 2021-03-15 | Outpatient (CLI) | payer MEDICARE, MEDICAID ==
[~2021-03-15] MED LIST changes: +CIPR0.3S6 OD; +CLEO300C2 PO; -NS 1,000 ML IV ONE; +OMEP40CA4 PO; -OMEP40CA97 PO; -OXYC1TAB15 PO; +OXYC7.5T3 PO
--- NOTE | 2021-03-15 14:06 | REP ---
INDICATION: TOBACCO USE. COMPARISON: Multiple the latest 06/10/2019 also low-dose screening CT TECHNIQUE: Axial noncontrast images from the thoracic inlet to the upper abdomen using low-dose lung screening technique (LDCT). As per the protocol only lung window images were sent to the read station for interpretation. FINDINGS: Once again, there are a few scattered curvilinear densities in the lung bases. These are stable. No new abnormal nodules, masses, or opacities have developed. Grossly, the mediastinum and pulmonary janet are unchanged. Grossly, the imaged upper abdomen and imaged osseous structures are unchanged. There are no pleural or pericardial effusions. IMPRESSION: Lung rads category [address] examination of the chest. <Electronically signed by Jose Prater > 03/15/21 [id number]
== END ==
LOC: M RAD 11:58
PROVIDERS: ATTEND Internal Medicine Infectious Disease
DX: F17.200 Nicotine dependence, unspecified, uncomplicated (principal); R91.1 Solitary pulmonary nodule; Z12.2 Encounter for screening for malignant neoplasm of respiratory organs

== ENCOUNTER → 2021-04-13 | Outpatient (CLI) | payer OTHER, MEDICAID ==
[~2021-04-13] MED LIST changes: -CIPR0.3S6 OD; -CLEO300C2 PO; -OMEP40CA4 PO; +OMEP40CA97 PO; +OXYC1TAB15 PO; -OXYC7.5T3 PO
--- NOTE | 2021-04-15 00:54 | ECWPNPC ---
PATIENT NAME: CYNTHIA JOSHI : 1965 GENDER: FEMALE VISIT DATE: 04/13/2021 DISCHARGE DATE: 04/13/21 1158 VISIT LOCKED DATE TIME: PHYSICIAN: LINWOOD [place] PHYSICIAN PAGER NO: ACTIVE RESOURCE: LINWOOD [place] REASON FOR APPOINTMENT 1. W/C BACK PAIN HISTORY OF PRESENT ILLNESS DEPRESSION SCREENIN-YEAR-OLD FEMALE IN FOR CHRONIC PAIN FOLLOW-UP. PATIENT ADMITS TO INCREASED PAIN IN HER LEFT LUMBAR AREA. SHE HAS HAD COOL RADIOFREQUENCY OF THE LUMBAR REGION BEFORE AND HAD GOOD RELIEF WITH THIS AND WE WILL DISCUSS REPEAT PROCEDURES TODAY. GOOD RELIEF WAS EVIDENCED BY DECREASED PAIN AND INCREASED FUNCTIONALITY. 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 PHQ-2 (2015 EDITION) LITTLE INTEREST OR PLEASURE IN DOING THINGS?NOT AT ALL FEELING DOWN, DEPRESSED, OR HOPELESS?NOT AT ALL TOTAL SCORE0 PAIN CENTER INTAKE QUESTIONS: DO YOU HAVE A HISTORY OF MRSA? :YES TOE IN THE PAST. NEGATIVE AT THIS TIME. DO YOU TAKE A BLOOD THINNERS? :NO DO YOU HAVE ANY BLEEDING DISORDERS? :NO ANY NEW NUMBNESS OR WEAKNESS IN YOUR LEGS OR ARMS? :YES THROUGHOUT BODY ANY PACEMAKER,DEFIBRILLATOR, OR DORSAL COLUMN STIMULATOR? :NO DO YOU HAVE ANY RASHES OR OPEN SORES? :NO ARE YOU ALLERGIC TO IV DYE? :NO ARE YOU DIABETIC? :NO ANY NEW PROBLEMS WITH YOUR MEDICATIONS? :NO HAVE YOU RECEIVED A VACCINE IN THE PAST 30 DAYS? :YES IF SO WHAT VACCINE AND WHEN? FIRST COVID VACCINATION 04/08/2021 DO YOU PLAN TO RECEIVE A VACCINE IN THE NEXT 21 DAYS? :YES IF SO WHAT VACCINE AND WHEN? SECOND COVID VACCINATION 04/24/2021 DO YOU NEED ANY PRESCRIPTION? :YES HYDROCODONE DO YOU TAKE ANY IMMUNOSUPPRESSIVE MEDICATIONS? :NO DO YOU HAVE ANY KIDNEY OR LIVER DISEASE? :NO IS THERE A CHANCE YOU COULD BE ? :NO ARE YOU BREAST FEEDING? :NO GENERAL: -. FALL RISK SCREENING: SCREENING : NO FALLS REPORTED IN THE LAST YEAR. PAIN SCREENING: PATIENT HAS A COMPLAINT OF ACUTE OR CHRONIC PAIN :YES LOCATION OF PAIN:LOW BACK INTENSITY OF PAIN (SCALE OF 1 TO 10):3 WHAT DOES YOUR PAIN FEEL LIKE:ACHING, INTERMITTENT, THROBBING DURATION:INTERMITTENT, AWAKENS FROM SLEEP PAIN IS INCREASED BY:ACTIVITIES, PROLONGED STANDING PAIN IS DECREASED BY:USE OF PAIN MEDICATIONS, SITTING NURSING NOTE: -. CURRENT MEDICATIONS TAKING KEPPRA 1000 MG TABLET TAKE 1 TAB BY MOUTH TWICE A DAY. , NOTES: 01/10 1900 TAKING TRIAMCINOLONE ACETONIDE 0.1 % CREAM 1 APPLICATION TO AREA EXTERNALLY BID PRN TAKING NASONEX 50 MCG/ACT SUSPENSION 2 PUFFS NASALLY ONCE A DAY TAKING NYSTATIN [id number] UNIT/GM POWDER APPLY UNDER BREASTS AND ABDOMINAL FOLD 2 TIMES A DAY TOPICALLY TWICE A DAY TAKING GABAPENTIN 600 MG TABLET 1 TABLET ORALLY TID TAKING MULTI-DAY PLUS IRON - TABLET TAKE ONE TABLET BY MOUTH ONCE DAILY DIRECTED ORALLY DAILY TAKING CALCIUM-VITAMIN D 600-200 MG-UNIT TABLET 1 TAB ORALLY BID TAKING VENTOLIN HFA 108 (90 BASE) MCG/ACT AEROSOL SOLUTION 2 PUFFS INHALATION QID PRN TAKING TIZANIDINE HCL 4 MG TABLET 1 TABLET NEEDED ORALLY THREE TIMES A DAY MAX, NOTES: 01/10 2200 TAKING VALACYCLOVIR HCL 500 MG TABLET 1 TAB ORALLY TWICE DAILY TAKING LEVOTHYROXINE SODIUM 50 MCG TABLET TAKE ONE TABLET BY MOUTH @8AM TAKING QUETIAPINE FUMARATE 50 MG TABLET TAKE ONE TABLET BY MOUTH @8PM TAKING ATORVASTATIN CALCIUM 80 MG TABLET TAKE ONE TABLET BY MOUTH @12PM TAKING BUPROPION HCL ER (XL) 300 MG TABLET EXTENDED RELEASE 24 HOUR TAKE ONE TABLET BY MOUTH @12PM TAKING CYMBALTA 60 MG CAPSULE DELAYED RELEASE PARTICLES TAKE TWO CAPSULES BY MOUTH ONCE DAILY TAKING ROPINIROLE HCL 0.25 MG TABLET 2 TABLET ORALLY THREE TIMES A DAY TAKING OMEPRAZOLE 40 MG CAPSULE DELAYED RELEASE 1 CAP BID ORALLY 30 DAY(S) ORALLY BID TAKING WELLBUTRIN XL 300 MG TABLET EXTENDED RELEASE 24 HOUR TAKE ONE TABLET BY MOUTH EVERY MORNING ORALLY ONCE A DAY TAKING HYDROXYZINE HCL 50 MG TABLET 1 TABLET NEEDED EVERY 8 HRS ORALLY 30 ORALLY EVERY 8 HRS TAKING HYDROXYZINE HCL 25 MG TABLET 1 TABLET NEEDED EVERY 8 HRS ORALLY 30 TAKING BIKTARVY 50-200-25 MG TABLET 1 TABLET ORALLY ONCE A DAY TAKING PERCOCET 7.5-325 MG TABLET 1 TABLET ORALLY EVERY 4-6 HRS NEEDED FOR PAIN, NOTES: 01/10 2200 TAKING AMBIEN 10 MG TABLET 11/2 TABLET ORALLY BEFORE BEDTIME, NOTES: 01/10 1900 TAKING SEROQUEL 50 MG TABLET 1 TABLET AT BEDTIME ORALLY QHS, NOTES: DUPLICATE TAKING TAB-A-JODIE/IRON - TABLET TAKE ONE TABLET BY MOUTH @12PM MEDICATION LIST REVIEWED AND RECONCILED WITH THE PATIENT PAST MEDICAL HISTORY ABNORMAL EKG HX ARRYTHMIA CHRONIC DDD MRI DONE 03/2016 LARGE DISC HERNIATION AT L5-S1 WITH MODERATE EXTRUSION ON WORKER'S COMPENSATION FOLLOWS UP WITH DR. AGUERO DEPRESSION/INSOMNIA TOBACCO ABUSE HYPERLIPIDEMIA RECURRENT SINUSITIS HIV DIAGNOSED IN 1992 ACQUIRED THROUGH HETEROSEXUAL SEX HER PARTNER WAS POSITIVE HIV UNDETECTED SINCE 2009 CD4 MORE THAN 1000 COLONOSCOPY 2006 EGD AND COLONOSCOPY [address] OTERO CHRONIC GASTRITIS AND DUODENITIS 2005 LEFT BREAST CALCIFICATION BIOPSY BENIGN DAVON 1 DR HOPKINS COLPOSCOPY EVERY 6 MONTHS PAP EYELID INFECTION 10/2015 MODERATE TO SEVERE OBSTRUCTIVE SLEEP APNEA ON BIPAP 06/09 DR DE LEON/ [facility] MYOCLONUS BILATERAL CATARACTS DR FRANCIS/ DR CAMP RESTLESS LEG SYNDROME ALLERGIES MORPHINE SULFATE: HIVES - ALLERGY AUGMENTIN: HIVES - ALLERGY ULTRAM: HIVES - ALLERGY SUDAFED: HIVES - ALLERGY AMBIEN: CONFUSION - SIDE EFFECTS SURGICAL HISTORY EYE SURGERY 1971 TONSILLECTOMY 1977 LEFT SALPINGOOOPHORECTOMY [facility] 1997 COLONOSCOPY AND EGD 06/2007 BREAST BIOPSY 03/2006 EGD AND COLONOSCOPY CHRONIC GASTRITIS AND DUODENITIS 04/18/2012 EXCISION B TOE NAILS BIG TOES DR PULIDO 04/2015 COLPOSCOPY WITH TRACY 06/15/15 HYSTARECTIUM LEFT LEG WOUNDS AGE 16 EYE LID SURGERY BOTH EYES / RIGHT ONE NEEDED TO BE RE SEWN DUE TO IT OPENING AUG 2017 RIGHT EYE CATARACT !12/31/17 LEFT EYE CATARACT 12/2018 RIGHT EYE CATARACT 12/2018 ENDOSCOPY-SHANNA 03/2021 COLONOSCOPY-SHANNA 03/2021 SOCIAL HISTORY GENERAL: TOBACCO USE ARE YOU A:CURRENT SMOKER ARE YOU INTERESTED IN QUITTING?NOT READY TO QUIT HOW MANY CIGARETTES A DAY DO YOU SMOKE?11-20 HOW OFTEN DO YOU SMOKE CIGARETTES?EVERY DAY PATIENT COUNSELED ON THE DANGERS OF TOBACCO USE AND URGED TO QUIT:04/13/2021 SMOKING CESSATION INFORMATION GIVEN06/02/2020 LATEX QUESTIONNAIRE LATEX ALLERGY : HAVE YOU EVER DEVELOPED ANY TYPE OF REACTION AFTER HANDLING LATEX PRODUCTS SUCH RUBBER GLOVES, CONDOMS, DIAPHRAGMS, BALLOONS, SOCKS, OR UNDERWEAR?NO LATEX ALLERGY : HAVE YOU EVER DEVELOPED ANY TYPE OF REACTION DURING OR AFTER DENTAL APPOINTMENT, VAGINAL/RECTAL EXAMINATION, SURGICAL PROCEDURE, OR ANY OTHER EXPOSURE?NO LATEX RISK : HAVE YOU EVER HAD ANY DIFFICULTY BREATHING OR HIVES AFTER EATING OR HANDLING ANY FRUITS, OR VEGETABLES; SUCH KIWI, BANANAS, STONE FRUITS, OR CHESTNUTSNO LATEX RISK : DO YOU HAVE A PREVIOUS PERSONAL HISTORY OF MORE THAN NINE SURGERIES, SPINA BIFIDA, OR REPEATED CATHERIZATIONS? YES - PLEASE INDICATE : > 9 SURGERIES LATEX RISK : ARE YOU FREQUENTLY EXPOSED TO LATEX PRODUCTS IN YOUR OCCUPATION?NO DATE ASKED : 04/13/2021 ALCOHOL USE: OCCASIONAL ONCE A YEAR. ALCOHOL SCREENING DID YOU HAVE A DRINK CONTAINING ALCOHOL IN THE PAST YEAR?NO POINTS0 INTERPRETATIONNEGATIVE RECREATIONAL DRUG USE DRUG USE?NO CAFFEINE CAFFEINE USE?YES HOW OFTEN AND HOW MUCH? DRINK COFFEE ALL DAY LONG SEXUAL HX HAD SEX IN THE LAST 12 MONTHS (VAGINAL, ORAL, OR ANAL)?NO LMP:1988 HAVE YOU EVER HAD AN STD?NO HIV / HEP-C SCREENING HIV TEST OFFERED TO PATIENT:YES DATE OFFERED:09/04/2018 PREVIOUSLY TESTED TEST ACCEPTED:YES HEP-C TEST OFFERED TO PATIENT:YES DATE OFFERED:09/04/2018 PREVIOUSLY TESTED TEST ACCEPTED:YES BROCHURE PROVIDED TO PATIENTNO ANABAPTIST [id number] NONE LANGUAGE LANGUAGES SPOKEN:CHILEAN EDUCATION LEVEL OF EDUCATION:HIGH SCHOOL LEARNING BARRIERS / SPECIAL NEEDS CHANGE FROM LAST VISIT?NO BARRIERS TO LEARNING?NO HEARING IMPAIRED?NO VISION IMPAIRED?YES :CORRECTIVE LENSES COGNITIVELY IMPAIRED?NO READINESS TO LEARN?YES LEARNING PREFERENCES?NO LEARNING CAPABILITIES PRESENT?YES EMOTIONAL BARRIERS?NO SPECIAL 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 DIET: REGULAR. EXERCISE: NONE. MARITAL STATUS: .. OTHERS AT HOME: ELIZABETH. FEMALE 6 MONTH RISK ASSESSMENT FOR STD DESCRIBE YOUR SEXUAL PARTNERS:MALE MONOGAMOUS?YES HIV POSITIVE?YES EVER INJECT DRUGS?NO VAGINAL SEX?NO ANAL SEX?NO ORAL SEX?NO ARE YOU TAKING ANY STEPS TO PREVENT ? PT. HAD HYSTER. 1997 WHAT STEPS HAVE YOU TAKEN TO PROTECT YOURSELF FROM STDS, INCLUDING HIV? (CHECK ALL THAT APPLY):MUTUAL MONOGAMY, MALE CONDOMS HAVE YOU OR ANY OF YOUR SEXUAL PARTNERS EVER HAD AN STD? IF YES PLEASE LIST:NO IS THERE ANYTHING ELSE WE SHOULD TALK ABOUT CONCERNING YOUR SEXUAL HISTORY OR PRACTICE?NO PATIENT DESCRIBES PAIN : BURNING, IT COMES AND GOES, STABBING, FROM 0-10, WHAT LEVEL IS YOUR PAIN TODAY? 8. - PFS REFERRAL NEEDED?NO CLERGY REFERRAL NEEDED?NO PUBLIC HEALTH REFERRAL NEEDED?NO HAS THE PATIENT BEEN EDUCATED REGARDING HIS/HER PLAN OF CARE?YES HAS THE PATIENT BEEN EDUCATED REGARDING PAIN, THE RISK FOR PAIN, THE IMPORTANCE OF EFFECTIVE PAIN MANAGEMENT, AND THE PAIN ASSESSMENT PROCESS?YES ADVANCE DIRECTIVE ADVANCE DIRECTIVE DISCUSSED WITH PATIENT:YES 09/21/2020 PT HAS NO ADVANCED DIRECTIVES, DECLINES INFORMATION ON HCP STATES SHE ALREADY HAS IT AND WILL BRING A COPY IN WHEN SHE HAS IT COMPLETED. 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 SHE TAKES CARE OF HER 2 GRANDCHILDREN EZ AND RAMANA. HER SON IS ON SOCIAL SECURITY INCOME IS 23-YEAR-OLD [place] AND HE WILL MOVING TO [place] TO BE WITH HIS FATHER. SHE IS BUT FROM FROM HER BUT THEY SEE EACH OTHER ON THE WEEKEND. SHE SMOKES ONE PACK OF CIGARETTES A DAY SHE TRIED TO QUIT WITH NICOTINE PATCHES WELL WITH CHANTIX. HOSPITALIZATION/MAJOR DIAGNOSTIC PROCEDURE RELATED TO SURGERY [facility] FOR 1 MONTH FOR SUICIDE ATTEMPTS 1997 REVIEW OF SYSTEMS CONSTITUTIONAL: ANY RECENT FEVER NO . CHILLS NO . WEIGHT CHANGE OF UNKNOWN REASONS NO . GASTROENTEROLOGY: NEW UNEXPLAINABLE CHANGES IN BOWEL CONTROL NO . CONSTIPATION NO . GENITOURINARY: ANY NEW CHANGE IN BLADDER CONTROL? NO . NEUROLOGY: NEW ONSET DIZZINESS OR NEUROLOGICAL CHANGES NOT MENTIONED NO . NEW NUMBNESS OR PAIN PATTERNS NOT MENTIONED AND PERTINENT TO TODAY'S VISIT NO . CARDIOLOGY: NEW CHEST PRESSURE NO . PATIENT DENIES NO . RESPIRATORY: UNEXPLAINABLE COUGH NO . NEW SHORTNESS OF BREATH NO . VITAL SIGNS WT 199.4 LBS, HT 64 IN, BMI 34.22 INDEX, BP 119/56 MM HG, HR 71 /MIN, RR 18 /MIN, TEMP 95.1 F, OXYGEN SAT % 95%, SAFE IN ENV? (Y/N) YES, NA INITIALS AW 1102, REVIEWED BY: ANN OKEEFE MA. EXAMINATION GENERAL EXAMINATION: GENERALNO ACUTE DISTRESS, WELL NOURISHED AND HYDRATED. PSYCHAPPROPRIATE MOOD AND AFFECT . LUNGS:CLEAR TO AUSCULTATION BILATERALLY, NO WHEEZES, RHONCHI, RALES. HEART:NO MURMURS, REGULAR RATE AND RHYTHM. BACK:POINT TENDER ALONG LUMBAR SPINE, SURROUNDING SKIN SHOWS NO ERYTHEMA, ECCHYMOSIS, INCREASED WARMTH, AND/OR SKIN ERUPTIONS NOTED.. ASSESSMENTS SPONDYLOSIS OF LUMBOSACRAL REGION WITHOUT MYELOPATHY OR RADICULOPATHY - M47.817 (PRIMARY), RISK: (NULL) CHRONIC PRESCRIPTION OPIATE USE - Z79.891 TREATMENT SPONDYLOSIS OF LUMBOSACRAL REGION WITHOUT MYELOPATHY OR RADICULOPATHY NOTES: 55-YEAR-OLD FEMALE IN FOR WORKER'S COMP. CHRONIC PAIN FOLLOW-UP. GIVEN PRESENTING SYMPTOMS AND RESULTS OF PHYSICAL EXAMINATION RECOMMEND DIAGNOSTIC LUMBAR FACET BLOCK #2 LEFT SIDE L4-L5 L5-S1 WITH POST PROCEDURAL FOLLOW-UP. PATIENT HAS EXPRESSED UNDERSTANDING OF AND WAS IN AGREEMENT WITH TREATMENT PLAN. GIVEN TIME TO ASK QUESTIONS AND EXPRESS CONCERNS. [employer] REGISTRY REVIEWED AND DEMONSTRATES COMPLLIANCE. (REF # [id number] ) BRINGS IN MEDICATIONS WHICH IS APPROPRIATE FOR WHAT WAS DISPENSED. RECENT URINE TOXICOLOGY REVIEWED. NO UNAUTHORIZED MEDICATIONS. NO ILLICIT SUBSTANCES AND PRESCRIBED MEDICATIONS WERE PRESENT. CLINICAL NOTES: PREPROCEDURE AND PROCEDURE INFORMATION PRINTED AND PROVIDED TO PATIENT. PATIENT VERBALIZED AN UNDERSTANDING. LISY OKEEFE MA. CHRONIC PRESCRIPTION OPIATE USE LAB: URINE TEST GROUP MAGNOLIA SAWYERELIANA 04/13/2021 11:56:05 AM > LAST DOSE: PERCOCET 04/12/2021, GABAPENTIN 04/12/2021 OTHERS REFILL PERCOCET TABLET, 7.5-325 MG, 1 TABLET, ORALLY, EVERY 4-6 HRS NEEDED FOR PAIN, 30 DAYS, 150, NOTES: 01/10 2200 PROCEDURES PN WORKMANS' COMP OPINION IN YOUR OPINION, WAS THE INCIDENT THAT THE PATIENT DESCRIBED THE COMPETENT MEDICAL CAUSE OF THIS INJURY/ILLNESS? YES ARE THE PATIENT'S COMPLAINTS CONSISTENT WITH HIS/HER HISTORY OF THE INJURY/ILLNESS? YES IS THE PATIENT'S HISTORY OF THE INJURY/ILLNESS CONSISTENT WITH YOUR OBJECTIVE FINDING? YES WHAT IS THE PERCENTAGE OF TEMPORARY IMPAIRMENT? MODERATE TO MARKED = 66.7% . IS THE PATIENT WORKING? NO . DOCTOR ON SITE: SHANTE CHURCH MD PROCEDURE CODES [id number] ESTABILISHED PATIENT [facility] FACILITY CHARGE DISPOSITION & COMMUNICATION FOLLOW UP POST PROCEDURE (REASON: LEFT DIAGNOSTIC LUMBAR FACET BLOCK #2 L4-L5, L5-S1) ELECTRONICALLY SIGNED BY BORIS MATHEWS ON 04/14/2021 AT 08:36 AM EDT DISCLAIMER : THIS IS A VISIT SUMMARY EXTRACTED FROM THE [employer] CHART. IT IS NOT A COPY OF THE [employer] PROGRESS NOTE. KRIS
== END ==
LOC: M PAIN 11:00
PROVIDERS: ATTEND Family Medicine
DX: M47.817 Spondylosis without myelopathy or radiculopathy, lumbosacral region (principal); F32.9 Major depressive disorder, single episode, unspecified; G47.00 Insomnia, unspecified; E78.5 Hyperlipidemia, unspecified; J32.9 Chronic sinusitis, unspecified; B20 Human immunodeficiency virus [HIV] disease; G47.33 Obstructive sleep apnea (adult) (pediatric); G25.81 Restless legs syndrome; F17.210 Nicotine dependence, cigarettes, uncomplicated; Z79.891 Long term (current) use of opiate analgesic; Z79.899 Other long term (current) drug therapy; Z88.5 Allergy status to narcotic agent; Z88.0 Allergy status to penicillin; Z88.8 Allergy status to other drugs, medicaments and biological substances

== ENCOUNTER 2021-05-03 16:58 | Emergency (ER) | payer MEDICARE, MEDICAID ==
[~2021-05-03] VITALS: Ht 165.1 cm; Wt 90.5 kg
[2021-05-03] MEDS ORDERED: CIPROFLOXACIN 0.3% OPHTH SOLN 2.5ML OU ONE (20:50)
[2021-05-03] MEDS ORDERED: CLINDAMYCIN 150MG CAPSULE PO ONE (20:50)
[2021-05-03] MEDS ORDERED: CLEO300C2 PO (20:53)
[2021-05-03] MEDS ORDERED: CIPR0.3S6 OD (20:53)
[2021-05-03 21:06] VITALS: BP 148/88
== END 2021-05-03 21:05 | disposition home or self-care (01) ==
LOC: M ED 16:58
DX: H10.021 Other mucopurulent conjunctivitis, right eye (principal); L03.213 Periorbital cellulitis; B20 Human immunodeficiency virus [HIV] disease; E78.5 Hyperlipidemia, unspecified; J44.9 Chronic obstructive pulmonary disease, unspecified; E03.9 Hypothyroidism, unspecified; Z87.891 Personal history of nicotine dependence; Z79.899 Other long term (current) drug therapy; Z88.0 Allergy status to penicillin; Z88.1 Allergy status to other antibiotic agents; Z88.5 Allergy status to narcotic agent; Z88.8 Allergy status to other drugs, medicaments and biological substances

== ENCOUNTER → 2021-05-21 | Outpatient (CLI) | payer OTHER, MEDICAID ==
[~2021-05-21] MED LIST changes: +CIPR0.3S6 OD; +CLEO300C2 PO; +OMEP40CA4 PO; -OMEP40CA97 PO; -OXYC1TAB15 PO; +OXYC7.5T3 PO; -QUET50TA3 PO; +QUET50TA4 PO
== END ==
LOC: M LABSMTC 10:00
PROVIDERS: ATTEND Anesthesiology
DX: Z01.812 Encounter for preprocedural laboratory examination (principal); Z11.52 Encounter for screening for COVID-19

== ENCOUNTER → 2021-06-08 | Outpatient (REF) | payer MEDICARE, MEDICAID | LOC: M SFHCPLAZ 13:14 | PROVIDERS: ATTEND Internal Medicine Infectious Disease | DX: R19.7 Diarrhea, unspecified (principal) ==

== ENCOUNTER → 2021-06-08 | Outpatient (CLI) | payer MEDICARE, MEDICAID ==
[2021-06-08 12:34] LABS: ALT/SGPT 24 U/L (12-78); BILIRUBIN,TOTAL 0.4 MG/DL (0.2-1.0); BLOOD UREA NITROGEN 12 MG/DL (7-18); CALCIUM LEVEL 9.4 MG/DL (8.5-10.1); CARBON DIOXIDE LEVEL 28 MEQ/L (21-32); CHLORIDE LEVEL 104 MEQ/L (98-107); CREATININE FOR GFR 0.84 MG/DL (0.55-1.30); GLOMERULAR FILTRATION RATE > 60.0 (>51); GLUCOSE, FASTING 121 MG/DL (70-100); POTASSIUM SERUM 3.5 MEQ/L (3.5-5.1); SODIUM LEVEL 139 MEQ/L (136-145)
[2021-06-08 12:49] LABS: HEMOGLOBIN A1c 5.7 %
[2021-06-10 01:06] LABS: %CD4 Pos Lymphs 38.4 % (30.8-58.5); ABS Basophils 0.1 x10E3/uL (0.0-0.2); ABS Eosinophils 0.2 x10E3/uL (0.0-0.4); ABS Lymphs 2.6 x10E3/uL (0.7-3.1); ABS Monocytes 1.1 x10E3/uL (0.1-0.9); Abs CD4 Helper 998 /uL (359-1519); Abs CD8 Suppres 1092 /uL (109-897); CD4/CD8 Ratio 0.91 (0.92-3.72); Eosinophils 1 % (Not Estab.); HCT 42.7 % (34.0-46.6); HIV-1 RNA PCR QUANT 2 LC550285 <20 copies/mL (.); Immature Grans 0 % (Not Estab.); Lymphocytes 15 % (Not Estab.); MCH 28.6 pg (26.6-33.0); MCHC 32.8 g/dL (31.5-35.7); MCV 87 fL (79-97); Monocytes 6 % (Not Estab.); Neutrophils 77 % (Not Estab.); Platelets 265 x10E3/uL (150-450); RBC 4.89 x10E6/uL (3.77-5.28); RDW 15.7 % (11.7-15.4); WBC 17.1 x10E3/uL (3.4-10.8)
== END ==
LOC: M PLALAB 08:39
PROVIDERS: ATTEND Internal Medicine Infectious Disease
DX: B20 Human immunodeficiency virus [HIV] disease (principal); E74.39 Other disorders of intestinal carbohydrate absorption; R19.7 Diarrhea, unspecified; Z79.899 Other long term (current) drug therapy
CPT/HCPCS: 36415; 80053; 83036; 86360; 87505; 87536; G0463

== ENCOUNTER → 2021-06-18 | Outpatient (CLI) | payer MEDICARE, MEDICAID ==
[~2021-06-18] MED LIST changes: +QUET50TA3 PO; -QUET50TA4 PO
== END ==
LOC: M LABSMTC 13:25
PROVIDERS: ATTEND Anesthesiology
DX: Z01.812 Encounter for preprocedural laboratory examination (principal); Z11.52 Encounter for screening for COVID-19

== ENCOUNTER → 2021-09-06 | Outpatient (CLI) | payer OTHER ==
[~2021-09-06] MED LIST changes: -CYMB60CA3 PO; +CYMB60CA4 PO; -QUET50TA3 PO; +QUET50TA4 PO
== END ==
LOC: M PAIN 09:15
PROVIDERS: ATTEND Anesthesiology
DX: M47.816 Spondylosis without myelopathy or radiculopathy, lumbar region (principal); G89.29 Other chronic pain; G47.33 Obstructive sleep apnea (adult) (pediatric); G25.81 Restless legs syndrome; F17.210 Nicotine dependence, cigarettes, uncomplicated; Z86.59 Personal history of other mental and behavioral disorders; Z88.1 Allergy status to other antibiotic agents; Z88.5 Allergy status to narcotic agent; Z88.8 Allergy status to other drugs, medicaments and biological substances; Z79.899 Other long term (current) drug therapy

== ENCOUNTER → 2021-09-30 | Outpatient (CLI) | payer MEDICARE, OTHER | LOC: M PLALAB 14:51 | PROVIDERS: ATTEND Physician Assistant Medical | DX: R56.9 Unspecified convulsions (principal) ==

== ENCOUNTER → 2021-10-21 | Outpatient (CLI) | payer OTHER | LOC: M PAIN 10:45 | PROVIDERS: ATTEND Anesthesiology | DX: M47.816 Spondylosis without myelopathy or radiculopathy, lumbar region (principal); M51.26 Other intervertebral disc displacement, lumbar region; F32.A Depression, unspecified; G47.00 Insomnia, unspecified; E78.5 Hyperlipidemia, unspecified; J32.9 Chronic sinusitis, unspecified; G47.33 Obstructive sleep apnea (adult) (pediatric); B20 Human immunodeficiency virus [HIV] disease; G25.81 Restless legs syndrome; F17.210 Nicotine dependence, cigarettes, uncomplicated; Z79.891 Long term (current) use of opiate analgesic; Z79.899 Other long term (current) drug therapy; Z88.0 Allergy status to penicillin; Z88.5 Allergy status to narcotic agent; Z88.8 Allergy status to other drugs, medicaments and biological substances ==

== ENCOUNTER → 2021-12-13 | Outpatient (CLI) | payer MEDICARE ==
[~2021-12-13] MED LIST changes: -MOME50SP; +NASO50SP3
[2021-12-13 18:16] LABS: HEMOGLOBIN A1c 5.8 %
[2021-12-13 18:20] LABS: ALT/SGPT 24 U/L (12-78); BILIRUBIN,TOTAL 0.4 MG/DL (0.2-1.0); BLOOD UREA NITROGEN 17 MG/DL (7-18); CALCIUM LEVEL 9.7 MG/DL (8.5-10.1); CARBON DIOXIDE LEVEL 29 MEQ/L (21-32); CHLORIDE LEVEL 105 MEQ/L (98-107); CHOLESTEROL LEVEL 212 MG/DL (<200); CREATININE FOR GFR 0.76 MG/DL (0.55-1.30); GLOMERULAR FILTRATION RATE > 60.0 (>51); GLUCOSE, FASTING 109 MG/DL (70-100); HDL CHOLESTEROL 62 MG/DL (>40); POTASSIUM SERUM 3.7 MEQ/L (3.5-5.1); SODIUM LEVEL 140 MEQ/L (136-145); TRIGLYCERIDES LEVEL 290 MG/DL (<150)
[2021-12-13 18:21] LABS: ALBUMIN 3.9 GM/DL (3.2-5.2); CHOLESTEROL RISK RATIO 3.419 (<5); LDL CHOLESTEROL 92 MG/DL (<100); NON-HDL-C 150 MG/DL; TOTAL PROTEIN 7.8 GM/DL (6.4-8.2)
[2021-12-13 18:51] LABS: APPEARANCE, URINE CLOUDY (CLEAR); BACTERIA, URINE AUTO 1+ (NEGATIVE); BILIRUBIN, URINE AUTO NEGATIVE (NEGATIVE); BLOOD, URINE BLOOD NEGATIVE (NEGATIVE); CALCIUM OXALATE CRYSTALS SMALL; COLOR, URINE YELLOW (YELLOW); GLUCOSE, URINE (UA) AUTO NEGATIVE (NEGATIVE); KETONE, URINE AUTO TRACE mg/dL (NEGATIVE); LEUKOCYTE ESTERASE, URINE AUTO 3+ (NEGATIVE); MUCUS, URINE SMALL (NEGATIVE); NITRITE, URINE AUTO NEGATIVE (NEGATIVE); PROTEIN, URINE AUTO 1+ mg/dL (NEGATIVE); RBC, URINE AUTO 4 /HPF (0-3); SPECIFIC GRAVITY URINE AUTO 1.023 (1.002-1.035); SQUAMOUS EPITHELIAL CELL UR AU 2 /HPF (0-6); TRANSITIONAL EPITHELIAL AUTO 1 /HPF; UROBILINOGEN, URINE AUTO 0.2 mg/dL (0.0-2.0); WBC, URINE AUTO TNTC /HPF (0-3)
== END ==
LOC: M PLALAB 14:20
PROVIDERS: ATTEND Internal Medicine Infectious Disease
DX: B20 Human immunodeficiency virus [HIV] disease (principal); E78.5 Hyperlipidemia, unspecified; E74.39 Other disorders of intestinal carbohydrate absorption; Z79.899 Other long term (current) drug therapy

== ENCOUNTER → 2022-01-03 | Outpatient (CLI) | payer MEDICARE | LOC: M PAIN 14:00 | PROVIDERS: ATTEND Nurse Practitioner Family | DX: M47.816 Spondylosis without myelopathy or radiculopathy, lumbar region (principal); M51.27 Other intervertebral disc displacement, lumbosacral region; F32.A Depression, unspecified; G47.00 Insomnia, unspecified; E78.5 Hyperlipidemia, unspecified; F17.210 Nicotine dependence, cigarettes, uncomplicated; J32.9 Chronic sinusitis, unspecified; B20 Human immunodeficiency virus [HIV] disease; G47.33 Obstructive sleep apnea (adult) (pediatric); G25.81 Restless legs syndrome; Z79.891 Long term (current) use of opiate analgesic; Z79.899 Other long term (current) drug therapy; Z88.0 Allergy status to penicillin; Z88.5 Allergy status to narcotic agent; Z88.8 Allergy status to other drugs, medicaments and biological substances ==

== ENCOUNTER → 2022-05-16 | Outpatient (CLI) | payer MEDICARE | LOC: M LABSMTC 10:09 | PROVIDERS: ATTEND Anesthesiology | DX: Z11.52 Encounter for screening for COVID-19 (principal) ==

== ENCOUNTER → 2022-05-17 | Outpatient (CLI) | payer MEDICARE ==
[~2022-05-17] MED LIST changes: +BUPIVACAINE HCL 0.25% 30ML VIAL As Ordered ONE; +ISOVUE-M 300 61% 15ML VIAL As Ordered ONE; +LIDOCAINE 1% SDV 30ML VIAL As Ordered ONE
[2022-05-17 09:50] VITALS: BP 138/86
== END ==
LOC: M IRPRO 08:39
PROVIDERS: ATTEND Anesthesiology
DX: M47.816 Spondylosis without myelopathy or radiculopathy, lumbar region (principal); M47.817 Spondylosis without myelopathy or radiculopathy, lumbosacral region; G89.29 Other chronic pain; J44.9 Chronic obstructive pulmonary disease, unspecified; G47.30 Sleep apnea, unspecified; Z88.1 Allergy status to other antibiotic agents; Z88.5 Allergy status to narcotic agent; Z88.8 Allergy status to other drugs, medicaments and biological substances; Z86.59 Personal history of other mental and behavioral disorders; Z86.14 Personal history of Methicillin resistant Staphylococcus aureus infection
CPT/HCPCS: 64493; 64494; Q9967

== ENCOUNTER → 2022-06-15 | Outpatient (CLI) | payer OTHER ==
[~2022-06-15] MED LIST changes: -BUPIVACAINE HCL 0.25% 30ML VIAL As Ordered ONE; -ISOVUE-M 300 61% 15ML VIAL As Ordered ONE; -LIDOCAINE 1% SDV 30ML VIAL As Ordered ONE
== END ==
LOC: M PAIN 10:45
PROVIDERS: ATTEND Nurse Practitioner Family
DX: M47.816 Spondylosis without myelopathy or radiculopathy, lumbar region (principal); M51.26 Other intervertebral disc displacement, lumbar region; F32.A Depression, unspecified; G47.00 Insomnia, unspecified; E78.5 Hyperlipidemia, unspecified; J32.9 Chronic sinusitis, unspecified; B20 Human immunodeficiency virus [HIV] disease; K29.80 Duodenitis without bleeding; F17.210 Nicotine dependence, cigarettes, uncomplicated; G47.33 Obstructive sleep apnea (adult) (pediatric); G25.81 Restless legs syndrome; G25.3 Myoclonus; Z98.41 Cataract extraction status, right eye; Z98.42 Cataract extraction status, left eye; Z79.891 Long term (current) use of opiate analgesic; Z79.899 Other long term (current) drug therapy; Z79.890 Hormone replacement therapy; Z88.0 Allergy status to penicillin; Z88.5 Allergy status to narcotic agent; Z88.8 Allergy status to other drugs, medicaments and biological substances

== ENCOUNTER 2022-07-16 16:57 | Emergency (ER) | payer OTHER ==
[~2022-07-16] VITALS: Ht 165.1 cm; Wt 85.2 kg
[2022-07-16] MEDS ORDERED: KETOROLAC TROMETHAMINE 10 MG TAB PO ONE (18:30)
[2022-07-16 18:57] VITALS: BP 118/58
== END 2022-07-16 18:59 | disposition home or self-care (01) ==
LOC: M ED 16:57
DX: S63.501A Unspecified sprain of right wrist, initial encounter (principal); W06.XXXA Fall from bed, initial encounter; Y92.003 Bedroom of unspecified non-institutional (private) residence as the place of occurrence of the external cause; E78.5 Hyperlipidemia, unspecified; B20 Human immunodeficiency virus [HIV] disease; J44.9 Chronic obstructive pulmonary disease, unspecified; G47.30 Sleep apnea, unspecified; K21.9 Gastro-esophageal reflux disease without esophagitis; E03.9 Hypothyroidism, unspecified; M43.06 Spondylolysis, lumbar region; F32.A Depression, unspecified; F41.9 Anxiety disorder, unspecified; F17.210 Nicotine dependence, cigarettes, uncomplicated; Z88.1 Allergy status to other antibiotic agents; Z88.5 Allergy status to narcotic agent; Z88.8 Allergy status to other drugs, medicaments and biological substances; Z79.890 Hormone replacement therapy; Z79.899 Other long term (current) drug therapy

== ENCOUNTER → 2022-08-08 | Outpatient (CLI) | payer MEDICARE ==
[2022-08-08 16:20] LABS: HEMOGLOBIN A1c 5.8 %
[2022-08-08 16:56] LABS: ALBUMIN 3.7 GM/DL (3.2-5.2); ALT/SGPT 22 U/L (12-78); BILIRUBIN,TOTAL 0.2 MG/DL (0.2-1.0); BLOOD UREA NITROGEN 16 MG/DL (7-18); CALCIUM LEVEL 9.2 MG/DL (8.5-10.1); CARBON DIOXIDE LEVEL 29 MEQ/L (21-32); CHLORIDE LEVEL 108 MEQ/L (98-107); CHOLESTEROL LEVEL 189 MG/DL (<200); CREATININE FOR GFR 0.75 MG/DL (0.55-1.30); GLOMERULAR FILTRATION RATE > 60.0 (>51); GLUCOSE, FASTING 125 MG/DL (70-100); HDL CHOLESTEROL 54 MG/DL (>40); LDL CHOLESTEROL 89 MG/DL (<100); NON-HDL-C 135 MG/DL; SODIUM LEVEL 141 MEQ/L (136-145); TOTAL PROTEIN 7.3 GM/DL (6.4-8.2); TRIGLYCERIDES LEVEL 231 MG/DL (<150)
== END ==
LOC: M PLALAB 11:54
PROVIDERS: ATTEND Internal Medicine Infectious Disease
DX: E74.39 Other disorders of intestinal carbohydrate absorption (principal); B20 Human immunodeficiency virus [HIV] disease; E78.5 Hyperlipidemia, unspecified; Z79.899 Other long term (current) drug therapy

== ENCOUNTER → 2022-09-01 | Outpatient (CLI) | payer OTHER | LOC: M LABSMTC 10:03 | PROVIDERS: ATTEND Anesthesiology | DX: Z11.52 Encounter for screening for COVID-19 (principal) ==

== ENCOUNTER → 2022-09-06 | Outpatient (CLI) | payer OTHER, MEDICARE ==
[~2022-09-06] MED LIST changes: +BUPIVACAINE HCL 0.25% 30ML VIAL As Ordered ONE; +ISOVUE-M 300 61% 15ML VIAL As Ordered ONE; +LIDOCAINE 1% SDV 30ML VIAL As Ordered ONE
== END ==
LOC: M PAIN 10:00
PROVIDERS: ATTEND Anesthesiology
DX: M47.816 Spondylosis without myelopathy or radiculopathy, lumbar region (principal); M47.817 Spondylosis without myelopathy or radiculopathy, lumbosacral region; G89.29 Other chronic pain; G47.30 Sleep apnea, unspecified; G25.81 Restless legs syndrome; F17.210 Nicotine dependence, cigarettes, uncomplicated; Z86.14 Personal history of Methicillin resistant Staphylococcus aureus infection; Z86.59 Personal history of other mental and behavioral disorders; Z88.1 Allergy status to other antibiotic agents; Z88.5 Allergy status to narcotic agent; Z88.8 Allergy status to other drugs, medicaments and biological substances; Z79.899 Other long term (current) drug therapy
CPT/HCPCS: 64493; 64494; Q9967

== ENCOUNTER → 2022-09-19 | Outpatient (CLI) | payer OTHER, MEDICARE ==
[~2022-09-19] MED LIST changes: -BUPIVACAINE HCL 0.25% 30ML VIAL As Ordered ONE; -ISOVUE-M 300 61% 15ML VIAL As Ordered ONE; -LIDOCAINE 1% SDV 30ML VIAL As Ordered ONE
== END ==
LOC: M PAIN 09:15
PROVIDERS: ATTEND Anesthesiology
DX: G89.29 Other chronic pain (principal); M47.816 Spondylosis without myelopathy or radiculopathy, lumbar region; G47.33 Obstructive sleep apnea (adult) (pediatric); G25.81 Restless legs syndrome; G47.00 Insomnia, unspecified; F17.210 Nicotine dependence, cigarettes, uncomplicated; B20 Human immunodeficiency virus [HIV] disease; F32.A Depression, unspecified; R94.31 Abnormal electrocardiogram [ECG] [EKG]; Z86.14 Personal history of Methicillin resistant Staphylococcus aureus infection; Z86.59 Personal history of other mental and behavioral disorders; Z88.1 Allergy status to other antibiotic agents; Z88.5 Allergy status to narcotic agent; Z88.8 Allergy status to other drugs, medicaments and biological substances; Z79.899 Other long term (current) drug therapy

== ENCOUNTER → 2022-09-26 | Outpatient (REF) | payer OTHER, MEDICARE ==
[2022-09-26 18:09] LABS: BASO # 0.1 10^3/uL (0.0-0.2); BASO % 0.8 % (0.0-1.0); EOS # 0.3 10^3/uL (0.0-0.5); EOS % 2.5 % (0.0-3.0); HEMATOCRIT 42.3 % (36.0-47.0); HEMOGLOBIN 12.7 g/dl (12.0-15.5); LYMPH # 3.9 10^3/uL (1.5-5.0); MEAN CORPUSCULAR HEMOGLOBIN 28.3 pg (27.0-33.0); MEAN CORPUSCULAR VOLUME 94.4 fl (80.0-96.0); MONO # 0.6 10^3/uL (0.0-0.8); MONO % 6.1 % (2.0-8.0); NEUTROPHILS # 5.1 10^3/uL (1.5-8.5); NEUTROPHILS % 51.2 % (36.0-66.0); PLATELET COUNT, AUTOMATED 231 10^3/uL (150-450); RED BLOOD COUNT 4.48 10^6/uL (4.00-5.40); WHITE BLOOD COUNT 9.9 10^3/uL (4.0-10.0)
[2022-09-26 20:29] LABS: ALBUMIN 3.6 GM/DL (3.2-5.2); ALT/SGPT 23 U/L (12-78); BILIRUBIN,TOTAL 0.3 MG/DL (0.2-1.0); BLOOD UREA NITROGEN 11 MG/DL (7-18); CALCIUM LEVEL 9.2 MG/DL (8.5-10.1); CARBON DIOXIDE LEVEL 25 MEQ/L (21-32); CHLORIDE LEVEL 105 MEQ/L (98-107); CHOLESTEROL LEVEL 196 MG/DL (<200); CHOLESTEROL RISK RATIO 2.925 (<5); CREATININE FOR GFR 0.92 MG/DL (0.55-1.30); GLOMERULAR FILTRATION RATE > 60.0 (>51); GLUCOSE, FASTING 130 MG/DL (70-100); HDL CHOLESTEROL 67 MG/DL (>40); LDL CHOLESTEROL 81 MG/DL (<100); NON-HDL-C 129 MG/DL; POTASSIUM SERUM 4.3 MEQ/L (3.5-5.1); SODIUM LEVEL 140 MEQ/L (136-145); THYROID STIMULATING HORMONE 0.639 uIU/ML (0.358-3.740); TOTAL PROTEIN 7.5 GM/DL (6.4-8.2); TRIGLYCERIDES LEVEL 239 MG/DL (<150)
[2022-09-26 21:02] LABS: TOTAL 25(OH) VITAMIN D 25.4 NG/ML (30.0-100.0)
[2022-09-26 22:40] LABS: HEMOGLOBIN A1c 5.7 %
== END ==
LOC: M LAB REF 16:43
PROVIDERS: ATTEND Nurse Practitioner Family
DX: E66.9 Obesity, unspecified (principal)

== ENCOUNTER → 2023-01-24 | Outpatient (REF) | payer MEDICARE ==
[2023-01-24 14:14] LABS: CHOLESTEROL RISK RATIO 4.13 (<5); HDL CHOLESTEROL 51.7 MG/DL (>40); LDL CHOLESTEROL 95.3 MG/DL (<100)
== END ==
LOC: M LAB REF 12:32
PROVIDERS: ATTEND Nurse Practitioner Family
DX: E78.5 Hyperlipidemia, unspecified (principal)

== ENCOUNTER → 2023-02-03 | Outpatient (CLI) | payer OTHER | LOC: M PAIN 09:30 | PROVIDERS: ATTEND Nurse Practitioner Family | DX: M47.816 Spondylosis without myelopathy or radiculopathy, lumbar region (principal); M47.817 Spondylosis without myelopathy or radiculopathy, lumbosacral region; Z79.891 Long term (current) use of opiate analgesic; F32.A Depression, unspecified; G47.00 Insomnia, unspecified; E78.5 Hyperlipidemia, unspecified; J32.9 Chronic sinusitis, unspecified; G47.33 Obstructive sleep apnea (adult) (pediatric); G25.81 Restless legs syndrome; B20 Human immunodeficiency virus [HIV] disease; F17.210 Nicotine dependence, cigarettes, uncomplicated; Z79.890 Hormone replacement therapy; Z79.899 Other long term (current) drug therapy; Z88.0 Allergy status to penicillin; Z88.5 Allergy status to narcotic agent; Z88.8 Allergy status to other drugs, medicaments and biological substances ==

== ENCOUNTER → 2023-03-16 | Outpatient (CLI) | payer MEDICARE ==
[~2023-03-16] MED LIST changes: +CIPR0.3S37 OD; -CIPR0.3S6 OD
[2023-03-16 14:37] LABS: ALBUMIN 3.5 G/DL (3.2-5.2); ALKALINE PHOSPHATASE 96 U/L (46-116); ALT/SGPT 19 U/L (7.0-40); AST/SGOT 19 U/L (<34); BILIRUBIN,TOTAL 0.2 MG/DL (0.3-1.2); BLOOD UREA NITROGEN 10 MG/DL (9-23); CARBON DIOXIDE LEVEL 30 MMOL/L (20-31); CHLORIDE LEVEL 107 MMOL/L (98-107); CREATININE FOR GFR 0.68 MG/DL (0.55-1.30); GLOMERULAR FILTRATION RATE > 60.0 (>51); GLUCOSE, FASTING 130 MG/DL (60-100); POTASSIUM SERUM 3.4 MMOL/L (3.5-5.1); SODIUM LEVEL 142 MMOL/L (136-145); TOTAL PROTEIN 6.7 G/DL (5.7-8.2)
[2023-03-17 19:08] LABS: % CD8 Pos Lymph 39.2 % (12.0-35.5); %CD4 Pos Lymphs 45.6 % (30.8-58.5); ABS Basophils 0.1 x10E3/uL (0.0-0.2); ABS Eosinophils 0.2 x10E3/uL (0.0-0.4); ABS Lymphs 2.4 x10E3/uL (0.7-3.1); ABS Monocytes 0.6 x10E3/uL (0.1-0.9); ABS Neutophils 7.9 x10E3/uL (1.4-7.0); Abs CD4 Helper 1094 /uL (359-1519); Abs CD8 Suppres 941 /uL (109-897); CD4/CD8 Ratio 1.16 (0.92-3.72); Eosinophils 2 % (Not Estab.); HCT 35.3 % (34.0-46.6); HGB 12.2 g/dL (11.1-15.9); HIV-1 RNA PCR QUANT 2 LC550285 <20 copies/mL (.); Immature Grans 0 % (Not Estab.); Lymphocytes 21 % (Not Estab.); MCH 29.5 pg (26.6-33.0); MCHC 34.6 g/dL (31.5-35.7); MCV 86 fL (79-97); Monocytes 5 % (Not Estab.); Neutrophils 71 % (Not Estab.); Platelets 232 x10E3/uL (150-450); RBC 4.13 x10E6/uL (3.77-5.28); RDW 15.3 % (11.7-15.4); WBC 11.3 x10E3/uL (3.4-10.8)
== END ==
LOC: M PLALAB 10:40
PROVIDERS: ATTEND Internal Medicine Infectious Disease
DX: B20 Human immunodeficiency virus [HIV] disease (principal)

== ENCOUNTER → 2023-04-28 | Outpatient (CLI) | payer MEDICARE, MEDICAID ==
[~2023-04-28] MED LIST changes: +LIDOCAINE 1% SDV 30ML VIAL As Ordered ONE; +dexAMETHasone 10MG/1ML VIAL PRES.FREE As Ordered ONE; +diazePAM 5MG TABLET As Ordered ONE; +oxyCODONE 5MG TAB As Ordered ONE
== END ==
LOC: M PAIN 15:00
PROVIDERS: ATTEND Anesthesiology
DX: M47.817 Spondylosis without myelopathy or radiculopathy, lumbosacral region (principal); F17.210 Nicotine dependence, cigarettes, uncomplicated; F32.A Depression, unspecified; G47.00 Insomnia, unspecified; E78.5 Hyperlipidemia, unspecified; J32.9 Chronic sinusitis, unspecified; B20 Human immunodeficiency virus [HIV] disease; G25.81 Restless legs syndrome; Z79.890 Hormone replacement therapy; Z79.891 Long term (current) use of opiate analgesic; Z79.899 Other long term (current) drug therapy; Z88.5 Allergy status to narcotic agent; Z88.1 Allergy status to other antibiotic agents; Z88.8 Allergy status to other drugs, medicaments and biological substances
CPT/HCPCS: 64635; 64636; J1100

== ENCOUNTER → 2023-05-04 | Outpatient (CLI) | payer MEDICARE, MEDICAID ==
[~2023-05-04] MED LIST changes: -LIDOCAINE 1% SDV 30ML VIAL As Ordered ONE; -dexAMETHasone 10MG/1ML VIAL PRES.FREE As Ordered ONE; -diazePAM 5MG TABLET As Ordered ONE; -oxyCODONE 5MG TAB As Ordered ONE
== END ==
LOC: M PAIN 16:30
PROVIDERS: ATTEND Anesthesiology
DX: M47.817 Spondylosis without myelopathy or radiculopathy, lumbosacral region (principal); F32.A Depression, unspecified; G47.00 Insomnia, unspecified; E78.5 Hyperlipidemia, unspecified; J32.9 Chronic sinusitis, unspecified; G47.33 Obstructive sleep apnea (adult) (pediatric); G25.81 Restless legs syndrome; B20 Human immunodeficiency virus [HIV] disease; F17.210 Nicotine dependence, cigarettes, uncomplicated; Z79.890 Hormone replacement therapy; Z79.899 Other long term (current) drug therapy; Z88.1 Allergy status to other antibiotic agents; Z88.5 Allergy status to narcotic agent; Z88.8 Allergy status to other drugs, medicaments and biological substances

== ENCOUNTER → 2023-07-04 | Outpatient (CLI) | payer MEDICARE, MEDICAID ==
[~2023-07-04] MED LIST changes: -ROPI0.253 PO; +ROPI5TAB19 PO
== END ==
LOC: M PAIN 09:45
PROVIDERS: ATTEND Nurse Practitioner Family
DX: M51.36 Other intervertebral disc degeneration, lumbar region (principal); M47.816 Spondylosis without myelopathy or radiculopathy, lumbar region; M47.817 Spondylosis without myelopathy or radiculopathy, lumbosacral region; F32.A Depression, unspecified; E78.5 Hyperlipidemia, unspecified; J32.9 Chronic sinusitis, unspecified; B20 Human immunodeficiency virus [HIV] disease; G47.33 Obstructive sleep apnea (adult) (pediatric); G25.81 Restless legs syndrome; F17.210 Nicotine dependence, cigarettes, uncomplicated; G25.3 Myoclonus; Z79.890 Hormone replacement therapy; Z79.899 Other long term (current) drug therapy; Z88.5 Allergy status to narcotic agent; Z88.0 Allergy status to penicillin; Z88.8 Allergy status to other drugs, medicaments and biological substances

== ENCOUNTER → 2023-07-05 | Outpatient (CLI) | payer MEDICARE, MEDICAID | LOC: M RAD 12:46 | PROVIDERS: ATTEND Internal Medicine Infectious Disease | DX: Z12.2 Encounter for screening for malignant neoplasm of respiratory organs (principal); F17.210 Nicotine dependence, cigarettes, uncomplicated ==

== ENCOUNTER → 2023-07-07 | Outpatient (CLI) | payer OTHER, MEDICAID ==
[~2023-07-07] MED LIST changes: +LIDOCAINE 1% SDV 30ML VIAL As Ordered ONE; +dexAMETHasone 10MG/1ML VIAL PRES.FREE As Ordered ONE; +diazePAM 5MG TABLET As Ordered ONE; +oxyCODONE 5MG TAB As Ordered ONE
== END ==
LOC: M PAIN 14:30
PROVIDERS: ATTEND Anesthesiology
DX: M47.817 Spondylosis without myelopathy or radiculopathy, lumbosacral region (principal); F32.A Depression, unspecified; G47.00 Insomnia, unspecified; G25.81 Restless legs syndrome; G25.3 Myoclonus; E78.5 Hyperlipidemia, unspecified; J32.9 Chronic sinusitis, unspecified; B20 Human immunodeficiency virus [HIV] disease; F17.210 Nicotine dependence, cigarettes, uncomplicated; Z79.891 Long term (current) use of opiate analgesic; Z79.899 Other long term (current) drug therapy; Z88.5 Allergy status to narcotic agent; Z88.0 Allergy status to penicillin; Z88.8 Allergy status to other drugs, medicaments and biological substances
CPT/HCPCS: 64635; 64636; J0665; J1100

== ENCOUNTER → 2023-08-02 | Outpatient (CLI) | payer MEDICARE, MEDICAID ==
[~2023-08-02] MED LIST changes: -LIDOCAINE 1% SDV 30ML VIAL As Ordered ONE; -dexAMETHasone 10MG/1ML VIAL PRES.FREE As Ordered ONE; -diazePAM 5MG TABLET As Ordered ONE; -oxyCODONE 5MG TAB As Ordered ONE
== END ==
LOC: M WHC 10:35
PROVIDERS: ATTEND Nurse Practitioner Family
DX: R92.8 Other abnormal and inconclusive findings on diagnostic imaging of breast (principal)
CPT/HCPCS: 77065; G0279

== ENCOUNTER → 2023-10-25 | Outpatient (CLI) | payer MEDICARE, MEDICAID | LOC: M PAIN 11:00 | PROVIDERS: ATTEND Anesthesiology | DX: M47.816 Spondylosis without myelopathy or radiculopathy, lumbar region (principal); G89.29 Other chronic pain; F17.210 Nicotine dependence, cigarettes, uncomplicated; Z80.52 Family history of malignant neoplasm of bladder; Z88.1 Allergy status to other antibiotic agents; Z88.5 Allergy status to narcotic agent; Z88.8 Allergy status to other drugs, medicaments and biological substances; Z79.899 Other long term (current) drug therapy ==

== ENCOUNTER → 2023-11-03 | Outpatient (REF) | payer MEDICARE, MEDICAID ==
[2023-11-03 14:19] LABS: BLOOD UREA NITROGEN 12 MG/DL (9-23); CALCIUM LEVEL 9.4 MG/DL (8.5-10.1); CARBON DIOXIDE LEVEL 30 MMOL/L (20-31); CHLORIDE LEVEL 105 MMOL/L (98-107); CHOLESTEROL LEVEL 190 MG/DL (<200); CHOLESTEROL RISK RATIO 4.22 (<5); CREATININE FOR GFR 0.73 MG/DL (0.55-1.30); GLOMERULAR FILTRATION RATE > 60.0 (>51); GLUCOSE, FASTING 109 MG/DL (60-100); LDL CHOLESTEROL 92.6 MG/DL (<100); MAGNESIUM LEVEL 1.6 MG/DL (1.8-2.4); POTASSIUM SERUM 3.2 MMOL/L (3.5-5.1); SODIUM LEVEL 145 MMOL/L (136-145); TRIGLYCERIDES LEVEL 262 MG/DL (<150)
== END ==
LOC: M LAB REF 12:14
PROVIDERS: ATTEND Nurse Practitioner Family
DX: E78.5 Hyperlipidemia, unspecified (principal); E87.6 Hypokalemia

== ENCOUNTER → 2023-11-17 | Outpatient (CLI) | payer OTHER, MEDICAID | LOC: M PAIN 17:00 | PROVIDERS: ATTEND Nurse Practitioner Family | DX: M47.816 Spondylosis without myelopathy or radiculopathy, lumbar region (principal); F17.210 Nicotine dependence, cigarettes, uncomplicated; Z79.891 Long term (current) use of opiate analgesic; Z79.890 Hormone replacement therapy; Z79.899 Other long term (current) drug therapy; Z88.1 Allergy status to other antibiotic agents; Z88.5 Allergy status to narcotic agent; Z88.8 Allergy status to other drugs, medicaments and biological substances ==

== ENCOUNTER → 2023-12-14 | Outpatient (CLI) | payer OTHER, MEDICAID, MEDICARE | LOC: M PAIN 11:00 | PROVIDERS: ATTEND Nurse Practitioner Family | DX: M47.816 Spondylosis without myelopathy or radiculopathy, lumbar region (principal); M47.817 Spondylosis without myelopathy or radiculopathy, lumbosacral region; G89.29 Other chronic pain; F32.A Depression, unspecified; G47.00 Insomnia, unspecified; E78.5 Hyperlipidemia, unspecified; G25.81 Restless legs syndrome; Z79.890 Hormone replacement therapy; Z79.891 Long term (current) use of opiate analgesic; Z79.899 Other long term (current) drug therapy; F17.210 Nicotine dependence, cigarettes, uncomplicated; Z88.1 Allergy status to other antibiotic agents; Z88.5 Allergy status to narcotic agent; Z88.8 Allergy status to other drugs, medicaments and biological substances ==

== ENCOUNTER → 2024-01-29 | Outpatient (CLI) | payer OTHER, MEDICAID, MEDICARE | LOC: M PAIN 11:30 | PROVIDERS: ATTEND Nurse Practitioner Family | DX: M47.817 Spondylosis without myelopathy or radiculopathy, lumbosacral region (principal); M47.816 Spondylosis without myelopathy or radiculopathy, lumbar region; B20 Human immunodeficiency virus [HIV] disease; E78.5 Hyperlipidemia, unspecified; F17.210 Nicotine dependence, cigarettes, uncomplicated; G47.33 Obstructive sleep apnea (adult) (pediatric); G25.81 Restless legs syndrome; Z79.890 Hormone replacement therapy; Z79.891 Long term (current) use of opiate analgesic; Z79.899 Other long term (current) drug therapy ==

== ENCOUNTER → 2024-02-12 | Outpatient (CLI) | payer MEDICARE, MEDICAID ==
[2024-02-12 14:22] LABS: HEMOGLOBIN A1c 4.8 % (4.0-6.0)
[2024-02-12 14:42] LABS: ALBUMIN 3.6 G/DL (3.2-5.2); ALKALINE PHOSPHATASE 73 U/L (46-116); ALT/SGPT 14 U/L (7.0-40); AST/SGOT 12 U/L (<34); BILIRUBIN,TOTAL 0.3 MG/DL (0.3-1.2); BLOOD UREA NITROGEN 20 MG/DL (9-23); CALCIUM LEVEL 9.3 MG/DL (8.5-10.1); CARBON DIOXIDE LEVEL 32 MMOL/L (20-31); CHLORIDE LEVEL 107 MMOL/L (98-107); CREATININE FOR GFR 0.71 MG/DL (0.55-1.30); GLOMERULAR FILTRATION RATE > 60.0 (>51); GLUCOSE, FASTING 88 MG/DL (60-100); POTASSIUM SERUM 3.5 MMOL/L (3.5-5.1); SODIUM LEVEL 141 MMOL/L (136-145); TOTAL PROTEIN 6.8 G/DL (5.7-8.2)
[2024-02-12 14:44] LABS: THYROID STIMULATING HORMONE 0.785 uIU/ML (0.55-4.78)
[2024-02-13 13:07] LABS: % CD8 Pos Lymph 35.4 % (12.0-35.5); %CD4 Pos Lymphs 44.1 % (30.8-58.5); ABS Basophils 0.1 x10E3/uL (0.0-0.2); ABS Eosinophils 0.2 x10E3/uL (0.0-0.4); ABS Lymphs 2.9 x10E3/uL (0.7-3.1); ABS Monocytes 0.6 x10E3/uL (0.1-0.9); ABS Neutophils 7.9 x10E3/uL (1.4-7.0); Abs CD4 Helper 1279 /uL (359-1519); Abs CD8 Suppres 1027 /uL (109-897); CD4/CD8 Ratio 1.25 (0.92-3.72); Eosinophils 2 % (Not Estab.); HCT 39.8 % (34.0-46.6); HGB 13.6 g/dL (11.1-15.9); Immature Grans 0 % (Not Estab.); Lymphocytes 24 % (Not Estab.); MCH 31.6 pg (26.6-33.0); MCHC 34.2 g/dL (31.5-35.7); MCV 92 fL (79-97); Monocytes 5 % (Not Estab.); Neutrophils 68 % (Not Estab.); Platelets 215 x10E3/uL (150-450); RBC 4.31 x10E6/uL (3.77-5.28); RDW 13.8 % (11.7-15.4); WBC 11.7 x10E3/uL (3.4-10.8)
[2024-02-14 05:09] LABS: HIV-1 RNA PCR QUANT 2 LC550285 <20 copies/mL (.)
== END ==
LOC: M PLALAB 09:35
PROVIDERS: ATTEND Internal Medicine Infectious Disease
DX: B20 Human immunodeficiency virus [HIV] disease (principal); E74.39 Other disorders of intestinal carbohydrate absorption; R63.4 Abnormal weight loss; Z79.899 Other long term (current) drug therapy

== ENCOUNTER → 2024-03-09 | Outpatient (CLI) | payer OTHER ==
[~2024-03-09] MED LIST changes: +GABA800T4 PO; +HYDR-4517 PO; +LEVE500T5 PO; +MOME17SP NS; +OMEP40CA5 PO; +QUET100T2 PO; +ROPI1TAB73 PO; +TIZA10TA PO; +TRAZ1TAB11 PO
== END ==
LOC: M RAD 08:45
PROVIDERS: ATTEND Nurse Practitioner Family
DX: M47.816 Spondylosis without myelopathy or radiculopathy, lumbar region (principal)

== ENCOUNTER 2024-03-19 09:43 | Day surgery (SDC) | payer MEDICARE, MEDICAID ==
[~2024-03-19] VITALS: Ht 165.1 cm; Wt 66.6 kg
[2024-03-19] MEDS: NS 1,000 ML IV ONE (11:04)
[2024-03-19] MEDS ORDERED: propofoL 500 MG/50 ML VIAL As Ordered ONE (13:14)
[2024-03-19 13:32] VITALS: TEMP 98.2
[2024-03-19 13:50] VITALS: BP 154/76; O2SAT 98
== END 2024-03-19 14:06 | disposition home or self-care (01) ==
LOC: M OPP 09:43
PROVIDERS: ATTEND Internal Medicine Gastroenterology
DX: K57.31 Diverticulosis of large intestine without perforation or abscess with bleeding (principal); K64.8 Other hemorrhoids; K21.9 Gastro-esophageal reflux disease without esophagitis; Z90.49 Acquired absence of other specified parts of digestive tract; J44.9 Chronic obstructive pulmonary disease, unspecified; E03.9 Hypothyroidism, unspecified; E78.00 Pure hypercholesterolemia, unspecified; G47.30 Sleep apnea, unspecified; Z79.899 Other long term (current) drug therapy; Z79.890 Hormone replacement therapy; Z90.710 Acquired absence of both cervix and uterus; Z88.0 Allergy status to penicillin; Z88.8 Allergy status to other drugs, medicaments and biological substances; Z88.5 Allergy status to narcotic agent; F17.200 Nicotine dependence, unspecified, uncomplicated

== ENCOUNTER → 2024-04-08 | Outpatient (REF) | payer MEDICARE, MEDICAID ==
[~2024-04-08] MED LIST changes: +BUPR-597 PO; -BUPR300T92 PO
[2024-04-10 15:09] LABS: HPV APTIMA Negative (Negative)
== END ==
LOC: M PLALAB 15:42
PROVIDERS: ATTEND Obstetrics & Gynecology
DX: Z12.72 Encounter for screening for malignant neoplasm of vagina (principal)

== ENCOUNTER → 2024-04-17 | Outpatient (CLI) | payer OTHER | LOC: M PAIN 11:30 | PROVIDERS: ATTEND Anesthesiology | DX: M47.816 Spondylosis without myelopathy or radiculopathy, lumbar region (principal); Z79.891 Long term (current) use of opiate analgesic; G89.29 Other chronic pain; M54.50 Low back pain, unspecified; F32.A Depression, unspecified; G47.00 Insomnia, unspecified; E78.5 Hyperlipidemia, unspecified; G47.33 Obstructive sleep apnea (adult) (pediatric); G25.81 Restless legs syndrome; F17.210 Nicotine dependence, cigarettes, uncomplicated; Z79.890 Hormone replacement therapy; Z79.899 Other long term (current) drug therapy; Z88.1 Allergy status to other antibiotic agents; Z88.8 Allergy status to other drugs, medicaments and biological substances; Z88.5 Allergy status to narcotic agent ==

== ENCOUNTER → 2024-06-03 | Outpatient (CLI) | payer MEDICAID, MEDICARE ==
[2024-06-03 13:40] LABS: TOTAL IRON BINDING CAPACITY 302 UG/DL (250-425)
[2024-06-03 13:41] LABS: ALBUMIN 3.7 G/DL (3.2-5.2); ALKALINE PHOSPHATASE 82 U/L (46-116); ALT/SGPT 20 U/L (7.0-40); AST/SGOT 9 U/L (<34); BILIRUBIN,TOTAL 0.2 MG/DL (0.3-1.2); BLOOD UREA NITROGEN 14 MG/DL (9-23); CARBON DIOXIDE LEVEL 32 MMOL/L (20-31); CHLORIDE LEVEL 107 MMOL/L (98-107); CHOLESTEROL LEVEL 181 MG/DL (<200); CHOLESTEROL RISK RATIO 3.35 (<5); CREATININE FOR GFR 0.65 MG/DL (0.55-1.30); GLOMERULAR FILTRATION RATE > 60.0 (>45); GLUCOSE, FASTING 82 MG/DL (74-106); HDL CHOLESTEROL 53.9 MG/DL (>40); IRON (FE) 64 UG/DL (50-170); LDL CHOLESTEROL 98.7 MG/DL (<100); NON-HDL-C 127.1 MG/DL; PERCENT SATURATION 21.2 % (13.2-45.0); POTASSIUM SERUM 4.2 MMOL/L (3.5-5.1); SODIUM LEVEL 142 MMOL/L (136-145); TOTAL PROTEIN 6.7 G/DL (5.7-8.2); TRIGLYCERIDES LEVEL 142 MG/DL (<150)
[2024-06-03 13:45] LABS: FERRITIN 42.5 NG/ML (7.3-270.7); THYROID STIMULATING HORMONE 0.341 uIU/ML (0.55-4.78)
[2024-06-03 13:48] LABS: FREE T4 0.88 NG/DL (0.89-1.76)
[2024-06-04 17:07] LABS: % CD4+ LYMPHS 45.7 % (30.8-58.5); ABSOLUTE CD4 HELPER 1600 /uL (359-1519); BASOPHILS 1 % (Not Estab.); BASOPHILS ABSOLUTE 0.1 x10E3/uL (0.0-0.2); EOSINOPHILS 2 % (Not Estab.); EOSINOPHILS ABSOLUTE 0.3 x10E3/uL (0.0-0.4); HCT 35.5 % (34.0-46.6); HGB 12.1 g/dL (11.1-15.9); LYMPHOCYTES 32 % (Not Estab.); LYMPHOCYTES ABSOLUTE 3.5 x10E3/uL (0.7-3.1); MCH 32.5 pg (26.6-33.0); MCHC 34.1 g/dL (31.5-35.7); MCV 95 fL (79-97); MONOCYTES 5 % (Not Estab.); MONOCYTES ABSOLUTE 0.6 x10E3/uL (0.1-0.9); NEUTROPHILS 60 % (Not Estab.); NEUTROPHILS ABSOLUTE 6.4 x10E3/uL (1.4-7.0); PLT 228 x10E3/uL (150-450); RBC 3.72 x10E6/uL (3.77-5.28); RDW 14.3 % (11.7-15.4); WBC 10.9 x10E3/uL (3.4-10.8)
[2024-06-06 12:11] LABS: HIV-1 RNA PCR QUANT 2 <20 DETECTED copies/mL (NOT DETECTED); HIV-1 RNA PCR QUANT 3 <1.30 DETECTED (NOT DETECTED)
== END ==
LOC: M PLALAB 10:48
PROVIDERS: ATTEND Internal Medicine Infectious Disease
DX: B20 Human immunodeficiency virus [HIV] disease (principal); R63.4 Abnormal weight loss; E78.5 Hyperlipidemia, unspecified

== ENCOUNTER → 2024-06-06 | Outpatient (CLI) | payer MEDICAID, MEDICARE, OTHER ==
[~2024-06-06] MED LIST changes: +LIDOCAINE 1% SDV 30ML VIAL As Ordered ONE; +dexAMETHasone 10MG/1ML VIAL PRES.FREE As Ordered ONE; +diazePAM 5MG TABLET As Ordered ONE; +oxyCODONE 5MG TAB As Ordered ONE
== END ==
LOC: M PAIN 14:00
PROVIDERS: ATTEND Anesthesiology
DX: M47.816 Spondylosis without myelopathy or radiculopathy, lumbar region (principal); G47.30 Sleep apnea, unspecified; Z99.89 Dependence on other enabling machines and devices; Z79.1 Long term (current) use of non-steroidal anti-inflammatories (NSAID); Z79.891 Long term (current) use of opiate analgesic; Z79.899 Other long term (current) drug therapy; Z88.1 Allergy status to other antibiotic agents; Z88.5 Allergy status to narcotic agent; Z88.8 Allergy status to other drugs, medicaments and biological substances
CPT/HCPCS: 64635; 64636; J0665; J1100

== ENCOUNTER → 2024-06-18 | Outpatient (CLI) | payer MEDICARE, MEDICAID ==
[~2024-06-18] MED LIST changes: -LIDOCAINE 1% SDV 30ML VIAL As Ordered ONE; -dexAMETHasone 10MG/1ML VIAL PRES.FREE As Ordered ONE; -diazePAM 5MG TABLET As Ordered ONE; -oxyCODONE 5MG TAB As Ordered ONE
== END ==
LOC: M RAD 07:55
PROVIDERS: ATTEND Internal Medicine Infectious Disease
DX: Z87.891 Personal history of nicotine dependence (principal)

== ENCOUNTER → 2024-07-18 | Outpatient (CLI) | payer OTHER, MEDICARE, MEDICAID ==
[~2024-07-18] MED LIST changes: +GABA-1635 PO; -GABA800T4 PO
== END ==
LOC: M PAIN 11:00
PROVIDERS: ATTEND Nurse Practitioner Family
DX: M47.816 Spondylosis without myelopathy or radiculopathy, lumbar region (principal); G89.29 Other chronic pain; F32.A Depression, unspecified; G47.00 Insomnia, unspecified; E78.5 Hyperlipidemia, unspecified; G47.33 Obstructive sleep apnea (adult) (pediatric); G25.81 Restless legs syndrome; B20 Human immunodeficiency virus [HIV] disease; F17.210 Nicotine dependence, cigarettes, uncomplicated; Z79.891 Long term (current) use of opiate analgesic; Z79.899 Other long term (current) drug therapy; Z79.890 Hormone replacement therapy; Z88.5 Allergy status to narcotic agent; Z88.8 Allergy status to other drugs, medicaments and biological substances

== ENCOUNTER 2024-08-11 19:02 | Emergency (ER) | payer MEDICARE, MEDICAID ==
[~2024-08-11] VITALS: Ht 165.1 cm; Wt 66.4 kg
[2024-08-11 19:06] VITALS: BP 148/69; TEMP 97.6; O2SAT 92
== END 2024-08-11 21:12 | disposition left against medical advice (07) ==
LOC: M ED 19:02
DX: Z53.21 Procedure and treatment not carried out due to patient leaving prior to being seen by health care provider (principal)

== ENCOUNTER → 2024-08-12 | Outpatient (REF) | payer MEDICARE, MEDICAID | LOC: M SFHCPLAZ 09:12 | PROVIDERS: ATTEND Internal Medicine Infectious Disease | DX: R63.4 Abnormal weight loss (principal); E03.9 Hypothyroidism, unspecified ==

== ENCOUNTER → 2024-08-12 | Outpatient (CLI) | payer MEDICARE, MEDICAID ==
[2024-08-12 13:35] LABS: THYROID PEROXIDASE ANTIBODY < 28.0 U/ML (<60.0); THYROID STIMULATING HORMONE 1.325 uIU/ML (0.55-4.78); THYROXINE (T4) 6.7 UG/DL (4.5-10.9)
[2024-08-12 13:38] LABS: FREE THYROXINE INDEX 2.4 % (1.3-4.8); T UPTAKE 35.8 % (22.5-37.0)
== END ==
LOC: M PLALAB 09:23
PROVIDERS: ATTEND Internal Medicine Infectious Disease
DX: R63.4 Abnormal weight loss (principal); L28.2 Other prurigo; E03.9 Hypothyroidism, unspecified

== ENCOUNTER → 2024-08-13 | Outpatient (REF) | payer MEDICARE, MEDICAID | LOC: M SFHCADAM 16:39 | PROVIDERS: ATTEND Nurse Practitioner Family | DX: R21 Rash and other nonspecific skin eruption (principal) ==

== ENCOUNTER → 2024-09-25 | Outpatient (REF) | payer MEDICARE, MEDICAID | LOC: M SFHCPLAZ 12:41 | PROVIDERS: ATTEND Internal Medicine Infectious Disease | DX: B83.9 Helminthiasis, unspecified (principal) ==

== ENCOUNTER → 2024-09-26 | Outpatient (REF) | payer MEDICARE, MEDICAID ==
[2024-09-26 19:24] LABS: BASO # 0.1 10^3/uL (0.0-0.2); BASO % 0.9 % (0.0-1.0); EOS # 0.2 10^3/uL (0.0-0.5); EOS % 2.1 % (0.0-3.0); HEMATOCRIT 42.6 % (36.0-47.0); HEMOGLOBIN 13.6 g/dl (12.0-15.5); LYMPH # 3.5 10^3/uL (1.5-5.0); LYMPH % 34.9 % (24.0-44.0); MEAN CORPUSCULAR HEMOGLOBIN 30.6 pg (27.0-33.0); MEAN CORPUSCULAR HGB CONC 31.9 g/dl (32.0-36.5); MEAN CORPUSCULAR VOLUME 95.9 fl (80.0-96.0); MONO # 0.7 10^3/uL (0.0-0.8); MONO % 6.5 % (2.0-8.0); NEUTROPHILS # 5.6 10^3/uL (1.5-8.5); NEUTROPHILS % 55.3 % (36.0-66.0); PLATELET COUNT, AUTOMATED 249 10^3/uL (150-450); RED BLOOD COUNT 4.44 10^6/uL (4.00-5.40); WHITE BLOOD COUNT 10.1 10^3/uL (4.0-10.0)
[2024-09-26 19:53] LABS: ALBUMIN 3.5 G/DL (3.2-5.2); ALKALINE PHOSPHATASE 78 U/L (35-104); ALT/SGPT 18 U/L (7.0-40); AST/SGOT 13 U/L (<34); BILIRUBIN,TOTAL 0.3 MG/DL (0.3-1.2); BLOOD UREA NITROGEN 10 MG/DL (9-23); CALCIUM LEVEL 9.7 MG/DL (8.3-10.6); CARBON DIOXIDE LEVEL 32 MMOL/L (20-31); CHLORIDE LEVEL 105 MMOL/L (98-107); CHOLESTEROL LEVEL 208 MG/DL (<200); CHOLESTEROL RISK RATIO 3.19 (<5); CREATININE FOR GFR 0.69 MG/DL (0.55-1.30); GLOMERULAR FILTRATION RATE > 60.0 (>45); GLUCOSE, FASTING 94 MG/DL (74-106); HDL CHOLESTEROL 65.1 MG/DL (>40); LDL CHOLESTEROL 116.3 MG/DL (<100); MAGNESIUM LEVEL 1.8 MG/DL (1.8-2.4); NON-HDL-C 142.9 MG/DL; SODIUM LEVEL 141 MMOL/L (136-145); TOTAL PROTEIN 7.2 G/DL (5.7-8.2); TRIGLYCERIDES LEVEL 133 MG/DL (<150)
[2024-09-26 20:27] LABS: HEMOGLOBIN A1c 4.9 % (4.0-6.0)
== END ==
LOC: M LAB REF 16:49
PROVIDERS: ATTEND Nurse Practitioner Family
DX: E66.3 Overweight (principal); E07.9 Disorder of thyroid, unspecified

== ENCOUNTER → 2024-11-18 | Outpatient (CLI) | payer MEDICARE, MEDICAID ==
[2024-11-18 13:53] LABS: ALBUMIN 3.7 G/DL (3.2-5.2); ALKALINE PHOSPHATASE 91 U/L (35-104); ALT/SGPT 16 U/L (7.0-40); AST/SGOT 16 U/L (<34); BILIRUBIN,TOTAL 0.3 MG/DL (0.3-1.2); BLOOD UREA NITROGEN 16 MG/DL (9-23); CALCIUM LEVEL 9.5 MG/DL (8.3-10.6); CARBON DIOXIDE LEVEL 28 MMOL/L (20-31); CHLORIDE LEVEL 110 MMOL/L (98-107); CREATININE FOR GFR 0.75 MG/DL (0.55-1.30); GLOMERULAR FILTRATION RATE > 60.0 (>45); GLUCOSE, FASTING 117 MG/DL (74-106); POTASSIUM SERUM 4.3 MMOL/L (3.5-5.1); SODIUM LEVEL 144 MMOL/L (136-145); TOTAL PROTEIN 6.8 G/DL (5.7-8.2)
[2024-11-19 14:08] LABS: % CD4+ LYMPHS 44.7 % (30.8-58.5); ABSOLUTE CD4 HELPER 983 /uL (359-1519); BASOPHILS 1 % (Not Estab.); BASOPHILS ABSOLUTE 0.1 x10E3/uL (0.0-0.2); EOSINOPHILS 2 % (Not Estab.); EOSINOPHILS ABSOLUTE 0.1 x10E3/uL (0.0-0.4); HCT 36.6 % (34.0-46.6); HGB 12.1 g/dL (11.1-15.9); LYMPHOCYTES 30 % (Not Estab.); LYMPHOCYTES ABSOLUTE 2.2 x10E3/uL (0.7-3.1); MCH 31.2 pg (26.6-33.0); MCHC 33.1 g/dL (31.5-35.7); MCV 94 fL (79-97); MONOCYTES 6 % (Not Estab.); MONOCYTES ABSOLUTE 0.5 x10E3/uL (0.1-0.9); NEUTROPHILS 61 % (Not Estab.); NEUTROPHILS ABSOLUTE 4.4 x10E3/uL (1.4-7.0); PLT 185 x10E3/uL (150-450); RBC 3.88 x10E6/uL (3.77-5.28); RDW 14.1 % (11.7-15.4); WBC 7.2 x10E3/uL (3.4-10.8)
[2024-11-22 18:23] LABS: HIV-1 RNA PCR QUANT 2 NOT DETECTED copies/mL (NOT DETECTED); HIV-1 RNA PCR QUANT 3 NOT DETECTED (NOT DETECTED)
== END ==
LOC: M PLALAB 10:20
PROVIDERS: ATTEND Internal Medicine Infectious Disease
DX: B20 Human immunodeficiency virus [HIV] disease (principal)

== ENCOUNTER → 2024-11-22 | Outpatient (CLI) | payer MEDICARE, MEDICAID ==
[~2024-11-22] MED LIST changes: +ISOVUE-370 76% 100ML VIAL As Ordered ONE
== END ==
LOC: M RAD 08:54
PROVIDERS: ATTEND Internal Medicine Infectious Disease
DX: R10.11 Right upper quadrant pain (principal); D35.02 Benign neoplasm of left adrenal gland
CPT/HCPCS: 74177; Q9967

== ENCOUNTER → 2024-12-04 | Outpatient (CLI) | payer OTHER ==
[~2024-12-04] MED LIST changes: -ISOVUE-370 76% 100ML VIAL As Ordered ONE
== END ==
LOC: M PAIN 15:30
PROVIDERS: ATTEND Anesthesiology
DX: M47.816 Spondylosis without myelopathy or radiculopathy, lumbar region (principal); Z79.891 Long term (current) use of opiate analgesic; E78.5 Hyperlipidemia, unspecified; G47.33 Obstructive sleep apnea (adult) (pediatric); F17.210 Nicotine dependence, cigarettes, uncomplicated; Z79.890 Hormone replacement therapy; Z79.899 Other long term (current) drug therapy; Z88.5 Allergy status to narcotic agent; Z88.0 Allergy status to penicillin; Z88.8 Allergy status to other drugs, medicaments and biological substances

== ENCOUNTER → 2024-12-05 | Outpatient (CLI) | payer OTHER | LOC: M PAIN 11:00 | PROVIDERS: ATTEND Anesthesiology | DX: Z79.891 Long term (current) use of opiate analgesic (principal) ==

== ENCOUNTER → 2025-03-07 | Outpatient (REF) | payer MEDICARE | LOC: M SFHCPLAZ 13:20 | PROVIDERS: ATTEND Internal Medicine Infectious Disease | DX: B83.9 Helminthiasis, unspecified (principal) ==

== ENCOUNTER → 2025-07-16 | Outpatient (CLI) | payer MEDICARE, MEDICAID ==
[~2025-07-16] MED LIST changes: -BUPR-597 PO; +BUPR-766 PO; +LEVE1TAB43 PO; -LEVE500T88 PO; -TRIA25CR TOP; +TRIA80CR15 TOP
[2025-07-16 18:11] LABS: ALT/SGPT 20 U/L (7.0-40); AST/SGOT 24 U/L (<34); CALCIUM LEVEL 9.2 MG/DL (8.3-10.6); CARBON DIOXIDE LEVEL 26 MMOL/L (20-31); CHLORIDE LEVEL 105 MMOL/L (98-107); CHOLESTEROL LEVEL 147 MG/DL (<200); CHOLESTEROL RISK RATIO 2.28 (<5); CREATININE FOR GFR 0.70 MG/DL (0.55-1.30); GLOMERULAR FILTRATION RATE > 90.0 (>45); LDL CHOLESTEROL 38.6 MG/DL (<100); NON-HDL-C 82.8 MG/DL; POTASSIUM SERUM 2.9 MMOL/L (3.5-5.1); SODIUM LEVEL 143 MMOL/L (136-145); TRIGLYCERIDES LEVEL 221 MG/DL (<150)
[2025-07-19 03:08] LABS: HIV-1 RNA PCR QUANT 2 NOT DETECTED copies/mL (NOT DETECTED); HIV-1 RNA PCR QUANT 3 NOT DETECTED (NOT DETECTED)
== END ==
LOC: M PLALAB 13:24
PROVIDERS: ATTEND Internal Medicine Infectious Disease
DX: E78.5 Hyperlipidemia, unspecified (principal); B20 Human immunodeficiency virus [HIV] disease